=== PATIENT | female | born 1995 | race Caucasian/White ===

== ENCOUNTER 2021-06-23 14:44 | Outpatient (CLI) | payer OTHER, SELFPAY ==
--- NOTE | 2021-06-26 16:37 | WPDHOLTEREM ---
Holter/Event Monitor Holter/Event Monitor Date of procedure: 06/23/21 Holter/Event Procedure: 24 Hr Holter Monitor Indications: Tachycardia/Bradycardia Conclusion: 1. 24 hour holter monitor on 06/23/21. 2. Underlying rhythm is sinus rhythm. HR range 65-152 bpm; average HR 95 bpm. 3. No premature supraventricular complexes. No supraventricular tachycardia. 4. No premature ventricular complexes. No ventricular tachycardia. 5. No sinoatrial or atrioventricular blocks. No significant pauses greater than 2 seconds. 6. No symptoms available for correlation.
== END 2021-06-23 14:45 | disposition home or self-care (01) ==
DX: R00.0 Tachycardia, unspecified (principal)
CPT/HCPCS: 93225; 93226

== ENCOUNTER 2021-08-24 20:43 | Observation (INO) | payer OTHER, MEDICAID, SELFPAY ==
[2021-08-24 20:56] VITALS: BP 115/78; PULSE 106; PULSE 99; RESP 16; TEMP 36.8; O2SAT 99
[2021-08-24 21:00] VITALS: BP 119/82; PULSE 100; BMI 22.6
[2021-08-24 21:10] LABS: Appearance Urine Clear (Clear); Bilirubin Urine Negative (Negative); Blood Urine Negative (Negative); Color Urine Yellow (Yellow); Glucose Urine UA Negative (Negative); Ketones Urine Negative (Negative); Leukocyte Esterase Ur Negative LEU/UL (Negative); Nitrate Urine Negative (Negative); Protein Urine Negative (Negative); Specific Grav Ur 1.015 (1.001-1.035); Urobilinogen Urine 0.2 mg/dL (<2.0)
[2021-08-24 21:14] LABS: Add Urine Microscopic? NO; Bacteria Urine Trace /hpf; Mucus Urine Rare /lpf; RBC Urine 0-2 /hpf (0-2); Squamous Epithelial Cell Urine Few /hpf (Few); WBC Urine 0-3 /hpf
[2021-08-24 21:15] VITALS: BP 115/74; PULSE 97
--- NOTE | 2021-08-24 21:52 | OBADM ---
This patient, Oliver Go, admitted to the OB room OB Post 115 for observation. Patient/family oriented to hospital policies and general routines including ID bracelet, bed and alarms, visiting hours, pain management, procedures, bathroom and other care routines, personal items, smoking policy, room service/diet, and visiting hours. Patient/Family are encouraged to report perceived risks to care and to ask questions if they do not understand what they are told or what they should do.
--- NOTE | 2021-09-18 15:41 | P.PNOB_ITS ---
OB - Triage/Final Diagnosis Visit Information Comments/Additional reasons for admission: I have assessed the risk for this patient, Oliver Go, and determined that she would benefit from observation care. Evaluation Laboratory results: Laboratory Tests 08/24/21 21:03 Urine Color Yellow Urine Appearance Clear Urine pH 7.0 Ur Specific [place] 1.015 Urine Protein Negative Urine Glucose (UA) Negative Urine Ketones Negative Ur Blood (Man) Negative Urine Nitrate Negative Urine Bilirubin Negative Urine Urobilinogen 0.2 Leukocyte Esterase Rfl Negative Urine RBC 0-2 Urine WBC 0-3 Ur Squamous Epith Cells Few Urine Bacteria Trace Urine Mucus Rare Final Diagnosis (1) Abdominal pain: Code(s): R10.9 - Unspecified abdominal pain Status: Acute
== END 2021-08-24 21:51 | disposition home or self-care (01) ==
PROVIDERS: Admitting Provider Obstetrics & Gynecology; Visit Provider Obstetrics & Gynecology
DX: O26.90 Pregnancy related conditions, unspecified, unspecified trimester (principal); R10.9 Unspecified abdominal pain
CPT/HCPCS: 81003; G0378; G0379

== ENCOUNTER 2021-09-29 08:50 | Observation (INO) | payer OTHER, SELFPAY ==
[2021-09-29] VITALS (7 sets, daily range): BP systolic 109–125; BP diastolic 53–80; PULSE 92–101; TEMP 36.1; BMI 24.5
--- NOTE | 2021-09-29 09:37 | OBADM ---
This patient, Oliver Go, admitted to the OB room OB Post 116 for observation. Patient/family oriented to hospital policies and general routines including ID bracelet, bed and alarms, visiting hours, pain management, procedures, bathroom and other care routines, personal items, smoking policy, room service/diet, and visiting hours. Patient/Family are encouraged to report perceived risks to care and to ask questions if they do not understand what they are told or what they should do. Pt. sent over from office for EFM and FFN r/t UC's noted on monitor.
[2021-09-29 09:48] LABS: Add Urine Microscopic? YES; Appearance Urine Clear (Clear); Bilirubin Urine Negative (Negative); Blood Urine 1+ (Negative); Color Urine Yellow (Yellow); Glucose Urine UA Negative (Negative); Ketones Urine Negative (Negative); Leukocyte Esterase Ur Negative LEU/UL (Negative); Nitrate Urine Negative (Negative); Protein Urine Negative (Negative); Urobilinogen Urine 0.2 mg/dL (<2.0)
[2021-09-29 10:03] LABS: Bacteria Urine Trace /hpf; Mucus Urine Rare /lpf; Squamous Epithelial Cell Urine Few /hpf (Few)
[2021-09-29 10:07] LABS: Fetal Fibronectin Negative
--- NOTE | 2021-09-29 10:14 | PC.NURSE ---
1013--Report to Mari Whitmore CNM re: lab results and ctxns. Orders to give procardia XL 30mg and continue to monitor.
[2021-09-29] MEDS: NIFEdipine 30 MG TAB.ER.24 PO (10:24)
--- NOTE | 2021-10-29 15:34 | P.PNOB_ITS ---
OB - Triage/Final Diagnosis Visit Information Comments/Additional reasons for admission: I have assessed the risk for this patient, Oliver Go, and determined that she would benefit from observation care. Evaluation Laboratory results: Laboratory Tests 09/29/21 09/29/21 09:14 09:18 Urine Color Yellow Urine Appearance Clear Urine pH 7.0 Ur Specific [place] 1.020 Urine Protein Negative Urine Glucose (UA) Negative Urine Ketones Negative Ur Blood (Man) 1+ H Urine Nitrate Negative Urine Bilirubin Negative Urine Urobilinogen 0.2 Leukocyte Esterase Rfl Negative Urine RBC 11-20 H Urine WBC 4-6 H Ur Squamous Epith Cells Few Urine Bacteria Trace Urine Mucus Rare Fibronectin Negative Final Diagnosis (1) False labor: Code(s): O47.9 - False labor, unspecified Status: Acute
== END 2021-09-29 11:30 | disposition home or self-care (01) ==
PROVIDERS: Advanced Practice Midwife; Admitting Provider Obstetrics & Gynecology; Visit Provider Obstetrics & Gynecology
DX: O47.9 False labor, unspecified (principal); Z3A.00 Weeks of gestation of pregnancy not specified
CPT/HCPCS: 81001; 82731; A9270; G0378; G0379

== ENCOUNTER 2021-10-11 16:11 | Outpatient (CLI) | payer OTHER, MEDICAID, SELFPAY | END 2021-10-11 16:12 | disposition home or self-care (01) | PROVIDERS: PCP Family Medicine; Visit Provider Obstetrics & Gynecology | DX: O41.8X90 Other specified disorders of amniotic fluid and membranes, unspecified trimester, not applicable or unspecified (principal) | CPT/HCPCS: 59025; 84112 ==

== ENCOUNTER 2021-10-27 | Observation (INO) | payer OTHER, MEDICAID, SELFPAY ==
[2021-10-27 00:51] VITALS: BMI 25.4
--- NOTE | 2021-10-27 00:52 | OBADM ---
This patient, Oliver Go, admitted to the OB room Labor/Delivery/Recovery 106 for observation. Patient/family oriented to hospital policies and general routines including ID bracelet, bed and alarms, visiting hours, pain management, procedures, bathroom and other care routines, personal items, smoking policy, room service/diet, and visiting hours. Patient/Family are encouraged to report perceived risks to care and to ask questions if they do not understand what they are told or what they should do.
--- NOTE | 2021-10-27 00:54 | PC.NURSE ---
pt called unit at 2108 stating that she hadn't felt baby move in 3 hours. pt advised to come to hospital to be monitored. pt arrived at 0000 with c/o DFM and having back pain and thigh pain. pt states that she has cholestasis with this . no other complications with this .
--- NOTE | 2021-11-20 13:54 | PM.OBTRLD ---
OB - Triage/Final Diagnosis Visit Information Comments/Additional reasons for admission: I have assessed the risk for this patient, Oliver Go, and determined that she would benefit from observation care. Final Diagnosis (1) False labor: Code(s): O47.9 - False labor, unspecified Status: Acute
== END 2021-10-27 02:45 | disposition home or self-care (01) ==
PROVIDERS: Admitting Provider Obstetrics & Gynecology; PCP Family Medicine; Visit Provider Obstetrics & Gynecology
DX: O36.8190 Decreased fetal movements, unspecified trimester, not applicable or unspecified (principal); Z3A.00 Weeks of gestation of pregnancy not specified; O26.899 Other specified pregnancy related conditions, unspecified trimester; M54.9 Dorsalgia, unspecified; M79.659 Pain in unspecified thigh
CPT/HCPCS: G0378; G0379

== ENCOUNTER 2021-10-30 07:04 | Inpatient (IN) | payer OTHER, MEDICAID, SELFPAY ==
[2021-10-30] VITALS (163 sets, daily range): BP systolic 91–142; BP diastolic 53–103; PULSE 59–208; RESP 16; TEMP 36.4–37.9; O2SAT 96–100; BMI 25.0
--- OUTSIDE RECORDS SUMMARY | 2021-10-30 07:09 | XMS_ITS ---
:1995 Author Care Team Providers Name Role Phone CHRISTINE PARRISH Primary Care Provider [phone] Allergies Code Code System Name Reaction Severity Status Onset (28) Seizure ? Active ? 0749541 RxNorm Latex ? ? Active ? Medications Name Status Start Date Stop Date ? ? Asprin Ec Low Dose Active ? Not available BinaxNOW COVID-19 Ag Self Test kit Active ? Not available TEST DIRECTED TODAY COVID-19 test specimen collection Completed ? 06/19/2021 TEST DIRECTED TODAY ID NOW COVID-19 Test Kit Completed ? 022 TEST DIRECTED TODAY Renata Fe 06/01 (28) 1 mg-20 mcg (21)/75 mg (7) tablet Completed ? 05/10/2021 Active ? Not available ursodiol 300 mg capsule Active ? Not avai lable TAKE 1 CAPSULE BY MOUTH TWICE DAILY ursodiol 500 mg tablet Active ? Not avail able Problems Name Status Onset Date Source ? Active 05/10/2021 ? Covid-19 Active 05/15/2021 ? Nicotine Dependence Active ? ? Spinal Injury Active ? ? Procedures Date Name Performed by ? 04/12/2021 US, Obstetric, 1St Trimester [address] [place] [address] ([address]) 05/10/2021 US, Obstetric, Nuchal Translucency Juan russo [address] [place] [address] ([address]) 06[facility]/2021 [facility]
--- OUTSIDE RECORDS SUMMARY | 2021-10-30 07:10 | XMS_ITS | Encounter Summary ---
:1995 Author Care Team Providers Name Role Phone Ruth Boswell Primary Care Provider [phone] Reason for Visit None recorded. Assessment and Plan 1. condition affecting obstetrica l care of mother ? US, obstetric, biophysical profile Discussion Note: None recorded.Patient educational handouts: No information available. Plan of Care Reminders Provider Appointments Nst 10/31/2021 Nst, , EQUIP 8:00AM ? Ob Routine 11/03/2021 Jacek zelaya MD 8:30AM ? Nst 11/03/2021 Nst, , EQUIP 8:00AM ? Nst 11/07/2021 Nst, , EQUIP 8:00AM ? Nst 11/10/2021 Nst, , EQUIP 8:00AM ? Ob Routine 11/10/2021 SHAYNE GipsonM 8:30AM ? Nst 11/14/2021 Nst, , EQUIP 8:00AM ? Nst 11/17/2021 Nst, , EQUIP 8:00AM ? Ob Routine 11/17/2021 Roseline Whitmore CNM 8:30AM Lab None recorded. ? ? Referral None recorded. ? ? Procedures None recorded. ? ? Surgeries None recorded. ? ? Imaging US, Obstetric, Biophysical 10/20/2021 [place] Profile Medications Name Start Date ? ? Asprin Ec Low Dose ? BinaxNOW COVID-19 Ag Self Test kit ? TEST DIRECTED TODAY ? ursodiol 300 mg capsule ? TAKE 1
--- OUTSIDE RECORDS SUMMARY | 2021-10-30 07:10 | XMS_ITS | Encounter Summary ---
:1995 Author Care Team Providers Name Role Phone Ruth Boswell Primary Care Provider [phone] Reason for Visit None recorded. Assessment and Plan 1. condition affecting obstetrica l care of mother ? US, obstetric, biophysical profile + non-stress test Discussion Note: None recorded.Patient educational handouts: No information available. Plan of Care Reminders Provider Appointments Nst 10/31/2021 Nst, , EQUIP 8:00AM ? Ob Routine 11/03/2021 Jacek zelaya MD 8:30AM ? Nst 11/03/2021 Nst, , EQUIP 8:00AM ? Nst 11/07/2021 Nst, , EQUIP 8:00AM ? Nst 11/10/2021 Nst, , EQUIP 8:00AM ? Ob Routine 11/10/2021 Roseline Whitmore CNM 8:30AM ? Nst 11/14/2021 Nst, , EQUIP 8:00AM ? Nst 11/17/2021 Nst, , EQUIP 8:00AM ? Ob Routine 11/17/2021 SHAYNE GipsonM 8:30AM Lab None recorded. ? ? Referral None recorded. ? ? Procedures None recorded. ? ? Surgeries None recorded. ? ? Imaging US, Obstetric, Biophysical 10/06/2021 [place] Profile + Non-stress Test Medications Name Start Date ? ? Asprin Ec Low Dose ? BinaxNOW COVID-19 Ag Self Test kit ? TEST DIRECTED TODAY ? ursodiol 300 mg capsule ?
--- OUTSIDE RECORDS SUMMARY | 2021-10-30 07:10 | XMS_ITS | Encounter Summary ---
:1995 Author Care Team Providers Name Role Phone Ruth Boswell Primary Care Provider [phone] Reason for Visit OB visit OB [id number] EDC 11/19/2021 LMP 04/12/2020 Assessment and Plan Assessment Note Patient is 33___weeks . Discuss ed plan. 1. Routine care Discussion Note: None recorded.Patient educational handouts: No information available. Plan of Care Reminders Provider Appointments Nst 10/31/2021 8:00AM Nst, , EQUIP ? Ob Routine 11/03/2021 8:30AM Jacek Smith MD ? Nst 11/03/2021 8:00AM Nst, , EQUIP ? Nst 11/07/2021 8:00AM Nst, , EQUIP ? Nst 11/10/2021 8:00AM Nst, , EQUIP ? Ob Routine 11/10/2021 8:30AM Roseline nevarez CNM ? Nst 11/14/2021 8:00AM Nst, , EQUIP ? Nst 11/17/2021 8:00AM Nst, , EQUIP ? Ob Routine 11/17/2021 8:30AM Roseline nevarez CNM Lab None recorded. ? ? Referral None recorded. ? ? Procedures None recorded. ? ? Surgeries None recorded. ? ? Imaging None recorded. ? ? Medications Name Start Date ? ? Asprin Ec Low Dose ? BinaxNOW COVID-19 Ag Self Test kit ? TEST DIRECTED TODAY ? ursodiol 300 mg capsule ? TAKE 1 CAPSULE BY MOUTH TWICE DAILY ursodiol 500 mg tablet ? Take 1 tablet twice a day by oral route. Medications Administered None recorded. Vitals Height Weight BMI Blood Pressure 5 ft 1.5 in 134 lbs 24.9 kg/m2 120/78 mm[Hg] Results Lab Results None r
--- OUTSIDE RECORDS SUMMARY | 2021-10-30 07:10 | XMS_ITS | Encounter Summary ---
:1995 Author Care Team Providers Name Role Phone Ruth Boswell Primary Care Provider [phone] Reason for Visit None recorded. Assessment and Plan 1. Cholestasis of ? non-stress test Discussion Note: None recorded.Patient educational handouts: No information available. Plan of Care Reminders Provider Appointments Nst 10/31/2021 8:00AM Nst, , EQUIP ? Ob Routine 11/03/2021 8:30AM Jacek Smith MD ? Nst 11/03/2021 8:00AM Nst, , EQUIP ? Nst 11/07/2021 8:00AM Nst, , EQUIP ? Nst 11/10/2021 8:00AM Nst, , EQUIP ? Ob Routine 11/10/2021 8:30AM SHAYNE BedollaM ? Nst 11/14/2021 8:00AM Nst, , EQUIP ? Nst 11/17/2021 8:00AM Nst, , EQUIP ? Ob Routine 11/17/2021 8:30AM Roseline nevarez CNM Lab None recorded. ? ? Referral None recorded. ? ? Procedures None recorded. ? ? Surgeries None recorded. ? ? Imaging Non-stress Test 10/27/2021 [place] Medications Name Start Date ? ? Asprin Ec Low Dose ? BinaxNOW COVID-19 Ag Self Test kit ? TEST DIRECTED TODAY ? ursodiol 300 mg capsule ? TAKE 1 CAPSULE BY MOUTH TWICE DAILY ursodiol 500 mg tablet ? Take 1 tablet twice a day by oral route. Medications Administered None recorded. Vitals None recorded. Results Lab Results None recorded. Allergies Code Code System Name Reaction Severity Onset (28) Seizure ? ? [id number] RxNorm Latex ? ? ? Problems Name Status O
--- OUTSIDE RECORDS SUMMARY | 2021-10-30 07:10 | XMS_ITS | Encounter Summary ---
:1995 Author Care Team Providers Name Role Phone Ruth Boswell Primary Care Provider [phone] Reason for Visit None recorded. Assessment and [...] recorded. ? ? Imaging US, Obstetric, Biophysical 10/10/2021 [place] Profile Medications Name Start Date ? ? Asprin Ec Low Dose ? BinaxNOW COVID-19 Ag Self Test kit ? TEST DIRECTED TODAY ? ursodiol 300 mg capsule ? TAKE 1
--- OUTSIDE RECORDS SUMMARY | 2021-10-30 07:10 | XMS_ITS | Encounter Summary ---
:1995 Author Care Team Providers Name Role Phone Ruth Boswell Primary Care Provider [phone] Reason for Visit None recorded. Assessment and [...] None recorded. ? ? Imaging Non-stress Test 10/20/2021 [place] Medications Name Start Date ? ? Asprin [...] Reaction Severity Onset (28) Seizure ? ? [id number] RxNorm Latex ? ? ? Problems Name Status O
--- OUTSIDE RECORDS SUMMARY | 2021-10-30 07:10 | XMS_ITS | Encounter Summary ---
:1995 Author Care Team Providers Name Role Phone Ruth Boswell Primary Care Provider [phone] Reason for Visit OB visit OB [id number] EDC 11/19/2021 LMP 04/12/2020 Assessment and Plan Assessment Note Patient is _35__weeks . Discuss ed plan. 1. Routine care [...] BMI Blood Pressure 5 ft 1.5 in 139 lbs 25.8 kg/m2 125/85 mm[Hg] Results Lab Results None r
--- OUTSIDE RECORDS SUMMARY | 2021-10-30 07:10 | XMS_ITS | Encounter Summary ---
:1995 Author Care Team Providers Name Role Phone Ruth Boswell Primary Care Provider [phone] Reason for Visit OB visit OB [id number] EDC 11/19/2021 LMP 04/12/2020 Assessment and Plan Assessment Note Patient is _34__weeks . Discuss ed plan. 1. Routine care [...] ft 1.5 in 134 lbs 24.9 kg/m2 109/76 mm[Hg] Results Lab Results None r
--- OUTSIDE RECORDS SUMMARY | 2021-10-30 07:10 | XMS_ITS | Encounter Summary ---
:1995 Author Care Team Providers Name Role Phone Ruth Boswell Primary Care Provider [phone] Reason for Visit None recorded. Assessment and Plan 1. Pre-existing maternal disease compli cating ? US, obstetric, follow-up ? US, obstetric, biophysical profile + non-stress [...] None recorded. ? ? Imaging US, Obstetric, Follow-up 10/24/2021 [place] ? US, Obstetric, Biophysical 10/24/2021 [place] Profile + Non-stress Test Medications Name Start Date ? ? Asprin Ec Low Dose ? BinaxNOW COVID-19 Ag Self Test kit ?
--- OUTSIDE RECORDS SUMMARY | 2021-10-30 07:10 | XMS_ITS | Encounter Summary ---
:1995 Author Care Team Providers Name Role Phone Ruth Boswell Primary Care Provider [phone] Reason for Visit NST [id number] EDC 11/19/2021 Assessment and Plan 1. Cholestasis of ? [...] None recorded. ? ? Imaging Non-stress Test 10/10/2021 [place] Medications Name Start Date ? ? Asprin [...] ft 1.5 in 134 lbs 24.9 kg/m2 122/85 mm[Hg] Results Lab Results None recorded. Allergies Code Code System Name Reaction Severity Onset (2
--- OUTSIDE RECORDS SUMMARY | 2021-10-30 07:10 | XMS_ITS | Encounter Summary ---
:1995 Author Care Team Providers Name Role Phone Ruth Boswell Primary Care Provider [phone] Reason for Visit OB visit Assessment and Plan Assessment Note Patient is ___weeks . Discussed plan. 1. Routine care Discussion Note: None recorded.Patient educational handouts: No information available. Plan of Care Reminders Provider Appointments Nst 10/31/2021 8:00AM Nst, , EQUIP ? Ob Routine 11/03/2021 8:30AM Jacke Smith MD ? Nst 11/03/2021 8:00AM Nst, [...] ft 1.5 in 139 lbs 25.8 kg/m2 117/81 mm[Hg] Results Lab Results None recorded. Allergies Code Code System Name Re
--- OUTSIDE RECORDS SUMMARY | 2021-10-30 07:10 | XMS_ITS | Encounter Summary ---
:1995 Author Care Team Providers Name Role Phone Ruth Boswell Primary Care Provider [phone] Reason for Visit None recorded. Assessment and [...] None recorded. ? ? Imaging Non-stress Test 10/13/2021 [place] Medications Name Start Date ? ? Asprin [...] Reaction Severity Onset (28) Seizure ? ? [id number] RxNorm Latex ? ? ? Problems Name Status O
--- OUTSIDE RECORDS SUMMARY | 2021-10-30 07:10 | XMS_ITS | Encounter Summary ---
:1995 Author Care Team Providers Name Role Phone Ruth Boswell Primary Care Provider [phone] Reason for Visit NST [id number] EDC 11/19/2021 Assessment and Plan 1. Cholestasis [...] None recorded. ? ? Imaging Non-stress Test 10/24/2021 [place] Medications Name Start Date ? ? Asprin Ec Low Dose ? BinaxNOW COVID-19 Ag Self Test kit ? TEST DIRECTED TODAY ? ursodiol 300 mg capsule ? TAKE 1 CAPSULE BY MOUTH TWICE DAILY ursodiol 500 mg tablet ? Take 1 tablet twice a day by oral route. Medications Administered None recorded. Vitals Height Weight BMI Blood Pressure 5 ft 1.5 in 138 lbs 25.7 kg/m2 117/82 mm[Hg] Results Lab Results None recorded. Allergies Code Code System Name Reaction Severity Onset (2
--- OUTSIDE RECORDS SUMMARY | 2021-10-30 07:10 | XMS_ITS | Encounter Summary ---
:1995 Author Care Team Providers Name Role Phone Ruth Boswell Primary Care Provider [phone] Reason for Visit None recorded. Assessment and [...] None recorded. ? ? Imaging Non-stress Test 10/17/2021 [place] Medications Name Start Date ? ? Asprin Ec Low Dose ? BinaxNOW COVID-19 Ag Self Test kit ? TEST DIRECTED TODAY ? ursodiol 300 mg capsule ? TAKE 1 CAPSULE BY MOUTH TWICE DAILY ursodiol 500 mg tablet ? Take 1 tablet twice a day by oral route. Medications Administered None recorded. Vitals Height Weight BMI Blood Pressure 5 ft 1.5 in 136 lbs 25.3 kg/m2 114/81 mm[Hg] Results Lab Results None recorded. Allergies Code Code System Name Reaction Severity Onset (28) Seizure
--- OUTSIDE RECORDS SUMMARY | 2021-10-30 07:11 | XMS_ITS | Encounter Summary ---
:1995 Author Care Team Providers Name Role Phone Ruth Boswell Primary Care Provider [phone] Reason for Visit OB visit OB [id number] EDC 11/19/2021 LMP 04/12/2020 Assessment and Plan Assessment Note Patient is _28__weeks . Discuss ed plan. 1. Routine care [...] BMI Blood Pressure 5 ft 1.5 in 129 lbs 24 kg/m2 108/67 mm[Hg] Results Lab Results None
--- OUTSIDE RECORDS SUMMARY | 2021-10-30 07:11 | XMS_ITS | Encounter Summary ---
:1995 Author Care Team Providers Name Role Phone Ruth Boswell Primary Care Provider [phone] Reason for Visit None recorded. Assessment and [...] None recorded. ? ? Imaging Non-stress Test 10/06/2021 [place] Medications Name Start Date ? ? Asprin [...] Reaction Severity Onset (28) Seizure ? ? [id number] RxNorm Latex ? ? ? Problems Name Status O
--- OUTSIDE RECORDS SUMMARY | 2021-10-30 07:11 | XMS_ITS | Encounter Summary ---
:1995 Author Care Team Providers Name Role Phone Ruth Boswell Primary Care Provider [phone] Reason for Visit None recorded. Assessment and Plan 1. Pre-existing maternal disease compli cating ? US, obstetric, follow-up Discussion Note: None recorded.Patient educational handouts: No [...] recorded. ? ? Imaging US, Obstetric, Follow-up 08/02/2021 [place] Medications Name Start Date ? ? Asprin Ec Low Dose ? BinaxNOW COVID-19 Ag Self Test kit ? TEST DIRECTED TODAY ? ursodiol 300 mg capsule ?
--- OUTSIDE RECORDS SUMMARY | 2021-10-30 07:11 | XMS_ITS | Encounter Summary ---
:1995 Author Care Team Providers Name Role Phone Ruth Boswell Primary Care Provider [phone] Reason for Visit None recorded. Assessment and Plan 1. Routine care Discussion Note: None recorded.Patient [...] Reaction Severity Onset (28) Seizure ? ? [id number] RxNorm Latex ? ? ? Problems Name Status Onset Date Source ?
--- OUTSIDE RECORDS SUMMARY | 2021-10-30 07:11 | XMS_ITS | Encounter Summary ---
:1995 Author Care Team Providers Name Role Phone Ruth Boswell Primary Care Provider [phone] Reason for Visit OB visit Assessment and Plan 1. Routine care Discussion [...] BMI Blood Pressure 5 ft 1.5 in 123 lbs 22.9 kg/m2 111/70 mm[Hg] Results Lab Results None recorded. Allergies Code Code System Name Reaction Severity Onset (28) Seizure ? ? [id number] RxNorm Latex ? ?
--- OUTSIDE RECORDS SUMMARY | 2021-10-30 07:11 | XMS_ITS | Encounter Summary ---
:1995 Author Care Team Providers Name Role Phone Ruth Boswell Primary Care Provider [phone] Reason for Visit None recorded. Assessment and Plan 1. Cholestasis of ? US, obstetric, follow-up Discussion Note: None [...] recorded. ? ? Imaging US, Obstetric, Follow-up 09/26/2021 [place] Medications Name Start Date ? ? Asprin Ec Low Dose ? BinaxNOW COVID-19 Ag Self Test kit ? TEST DIRECTED TODAY ? ursodiol 300 mg capsule ? TAKE 1 CAPSULE BY MOUTH
--- OUTSIDE RECORDS SUMMARY | 2021-10-30 07:11 | XMS_ITS | Encounter Summary ---
:1995 Author Care Team Providers Name Role Phone Ruth Boswell Primary Care Provider [phone] Reason for Visit None recorded. Assessment and [...] recorded. ? ? Imaging US, Obstetric, Biophysical 10/03/2021 [place] Profile + Non-stress Test Medications Name Start Date ? ? Asprin Ec Low Dose ? BinaxNOW COVID-19 Ag Self Test kit ? TEST DIRECTED TODAY ? ursodiol 300 mg capsule ?
--- OUTSIDE RECORDS SUMMARY | 2021-10-30 07:11 | XMS_ITS | Encounter Summary ---
:1995 Author Care Team Providers Name Role Phone Ruth Boswell Primary Care Provider [phone] Reason for Visit Contraceptive management Assessment and Plan 1. Cholestasis of ? [...] None recorded. ? ? Imaging Non-stress Test 09/26/2021 [place] Medications Name Start Date ? ? Asprin Ec Low Dose ? BinaxNOW COVID-19 Ag Self Test kit ? TEST DIRECTED TODAY ? ursodiol 300 mg capsule ? TAKE 1 CAPSULE BY MOUTH TWICE DAILY ursodiol 500 mg tablet ? Take 1 tablet twice a day by oral route. Medications Administered None recorded. Vitals Weight Blood Pressure 132 lbs 118/75 mm[Hg] Results Lab Results None recorded. Allergies Code Code System Name Reaction Severity Onset (28) Seizure ?
--- OUTSIDE RECORDS SUMMARY | 2021-10-30 07:11 | XMS_ITS | Encounter Summary ---
:1995 Author Care Team Providers Name Role Phone Ruth Boswell Primary Care Provider [phone] Reason for Visit NST [id number] EDC 11/19/2021 Assessment and Plan 1. Cholestasis [...] None recorded. ? ? Imaging Non-stress Test 10/03/2021 [place] Medications Name Start Date ? ? Asprin [...] ft 1.5 in 134 lbs 24.9 kg/m2 119/84 mm[Hg] Results Lab Results None recorded. Allergies Code Code System Name Reaction Severity Onset (2
--- OUTSIDE RECORDS SUMMARY | 2021-10-30 07:11 | XMS_ITS | Encounter Summary ---
:1995 Author Care Team Providers Name Role Phone Ruth Boswell Primary Care Provider [phone] Reason for Visit OB visit OB [id number] EDC 11/19/2021 LMP 04/12/2020 Assessment and Plan Assessment Note Patient is _30__weeks . Discuss ed plan. 1. Routine care [...] BMI Blood Pressure 5 ft 1.5 in 131 lbs 24.4 kg/m2 116/78 mm[Hg] Results Lab Results None re
--- OUTSIDE RECORDS SUMMARY | 2021-10-30 07:11 | XMS_ITS | Encounter Summary ---
:1995 Author Care Team Providers Name Role Phone Ruth Boswell Primary Care Provider [phone] Reason for Visit None recorded. Assessment and [...] recorded. ? ? Imaging US, Obstetric, Follow-up 08/30/2021 [place] Medications Name Start Date ? ? Asprin Ec Low Dose ? BinaxNOW COVID-19 Ag Self Test kit ? TEST DIRECTED TODAY ? ursodiol 300 mg capsule ?
--- OUTSIDE RECORDS SUMMARY | 2021-10-30 07:11 | XMS_ITS | Encounter Summary ---
:1995 Author Care Team Providers Name Role Phone Ruth Boswell Primary Care Provider [phone] Reason for Visit None recorded. Assessment and [...] None recorded. ? ? Imaging Non-stress Test 09/29/2021 [place] Medications Name Start Date ? ? Asprin [...] Reaction Severity Onset (28) Seizure ? ? [id number] RxNorm Latex ? ? ? Problems Name Status O
--- NOTE | 2021-10-30 07:43 | LDADM ---
This patient, Oliver Go, was admitted to Labor/Delivery/Recovery 105 on 10/30/21 at 07:04. Plans for labor, pain management and were discussed with patient. Patient/family oriented to hospital policies and general routines including ID bracelet, bed and alarms, visiting hours, pain management, procedures, bathroom and other care routines, personal items, smoking policy, room service/diet and guest tray routines, infant security routines, and visiting hours. Patient/Family are encouraged to report perceived risks to care and to ask questions if they do not understand what they are told or what they should do. See OBIX for further documentation.
[2021-10-30 08:01] LABS: Basophils Percent Auto 0.2 % (0.2-1.2); Eosinophils Absolute Auto 0.1 K/mm3 (0-0.3); Eosinophils Percent Auto 0.6 % (0-4.4); Hematocrit 32.7 % (37.0-47.0); Hemoglobin 10.7 g/dL (12.0-15.0); Immature Granulocyte Absolute 0.09 K/mm3 (0.00-0.031); Lymphocytes Absolute Auto 2.09 K/mm3 (0.9-3.2); Lymphocytes Percent Auto 23.2 % (18.3-44.2); Mean Corpuscular HGB Conc 32.7 g/dl (32-36); Mean Corpuscular Hemoglobin 27.9 pg (26-34); Mean Corpuscular Volume 85.2 fl (80-100); Mean Platelet Volume 11.1 fl (7.4-10.4); Monocytes Absolute Auto 0.5 K/mm3 (0.1-0.6); Neutrophils Absolute Auto 6.2 K/mm3 (1.3-6.7); Platelet Count Result 237 k/mm3 (150-375); Red Blood Count 3.84 M/mm3 (4.2-5.4); Red Cell Distribution Width 11.8 % (11.5-14.5)
[2021-10-30] MEDS: OXYTOCIN 30 UNITS/NS 500 ML 30 UNITS/500 ML BAG IV CONT (08:02)
[2021-10-30] MEDS: LACTATED RINGERS 1,000 ML 125 ML IV CONT ×2 (08:03→11:10)
--- NOTE | 2021-10-30 08:24 | WPDHPUPDATE1 ---
History and Physical Update Update Date/Time: 10/30/21 08:24 25-year-old 1 at 37 weeks and 1 day gestation with cholestasis presents for induction of labor. Artificial rupture membranes was performed. She is 2 cm, 80%,-3. Clear fluid. Pitocin is started, expectant management. History and Physical has been reviewed, including an updated exam of the patient. There are NO changes in the patient's condition. Risks, benefits, and alternatives have been discussed and questions answered. Patient agrees to proceed with procedure.
[2021-10-30] MEDS: fentaNYL CITRATE INJ (*CRX) 100 MCG/2 ML VIAL 50 MCG IV PUSH (10:33)
--- NOTE | 2021-10-30 10:59 | WPDANESEPP ---
Anes - Eval Pre Procedure Procedure: Labor Epidural Date/Time: 10/30/21 10:59 Surgeon: Luis Preop Diagnosis: Labor Pain Pre Op Diagnosis: iol Patient Data Age: 25 Gender: F Height: 1.57 m Weight: 62 kg Last Vital Signs Temp 36.4 C L 10/30/21 09:50 Pulse 95 10/30/21 09:46 BP 102/73 10/30/21 09:46 O2 Del Method Room Air 10/30/21 07:42 Allergies Allergy/AdvReac Type Severity Reaction Status Date / Time levofloxacin [From Levaquin] Allergy Mild Rash Verified 10/30/21 07:49 latex Allergy Blister Verified 10/30/21 07:49 Home Medications Medication Instructions Recorded Confirmed Type ursodiol 300 mg capsule 300 mg PO BID 08/24/21 10/30/21 History vit no.133-ferrous 1 tablet PO DAILY 09/29/21 10/30/21 History fumarate 28 mg-folic acid 800 mcg tablet () Laboratory Tests 10/30/21 10/30/21 10/30/21 07:51 07:51 07:51 WBC 9.0 K/mm3 K/mm3 (4.5-10.0) RBC 3.84 M/mm3 L M/mm3 (4.2-5.4) Hgb 10.7 g/dL L g/dL (12.0-15.0) Hct 32.7 % L % (37.0-47.0) MCV 85.2 fl fl (80-100) MCH 27.9 pg pg (26-34) MCHC 32.7 g/dl g/dl (32-36) RDW 11.8 % % (11.5-14.5) Plt Count 237 k/mm3 k/mm3 (150-375) MPV 11.1 fl H fl (7.4-10.4) Immature Gran % (Auto) 1.0 % H % (0-0.5) Neut % (Auto) 69.0 % % (45.5-73.1) Lymph % (Auto) 23.2 % % (18.3-44.2) [place] % (Auto) 6.0 % % (2.6-8.5) Eos % (Auto) 0.6 % % (0-4.4) Baso % (Auto) 0.2 % % (0.2-1.2) Lymph # (Auto) 2.09 K/mm3 K/mm3 (0.9-3.2) [place] # (Auto) 0.5 K/mm3 K/mm3 (0.1-0.6) Eos # (Auto) 0.1 K/mm3 K/mm3 (0-0.3) Baso # (Auto) 0.0 K/mm3 K/mm3 (0.0-0.1) Abs Immat Gran (auto) 0.09 K/mm3 H K/mm3 (0.00-0.031) Absolute Neuts (auto) 6.2 K/mm3 K/mm3 (1.3-6.7) Absolute Nucleated RBC 0.0 K/mm3 K/mm3 (0.0-0.012) Nucleated RBC % 0.0 % % (0.0-0.2) RPR Pending Blood Type A Positive Antibody Screen Negative Patient hx anesthesia problems: none Family hx anesthesia problems: none Results Review: All pre-operative results and documents have been reviewed as part of the pre-operative evaluation. [facility] Family History Family History Grandparent Hypertension Cerebrovascular accident Bipolar 1 disorder Depression Father Hypertension Bipolar 1 disorder Depression Sibling Hypothyroidism Depression Social History Social History Smoking status: Current every day smoker Tobacco type: e-cigarettes/vaping Substance use: never Spiritual care concerns: No Exam Day of Procedure 10/30/21 10:59 Patient weight: normal Heart: regular rate and rhythm Lungs: normal air movement Airway: Mallampati scale class II Neurological: alert and oriented
[2021-10-30 14:41] LABS: Rapid Plasma Reagin Non-Reactive (NonReactive)
[2021-10-30] MEDS: ONDANSETRON INJ 4 MG/2 ML VIAL IV PUSH (16:55)
[2021-10-30] MEDS: AMPICILLIN 2 GM/NS 100 ML 2 GM/100 ML BAG IVPB (17:49)
--- NOTE | 2021-10-30 20:08 | PM.OBPRVD ---
OB - Delivery Note Procedure Events: Other (choleystasis ) Induction method: AROM and Per Pitocin Protocol Delivery monitor: External FHT and External Uterine Route of delivery: Laceration Description: Perineal - 2nd Degree Specimen: No Quantitative Blood Loss (ml): 75 Baby Date of : 10/30/21 Time of : 19:48 Weeks of gestation at delivery: 37 Weight (pounds): 7 Weight (ounces): 11 score one minute: 8 score five minutes: 9
[2021-10-30] MEDS: OXYTOCIN 30 UNITS/NS 500 ML 30 UNITS/500 ML BAG 125 UNITS IV CONT (20:21)
[2021-10-30] MEDS: IBUPROFEN 600 MG TABLET PO (21:03)
[2021-10-30] MEDS: BENZOCAINE 20% AER SPR (*SP) 56 GM CAN 1 SPRAY TOPICAL (21:03)
[2021-10-30] MEDS: WITCH HAZEL 40 PADS 1 PAD TOPICAL (21:03)
--- NOTE | 2021-10-30 22:50 | ADMGEN ---
This patient, Oliver Go, was admitted to OB 2nd Floor Room 284-00. Patient/family oriented to hospital policies and general routines including ID bracelet, bed and alarms, visiting hours, pain management, procedures, bathroom and other care routines, personal items, smoking policy, room service/diet, and visiting hours. Information on how to activate the Rapid Response Team has been discussed. Patient/Family are encouraged to report perceived risks to care and to ask questions if they do not understand what they are told or what they should do.
[2021-10-31] MEDS: ACETAMINOPHEN 325 MG TABLET 650 MG PO ×3 (03:21→17:34)
[2021-10-31] MEDS: IBUPROFEN 600 MG TABLET PO ×3 (03:23→17:35)
[2021-10-31 03:54] VITALS: BP 111/77; PULSE 88; RESP 18; TEMP 36.6
[2021-10-31 05:24] LABS: Hematocrit 29.9 % (37.0-47.0); Hemoglobin 9.8 g/dL (12.0-15.0)
[2021-10-31 07:25] VITALS: BP 112/62; PULSE 70; RESP 18; TEMP 36.5; O2SAT 99
--- NOTE | 2021-10-31 07:36 | PM.OBPNVD ---
OB - PN: Subj Subjective Date/time seen: 10/31/21 07:36 Patient comments: no complaints, pain well controlled, incisional pain, tolerating diet and flatus present OB - PN: Obj Data Labs CBC & Chem 7: 10/31/21 03:19 Labs: Laboratory Results - last 24 hr 10/30/21 10/30/21 10/30/21 07:51 07:51 07:51 WBC 9.0 RBC 3.84 L Hgb 10.7 L Hct 32.7 L MCV 85.2 MCH 27.9 MCHC 32.7 RDW 11.8 Plt Count 237 MPV 11.1 H Immature Gran % (Auto) 1.0 H Neut % (Auto) 69.0 Lymph % (Auto) 23.2 [place] % (Auto) 6.0 Eos % (Auto) 0.6 Baso % (Auto) 0.2 Lymph # (Auto) 2.09 [place] # (Auto) 0.5 Eos # (Auto) 0.1 Baso # (Auto) 0.0 Abs Immat Gran (auto) 0.09 H Absolute Neuts (auto) 6.2 Absolute Nucleated RBC 0.0 Nucleated RBC % 0.0 RPR Non-reactive Blood Type A Positive Antibody Screen Negative 10/31/21 03:19 WBC RBC Hgb 9.8 L Hct 29.9 L MCV MCH MCHC RDW Plt Count MPV Immature Gran % (Auto) Neut % (Auto) Lymph % (Auto) [place] % (Auto) Eos % (Auto) Baso % (Auto) Lymph # (Auto) [place] # (Auto) Eos # (Auto) Baso # (Auto) Abs Immat Gran (auto) Absolute Neuts (auto) Absolute Nucleated RBC Nucleated RBC % RPR Blood Type Antibody Screen OB - PN A/P Plan day: 1 Plan: routine care Comments: No problems, routine care Time Spent With Patient Time: Total time spent is greater than 50% in coordination of care (as documented) at patient's floor/unit and/or counseling patient: Exam Const: General: comfortable, no acute distress and alert Resp: Effort & Inspection: normal respiratory effort Auscultation: no crackles, no rales and no rhonchi Cardio: Rate: regular rate Heart sounds: no click, no murmurs and no rubs GI: Inspection: non-distended GI Palp: No Tenderness to palpation present (GI) Auscultation: normal bowel sounds Other: Incision - CDI Extrem: General: normal to inspection, no pedal edema and no calf tenderness
[2021-10-31] MEDS: MULTIVIT/MIN/PREN/FOL AC/IRON TABLET 1 TAB PO (08:07)
[2021-10-31] MEDS: DOCUSATE SODIUM 100 MG CAPSULE PO ×2 (08:07→17:34)
[2021-10-31] MEDS: POLYSACCHARIDE IRON COMPLEX 150 MG CAPSULE PO ×2 (08:07→17:34)
--- NOTE | 2021-10-31 10:24 | WPDANLDPN2 ---
Anes-Prog Note L&D Date/Time: 10/31/21 10:24 Comfortable throughout: labor and delivery Neuraxial method: epidural Epidural/Spinal procedure site: clean & non-tender Neuro status: Neuro function grossly intact. Cardiovascular status: normal Respiratory status: normal Airway patency: baseline Mental status: baseline Post-Op hydration status: normal Vital Signs: Last Vital Signs Temp 36.5 C 10/31/21 07:25 Pulse 70 10/31/21 07:25 Resp 18 10/31/21 07:25 BP 112/62 10/31/21 07:25 Pulse Ox 99 10/31/21 07:25 O2 Del Method Room Air 10/31/21 07:25 Pain score (VAS): 05/22 I/O: Intake & Output 10/30/21 10/31/21 10/31/21 23:59 07:59 15:59 Intake Total 600 500 350 Output Total 196 Balance 404 500 350 Post-procedural complaints: none Patient feedback: Patient satisfied with anesthetic care.
[2021-10-31 11:15] VITALS: BP 116/77; PULSE 96; RESP 18; TEMP 36.6; O2SAT 99
--- NOTE | 2021-10-31 13:05 | PC.NURSE ---
[id number] Introductions were made, then consulted with patient to assess needs related to . Mother led the conversation with her experience feeding her so far. Mother works well with her . Encouraged understanding of the benefits of skin to skin (unwrapping infant and placing vertically on her chest), responsive feeding and how to watch for early feeding signs, frequency of feeding on demand about every 8-12 times in 24 hours (every 2-3 hours), milk production, duration of feeding, signs of adequate intake/output and how to record on the feeding sheet. Reviewed positioning and ear, shoulder, hip alignment, supporting the breast, asymmetrical latch (off-center), and leading with the chin with a big open side gape. Mother and maternal mother shares knowledge and experience with history of . Mother became when her 1st was 8 months old. Encouraged assessing latch related to the difference between a versus a 8 month old infant. Mother latched to the right breast and denies discomfort. demonstrates piston sucking and mouth is less than 90 degrees. Reviewed optimal latching and encouraging to latch effectively to breast with big, open, wide gape with deep latch and good positioning to protect the nipple using cross cradle positioning and mother holding her breast to facilitate infants optimal latch. latched optimally to the right breast in cross cradle position. Education given to mother of how to visualize suck/swallow ratios and drinking at the breast. Infant was able to maintain latch without discomfort to mother. Nipple care reviewed with optimal latch and good positioning. Reviewed good handwashing when or touching the breast/nipples to prevent infection. Resources used to facilitate learning were used with the visual handouts/mom and baby guide. Mother voiced understanding of responsive feedings, stimulating with skin to skin, talking to to encourage if it has been 2 -3 hours since the start of the last , to call if infant does not latch or there is discomfort with . Reported to the primary RN.
--- NOTE | 2021-10-31 13:33 | PC.NURSE ---
[id number] Introductions were made, then consulted with patient to assess needs related to . Mother led the conversation with her experience feeding her so far. Mother works well with her . Mother is attempting to latch to the breast. Infant has a shirt on and a warm, soft zipper footed outfit on and is sleeping and not . Demonstrated to mother how to undress to the diaper, check the diaper and change if necessary (wet diaper changed) to touch and talk to stimulate to wake to breastfeed while mother eats some breakfast. Once mother has had something to eat she was encouraged understanding of the benefits of skin to skin (unwrapping and placing vertically on her chest), responsive feeding and how to watch for early feeding signs, frequency of feeding on demand about every 8-12 times in 24 hours (every 2-3 hours), milk production, duration of feeding, signs of adequate intake/output and how to record on the feeding sheet. Reviewed positioning and ear, shoulder, hip alignment, supporting the breast, asymmetrical latch (off-center), and leading with the chin with a big open side gape. Mother latched infant using cradle positioning and RN suggested cross cradle or football to achieve an optimal latch. Infant latched to the right breast in cross cradle position and maintained latch and effectively breastfed for 5 min. Mother made the decision to practice football positioning for a deeper more optimal latch. Infant latched to the right breast optimally using the football position. Education given to mother of how to visualize suck/swallow ratios, drinking at the breast with visualizing non-nutritive sucking vs nutritive sucking. Infant was able to maintain latch without discomfort to mother. Nipple care reviewed with optimal latch and good positioning. Reviewed good handwashing when or touching the breast/nipples to prevent infection. Resources used to facilitate learning were used with the visual handouts/mom and baby guide. Mother voiced understanding of responsive feedings, stimulating with skin to skin, talking to to encourage if it has been 2 -3 hours since the start of the last , to call if infant does not latch or there is discomfort with . Reported to the primary RN.
[2021-10-31 16:30] VITALS: BP 111/71; PULSE 84; RESP 16; TEMP 36.9; O2SAT 98
[2021-10-31 19:39] VITALS: BP 113/77; PULSE 95; RESP 12; TEMP 36.5; O2SAT 98
[2021-11-01] MEDS: ACETAMINOPHEN 325 MG TABLET 650 MG PO ×2 (00:16→07:26)
[2021-11-01] MEDS: IBUPROFEN 600 MG TABLET PO ×2 (00:17→07:27)
[2021-11-01] MEDS: POLYSACCHARIDE IRON COMPLEX 150 MG CAPSULE PO (07:26)
[2021-11-01] MEDS: MULTIVIT/MIN/PREN/FOL AC/IRON TABLET 1 TAB PO (07:26)
[2021-11-01] MEDS: DOCUSATE SODIUM 100 MG CAPSULE PO (07:26)
[2021-11-01 07:55] VITALS: BP 124/80; PULSE 93; RESP 16; TEMP 36.6; O2SAT 100
--- NOTE | 2021-11-01 13:01 | PM.OBPNVD ---
OB - PN: Subj Subjective Date/time seen: 11/01/21 13:01 Patient comments: no complaints, pain well controlled and tolerating diet OB - PN: Obj Data Labs CBC & Chem 7: 10/31/21 03:19 OB - PN A/P Plan day: 2 Plan: routine care and discharge home Time Spent With Patient Time: Total time spent is greater than 50% in coordination of care (as documented) at patient's floor/unit and/or counseling patient: Exam Const: General: comfortable and no acute distress Resp: Effort & Inspection: normal respiratory effort Auscultation: no rales, no rhonchi and no wheezes Cardio: Rate: regular rate Heart sounds: no click, no murmurs and no rubs GI: GI Palp: Yes Soft to palpation and No Tenderness to palpation present (GI) Auscultation: normal bowel sounds Extrem: General: normal to inspection, no pedal edema and no calf tenderness
--- NOTE | 2021-11-01 13:01 | PM.OBDSVD ---
DS: Admitting Diagnosis Discharge Date 11/01/21 Admitting Diagnosis term , choleystasis OB - DS: Summary OB Procedures : None OB Procedures Intrapartum: Spontaneous Vag Delivery OB Procedures: : None Time Spent with Patient Time attestation: Total time spent providing and/or coordinating discharge services: Discharge Plan Discharge Discharging Clinician: Renetta Smith Patient Disposition: Home, Self-Care Activity: pelvic rest Diet: regular Patient Instructions: Antibiotic Form, How to Stop Smoking (GEN) Stand Alone Forms: General Discharge Information Follow-up/Referrals: Renetta Smith MD [Physician] - Discharge Medications: Continued 28-800 mg-mcg Tablet 1 tablet PO DAILY Discontinued ursodiol 300 mg capsule 300 mg PO BID Rx Instructions: Take on 300 mg capsule per day. Date of admission: 10/30/21 07:04 Primary Care Provider: Kiesha,Terrance Palma Admitting Provider: Renetta Smith Attending physician on admission: Renetta Smith Condition: Stable
--- NOTE | 2021-11-01 14:04 | PC.NURSE ---
Patient to view the discharge video Mother & Baby Care, The First Two Weeks online. Patient was given the opportunity and encouraged to ask questions. Patient verbalized understanding of information shared and has been given the mother/baby guide for home reference.
--- NOTE | 2021-11-01 14:30 | PC.NURSE ---
[id number] Mother led the conversation with her experience and plan to feed her so far and her ability to continue with the plan of attempting to breastfeed/pump/supplement to feed . Mother is feeding appropriately for growth of infant and understands stimulating to eat if needed. Infant has had appropriate feedings in the last 24 hours meets the outcomes for weight, output and jaundice at this time. Mother states she is confident to continue attempting to breastfeed, pumping and supplementing her at home, or when to call for assistance and denies any additional assistance or education at this time. Reinforced understanding of feeding her , milk production, transition of milk, signs of adequate intake, prevention/relief of engorgement, responsive after visualizing feeding cues, the different methods of stimulating infant to breastfeed 2-3 hours after the start of the last feeding, community resources, medication information reviewed per [facility] and when to call a provider using the resource of the mom and baby guide/[facility] website. Mother voiced understanding of the education shared. Reported to the primary RN.
[2021-11-02 09:10] VITALS: BP 117/80; PULSE 85; RESP 20; TEMP 36.8; O2SAT 99
== END 2021-11-01 16:20 | disposition home or self-care (01) | DRG 805 ==
LOC: ANHLDR 17:01 → ANHOB2 23:56
PROVIDERS: Admitting Provider Obstetrics & Gynecology; PCP Family Medicine; Visit Provider Obstetrics & Gynecology
DX: O26.62 Liver and biliary tract disorders in childbirth (principal); K83.1 Obstruction of bile duct; Z37.0 Single live birth; Z3A.37 37 weeks gestation of pregnancy; O70.1 Second degree perineal laceration during delivery
CPT/HCPCS: 36415; 85014; 85018; 85025; 86592; 86850; 86900; 86901; A9270; G0378; G0379; J0131; J0290; J2405; J2590; J2795; J3010; J7120

== ENCOUNTER 2022-06-21 10:45 | Outpatient (CLI) | payer OTHER, MEDICAID, SELFPAY ==
--- NOTE | ~2022-06-21 | US_ITS ---
EXAMINATION: US retroperitoneal comp DATE: 06/21/2022 13:23 INDICATION: Right ureteral stone TECHNIQUE: Multiple grayscale and Doppler ultrasound images of the kidneys were obtained. COMPARISON: None. FINDINGS: The right kidney measures 9.9 x 5.4 x 3.3 cm. The left kidney measures 9.8 x 5.3 x 4.8 cm. The kidneys demonstrate normal parenchymal echogenicity. There is questionable calcification at the r ight ureterovesicular junction. There is no hydronephrosis. The bladder is normal. IMPRESSION: 1. Possible stone at the right ureterovesicular junction. No hydronephrosis or hydroureter. Reviewed, dictated and finalized at [facility]
== END 2022-06-21 10:46 | disposition home or self-care (01) ==
PROVIDERS: PCP Family Medicine; Visit Provider Urology
DX: N20.1 Calculus of ureter (principal)
CPT/HCPCS: 76770

== ENCOUNTER 2023-10-24 23:22 | Emergency (ER) | payer OTHER, MEDICAID, SELFPAY ==
--- NOTE | ~2023-10-24 | US_ITS ---
Pelvic ultrasound. Clinical History: Torsion Technique: Realtime transabdominal and transvaginal scanning of the pelvis was performed. Color flow Doppler and Doppler spectral analysis were performed. Findings: The uterus is anteverted. The endometrial stripe has a thickness of 5 mm. No focal mass is identified. The right ovary measures 4.3 x 2.3 x 2.9 cm. Simple right ovarian cyst measures 3.2 cm in maximum navid meter. The left ovary measures 3.3 x 1.4 x 2.7 cm. No significant left ovarian or adnexal mass is seen. Vascular flow present in both ovaries on Doppler spectral analysis. There is moderate free fluid in the cul de sac. Impression: No evidence of torsion. 3.2 cm simple right ovarian cyst. Moderate free fluid. This is nonspecific. Consider prior cyst rupture. Reviewed, dictated and finalized at [facility]. Impression: No evidence of torsion. 3.2 cm simple right ovarian cyst. Moderate free fluid. This is nonspecific. Consider prior cyst rupture.
[2023-10-24 23:26] VITALS: BP 116/78; PULSE 97; RESP 16; TEMP 36.7; O2SAT 97
[2023-10-24 23:41] VITALS: O2SAT 100
[2023-10-24 23:43] LABS: Basophils Percent Auto 0.4 % (0.2-1.2); Eosinophils Absolute Auto 0.1 K/mm3 (0-0.3); Eosinophils Percent Auto 0.7 % (0-4.4); Hematocrit 40.8 % (37.0-47.0); Hemoglobin 14.1 g/dL (12.0-15.0); Immature Granulocyte Absolute 0.02 K/mm3 (0.00-0.031); Immature Granulocyte Percent A 0.3 % (0-0.5); Lymphocytes Absolute Auto 2.52 K/mm3 (0.9-3.2); Lymphocytes Percent Auto 34.8 % (18.3-44.2); Mean Corpuscular HGB Conc 34.6 g/dl (32-36); Mean Corpuscular Hemoglobin 30.1 pg (26-34); Mean Corpuscular Volume 87.2 fl (80-100); Mean Platelet Volume 9.6 fl (7.4-10.4); Monocytes Absolute Auto 0.5 K/mm3 (0.1-0.6); Monocytes Percent Auto 7.2 % (2.6-8.5); Neutrophils Absolute Auto 4.1 K/mm3 (1.3-6.7); Neutrophils Percent Auto 56.6 % (45.5-73.1); Platelet Count Result 290 k/mm3 (150-375); Red Blood Count 4.68 M/mm3 (4.2-5.4); Red Cell Distribution Width 11.5 % (11.5-14.5); White Blood Count 7.3 K/mm3 (4.5-10.0)
[2023-10-24 23:45] VITALS: O2SAT 97
[2023-10-24 23:46] VITALS: BP 99/78; O2SAT 99
[2023-10-24 23:50] LABS: Appearance Urine Clear (Clear); Bacteria Urine None Seen /hpf; Bilirubin Urine Negative (Negative); Blood Urine Trace (Negative); Color Urine Yellow (Yellow); Glucose Urine UA Negative (Negative); Ketones Urine Negative (Negative); Leukocyte Esterase Ur Negative LEU/UL (Negative); Nitrate Urine Negative (Negative); Non Pathogenic Casts 0-2; Protein Urine Negative (Negative); RBC Urine 0-2 /hpf (0-2); Specific Grav Ur 1.022 (1.001-1.035); Squamous Epithelial Cell Urine Few /hpf (Few); WBC Urine 0-5 /hpf (0-3)
[2023-10-24 23:54] LABS: Add Urine Microscopic? YES
[2023-10-24 23:58] LABS: Alanine Aminotransferase 11 U/L (6-35); Albumin Level 4.6 g/dL (3.5-5.1); Alkaline Phosphatase 55 U/L (38-126); Anion Gap 9 mmol/L (4-12); Aspartate Amino Transferase 19 U/L (14-36); Bilirubin,Total 0.8 mg/dL (0.2-1.3); Blood Urea Nitrogen 13 mg/dL (7-17); Calcium 9.4 mg/dL (8.4-10.2); Carbon Dioxide 24 mmol/L (22-30); Chloride 106 mmol/L (98-107); Estimated CRCL calculation 67 ml/min; Estimated Glomerular Filt Rate > 60; Glucose 86 mg/dL (65-110); Lipase 178 U/L (23-300); Potassium 3.7 mmol/L (3.4-5.0); Sodium 139 mmol/L (137-145)
[2023-10-25] VITALS (20 sets, daily range): BP systolic 97–110; BP diastolic 61–80; PULSE 72; RESP 16; O2SAT 98–100
--- NOTE | 2023-10-25 01:15 | ED.ABDPAIN ---
HPI - Abdominal Pain General Chief Complaint: Abdominal Pain Stated Complaint: abd pain Time Seen by Provider: 10/25/23 01:11 History of Present Illness HPI narrative: Patient is a 27-year-old female who presents the emergency department this evening complaining of bilateral lower flank pain which radiate to her abdomen worse on the right lower quadrant. Patient admits that she does have a history of ovarian cyst and kidney stones. States the pain has been intermittent on and off for the past few days and is concerned that it is more so due to a right ovarian cyst rather than a kidney stone. Patient states that with her kidney stones usually has mid back pain and she does not have eye right now. Denies any nausea or vomiting at home, any fevers or chills, and denies any dysuria or hematuria. No additional symptoms or concerns at this time. Related Data Home Medications Medication Instructions Recorded Confirmed vit no.133-ferrous 1 tablet PO DAILY 09/29/21 10/30/21 fumarate 28 mg-folic acid 800 mcg tablet () Allergies Allergy/AdvReac Type Severity Reaction Status Date / Time levofloxacin [From Levaquin] Allergy Mild Rash Verified 10/30/21 07:49 latex Allergy Blister Verified 10/30/21 07:49 Review of Systems Review of Systems: All systems are reviewed and are negative unless stated otherwise in the HPI. [facility] Past Medical History Medical History Cholestasis during Family History Family History Grandparent Hypertension Cerebrovascular accident Bipolar 1 disorder Depression Father Hypertension Bipolar 1 disorder Depression Sibling Hypothyroidism Depression Social History Social History Smoking status: Current every day smoker Tobacco type: e-cigarettes/vaping Substance use: never Spiritual care concerns: No Exam Narrative: General: Alert, awake, afebrile, in no acute distress. HEENT: PERRL, no rhinorrhea, no post nasal drip, oropharynx clear. Cardiovascular: Regular rate and rhythm, no murmurs, rubs or gallops, no peripheral edema. Respiratory: Clear to auscultation bilaterally, no tachypnea, no wheezing, no rhonchi, no rubs, no respiratory distress. Abdomen: Soft, not reproducible tenderness palpation, nondistended, no rebound, no guarding, no peritoneal signs. Musculoskeletal: No joint swelling or deformity, normal muscle tone. Skin: No rashes or petechia, no signs of infection. Neurological: Alert and oriented to person, place, and time. Follows all commands. No focal deficits, speech is clear and fluent. Course Vital Signs Vital signs: Vital Signs Temperature 98.1 F 10/24/23 23:26 Pulse Rate 97 10/24/23 23:26 Respiratory Rate 16 10/24/23 23:26 Blood Pressure 116/78 10/24/23 23:26 Pulse Oximetry 97 10/24/23 23:26 Oxygen Delivery Room Air 10/24/23 23:26 Temperature 98.1 F 10/24/23 23:26 Pulse Rate 97 10/24/23 23:26 Respiratory Rate 16 10/24/23 23:26 Blood Pressure 99/61 L 10/25/23 02:31 Pulse Oximetry 99 10/25/23 02:31 Oxygen Delivery Room Air 10/24/23 23:26 MDM - Abdominal Pain MDM Narrative Medical decision making narrative: The patient was evaluated by myself in the emergency department. History is obtained from patient who is an independent historian and physical exam was performed. External medical records were reviewed at this time. IV was established and pertinent tests were ordered. Patient was administered 15 mg of IV Toradol for pain. Laboratory results obtained revealing no acute process. Urinalysis unremarkable. Imaging studies obtained included pelvic ultrasound with transvaginal which was independently interpreted by me revealing good flow to both ovaries and possibly polycystic ovarian disease. This i
[2023-10-25] MEDS: KETOROLAC 15 MG/ML VIAL (*BKC) IV PUSH (01:50)
== END 2023-10-25 04:40 | disposition home or self-care (01) ==
PROVIDERS: Emergency Provider Emergency Medicine; PCP Family Medicine
DX: M54.50 Low back pain, unspecified (principal); R10.9 Unspecified abdominal pain; F17.290 Nicotine dependence, other tobacco product, uncomplicated
CPT/HCPCS: 36415; 76830; 80053; 81001; 81025; 83690; 85025; 96374; 99284; J1885

== ENCOUNTER 2024-05-05 22:12 | Emergency (ER) | payer MEDICAID, SELFPAY ==
[2024-05-05 22:14] VITALS: BP 109/70; PULSE 145; RESP 16; TEMP 36.9; O2SAT 100
--- NOTE | 2024-05-06 01:18 | ED.NAVMDI ---
HPI - Nausea/Vomiting/Diarrhea General Chief complaint: Nausea/Vomiting/Diarrhea Stated complaint: n/v, 12 weeks preg Time Seen by Provider: 05/06/24 01:11 History of Present Illness HPI Narrative: 28 y/o female who is currently 12 weeks presents to the emergency department for nausea and vomiting for 2 days. Patient states she has had frequent vomiting and decreased p.o. intake. She contacted her OB GYNs office and was advised to come to the ED. she is reporting dark urine is concerned she is dehydrated. Also reporting some diffuse lower abdominal cramping. Denies abdominal pain, vaginal bleeding, leakage of fluids, fever, dysuria. States this has been uncomplicated. Patient states she had an ultrasound 4 weeks ago which showed an IUP. OBGYN is Dr. Smith. Related Data Home Medications ?Medication ?Instructions ?Recorded ?Confirmed ?Last Taken ?Type vit no.133-ferrous 1 tablet PO DAILY 09/29/21 10/30/21 10/28/21 History fumarate 28 mg-folic acid 800 mcg tablet () Allergies Allergy/AdvReac Type Severity Reaction Status Date / Time levofloxacin (From Levaquin) Allergy Mild Rash Verified 05/05/24 22:13 latex Allergy Blister Verified 05/05/24 22:13 Review of Systems Review of Systems: All systems reviewed & are unremarkable except as noted in HPI and below PMFSH Past Medical History Medical History Cholestasis during Family History Family History Grandparent Hypertension Cerebrovascular accident Bipolar 1 disorder Depression Father Hypertension Bipolar 1 disorder Depression Sibling Hypothyroidism Depression Social History Social History Smoking status: Current every day smoker Tobacco type: e-cigarettes/vaping Substance use: never Spiritual care concerns: No Exam Narrative: GENERAL: Well-appearing, well-nourished, and in no acute distress. HEAD: Normocephalic, atraumatic. EYES: EOMI. ENT: Nares clear, no rhinorrhea or epistaxis. Mucous membranes moist. NECK: Supple. CHEST: Clear to auscultation. No respiratory distress. HEART: Regular rate and rhythm. No murmur heard. Normal peripheral pulses. ABDOMEN: Soft, nontender, nondistended, normal active bowel sounds. No rebound, guarding or rigidity. No CVA tenderness EXTREMITIES: Normal range of motion. No edema. SKIN: Warm, dry, no rash. NEURO: No focal deficits. Alert and oriented x3 Course Vital Signs Vital signs: Vital Signs Temperature 98.5 F 05/05/24 22:14 Pulse Rate 145 H 05/05/24 22:14 Respiratory Rate 16 05/05/24 22:14 Blood Pressure 109/70 05/05/24 22:14 Pulse Oximetry 100 05/05/24 22:14 Oxygen Delivery Room Air 05/05/24 22:14 Temperature 98.5 F 05/05/24 22:14 Pulse Rate 98 05/06/24 02:55 Respiratory Rate 15 05/06/24 02:55 Blood Pressure 118/74 05/06/24 02:55 Pulse Oximetry 100 05/06/24 02:55 Oxygen Delivery Room Air 05/05/24 22:14 MDM - Nausea/Vomiting/Diarrhea MDM Narrative Medical decision making narrative: 28-year-old female who is currently 12 weeks presents to emergency department for nausea and vomiting for 2 days. Triage vitals with tachycardia 145. Patient is afebrile nontoxic on exam. Abdomen is soft and nontender. No abdominal pain or cramping, no vaginal bleeding. She has a reported confirmed IUP 4 weeks ago at [facility] [place]. heart tones are 151 here. Lab work shows mild leukocytosis of 10.9. Chemistries with a bicarb of 19, normal anion gap. Likely secondary to dehydration. Urinalysis with 1+ bacteria, 11-20 wbc's and 3-5 RBCs. The urine sample is contaminated. Urine culture is ordered and pending. Given and bacteria, will start Keflex for UTI/bacteriuria . On re-evaluation patient feels significantly improved after L of fluids, Tylenol and Reglan. Tachycardia resolved. She is tolerating p.o. intake and would like to be discharged home. Discussed strict ED return precautions and follow-up with her OBGYN. She is agreeable with the plan verbalized understanding. Discharged in stable condition. Lab Data 05/06/24 01:39 05/06/24 01:39 Labs: Lab Results 05/06/24 Range/Units 01:39 WBC 10.9 H (4.5-10.0) K/mm3 RBC 4.44 (4.2-5.4) M/mm3 Hgb 13.6 (12.0-15.0) g/dL Hct 37.9 (37.0-47.0) % MCV 85.4 (80-100) fl MCH 30.6 (26-34) pg MCHC 35.9 (32-36) g/dl RDW 11.8 (11.5-14.5) % Plt Count 255 (150-375) k/mm3 MPV 9.4 (7.4-10.4) fl Immature Gran % (Auto) 0.7 H (0-0.5) % Neut % (Auto) 90.7 H (45.5-73.1) % Lymph % (Auto) 3.6 L (18.3-44.2) % [place] % (Auto) 4.8 (2.6-8.5) % Eos % (Auto) 0.0 (0-4.4) % Baso % (Auto) 0.2 (0.2-1.2) % Lymph # (Auto) 0.39 L (0.9-3.2) K/mm3 [place] # (Auto) 0.5 (0.1-0.6) K/mm3 Eos # (Auto) 0.0 (0-0.3) K/mm3 Baso # (Auto) 0.0 (0.0-0.1) K/mm3 Abs Immat Gran (auto) 0.08 H (0.00-0.031) K/mm3 Absolute Neuts (auto) 9.8 H (1.3-6.7) K/mm3 Absolute Nucleated RBC 0.000 (0.0-0.012) K/mm3 Nucleated RBC % 0.0 (0.0-0.2) % Sodium 131 L (137-145) mmol/L Potassium 3.8 (3.4-5.0) mmol/L Chloride 103 (98-107) mmol/L Carbon Dioxide 19 L (22-30) mmol/L Anion Gap 9 (4-12) mmol/L BUN 11 (7-17) mg/dL Creatinine 0.50 L (0.7-1.0) mg/dL Estim Creat Clear Calc 108 ml/min Estimated GFR > 60 (59 - ) Glucose 97 (65-110) mg/dL Calcium 9.1 (8.4-10.2) mg/dL Total Bilirubin 1.1 (0.2-1.3) mg/dL AST 20 (14-36) U/L ALT 11 (6-35) U/L Alkaline Phosphatase 60 (38-126) U/L Total Protein 7.0 (6.3-8.2) g/dL Albumin 4.0 (3.5-5.1) g/dL Lipase 38 (23-300) U/L Urine Color Dark yellow (Yellow) Urine Appearance Cloudy H (Clear) Urine pH 5.5 (5.0-9.0) Ur Specific [place] 1.033 (1.001-1.035) Urine Protein Trace (Negative) mg/dL Urine Glucose (UA) Negative (Negative) mg/dL Urine Ketones 3+ H (Negative) mg/dL Ur Blood (Man) Negative (Negative) Urine Nitrate Negative (Negative) Urine Bilirubin Negative (Negative) Urine Urobilinogen 1.0 (<2.0) mg/dL Add Ur Microanalysis Reviewed Leukocyte Esterase Rfl Negative (Negative) KWAKU/UL Urine RBC 3-5 H (0-2) /hpf Urine WBC 11-20 H (0-3) /hpf Ur Squamous Epith Cells Many H (Few) /hpf Urine Bacteria 1+ H /hpf Urine Casts 3-5 Discharge Plan Discharge Clinical Impression: Abnormal urinalysis, Nausea and vomiting during Patient Disposition: Home, Self-Care Condition: Stable Instructions: Antibiotic Form, Acute Nausea and Vomiting (ED) Additional Instructions: You were evaluated in the emergency department for nausea and vomiting of . Your urine test shows some bacteria in her urine to be restarted on any antibiotic. You also had some signs of dehydration on her lab work were given fluids. I prescribed you doxylamine to take for nausea. If you continue to have nausea he can take metoclopramide as needed. Please follow-up closely with her OBGYN. Take the nausea medications as needed. Drink plenty of fluids including water, Gatorade and Pedialyte. Return to the emergency department if you develop abdominal pain, vaginal bleeding, fever, you are unable to tolerate food or fluids, or other concerning symptoms. Patient Language: Citizen Of [place] Prescriptions: New cephalexin 500 mg capsule 500 mg PO Q6H Qty: 28 0RF doxylamine-pyridoxine (vit B6) 10-10 mg tablet,delayed release (DR/EC) 1 tablet PO BID Qty: 30 0RF metoclopramide HCl 10 mg tablet 10 mg PO Q6H PRN (Reason: nausea and vomiting) Qty: 14 0RF No Action 28-800 mg-mcg Tablet 1 tablet PO DAILY Follow-up/Referrals: Kiesha,Terrance Palma MD [Primary Care Provider] - Linus Irvin MD [Physician] -
[2024-05-06] MEDS: ACETAMINOPHEN 325 MG TABLET 650 MG PO (01:40)
[2024-05-06] MEDS: METOCLOPRAMIDE HCL INJ 10 MG/2 ML VIAL IV PUSH (01:40)
[2024-05-06] MEDS: LACTATED RINGERS 1,000 ML 999 ML IV CONT (01:47)
[2024-05-06 01:52] LABS: Basophils Percent Auto 0.2 % (0.2-1.2); Hematocrit 37.9 % (37.0-47.0); Hemoglobin 13.6 g/dL (12.0-15.0); Immature Granulocyte Absolute 0.08 K/mm3 (0.00-0.031); Immature Granulocyte Percent A 0.7 % (0-0.5); Lymphocytes Absolute Auto 0.39 K/mm3 (0.9-3.2); Lymphocytes Percent Auto 3.6 % (18.3-44.2); Mean Corpuscular HGB Conc 35.9 g/dl (32-36); Mean Corpuscular Hemoglobin 30.6 pg (26-34); Mean Corpuscular Volume 85.4 fl (80-100); Mean Platelet Volume 9.4 fl (7.4-10.4); Monocytes Absolute Auto 0.5 K/mm3 (0.1-0.6); Monocytes Percent Auto 4.8 % (2.6-8.5); Neutrophils Absolute Auto 9.8 K/mm3 (1.3-6.7); Neutrophils Percent Auto 90.7 % (45.5-73.1); Platelet Count Result 255 k/mm3 (150-375); Red Blood Count 4.44 M/mm3 (4.2-5.4); Red Cell Distribution Width 11.8 % (11.5-14.5); White Blood Count 10.9 K/mm3 (4.5-10.0)
[2024-05-06 02:01] LABS: Alanine Aminotransferase 11 U/L (6-35); Alkaline Phosphatase 60 U/L (38-126); Anion Gap 9 mmol/L (4-12); Aspartate Amino Transferase 20 U/L (14-36); Bilirubin,Total 1.1 mg/dL (0.2-1.3); Blood Urea Nitrogen 11 mg/dL (7-17); Calcium 9.1 mg/dL (8.4-10.2); Carbon Dioxide 19 mmol/L (22-30); Chloride 103 mmol/L (98-107); Estimated CRCL calculation 108 ml/min; Estimated Glomerular Filt Rate > 60; Glucose 97 mg/dL (65-110); Lipase 38 U/L (23-300); Potassium 3.8 mmol/L (3.4-5.0); Sodium 131 mmol/L (137-145)
[2024-05-06 02:04] LABS: Add Urine Microscopic? YES; Appearance Urine Cloudy (Clear); Bacteria Urine 1+ /hpf; Bilirubin Urine Negative (Negative); Blood Urine Negative (Negative); Color Urine Dark Yellow (Yellow); Glucose Urine UA Negative (Negative); Ketones Urine 3+ mg/dL (Negative); Leukocyte Esterase Ur Negative LEU/UL (Negative); Need Manual Microscopic Reviewed; Nitrate Urine Negative (Negative); Protein Urine Trace mg/dL (Negative); Specific Grav Ur 1.033 (1.001-1.035); Squamous Epithelial Cell Urine Many /hpf (Few); pH Urine 5.5 (5.0-9.0)
[2024-05-06 02:55] VITALS: BP 118/74; PULSE 98; RESP 15; O2SAT 100
[2024-05-06] MEDS: CEPHALEXIN 500 MG CAPSULE PO (03:38)
[2024-05-06 03:53] VITALS: BP 122/84; PULSE 96; RESP 15; O2SAT 100
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
--- OUTSIDE RECORDS SUMMARY | 2024-05-13 02:52 | XMS_ITS | Clinical Summary ---
Author Organization [email or web address] Address [address] [place] [address] Care Team Providers Care Color Tester Name Role Phone Unavailable Primary Care Provider Unavailabl e Source Comments [email or web address],non-owned Affiliates and Associated Physician Practices is amultiple site organization consisting of ambulatory clinics and hospital sitesin [place] and [place]. This disclosure is being madepursuant to the Care Everywhere program and may not contain all information available regarding this patient. Last updated 18.[email or web address] Allergies No known active allergies Active Problems Problem Noted Date Diagnosed Date cardiac anomaly compli cating , antepartum, single gestation 07/12/2021 Social History Tobacco Use Types Packs/Day Years Used Date Smoking Tobacco: Never Assessed Sex and Gender Information Value Date Recorded Sex Assigned at Not on file Gender Identity Not on file Sexual Orientation Not on file Plan of Treatment Health Maintenance Due Date Last Done Comments PAP SMEAR 1997 HIV SCREENING 2012 HPV VACCINE (1 - 3-dose series) 2012 HEPATITIS C SCREENING 11/20/2015 DTAP/TDAP/TD VACCINES (1 - Tdap) 2016 HEPATITIS B VACCINE (1 of 3 - 19+ 3-dose series) 2016 DEPRESSION SCREENING 05/13/2023 COVID-19 VACCINE (1 - 2023-2 5 season) 2024 INFLUENZA VACCINE (#1) 2024 ZOSTER VACCINE (1 of 2) 11/25/2047 HIB VACCINE Aged Out No longer eligi ble based on patient's age to complete this topic MENINGOCOCCAL VACCINE Aged Out No lul jean eligible based on patient's age to complete this topic PNEUMOCOCCAL VACCINE Aged Out No long er eligible based on patient's age to complete this topic
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
--- OUTSIDE RECORDS SUMMARY | 2024-05-13 02:52 | XMS_ITS | Referral Summary ---
Author Organization [facility] Address [address] [place] [address] Care Team Providers Care Vacuum Drier Operator Name Role Phone Unavailable Primary Care Provider Unavailabl e Source Comments [facility],non-owned Affiliates and Associated Physician Practices is amultiple site organization consisting of ambulatory clinics and hospital sitesin [place], [place], [place] and [place]. This disclosure is being madepursuant to the Care Everywhere program and may not contain all information available regarding this patient. Last updated 18.[facility] [employer] Allergies No known active allergies Active Problems Problem Noted Date Diagnosed Date cardiac anomaly compli cating , antepartum, single gestation 07/12/2021 Social History Tobacco Use Types Packs/Day Years Used Date Smoking Tobacco: Never Assessed Sex and Gender Information Value Date Recorded Sex Assigned at Not on file Gender Identity Not on file Sexual Orientation Not on file Plan of Treatment Not on file
--- OUTSIDE RECORDS SUMMARY | 2024-05-13 02:52 | XMS_ITS | Patient Health Summary ---
Author Organization [facility] Address [address] [place] [address] Care Team Providers Care Washer Machine Name Role Phone Unavailable Primary Care Provider Unavailabl e Note from [facility],non-owned Affiliates and Associated Physician Practices is amultiple site organization consisting of ambulatory clinics and hospital sitesin [place] and [place]. This disclosure is being madepursuant to the Care Everywhere program and may not contain all information available regarding this patient. Last updated 18.[facility] [email or web address] Allergies No known active allergies Active Problems Problem Noted Date Diagnosed Date cardiac anomaly compli cating , antepartum, single gestation 07/12/2021 Social History Tobacco Use Types Packs/Day Years Used Date Smoking Tobacco: Never Assessed Sex and Gender Information Value Date Recorded Sex Assigned at Not on file Gender Identity Not on file Sexual Orientation Not on file Procedures * SONOGRAM - COMPLETE(Performed 07/12/2021) Performed for Encounter for ultrasound (HCC), Encounter for suspected anomaly, ruled out Results * SONOGRAM - COMPLETE (07/12/2021 2:21 PM AUTO REPAIR SHOP MANAGER) Anatomical Region Laterality Modality Other 07/12/2021 2:21 PM AUTO REPAIR SHOP MANAGER Narrative 07/12/2021 3:35 PM AUTO REPAIR SHOP MANAGER ? [facility] ?PHONE: ??FAX: Pat. Name: ?STORMY LAZCANO Pat. No: ?[id number] Study Date: ?? 07/12/2021 ??2:21pm , Age: ? 1995, 25 Pregnancies: ?? 1 Height: ? 63 in Weight: ? 105 lb LMP: ?Unknown GA by US: ? 22w0d ?? CADEN: 11/15/2021 GA Selected: ??21w3d (From Known E) CADEN: ?11/19/2021 Referring MD: Jacek Smith MD Derrick Operator: ??Natividad Hendrickson [facility] CPT4: ? 64114 BMI: ?18.6 Hist/Ind: ? Suspected VSD on Outside Scan ?LR NIPT MEASUREMENTS & AGE ? GROWTH EVALUATION Measurement ??GA ? Range ? Srce %for GA Ratios ----- ---- ------- BPD ??5.6 cm 23w1d (11z6h-66p7f) Hadl BPD 95% FL/BPD 0.62 HC ??19.8 cm 22w0d (58i2f-15p9u) Hadl HC ??65% FL/AC ??0.21 AC ??16.7 cm 21w5d (89t1s-81w0e) Hadl AC ??54% HC/AC ??1.18 (1.05 - 1.24) FL ?? 3.5 cm 21w0d (71z0g-57e2c) Hadl FL ??26% CI ? 0.83 (0.70 - 0.86) HL ?? 3.5 cm 22w1d (10z9n-18j2c) Vishnu HL ??62% Cere 2.5 cm 22w3d (31t3u-92u7q) Hill Cere76% GA for sonogram 22w0d (81k1h-20t2c) ?? Weight Estimate: based on (BPD,HC,AC,FL) Avg ?Weight: 432 gm (369-495gm) Hadloc ? : 0lbs, 15oz ? Normal: 433 gm (325-541gm) Hadloc ? Wt% ? 51% for 21w3d Heart Rate: 152 bpm Amniotic Fluid Index: 03.7cm (Deepest Pocket) EVAL, PLACENTA Presentation: cephalic Umbilical Cord: 3 Vessels Placenta: anterior Heart Rate: 152 bpm Amniotic Fluid Volume: normal Anatomy!Normal!Abnormal!Suboptimal!Prev. Seen!Comments Cranium ?! ?? x ??! ?! ?! ?! Mdl (CSP/Thal! ?? x ??! ?! ?! ?! Ventricles ?? ! ?? x ??! ?! ?! ?! Choroid Plexu! ?? x ??! ?! ?! ?! Cerebellum ?? ! ?? x ??! ?! ?! ?! Cerebellar Ve! ?? x ??! ?! ?! ?! Cisterna M. ??! ?? x ??! ?! ?! ?! Nuchal Fold ??! ?? x ??! ?! ?! ?! Orbits ? ! ?? x ??! ?! ?! ?! Profile ?! ?? x ??! ?! ?! ?! Nasal Bone ?? ! ?? x ??! ?! ?! ?! Lip ?! ?? x ??! ?! ?! ?! Maxilla ?! ?? x ??! ?! ?! ?! Mandible ? ! ?? x ??! ?! ?! ?! Neck ? ! ?? x ??! ?! ?! ?! Spine ?! ?? x ??! ?! ?! ?! Lungs ?! ?? x ??! ?! ?! ?! 4 Chamber Hea! ?? x ??! ?! ?! ?! LVOT ? ! ?? x ??! ?! ?! ?! RVOT ? ! ?? x ??! ?! ?! ?! 3 Vessel View! ?? x ??! ?! ?! ?! 3 Vessel Trac! ?? x ??! ?! ?! ?! Cross-over ?? ! ?? x ??! ?! ?! ?! Ductal Arch ??! ?? x ??! ?! ?! ?! Aortic Arch ??! ?? x ??! ?! ?! ?! Caval View ?? ! ?? x ??! ?! ?! ?! Situs ?! ?? x ??! ?! ?! ?! Diaphragm ?! ?? x ??! ?! ?! ?! Stomach ?! ?? x ??! ?! ?! ?! Liver ?! ?? x ??! ?! ?! ?! Bowel ?! ?? x ??! ?! ?! ?! Kidneys ?! ?? x ??! ?! ?! ?! Bladder ?! ?? x ??! ?! ?! ?! 3 Vessel Cord! ?? x ??! ?! ?! ?! Cord In! ?? x ??! ?! ?! ?! Upper Extremi! ?? x ??! ?! ?! ?! Hands ?! ?? x ??! ?! ?! ?! Lower Extremi! ?? x ??! ?! ?! ?! Feet ? ! ?? x ??! ?! ?! ?! External Karolina! ?? x ??! ?! ?! ?!Male Placental Cor! ?? x ??! ?! ?! ?! CLINICAL SUMMARY A single fetus is seen in cephalic presentation. ??The measurements today are consistent with appropriate size for the CADEN provided. ??The CADEN is based on a prior ultrasound examination (confirmed). ??The amniotic fluid volume is within normal limits. ?? anatomy was technically adequate. ??No major malformations were seen within the limitations of ultrasound. ??No evidence of congenital heart defect, after comprehensive imaging. IMPRESSION: Single, live, intrauterine at 21w3d ?? size is consistent with established CADEN ?? Amniotic fluid volume: within normal limits ?? No evidence of a VSD RECOMMEND: Ultrasound follow-up as clinically indicated for the usual indications Thank you for allowing us the opportunity to care for your patient U/S may detect many but not all defects, including some congenital heart defects Fitz Wilson MD <Electronic Signature> ??07/12/2021 03:35pm R Ezra Smith MD [facility] ORDERABLES
--- OUTSIDE RECORDS SUMMARY | 2024-05-13 02:52 | XMS_ITS | Encounter Summary ---
Author Organization [facility] Care Team Providers Care Superintendent Oil Field Drilling Name Role Phone Terrance Pop MD Primary Care Provider Encounter Details Date Type Department Care Team (Latest Contact Info) Description 05/02/2023 Travel Social History Tobacco Use Types Packs/Day Years Used Date Smoking Tobacco: Never Smokeless Tobacco: Never Alcohol Use Standard Drinks/Week Comments Not Currently 0 (1 standard drink = 0.6 oz pur e alcohol) Sexually Active Control Partners Comments Not Currently Comments Unknown Sex and Gender Information Value Date Recorded Sex Assigned at Not on file Legal Sex Female 8:50 AM BUSINESS SUPPORT Gender Identity Not on file Sexual Orientation Not on file documented as of this encounter Plan of Treatment Not on file documented as of this encounter Visit Diagnoses Not on filedocumented in this encounter Care Teams Superintendent Oil Field Drilling Relationship Specialty Start Date End Date Terrance Pop MD [address] [place] [address] PCP - General Family Medicine 03/29/21 documented as of this encounter
--- OUTSIDE RECORDS SUMMARY | 2024-05-13 02:52 | XMS_ITS | Encounter Summary ---
Author Organization [facility] Care Team Providers Care Outreach Director Name Role Phone Terrance Pop MD Primary Care Provider [phone] Encounter Details Date Type Department Care Team (Latest Contact Info) Description 03/29/2021 Travel Social History Tobacco Use Types Packs/Day Years Used Date Smoking Tobacco: Never Assessed Comments Unknown Sex and Gender Information Value Date Recorded Sex Assigned at Not on file Legal Sex Female 8:50 AM DEBURRER STRIP Gender Identity Not on file Sexual Orientation Not on file COVID-19 Exposure Response Date Recorded In the last month, have you been in contact with someone who was confirmed or suspected to have Coronavirus / COVID-19? No / Unsure 03/29/2021 8:55 AM DEBURRER STRIP documented as of this encounter Plan of Treatment Not on file documented as of this encounter Visit Diagnoses Not on filedocumented in this encounter Additional Health Concerns Infection Onset Date Last Indicated Resolved Time COVID - 19 03/29/2021 03/29/2021 04/18/2021 12:1 6 AM DEBURRER STRIP documented as of this encounter Care Teams Outreach Director Relationship Specialty Start Date End Date Terrance Pop MD [address] [place] [id number] PCP - General Family Medicine 03/29/21 documented as of this encounter
--- OUTSIDE RECORDS SUMMARY | 2024-05-13 02:52 | XMS_ITS | Clinical Summary ---
Author Organization [facility] Address [facility] [place] [address] Phone Care Team Providers Care Abrading Machine Tender Name Role Phone Terrance Pop MD Primary Care Provider [phone] Allergies Active Allergy Reactions Criticality Noted Date Comments Levofloxacin Rash Medium 05/11/2017 Medications No known medications Active Problems No known active problems Social History Tobacco Use Types Packs/Day Years Used Date Smoking Tobacco: Never Smokeless Tobacco: Never Tobacco Cessation:Counseling Given: Not Answered Alcohol Use Standard Drinks/Week Comments Not Currently 0 (1 standard drink = 0.6 oz pur e alcohol) Sexually Active Control Partners Comments Not Currently Comments Unknown Sex and Gender Information Value Date Recorded Sex Assigned at Not on file Legal Sex Female 8:50 AM TUBING TESTER Gender Identity Not on file Sexual Orientation Not on file Last Filed Vital Signs Vital Sign Reading Time Taken Comments Blood Pressure 106/70 05/02/2023 12:53 PM TUBING TESTER Pulse 97 05/02/2023 12:53 PM TUBING TESTER Temperature 37 ??C (98.6 ??F) 05/02/2023 12:53 PM TUBING TESTER Respiratory Rate 15 05/02/2023 12:53 PM TUBING TESTER Oxygen Saturation 99% 05/02/2023 12:53 PM TUBING TESTER Inhaled Oxygen Concentration - - Weight - - Height - - Body Mass Index - - Plan of Treatment Health Maintenance Due Date Last Done Comments Hepatitis C Virus (HCV) Screening 1995 Human Papillomavirus (HPV) Immunization (2 - 2-dose series) 06/20/2012 12/19/2011 Pap Smear 2018 Influenza Immunization (#1) 2024 SARS-COV-2 Immunization ( season) 2024 Respiratory Syncytial Virus (RSV) Immunization (Adult) (1 - 1-dose 75+ series) 2072 Hepatitis B Immunization Completed 999, [birth year] Meningococcal Immunization (ACWY) Completed 01/26/2015, 12/17/2008 DTaP/Tdap/Td Immunization Discontinued 2017, 12/19/2011, 12/10/2002, Additional history exists TdaP Immunization Completed 10/20/2017, 12/19/2011 Pneumococcal Immunization Combined Aged Out No longer eligible based on patient's age to complete this topic Rotavirus Immunization Aged Out No lo nger eligible based on patient's age to complete this topic Insurance [employer] [place] Care Teams Abrading Machine Tender Relationship Specialty Start Date End Date Terrance Pop MD [facility] [place] [address] PCP - General Family Medicine 03/29/21
--- OUTSIDE RECORDS SUMMARY | 2024-05-13 02:52 | XMS_ITS | Encounter Summary ---
Author Organization [facility] Address [address] [place] [address] Phone Care Team Providers Care Metal Products Viewer Name Role Phone Terrance Pop MD Primary Care Provider Reason for Visit * Reason Comments Sore Throat Encounter Details Date Type Department Care Team (Latest Contact Info) Description 03/29/2021 9:00 AM HADOOP ANALYST Clinical Support [facility] [address] [place] [address] [facility] [place] Sore throat (Primary Dx) Discharge Disposition: Discharged to home or Selfcare Social History Tobacco Use Types Packs/Day Years Used Date Smoking Tobacco: Never Assessed Comments Unknown Sex and Gender Information Value Date Recorded Sex Assigned at Not on file Legal Sex Female 8:50 AM HADOOP ANALYST Gender Identity Not on file Sexual Orientation Not on file COVID-19 Exposure Response Date Recorded In the last month, have you been in contact with someone who was confirmed or suspected to have Coronavirus / COVID-19? No / Unsure 03/29/2021 8:55 AM HADOOP ANALYST documented as of this encounter Progress Notes * Teodoro Bee CMA - 03/29/2021 9:00 AM CST Oliver Go complains of Sore throat, body aches,ear pain. Started 2 days ago. Today's Review of Systems HENT: Positive for sore throat. OP ANALYST documented in this encounter Plan of Treatment Not on file documented as of this encounter Procedures Procedure Name Priority Date/Time Associated Diagnosis Comments POCT SARS ANTIGEN FOUZIA Routine 03/29/2021 9:04 AM HADOOP ANALYST Sore throat documented in this encounter Results * POCT SARS ANTIGEN FOUZIA (03/29/2021 9:04 AM HADOOP ANALYST) POC SARS ANTIGEN FOUZIA Negative Negative POC SARS ANTIGEN FOUZIA CONTROL Route Service Representative Pass Swab NASAL STRUCTURE / Unknown 03/29/2021 9:04 AM HADOOP ANALYST Bhavana Morgan WASHING MACHINE REPAIRER, GAMING CAGE WORKER POINT OF CARE KAYCE TING (MANUAL) Final Result documented in this encounter Visit Diagnoses Diagnosis Sore throat- Primary Acute pharyngitis documented in this encounter Additional Health Concerns Infection Onset Date Last Indicated Resolved Time COVID - 19 03/29/2021 03/29/2021 04/18/2021 12:1 6 AM HADOOP ANALYST documented as of this encounter Care Teams Metal Products Viewer Relationship Specialty Start Date End Date Terrance Pop MD [facility] [place] [address] PCP - General Family Medicine 03/29/21 documented as of this encounter
--- OUTSIDE RECORDS SUMMARY | 2024-05-13 02:52 | XMS_ITS | Encounter Summary ---
Author Organization [facility] Address [address] [facility] [place] [address] Phone Care Team Providers Care Signal Operator Technical Name Role Phone Terrance Pop MD Primary Care Provider [phone] Reason for Visit * Reason Comments Cough Fever Encounter Details Date Type Department Care Team (Latest Contact Info) Description 05/02/2023 1:00 PM DISTRICT RESOURCE OFFICER Urgent Care Visit [facility] [address] [place] [address] Fouzia Aguilar, GEOPHYSICS TEACHER, ROUTE SALESMAN AND DRIVER [address] [place] [address] Influenza A (Primary Dx); Fever, unspecified fever cause Discharge Disposition: Discharged to home or Selfcare [...] on file Legal Sex Female 8:50 AM DISTRICT RESOURCE OFFICER Gender Identity Not on file Sexual Orientation Not on file documented as of this encounter Last Filed Vital Signs Vital Sign Reading Time Taken Comments Blood Pressure 106/70 05/02/2023 12:53 PM DISTRICT RESOURCE OFFICER Pulse 97 05/02/2023 12:53 PM DISTRICT RESOURCE OFFICER Temperature 37 ??C (98.6 ??F) 05/02/2023 12:53 PM DISTRICT RESOURCE OFFICER Respiratory Rate 15 05/02/2023 12:53 PM DISTRICT RESOURCE OFFICER Oxygen Saturation 99% 05/02/2023 12:53 PM DISTRICT RESOURCE OFFICER Inhaled Oxygen Concentration - - Weight - - Height - - Body Mass Index - - documented in this encounter Patient Instructions * Patient Instructions* Fouzia Aguilar, ARIANA, ROUTE SALESMAN AND DRIVER - 05/02/2023 1:00 PM DISTRICT RESOURCE OFFICER Images from the original note were not included. Influenza, Adult Influenza is also called the flu. It is an infection in the lungs, nose, and throat (respiratory tract). It spreads easily from person to person (is contagious). The flu causes symptoms that are like a cold, along with high fever and body aches. What are the causes? This condition is caused by the influenza virus. You can get the virus by: Breathing in droplets that are in the air after a person infected with the flu coughed or sneezed. Touching something that has the virus on it and then touching your mouth, nose, or eyes. What increases the risk? Certain things may make you more likely to get the flu. These include: Not washing your hands often. Having close contact with many people during cold and flu season. Touching your mouth, eyes, or nose without first washing your hands. Not getting a flu shot every year. You may have a higher risk for the flu, and serious problems, such as a lung infection (pneumonia),if you: Are older than 65. Are . Have a weakened disease-fighting system (immune system) because of a disease or because you are taking certain medicines. Have a long-term (chronic) condition, such as: Heart, kidney, or lung disease. Diabetes. Asthma. Have a liver disorder. Are very overweight (morbidly obese). Have anemia. What are the signs or symptoms? Symptoms usually begin suddenly and last 4-14 days. They may include: Fever and chills. Headaches, body aches, or muscle aches. Sore throat. Cough. Runny or stuffy (congested) nose. Feeling discomfort in your chest. Not wanting to eat as much as normal. Feeling weak or tired. Feeling dizzy. Feeling sick to your stomach or throwing up. How is this treated? If the flu is found early, you can be treated with antiviral medicine. This can help to reduce how bad the illness is and how long it lasts. This may be given by mouth or through an IV tube. Taking care of yourself at home can help your symptoms get better. Your doctor may want you to: Take urad-zso-bamqbrr medicines. Drink plenty of fluids. The flu often goes away on its own. If you have very bad symptoms or other problems, you may be treated in a hospital. Follow these instructions at home: Activity Rest as needed. Get plenty of sleep. Stay home from work or school as told by your doctor. Do not leave home until you do not have a fever for 24 hours without taking medicine. Leave home only to go to your doctor. Eating and drinking Take an ORS (oral rehydration solution). This is a drink that is sold at pharmacies and stores. Drink enough fluid to keep your pee pale yellow. Drink clear fluids in small amounts as you are able. Clear fluids include: Water. Ice chips. Fruit juice mixed with water. Low-calorie sports drinks. Eat bland foods that are easy to digest. Eat small amounts as you are able. These foods include: Bananas. Applesauce. Rice. Lean meats. [place]. Crackers. Do not eat or drink: Fluids that have a lot of sugar or caffeine. Alcohol. Spicy or fatty foods. General instructions Take glky-fvb-kqxolvz and prescription medicines only as told by your doctor. Use a cool mist humidifier to add moisture to the air in your home. This can make it easier for youto breathe. When using a cool mist humidifier, clean it daily. Empty water and replace with clean water. Cover your mouth and nose when you cough or sneeze. Wash your hands with soap and water often and for at least 20 seconds. This is also important afteryou cough or sneeze. If you cannot use soap and water, use alcohol-based hand relations liaison. Keep all follow-up visits. How is this prevented? Get a flu shot every year. You may get the flu shot in late summer, fall, or winter. Ask your doctor when you should get your flu shot. Avoid contact with people who are sick during fall and winter. This is cold and flu season. Contact a doctor if: You get new symptoms. You have: Chest pain. Watery poop (diarrhea). A fever. Your cough gets worse. You start to have more mucus. You feel sick to your stomach. You throw up. Get help right away if you: Have shortness of breath. Have trouble breathing. Have skin or nails that turn a bluish color. Have very bad pain or stiffness in your neck. Get a sudden headache. Get sudden pain in your face or ear. Cannot eat or drink without throwing up. These symptoms may represent a serious problem that is an emergency. Get medical help right away. Call your local emergency services (911 in the [place] Do not wait to see if the symptoms will go away. Do not drive yourself to the hospital. Summary Influenza is also called the flu. It is an infection in the lungs, nose, and throat. It spreads easily from person to person. Take spip-aab-cjyeicy and prescription medicines only as told by your doctor. Getting a flu shot every year is the best way to not get the flu. This information is not intended to replace advice given to you by your health care provider. Make sure you discuss any questions you have with your health care provider. Document Revised: 12/16/2020 Document Reviewed: 12/16/2020 [employer] Patient Education ?? 2021 [employer] This is a viral illness and can not be treated with antibiotics as antibiotic do not work on viruses. Antihistamine and decongestant of choice. May use balg-tdb-yezcfch generic fluticasone or Nasacort as directed If you use Afrin, do not use for longer than 72 hours. This may cause rebound congestion. Saline nasal spray in nose as needed for congestion Comfort care Tylenol or ibuprofen for fever or body aches. Rest and increase fluids. Cool mist vaporizer See family doctor if symptoms worsen or fail to resolve. Increase the amount of fluids that you are drinking. Water, Pedialyte, Gatorade or Powerade are thebest choices. Rest or nap frequently to help your body recover. Care as instructed on AVS If medication was prescribed it was sent to the pharmacy. Take all medication as prescribed. Do not skip a dose and take until completed. Follow up with PCP if the symptoms do not improve Go to the ER if symptoms become severe RICT RESOURCE OFFICER documented in this encounter Progress Notes * Brandon Mejia RN - 05/02/2023 1:00 PM CST Oliver Go complains of Pt states that she has had her symptoms since saturday Cough This is a new problem. The current episode started in the past 7 days. The problem has been gradually worsening. The problem occurs every few minutes. The cough is non-productive. Associated symptomsinclude a fever. Nothing aggravates the symptoms. She has tried OTC inhaler for the symptoms. The treatment provided no relief. Fever Associated symptoms include coughing. Today's Review of Systems Constitutional: Positive for fever. Respiratory: Positive for cough. RICT RESOURCE OFFICER * Fouzia Aguilar APRN, ROUTE SALESMAN AND DRIVER - 05/02/2023 1:00 PM CST Images from the original note were not included. HPI: Oliver Go is a 27 y.o. female in the [facility] care today for cough. Symptoms started 4 days ago Severity of symptoms is gradually worsening Associated symptoms include fever Patient is currently taking over the counter inhaler for the symptoms. Smoker: No No pertinent Past, family, or social history was noted There is no problem list on file for this patient. ROS: Review of Systems Constitutional: Positive for chills, fatigue and fever (T max 104.4). HENT: Positive for sore throat. Negative for ear pain. Respiratory: Positive for cough (nonproductive), chest tightness (with coughing episodes) and shortness of breath (with exertion). Musculoskeletal: Positive for myalgias. PE: BP 106/70 Pulse 97 Temp 98.6 ??F (37 ??C) (Temporal) Resp 15 SpO2 99% Physical Exam Vitals and nursing note reviewed. Constitutional: General: She is not in acute distress. Appearance: Normal appearance. She is normal weight. She is not ill-appearing. HENT: Head: Normocephalic and atraumatic. Right Ear: Tympanic membrane normal. Left Ear: Tympanic membrane normal. Nose: Congestion present. Mouth/Throat: Mouth: Mucous membranes are moist. Pharynx: Oropharynx is clear. Cardiovascular: Rate and Rhythm: Normal rate and regular rhythm. Pulses: Normal pulses. Heart sounds: Normal heart sounds. Pulmonary: Effort: Pulmonary effort is normal. No respiratory distress. Breath sounds: Normal breath sounds. Musculoskeletal: Cervical back: Normal range of motion and neck supple. No tenderness. Lymphadenopathy: Cervical: No cervical adenopathy. Skin: General: Skin is warm and dry. Neurological: Mental Status: She is alert and oriented to person, place, and time. ASSESSMENT/PLAN: 1. Fever, unspecified fever cause - POC INFLUENZA A AND B BY MOLECULAR 2. Influenza A - infant son also has influenza - This is a viral illness and can not be treated with antibiotics as antibiotic do not work on viruses. Antihistamine and decongestant of choice. May use nldj-wng-pmykmdg generic fluticasone or Nasacort as directed If you use Afrin, do not use for longer than 72 hours. This may cause rebound congestion. Saline nasal spray in nose as needed for congestion Comfort care Tylenol or ibuprofen for fever or body aches. Rest and increase fluids. Cool mist vaporizer See family doctor if symptoms worsen or fail to resolve. AVS from today was printed, discussed with patient/family and given to patient/family Patient Instructions Influenza, Adult Influenza is also called the flu. It is an infection in the lungs, nose, and throat (respiratory tract). It spreads easily from person to person (is contagious). The flu causes symptoms that are like a cold, along with high fever and body aches. What are the causes? This condition is caused by the influenza virus. You can get the virus by: ??? Breathing in droplets that are in the air after a person infected with the flu coughed or sneezed. ??? Touching something that has the virus on it and then touching your mouth, nose, or eyes. What increases the risk? Certain things may make you more likely to get the flu. These include: ??? Not washing your hands often. ??? Having close contact with many people during cold and flu season. ??? Touching your mouth, eyes, or nose without first washing your hands. ??? Not getting a flu shot every year. You may have a higher risk for the flu, and serious problems, such as a lung infection (pneumonia),if you: ??? Are older than 65. ??? Are . ??? Have a weakened disease-fighting system (immune system) because of a disease or because you aretaking certain medicines. ??? Have a long-term (chronic) condition, such as: ? Heart, kidney, or lung disease. ? Diabetes. ? Asthma. ??? Have a liver disorder. ??? Are very overweight (morbidly obese). ??? Have anemia. What are the signs or symptoms? Symptoms usually begin suddenly and last 4-14 days. They may include: ??? Fever and chills. ??? Headaches, body aches, or muscle aches. ??? Sore throat. ??? Cough. ??? Runny or stuffy (congested) nose. ??? Feeling discomfort in your chest. ??? Not wanting to eat as much as normal. ??? Feeling weak or tired. ??? Feeling dizzy. ??? Feeling sick to your stomach or throwing up. How is this treated? If the flu is found early, you can be treated with antiviral medicine. This can help to reduce how bad the illness is and how long it lasts. This may be given by mouth or through an IV tube. Taking care of yourself at home can help your symptoms get better. Your doctor may want you to: ??? Take kwsw-ska-eniqfkj medicines. ??? Drink plenty of fluids. The flu often goes away on its own. If you have very bad symptoms or other problems, you may be treated in a hospital. Follow these instructions at home: Activity ??? Rest as needed. Get plenty of sleep. ??? Stay home from work or school as told by your doctor. ? Do not leave home until you do not have a fever for 24 hours without taking medicine. ? Leave home only to go to your doctor. Eating and drinking ??? Take an ORS (oral rehydration solution). This is a drink that is sold at pharmacies and stores. ??? Drink enough fluid to keep your pee pale yellow. ??? Drink clear fluids in small amounts as you are able. Clear fluids include: ? Water. ? Ice chips. ? Fruit juice mixed with water. ? Low-calorie sports drinks. ??? Eat bland foods that are easy to digest. Eat small amounts as you are able. These foods include: ? Bananas. ? Applesauce. ? Rice. ? Lean meats. ? [place]. ? Crackers. ??? Do not eat or drink: ? Fluids that have a lot of sugar or caffeine. ? Alcohol. ? Spicy or fatty foods. General instructions ??? Take koss-zil-xadpzwv and prescription medicines only as told by your doctor. ??? Use a cool mist humidifier to add moisture to the air in your home. This can make it easier foryou to breathe. ? When using a cool mist humidifier, clean it daily. Empty water and replace with clean water. ??? Cover your mouth and nose when you cough or sneeze. ??? Wash your hands with soap and water often and for at least 20 seconds. This is also important after you cough or sneeze. If you cannot use soap and water, use alcohol-based hand relations liaison. ??? Keep all follow-up visits. How is this prevented? Get a flu shot every year. You may get the flu shot in late summer, fall, or winter. Ask your doctor when you should get your flu shot. ??? Avoid contact with people who are sick during fall and winter. This is cold and flu season. Contact a doctor if: ??? You get new symptoms. ??? You have: ? Chest pain. ? Watery poop (diarrhea). ? A fever. ??? Your cough gets worse. ??? You start to have more mucus. ??? You feel sick to your stomach. ??? You throw up. Get help right away if you: ??? Have shortness of breath. ??? Have trouble breathing. ??? Have skin or nails that turn a bluish color. ??? Have very bad pain or stiffness in your neck. ??? Get a sudden headache. ??? Get sudden pain in your face or ear. ??? Cannot eat or drink without throwing up. These symptoms may represent a serious problem that is an emergency. Get medical help right away. Call your local emergency services (911 in the [place] ??? Do not wait to see if the symptoms will go away. ??? Do not drive yourself to the hospital. Summary ??? Influenza is also called the flu. It is an infection in the lungs, nose, and throat. It spreads easily from person to person. ??? Take lwyc-bzh-exhdwvw and prescription medicines only as told by your doctor. ??? Getting a flu shot every year is the best way to not get the flu. This information is not intended to replace advice given to you by your health care provider. Make sure you discuss any questions you have with your health care provider. Document Revised: 12/16/2020 Document Reviewed: 12/16/2020 [employer] Patient Education ?? 2021 [employer] This is a viral illness and can not be treated with antibiotics as antibiotic do not work on viruses. Antihistamine and decongestant of choice. May use jbqv-mum-lbdaqoy generic fluticasone or Nasacort as directed If you use Afrin, do not use for longer than 72 hours. This may cause rebound congestion. Saline nasal spray in nose as needed for congestion Comfort care Tylenol or ibuprofen for fever or body aches. Rest and increase fluids. Cool mist vaporizer See family doctor if symptoms worsen or fail to resolve. Increase the amount of fluids that you are drinking. Water, Pedialyte, Gatorade or Powerade are thebest choices. Rest or nap frequently to help your body recover. Care as instructed on AVS If medication was prescribed it was sent to the pharmacy. Take all medication as prescribed. Do not skip a dose and take until completed. Follow up with PCP if the symptoms do not improve Go to the ER if symptoms become severe Chief complaint and all history documented by ancillary staff were reviewed and verified, with additions or corrections, as appropriate. RICT RESOURCE OFFICER documented in this encounter Plan of Treatment Not on file documented as of this encounter Procedures Procedure Name Priority Date/Time Associated Diagnosis Comments POC INFLUENZA A AND B BY MOLECULAR Routine 05/02/2023 1:05 PM DISTRICT RESOURCE OFFICER Fever, unspecified fever cause documented in this encounter Results * (ABNORMAL) POC INFLUENZA A AND B BY MOLECULAR (05/02/2023 1:05 PM DISTRICT RESOURCE OFFICER) INFLUENZA A RNA Positive(A) Negative, Invalid INFLUENZA B RNA Negative Negative, Invalid PROCEDURE CONTROL Valid 05/02/2023 1:05 PM DISTRICT RESOURCE OFFICER Fouzia Aguilar GEOPHYSICS TEACHER, ROUTE SALESMAN AND DRIVER POINT OF CARE TESTI NG (MANUAL) Final Result documented in this encounter Visit Diagnoses Diagnosis Influenza A- Primary Influenza with other respiratory manifestations Fever, unspecified fever cause documented in this encounter Care Teams Signal Operator Technical Relationship Specialty Start Date End Date Terrance Pop MD [address] [place] [address] PCP - General Family Medicine 03/29/21 documented as of this encounter
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
--- OUTSIDE RECORDS SUMMARY | 2024-05-13 02:52 | XMS_ITS | Encounter Summary ---
Author Organization [facility] Care Team Providers Care Trailer Body Assembler Name Role Phone Terrance Pop MD Primary Care Provider Encounter Details Date Type Department Care Team (Latest Contact Info) Description 05/08/2021 Travel Social History Tobacco Use Types Packs/Day Years Used Date Smoking Tobacco: Never Assessed Comments Unknown Sex and Gender Information Value Date Recorded Sex Assigned at Not on file Legal Sex Female 8:50 AM TRANSIT OPERATIONS SUPERVISOR Gender Identity Not on file Sexual Orientation Not on file COVID-19 Exposure Response Date Recorded In the last month, have you been in contact with someone who was confirmed or suspected to have Coronavirus / COVID-19? Yes 05/08/2021 1:45 PM TRANSIT OPERATIONS SUPERVISOR documented as of this encounter Plan of Treatment Not on file documented as of this encounter Visit Diagnoses Not on filedocumented in this encounter Care Teams Trailer Body Assembler Relationship Specialty [place] [address] [place] [address] PCP - General Family Medicine 03/29/21 documented as of this encounter
--- OUTSIDE RECORDS SUMMARY | 2024-05-13 02:52 | XMS_ITS | Encounter Summary ---
Author Organization [facility] Address [address] [place] [address] Care Team Providers Care Supervisor Vegetable Farming Name Role Phone Unavailable Primary Care Provider Unavailabl e Reason for Visit * Reason Comments Ultrasound Encounter Details Date Type Department Care Team (Latest Contact Info) Description 07/12/2021 2:17 PM ELEVATOR TENDER - 07/12/2021 11:59 PM ELEVATOR TENDER Hospital Encounter [facility] [place] [address] Fitz Wilson MD [address] [address] Discharge Disposition: Home or Self Care Social History Tobacco Use Types Packs/Day Years Used Date Smoking Tobacco: Never Assessed Comments Yes Sex and Gender Information Value Date Recorded Sex Assigned at Not on file Gender Identity Not on file Sexual Orientation Not on file documented as of this encounter Plan of Treatment Not on file documented as of this encounter Procedures Procedure Name Priority Date/Time Associated Diagnosis Comments SONOGRAM - COMPLETE Routine 07/12/2021 2 :21 PM ELEVATOR TENDER Encounter for ultrasound (HCC) Encounter for suspected anomaly, ruled out documented in this encounter Results * SONOGRAM - COMPLETE (07/12/2021 2:21 PM ELEVATOR TENDER) Anatomical Region Laterality Modality Other 07/12/2021 2:21 PM ELEVATOR TENDER Narrative 07/12/2021 3:35 PM ELEVATOR TENDER ? Freddie Armendariz [facility] ?PHONE: ??FAX: Pat. Name: ?STORMY LAZCANO Pat. No: ?[id number] Study Date: ?? 07/12/2021 ??2:21pm , Age: ? 1995, 25 Pregnancies: ?? 1 Height: ? 63 in Weight: ? 105 lb LMP: ?Unknown GA by US: ? 22w0d ?? CADEN: 11/15/2021 GA Selected: ??21w3d (From Known E) CADEN: ?11/19/2021 Referring MD: Jacek Smith MD Customer Support Advisor: ??Natividad Hendirckson RDMS CPT4: ? [address]476 BMI: ?18.6 Hist/Ind: ? Suspected VSD on Outside Scan ?LR NIPT MEASUREMENTS & AGE ? GROWTH EVALUATION Measurement ??GA ? Range ? Srce %for GA Ratios ----- ---- ------- BPD ??5.6 cm 23w1d (48r3y-75v6n) Hadl BPD 95% FL/BPD 0.62 HC ??19.8 cm 22w0d (77o6k-20o9w) Hadl HC ??65% FL/AC ??0.21 AC ??16.7 cm 21w5d (57l3t-21j4t) Hadl AC ??54% HC/AC ??1.18 (1.05 - 1.24) FL ?? 3.5 cm 21w0d (90z2a-36u6a) Hadl FL ??26% CI ? 0.83 (0.70 - 0.86) HL ?? 3.5 cm 22w1d (61v2o-67m5o) Vishnu HL ??62% Cere 2.5 cm 22w3d (25s0p-47z3p) Hill Cere76% GA for sonogram 22w0d (46a1b-97k7w) ?? Weight Estimate: based on (BPD,HC,AC,FL) Avg [...] Signature> ??07/12/2021 03:35pm R Ezra Smith MD [facility] ORDERABLES documented in this encounter Visit Diagnoses Diagnosis Encounter for ultrasound (HCC)- Primary Encounter for routine screening for malformation using ultrasonics Encounter for suspected anomaly, ruled out Suspected anomaly not found cardiac anomaly complicating , antepartum, single gestation (HCC) documented in this encounter
--- OUTSIDE RECORDS SUMMARY | 2024-05-13 02:53 | XMS_ITS | Encounter Summary ---
Author Organization [facility] Address [address] [place] [address] Care Team Providers Care Coal Shooter Name Role Phone NeelAngelina PT Unavailable Unavailable Terrance Pop MD Primary Care Provider [phone] Ruth Boswell BOTTOM LINER Unavailable [phone] Encounter Details Date Type Department Care Team (Late st Contact Info) Description 06/24/2020 Orders Only [facility] [address] [place] [address] Terrance Pop MD [address] [facility] [address] [place] [address] Gall bladder polyp (Primary Dx) Social History Tobacco Use Types Packs/Day Years Used Date Smoking Tobacco: Never Cigarettes Smokeless Tobacco: Never Alcohol Use Standard Drinks/Week Comments No 0 (1 standard drink = 0.6 oz pur e alcohol) Humiliation, Afraid, Rape, and Kick questionnair e Answer Date Recorded Within the last year, have y ou been afraid of your partner or ex-partner? No 06/15/2020 Within the last year, have y ou been humiliated or emotionally abused in other ways by your partner or ex-partner? No Within the last year, have y ou been kicked, hit, slapped, or otherwise physically hurt by your partner or ex-partner? No 06/15/2020 Within the last year, have y ou been raped or forced to have any kind of sexual activity by your partner or ex-partner? No 06/15/2020 Social Connection and Isolat ion Panel [NHANES] Answer Date Recorded In a typical week, how many times do you talk on the phone with family, friends, or neighbors? More than three times a week 06/15/2020 Frequency of Social Gatherin gs with Friends and Family Not on file 06/15/2020 Attends Judaism Services Not on file 06/15 Active Member of Clubs or Organizations Not on f ile 06/15/2020 Attends Club or Organization Meetings Not on tiffanie e 06/15/2020 Are you , , di vorced, , never , or living with a partner? Living with partner 06/15/2020 Overall Financial Resource Strain (CARDIA) Answe r Date Recorded How hard is it for you to pa y for the very basics like food, housing, medical care, and heating? Not hard at all 06/15/2020 PHQ-2 Answer Date Recorded PHQ-2 Total Score (If total score is 3 or more points, staff should administer the PHQ-9) 0 06/15/2020 Exercise Vital Sign Answer Date Recorde d On average, how many days pe r week do you engage in moderate to strenuous exercise (like a brisk walk)? 3 days 06/15/2020 On average, how many minutes do you engage in exercise at this level? 60 min 06/15/2020 Hunger Vital Sign Answer Date Recorded Within the past 12 months, y ou worried that your food would run out before you got the money to buy more. Never true 06/15/19 21 Within the past 12 months, t he food you bought just didn't last and you didn't have money to get more. Never true 06/15/2020 PRAPARE - Transportation Answer Date Re corded In the past 12 months, has l ack of transportation kept you from medical appointments or from getting medications? No 07/2020 In the past 12 months, has l ack of transportation kept you from meetings, work, or from getting things needed for daily living? No 06/15/2020 Education Answer Date Recorded What is the highest level of school you have completed or the highest degree you have received? High school graduate 06/15/2020 Comments No Sex and Gender Information Value Date Recorded Sex Assigned at Not on file Legal Sex Female 1:15 AM BEEF TRIMMER Gender Identity Not on file Sexual Orientation Not on file Occupation Industry Job Start Date Job End Date Not on file Not on file Not on file Not on file documented as of this encounter Miscellaneous Notes * Addendum Note - Beatrice Ferrari MA - 06/24/2020 2:32 PM CSTAddended by: BEATRICE FERRARI on: 06/28/2020 03:40 PM Modules accepted: Orders TRIMMER documented in this encounter Plan of Treatment Not on file documented as of this encounter Visit Diagnoses Diagnosis Gall bladder polyp- Primary Cholesterolosis of gallbladder documented in this encounter Care Teams Coal Shooter Relationship Specialty Start Date End Date Terrance Pop MD PCP - General Family Medicine 06/15/20 Angelina Shaikh, PT Physical Therapist Physical Therapy 01/27/18 Ruth Boswell NP [address] [place] [address] [address] Nurse Practitioner Nurse Practitioner 06/15/20 documented as of this encounter
--- OUTSIDE RECORDS SUMMARY | 2024-05-13 02:53 | XMS_ITS | Encounter Summary ---
Author Organization [facility] Address [address] [place] [address] Care Team Providers Care Aircraft Mechanic Electrical And Radio Name Role Phone NeelAngelina PT Unavailable Unavailable Terrance Pop MD Primary Care Provider [phone] Ruth Boswell BEHAVIORAL SPECIALIST Unavailable [phone] Encounter Details Date Type Department Care Team (Late st Contact Info) Description 06/24/2020 Telephone [facility] of [address] [place] [address] Terrance Pop MD [address] [facility] [address] [place] [address] Social History Tobacco Use Types Packs/Day Years [...] and Family Not on file 06/15/2020 Attends Scientologist Services Not on file 06/15 Active Member [...] on file Legal Sex Female 1:15 AM MANAGER TRANSPORTATION PLANNING Gender Identity Not on file Sexual Orientation Not on file Occupation Industry Job Start Date Job End Date Not on file Not on file Not on file Not on file documented as of this encounter Miscellaneous Notes * Telephone Encounter - Ketty Ferrari MA - 06/28/2020 11:47 AM MANAGER TRANSPORTATION PLANNING Oliver has been informed and will call to schedule. GER TRANSPORTATION PLANNING * Telephone Encounter - Terrance Pop MD - 06/28/2020 10:46 AM MANAGER TRANSPORTATION PLANNING I ordered a pelvic ultrasound kameron. We may cancel the ruq if it is diagnostic GER TRANSPORTATION PLANNING * Telephone Encounter - Ketty Ferrari MA - 06/28/2020 10:40 AM MANAGER TRANSPORTATION PLANNING Spoke with Oliver, she said she had a flare up on Saturday and the pain lasted about 4 hours. The day before she had a stomach ache but she's been fine since. She has her US scheduled for July 11 asthat is the soonest they can get her in unless it's changed to [place]. GER TRANSPORTATION PLANNING * Telephone Encounter - Terrance Pop MD - 06/28/2020 10:35 AM MANAGER TRANSPORTATION PLANNING Is she continuing to have symptoms? GER TRANSPORTATION PLANNING * Telephone Encounter - Ketty Ferrair MA - 06/24/2020 3:42 PM CST Oliver called, she called to get the US scheduled however, they said the soonest they would be able to get her in would be in July. They told her if you are wanting it done sooner than that then you will have to order it for [place]. GER TRANSPORTATION PLANNING documented in this encounter Plan of Treatment Not on file documented as of this encounter Visit Diagnoses Diagnosis Right lower quadrant abdominal tenderness without rebound tenderness- Primary documented in this encounter Care Teams Aircraft Mechanic Electrical And Radio Relationship Specialty Start Date End Date Terrance Pop MD PCP - General Family Medicine 06/15/20 Angelina Shaikh PT Physical Therapist Physical Therapy 01/27/18 Ruth Boswell, DONALD [address] [place] [address] [address] [place] [address] Nurse Practitioner Nurse Practitioner 06/15/20 documented as of this encounter
--- OUTSIDE RECORDS SUMMARY | 2024-05-13 02:53 | XMS_ITS | Encounter Summary ---
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 us Barbara Panda MD LAB BLOOD ORDERABLES Janett guerrero Result [facility] 1 [facility] Department [place] [address] * (ABNORMAL) Differential, auto (05/16/2022 10:52 AM AUDIO VISUAL FACILITIES ENGINEER) Neutrophil abs 11.8(H) 1.7 - 6.5 K/cumm [facility] Imm gran abs 0.1 0.0 - 0.1 K/cumm [facility] Lymphocyte abs 1.0 0.8 - 3.3 K/cumm [facility] Monocyte abs 0.3 0.2 - 0.8 K/cumm [facility] Eosinophil abs 0.0 0.0 - 0.5 K/cumm [facility] Basophil abs 0.0 0.0 - 0.1 K/cumm [facility] Neutrophil pct 89.3 % [facility] Comment: Interpretive Data Percent cell count reference ranges are not reported, since discordance with absolute values may lead to misinterpretation of CBC data. Current Interpretive Data was last revised on 2017. Imm gran pct 0.5 % [facility] Comment: Interpretive Data Percent cell count reference ranges are not reported, since discordance with absolute values may lead to misinterpretation of CBC data. Current Interpretive Data was last revised on 2017. Lymphocyte pct 7.5 % [facility] Comment: Interpretive Data Percent cell count reference ranges are not reported, since discordance with absolute values may lead to misinterpretation of CBC data. Current Interpretive Data was last revised on 2017. Monocyte pct 2.3 % [facility] Comment: Interpretive Data Percent cell count reference ranges are not reported, since discordance with absolute values may lead to misinterpretation of CBC data. Current Interpretive Data was last revised on 2017. Eosinophil pct 0.2 % [facility] Comment: Interpretive Data Percent cell count reference ranges are not reported, since discordance with absolute values may lead to misinterpretation of CBC data. Current Interpretive Data was last revised on 2017. Basophil pct 0.2 % [facility] Comment: Interpretive Data Percent cell count reference ranges are not reported, since discordance with absolute values may lead to misinterpretation of CBC data. Current Interpretive Data was last revised on 2017. Blood 05/16/2022 10:5 2 AM AUDIO VISUAL FACILITIES ENGINEER 05/16/2022 10:53 AM AUDIO VISUAL FACILITIES ENGINEER us Barbara Panda MD LAB BLOOD ORDERABLES Janett guerrero Result [facility] 1 [facility] Department [place] [address] * Lipase (05/16/2022 10:52 AM AUDIO VISUAL FACILITIES ENGINEER) Lipase 32 10 - 99 Units/L [facility] Blood (Blood, Venous) 05/16/2022 10:52 AM AUDIO VISUAL FACILITIES ENGINEER 05/16/2022 10:53 AM AUDIO VISUAL FACILITIES ENGINEER Barbara Panda MD LAB BLOOD ORDERABLES Janett guerrero Result [facility] 1 [facility] Department [place] [address] * Comprehensive metabolic panel (05/16/2022 10:52 AM AUDIO VISUAL FACILITIES ENGINEER) Sodium 142 135 - 145 mmol/L [facility] Potassium, pl 4.0 3.3 - 4.9 mmol/L [facility] Chloride 105 97 - 110 mmol/L [facility] CO2 25 22 - 32 mmol/L [facility] Anion gap 12 2 - 15 mmol/L [facility] BUN 13 8 - 25 mg/dL [facility] Creatinine 0.77 0.60 - 1.10 mg/dL [facility] Glucose 108 70 - 199 mg/dL [facility] Comment: Interpretive Data Fasting glucose >/= 126 mg/dl is diagnostic for diabetes. ?? Fasting is defined as no caloric intake for at least 8 hours. Fasting glucose between 100 mg/dl to 125 mg/dl is diagnostic of prediabetes. In a patient with classic symptoms of hyperglycemia or hyperglycemic crisis, a random glucose >/= 200 mg/dl is diagnostic for diabetes. In the absence of unequivocal hyperglycemia, results should be confirmed by repeat testing. The classification and Diagnosis of Diabetes Diabetes Care 2017;40 (Suppl. 1):S11. Current interpretive data was last revised 2017. Calcium 10.0 8.5 - 10.3 mg/dL [facility] Bilirubin, total 0.6 0.1 - 1.2 mg/dL [facility] Protein, pl 7.6 6.5 - 8.5 g/dL [facility] Albumin 5.0 3.5 - 5.0 g/dL [facility] Alk phos 81 40 - 130 Units/L [facility] ALT 15 7 - 45 Units/L [facility] AST 16 10 - 45 Units/L [facility] Blood 05/16/2022 10:5 2 AM AUDIO VISUAL FACILITIES ENGINEER 05/16/2022 10:53 AM AUDIO VISUAL FACILITIES ENGINEER Barbara Panda MD LAB BLOOD ORDERABLES Janett l Result Performing Organization Address City/[facility]/ZIP Co de Phone Number [facility] 1 [facility] Department [place] [address] * (ABNORMAL) CBC with auto differential (05/16/2022 10:52 AM AUDIO VISUAL FACILITIES ENGINEER) WBC 13.2(H) 3.8 - 9.9 K/cumm [facility] Hgb 14.5 11.9 - 15.5 g/dL [facility] Hct 41.4 35.6 - 45.5 % [facility] Plt 330 150 - 400 K/cumm [facility] MPV 9.5 9.1 - 12.3 fL [facility] RBC 4.86 3.90 - 5.20 M/cumm [facility] MCV 85.2 81.3 - 96.4 fL [facility] MCH 29.8 27.1 - 33.3 pg [facility] MCHC 35.0 32.3 - 35.7 g/dL [facility] RDW CV 11.4 11.1 - 14.9 % [facility] RDW SD 35.0(L) 35.7 - 48.1 fL [facility] NRBC abs 0.00 0.00 - 0.01 K/cumm [facility] Blood (Blood, Venous) 05/16/2022 10:52 AM AUDIO VISUAL FACILITIES ENGINEER 05/16/2022 10:53 AM AUDIO VISUAL FACILITIES ENGINEER Barbara Panda MD LAB BLOOD ORDERABLES Janett l Result Performing Organization Address City/[facility]/ZIP Co de Phone Number [facility] 1 [facility] Department [place] [address] documented in this encounter Visit Diagnoses Diagnosis Abdominal pain- Primary Abdominal pain, unspecified site Urinary tract infection without hematuria, site unspecified Renal stone Calculus of kidney documented in this encounter Administered Medications Inactive Administered Medications - up to 3 most recent administrations Medication Order MAR Action Action Date Dose Rate Site HYDROcodone-acetaminophe n (NORCO) 5-325 mg per tablet 1 tablet 1 tablet, oral, Once, On Sat05/16/22 at 1511, For 1 dose, Indications: PainIndications:Pain Given 05/16/2022 3:25 PM AUDIO VISUAL FACILITIES ENGINEER 1 tablet ketorolac (TORADOL) 30 mg/mL (1 mL) injection 30 mg 30 mg, intramuscular, Once, On Sat05/16/22 at 1137, For 1 dose Given 05/16/2022 11:39 AM AUDIO VISUAL FACILITIES ENGINEER 30 mg Right Dorsogluteal/B uttock ondansetron ODT (ZOFRAN-ODT) disintegrating tablet 4 mg 4 mg, oral, Once, On Sat05/16/22 at 1137, For 1 dose Given 05/16/2022 11:39 AM AUDIO VISUAL FACILITIES ENGINEER 4 mg ondansetron ODT (ZOFRAN-ODT) disintegrating tablet 4 mg 4 mg, oral, Once, On Sat05/16/22 at 1539, For 1 dose Given 05/16/2022 3:39 PM AUDIO VISUAL FACILITIES ENGINEER 4 mg sodium chloride 0.9% bolus 1,000 mL 1,000 mL, intravenous, at 1,000 mL/hr, Administer over 1 Hours, Once, On Sat05/16/22 at 1249, For 1 dose New Bag 05/16/2022 1:12 PM AUDIO VISUAL FACILITIES ENGINEER 1,000 mL 1000 mL/hr documented in this encounter Active and Recently Administered Medications Times are shown in AUDIO VISUAL FACILITIES ENGINEER. Scheduled Medication Order 05/14/2022 05/15/2022 05/16/2022 HYDROcodone-acetaminophen (NORCO) 5-325 mg per tablet 1 tablet (COMPLETED) 1 tablet, oral, Once, On Sat05/16/22 at 1511, For 1 dose, Indications: Pain 1525 (Given - Provid er: Ethel Jimenez RN) ketorolac (TORADOL) 30 mg/mL (1 mL) injection 30 mg (COMPLETED) 30 mg, intramuscular, Once, On Sat05/16/22 at 1137, For 1 dose 1139 (Given - Provid er: Jayshree Rodrigues, PADMINI) ondansetron ODT (ZOFRAN-ODT) disintegrating tablet 4 mg (COMPLETED) 4 mg, oral, Once, On Sat05/16/22 at 1137, For 1 dose 1139 (Given - Provid er: Jayshree Rodrigues, PADMINI) ondansetron ODT (ZOFRAN-ODT) disintegrating tablet 4 mg (COMPLETED) 4 mg, oral, Once, On Sat05/16/22 at 1539, For 1 dose 1539 (Given - Provid er: Ethel Jimenez RN) sodium chloride 0.9% bolus 1,000 mL (COMPLETED) 1,000 mL, intravenous, at 1,000 mL/hr, Administer over 1 Hours, Once, On Sat05/16/22 at 1249, For 1 dose 1312 (New Bag - Prov ider: Ethel Jimenez RN)1525 (Stopped - Provider: Ethel Jimenez RN) documented in this encounter Orders Nursing Count Last Ordered Date First Orde red Date MISCELLANEOUS NURSING CARE ORDER (SPECIFY) 05/16/2022 IV Count Last Ordered Date First Orde red Date SALINE LOCK IV 05/16/2022 documented in this encounter Care Teams Motor Grader Operator Relationship Specialty Start Date End Date Terrance Pop MD PCP - General Family Medicine 06/15/20 Angelina Shaikh, ANDREW Physical Therapist Physical Therapy 01/27/18 Ruth Boswell NP [address] [place] [address] DR LE [address] [place], [place] [address], [place] [address] Nurse Practitioner Nurse Practitioner 06/15/20 documented as of this encounter
--- OUTSIDE RECORDS SUMMARY | 2024-05-13 02:53 | XMS_ITS | Encounter Summary ---
Author Organization [facility] Address [address] [facility] [address] [place] [address] Care Team Providers Care Traffic Control Technician Name Role Phone Jane Garvin MD Primary Care Provider [phone] Jane Garvin MD Unavailable [phone] Angelina Shaikh PT Unavailable Unavailable Reason for Visit * Reason Onset Date Comments Note for work 07/21/2018 Encounter Details Date Type Department Care Team (Late st Contact Info) Description 07/21/2018 Telephone [facility] [address] [place] [address] [place] [address] Jane Garvin MD [address] [place] [address] Note for work Social History Tobacco Use Types Packs/Day Years Used Date Smoking Tobacco: Never Cigarettes Smokeless Tobacco: Never Alcohol Use Standard Drinks/Week Comments No 0 (1 standard drink = 0.6 oz pur e alcohol) Comments No Sex and Gender Information Value Date Recorded Sex Assigned at Not on file 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 She is wanting to know if she she can get a work note for tomorrow since she needs to be on the antibiotics for 24 hours before returning to work? documented in this encounter Plan of Treatment Not on file documented as of this encounter Visit Diagnoses Not on filedocumented in this encounter Care Teams Traffic Control Technician Relationship Specialty Start Date End Date Jane Garvin MD PCP - General 08/10/16 06/14/20 Jane Garvin MD 08/10/16 06/14/20 Angelina Shaikh, PT Physical Therapist Physical Therapy 01/27/18 documented as of this encounter
--- OUTSIDE RECORDS SUMMARY | 2024-05-13 02:53 | XMS_ITS | Encounter Summary ---
Author Organization [facility] Address [address] [facility] [address] [place] [address] Care Team Providers Care Official Greeter Name Role Phone NeelAngelina PT Unavailable Unavailable Terrance Pop MD Primary Care Provider [phone] Ruth Boswell CONSUMER EDUCATION SPECIALIST Unavailable [phone] Encounter Details Date Type Department Care Team (Late st Contact Info) Description 12/12/2020 Telephone [facility] [address] [place] [address] Terrance Pop MD [address] [facility] [address] [place] [address] Social History Tobacco Use Types [...] and Family Not on file 06/15/2020 Attends Christian Services Not on file 06/15 Active Member [...] on file 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 I attempted to contact her, the phone just rang and rang. * Telephone Encounter - Ketty Ferrari MA - 12/12/2020 1:01 PM CDT Received VM from [facility] returning Nicole's call. I tried to call her back however, she did not answer and does not have VM set up. Unable to leave amessage. * Telephone Encounter - Nicole Gomes MA - 12/12/2020 10:17 AM CDT Received voicemail from patient regarding an US, attempted to contact her in order to gain more information, however, patient did not answer and voicemail is full. Will attempt to call patient again. documented in this encounter Plan of Treatment Not on file documented as of this encounter Visit Diagnoses Not on filedocumented in this encounter Care Teams Official Greeter Relationship Specialty Start Date End Date Terrance Pop MD PCP - General Family Medicine 06/15/20 Angelina Shaikh PT Physical Therapist Physical Therapy 01/27/18 Ruth Boswell NP [address] [place] [address] DR LE [address] [place] [address] Nurse Practitioner Nurse Practitioner 06/15/20 documented as of this encounter
--- OUTSIDE RECORDS SUMMARY | 2024-05-13 02:53 | XMS_ITS | Encounter Summary ---
Author Organization [facility] Healthcare Address [address] [place] [address] Care Team Providers Care Tour Director Name Role Phone Angelina Shaikh PT Unavailable Unavailable Terrance Pop MD Primary Care Provider [phone] Ruth Boswell DRY END OPERATOR Unavailable [phone] Reason for Visit * Diagnostic Imaging (Routine) - Closed Specialty Diagnoses / Procedures Referred By Contac t Referred To Contact Diagnoses Right lower quadrant abdominal tenderness without rebound tenderness Procedures US Pelvis W Endovaginal US Pelvis Complete Terrance Pop MD Phone: tel: fax: [facility] Referral ID Status Reason Start Date Expiration Date Visits Re quested Visits Authorized [id number] Closed 06/28/2020 07/28/2021 1 1 Encounter Details Date Type Department Care Team (Latest Contact Info) Description 07/11/2020 9:30 AM HARNESS REPAIRER - 07/11/2020 11:59 PM HARNESS REPAIRER Hospital Encounter [facility] [address] [place] [address] Terrance Pop MD [address] [place] [address] [address] [place] [address] Right lower quadrant abdominal tenderness without rebound tenderness Discharge Disposition: Discharge to home or self [...] on file Legal Sex Female 1:15 AM HARNESS REPAIRER Gender Identity Not on file Sexual Orientation Not on file Occupation Industry Job Start Date Job End Date Not on file Not on file Not on file Not on file documented as of this encounter Medications at Time of Discharge LIV FE 06/01, , 1 mg-20 mcg (21)/75 mg (7) per tablet 10/10/2017 3 metroNIDAZOLE (METROGEL) 0.75 % (37.5mg/5 gram) vaginal gelIndications:B acterial Vaginosis Vandazole 0.75 % vaginal gel INSERT ONE APPLICATORFUL VAGINALLY AT BEDTIME FOR 5 DAYS 3 norethindrone-e. estradiol-iron (LOESTRIN FE 1.5/30, 28-DAY,) 1.5 mg-30 mcg per tablet take 1 tablet by oral route every day 0 0 07/04/2016 3 documented as of this encounter Discharge Disposition Disposition Code Departure Means Destination Discharge to home or self care documented in this encounter Plan of Treatment Not on file documented as of this encounter Procedures Procedure Name Priority Date/Time Associated Diagnosis Comments US PELVIS W ENDOVAGINAL Schedule KAMERON, Read Routine (Patient lives out of area) 07/11/2020 11:17 AM HARNESS REPAIRER Right lower quadrant abdominal tenderness without rebound tenderness documented in this encounter Results * US Pelvis W Endovaginal (07/11/2020 11:17 AM HARNESS REPAIRER) Anatomical Region Laterality Modality Pelvis N/A Ultrasound 07/11/2020 11:3 1 AM HARNESS REPAIRER Impressions 07/11/2020 11:34 AM HARNESS REPAIRER 1. ??Left ovarian cyst measuring up to 1.9 cm, which previously measured 2.9 cm. 2. ??Small amount of nonspecific free fluid in the pelvis. Electronically signed by: Kelvin Lea D.O. Narrative 07/11/2020 11:34 AM HARNESS REPAIRER EXAMINATION: US PELVIS W ENDOVAGINAL ORDERING HEALTHCARE PROVIDER: TERRANCE POP HISTORY: cyst seen on CT; pelvic and abdominal pain presence of ovarian cyst. Right lower quadrant pain since May 2020, which is on and off. ?? COMPARISON: 06/22/2020 TECHNIQUE: Ultrasonic evaluation of the pelvis was obtained via transabdominal and transvaginal transducer. Color Doppler examination was performed on the bilateral adnexa to assess vascular flow. FINDINGS: The uterus is anteverted. ??The uterus is homogeneous in echotexture and measures 7.6 x 5.0 x 4.4 cm. ??The endometrium measures 0.2 cm in thickness. ??There are nabothian cysts noted in the cervix. The right ovary appears unremarkable and measures 2.6 x 2.3 x 1.6 cm. There is normal Doppler flow documented in the right ovary. ??There are multiple follicles noted in the right ovary. The left ovary measures 3.5 x 2.8 x 2.6 cm. ??There is a cyst noted in the left ovary measuring 1.9 x 1.8 x 1.6 cm. ??There are a few additional follicles noted in the left ovary. ??There is normal Doppler flow documented in the left ovary. There is a small amount nonspecific free fluid in the pelvic cul-de-sac. Procedure Note Kelvin Lea, - 07/11/2020 EXAMINATION: US PELVIS W ENDOVAGINAL ORDERING HEALTHCARE PROVIDER: TERRANCE POP HISTORY: cyst seen on CT; pelvic and abdominal pain presence of ovarian cyst. Right lower quadrant pain since May 2020, which is on and off. COMPARISON: 06/22/2020 TECHNIQUE: Ultrasonic evaluation of the pelvis was obtained via transabdominal and transvaginal transducer. Color Doppler examination was performed on the bilateral adnexa to assess vascular flow. FINDINGS: The uterus is anteverted. The uterus is homogeneous in echotexture and measures 7.6 x 5.0 x 4.4 cm. The endometrium measures 0.2 cm in thickness. There are nabothian cysts noted in the cervix. The right ovary appears unremarkable and measures 2.6 x 2.3 x 1.6 cm. There is normal Doppler flow documented in the right ovary. There are multiple follicles noted in the right ovary. The left ovary measures 3.5 x 2.8 x 2.6 cm. There is a cyst noted in the left ovary measuring 1.9 x 1.8 x 1.6 cm. There are a few additional follicles noted in the left ovary. There is normal Doppler flow documented in the left ovary. There is a small amount nonspecific free fluid in the pelvic cul-de-sac. IMPRESSION: 1. Left ovarian cyst measuring up to 1.9 cm, which previously measured 2.9 cm. 2. Small amount of nonspecific free fluid in the pelvis. Electronically signed by: Kelvin Lea D.O. us Terrance Pop MD IMG US PROCEDURES Final Res ult documented in this encounter Visit Diagnoses Diagnosis Right lower quadrant abdominal tenderness without rebound tenderness documented in this encounter Care Teams Tour Director Relationship Specialty Start Date End Date Terrance Pop MD PCP - General Family Medicine 06/15/20 Angelina Shaikh, ANDREW Physical Therapist Physical Therapy 01/27/18 Ruth Boswell NP [address] [place] [address] DR LE [address] [place] [address] Nurse Practitioner Nurse Practitioner 06/15/20 documented as of this encounter
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
--- OUTSIDE RECORDS SUMMARY | 2024-05-13 02:53 | XMS_ITS | Encounter Summary ---
Author Organization [facility] Address [address] [place] [address] Care Team Providers Care Dry Cleaner Name Role Phone NeelAngelina PT Unavailable Unavailable Terrance Pop MD Primary Care Provider [phone] Ruth Boswell TIME CLOCK INSPECTOR Unavailable [phone] Reason for Referral * Diagnostic Imaging (Routine) - Closed Specialty Diagnoses / Procedures Referred By Antony hoang Referred To Contact Diagnoses Gall bladder polyp Procedures US Terrance Griffith MD [address] [address] Phone: tel: fax: [address] [address] Referral ID Status Reason Start Date Expiration Date Visits Re quested Visits Authorized [id number] Closed 01/10/2022 02/09/2023 1 1 Reason for Visit * Diagnostic Imaging (Routine) - Closed Specialty Diagnoses / Procedures Referred By Antony hoang Referred To Contact Diagnoses Gall bladder polyp Procedures US Terrance Griffith MD [address] [facility] [address] [place] [address] Phone: tel: fax: [address] [address] Referral ID Status Reason Start Date Expiration Date Visits Re quested Visits Authorized [id number] Closed 01/10/2022 02/09/2023 1 1 Encounter Details Date Type Department Care Team (Latest Contact Info) Description 02/21/2022 10:44 AM CDT - 02/21/2022 11:59 PM CDT Hospital Encounter [facility] [address] [place] [address] Terrance Pop MD [address] [place] [address] Gall bladder polyp Discharge Disposition: Discharge to home or self [...] and Family Not on file 06/15/2020 Attends [employer] Services Not on file 06/15 Active Member [...] on file Legal Sex Female 1: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 US RUQ REASON FOR STUDY: For follow-up of a gallbladder polyp from 06/22/2020. TECHNIQUE: Ultrasound of the right upper quadrant of the abdomen was performed with grayscale and color Doppler. COMPARISON: None. FINDINGS: PANCREAS: ??Visualized portions of the pancreas are within normal limits. Portions of the pancreatic body and tail are obscured due to bowel gas. LIVER: The liver is normal in echogenicity. ??Liver measures ??14 ??cm. No focal hepatic lesions are seen. Antegrade direction of flow shown in the main portal vein. GALLBLADDER: ??No echogenic gallstones, gallbladder wall thickening, or pericholecystic fluid. No positive sonographic Alejandro's sign reported. ??There is a nonmobile echogenic focus along the gallbladder wall 0.4 x 0.4 x 0.7 cm characteristic of a polyp with a similar lesion 0.2 cm on image 92. BILIARY: There is no intrahepatic biliary ductal dilatation. The common bile duct measures ??0.6 ??cm in diameter. RIGHT KIDNEY: Right kidney is ??9.3 ??cm in length. There is no hydronephrosis. ?? The renal pyramids appear echogenic which is nonspecific, can be seen with medullary sponge kidney. ??Right lower pole renal calculus 0.5 cm. ??Which is nonspecific, but can be seen with medullary sponge kidney. OTHER: ??No other significant finding. IMPRESSION: 1. ?? No evidence of an acute abnormality. 2. ?? Gallbladder polyps measure up to 0.7 cm, 1 year ultrasound follow-up recommended. 3. ?? Echogenic renal pyramids is nonspecific but can be seen with medullary sponge kidney. 4. ?? Right lower pole renal calculus 0.5 cm. THIS IS AN ELECTRONICALLY VERIFIED FINAL REPORT 02/22/2022 8:52 AM - Electronically signed by ??Gonzalo Kay M.D. CH: OLU D: ??02/22/2022 8:52 AM T: ??02/22/2022 8:52 AM Report ID: [id number] Reading Location: ??[id number] Procedure Note Gonzalo Kay Jr., MD - 02/22/2022 EXAM DESCRIPTION: US RUQ REASON FOR STUDY: For follow-up of a gallbladder polyp from 06/22/2020. TECHNIQUE: Ultrasound of the right upper quadrant of the abdomen wasperformed with grayscale and color Doppler. COMPARISON: None. FINDINGS: PANCREAS: Visualized portions of the pancreas are within normal limits. Portions of the pancreatic body and tail are obscured due to bowel gas. LIVER: The liver is normal in echogenicity. Liver measures 14 cm. Nofocal hepatic lesions are seen. Antegrade direction of flow shown in the mainportal vein. GALLBLADDER: No echogenic gallstones, gallbladder wall thickening, or pericholecystic fluid. No positive sonographic Alejandro's sign reported.There is a nonmobile echogenic focus along the gallbladder wall 0.4 x 0.4 x 0.7cm characteristic of a polyp with a similar lesion 0.2 cm on image 92. BILIARY: There is no intrahepatic biliary ductal dilatation. The commonbile duct measures 0.6 cm in diameter. RIGHT KIDNEY: Right kidney is 9.3 cm in length. There is nohydronephrosis. The renal pyramids appear echogenic which is nonspecific, can be seen with medullary sponge kidney. Right lower pole renal calculus 0.5 cm. Whichis nonspecific, but can be seen with medullary sponge kidney. OTHER: No other significant finding. IMPRESSION: 1. No evidence of an acute abnormality. 2. Gallbladder polyps measure up to 0.7 cm, 1 year ultrasound follow-up recommended. 3. Echogenic renal pyramids is nonspecific but can be seen withmedullary sponge kidney. 4. Right lower pole renal calculus 0.5 cm. THIS IS AN ELECTRONICALLY VERIFIED FINAL REPORT 02/22/2022 8:52 AM - Electronically signed by Gonzalo Kay M.D. CH: OLU Report ID: [id number] Reading Location: [place] [address] us Terrance Pop MD IMG US PROCEDURES Final Res ult documented in this encounter Visit Diagnoses Diagnosis Gall bladder polyp Cholesterolosis of gallbladder documented in this encounter Care Teams Dry Cleaner Relationship Specialty Start Date End Date Terrance Pop MD PCP - General Family Medicine 06/15/20 Angelina Shaikh, ANDREW Physical Therapist Physical Therapy 01/27/18 Ruth Boswell, TIME CLOCK INSPECTOR 4 [facility] [address] [address] Nurse Practitioner Nurse Practitioner 06/15/20 documented as of this encounter
--- OUTSIDE RECORDS SUMMARY | 2024-05-13 02:53 | XMS_ITS | Encounter Summary ---
Author Organization [facility] Healthcare Address [address] [place] [address] Care Team Providers Care Evaluation Assistant Name Role Phone NeelAngelina PT Unavailable Unavailable Terrance Pop MD Primary Care Provider [phone] Ruth Boswell NP Unavailable [phone] Encounter Details Date Type Department Care Team (Late st Contact Info) Description 03/01/2024 Telephone [facility] [place] [address] [place] [address] Noemí Laguerre MA Social History Tobacco Use Types Packs/Day Years [...] and Family Not on file 06/15/2020 Attends [employer] Not on file 06/15 Active Member [...] things needed for daily living? No 06/15/2020 Personal Safety Answer Date Recorded Have you ever been in or are you currently in a harmful physical or emotional relationship or is someone making you feel afraid or unsafe? Denies 02/16/2024 Education Answer Date Recorded What is the highest level of school you have completed or the highest degree you have received? 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 She states understanding and has no further questions. * Telephone Encounter - Noemí Laguerre MA - 03/01/2024 4:38 PM CDT ----- Message from Zeenat Reyes NP sent at 03/01/2024 4:31 PM CDT ----- Please call pt and let let her know that her urine culture is positive for infection. The antibiotic she was prescribed should treat the infection. documented in this encounter Plan of Treatment Not on file documented as of this encounter Visit Diagnoses Not on filedocumented in this encounter Care Teams Evaluation Assistant Relationship Specialty Start Date End Date Terrance Pop MD PCP - General Family Medicine 06/15/20 Angelina Shaikh, PT Physical Therapist Physical Therapy 01/27/18 Ruth Boswell NP [address] [place] [address] [address] Nurse Practitioner Nurse Practitioner 06/15/20 documented as of this encounter
--- OUTSIDE RECORDS SUMMARY | 2024-05-13 02:53 | XMS_ITS | Encounter Summary ---
Author Organization [facility] Address [address] [facility] [address] [place] [address] Care Team Providers Care Dehydration Plant Operator Name Role Phone ShaikhAngelina PT Unavailable Unavailable Terrance Pop MD Primary Care Provider [phone] Ruth Boswell NP Unavailable [phone] Reason for Visit * Reason Comments Earache Bilateral ear pain, sinus pressure, sore throat, MARR since 08/14. Had a Covid/Flu test yesterday and was negative. Ear pain is the worst symptom. Encounter Details Date Type Department Care Team (Late st Contact Info) Description 08/16/2022 10:30 AM CDT Office Visit [facility] [address] [place] [address] [place] [address] Rachel Izaguirre, LOAN PROCESSOR [address] [place] [address] Non-recurrent acute suppurative otitis media of right ear without spontaneous rupture of tympanic membrane (Primary Dx); Antibiotic-induced yeast infection; Impacted cerumen of right ear Social History Tobacco Use Types Packs/Day Years [...] on file Legal Sex Female 1:15 AM TECHNICAL INTERN Gender Identity Not on file Sexual Orientation Not on file Occupation Industry Job Start Date Job End Date Not on file Not on file Not on file Not on file documented as of this encounter Last Filed Vital Signs Vital Sign Reading Time Taken Comments Blood Pressure 118/78 08/16/2022 10:38 AM CDT Pulse 115 08/16/2022 10:38 AM CDT Temperature 36.6 ??C (97.9 ??F) 08/16/2022 10:38 AM C DT Respiratory Rate 18 08/16/2022 10:38 AM CDT Oxygen Saturation 98% 08/16/2022 10:38 AM CDT Inhaled Oxygen Concentration - - Weight 45.4 kg (100 lb) 08/16/2022 10:38 AM CDT Height - - Body Mass Index 17.71 07/21/2022 5:39 PM TECHNICAL INTERN documented in this encounter Patient Instructions * Patient Instructions* Rachel Izaguirre NP - 08/16/2022 10:30 AM CDT You can take Tylenol/Motrin for pain/fever- alt every 3 hours as needed Complete any medications as prescribed Amoxicillin for 10 days Diflucan ordered as discussed. You can use warm moist heat to decrease pain Sudafed or Flonase for fluid in ears Increase water intake Try Debrox or OTC ear wax drops for left ear when ear pain is controlled Follow up w PCP if you are not getting better in 3 days documented in this encounter Ordered Prescriptions Prescription Sig Dispense Quantity Refills Last Filled Start Date End Date fluconazole (DIFLUCAN) 150 mg tabletIndications: Antibiotic-induced yeast infection Take 1 tablet (150 mg total) by mouth as directed Take one tab now. Repeat in 7 days if symptoms persist. 2 tablet 08/16/2022 3 amoxicillin (AMOXIL) 875 mg tabletIndications: Non-recurrent acute suppurative otitis media of right ear without spontaneous rupture of tympanic membrane Take 1 tablet (875 mg total) by mouth 2 (two) times a day for 10 days 20 tablet 08/16/2022 3 documented in this encounter Progress Notes * Rachel Izaguirre, LOAN PROCESSOR - 08/16/2022 10:30 AM CDT Images from the original note were not included. Subjective/Objective Patient ID: Oliver Go is a 26 y.o. female. Chief Complaint Earache (Bilateral ear pain, sinus pressure, sore throat, MARR since 08/14. Had a Covid/Flu test yesterday and was negative. Ear pain is the worst symptom. ) Here with her baby today. No OTC meds tried. Recently stopped breast feeding as child is old enoughnow she says. Missed a lot of work recently due to her and child's recent illnesses. Review of Systems Constitutional: Negative for fatigue and fever. HENT: Positive for ear pain, sinus pressure and sore throat. Negative for congestion. Respiratory: Negative for cough, chest tightness and shortness of breath. Cardiovascular: Negative for chest pain. Gastrointestinal: Negative for abdominal pain, diarrhea, nausea and vomiting. Skin: Negative for color change. Neurological: Positive for headaches. Negative for dizziness. Hematological: Negative for adenopathy. Psychiatric/Behavioral: Negative for confusion. Physical Exam Constitutional: General: She is not in acute distress. HENT: Ears: Comments: Right TM difficult to see all due to cerumen, but looks very red. Left TM dull intact. Nose: No congestion or rhinorrhea. Mouth/Throat: Pharynx: Posterior oropharyngeal erythema present. Eyes: Conjunctiva/sclera: Conjunctivae normal. Cardiovascular: Rate and Rhythm: Regular rhythm. Heart sounds: Normal heart sounds. Pulmonary: Effort: No respiratory distress. Breath sounds: No wheezing, rhonchi or rales. Abdominal: Palpations: Abdomen is soft. Lymphadenopathy: Cervical: No cervical adenopathy. Skin: Findings: No rash. Neurological: Mental Status: She is alert. Psychiatric: Behavior: Behavior normal. Vitals: 08/16/22 1038 BP: 118/78 Pulse: 115 Resp: 18 Temp: 36.6 ??C (97.9 ??F) SpO2: 98% Weight: 45.4 kg (100 lb) Assessment/Plan You can take Tylenol/Motrin for pain/fever- alt every 3 hours as needed Complete any medications as prescribed Amoxicillin for 10 days Diflucan ordered as discussed. You can use warm moist heat to decrease pain Sudafed or Flonase for fluid in ears Increase water intake Try Debrox or OTC ear wax drops for left ear when ear pain is controlled Follow up w PCP if you are not getting better in 3 days Diagnoses and all orders for this visit: Non-recurrent acute suppurative otitis media of right ear without spontaneous rupture of tympanic membrane (Primary) - amoxicillin (AMOXIL) 875 mg tablet; Take 1 tablet (875 mg total) by mouth 2 (two) times a day for10 days Antibiotic-induced yeast infection - fluconazole (DIFLUCAN) 150 mg tablet; Take 1 tablet (150 mg total) by mouth as directed Take one tab now. Repeat in 7 days if symptoms persist. Impacted cerumen of right ear Disposition- Discussed medications dosages, usage & potential side effects. Risks and interactions reviewed with patient. Indications for testing reviewed. Patient has been instructed to follow up w PCP or go to ER for any signs or symptoms that are of concern or worsening. Patient verbalizes understanding. The patient was given the opportunity to ask all questions and to have all questions answered. Patient is in agreement with the plan of care Rachel Izaguirre NP documented in this encounter Plan of Treatment Not on file documented as of this encounter Visit Diagnoses Diagnosis Non-recurrent acute suppurative otitis media of right ear without spontaneous rupture of tympanic membrane- Primary Antibiotic-induced yeast infection Impacted cerumen of right ear Impacted cerumen documented in this encounter Care Teams Dehydration Plant Operator Relationship Specialty Start Date End Date Terrance Pop MD PCP - General Family Medicine 06/15/20 Angelina Shaikh, PT Physical Therapist Physical Therapy 01/27/18 Ruth Boswell LOAN PROCESSOR [address] [place] [address] [place] [address] Nurse Practitioner Nurse Practitioner 06/15/20 documented as of this encounter
--- OUTSIDE RECORDS SUMMARY | 2024-05-13 02:53 | XMS_ITS | Encounter Summary ---
Author Organization [facility] Healthcare Address [address] [place] [address] Care Team Providers Care Bellows Assembler Name Role Phone NeelAngelina PT Unavailable Unavailable Terrance Pop MD Primary Care Provider [phone] Ruth Bsowell NP Unavailable [phone] Encounter Details Date Type Department Care Team (Latest Contact Info) Description 02/28/2024 8:16 PM CDT - 02/28/2024 11:59 PM CDT Hospital Encounter [facility] [id number] [place] [address] Cystitis with hematuria Discharge Disposition: Discharge to home or self [...] and Family Not on file 06/15/2020 Attends [employer] Not on file 06/15 Active Member [...] on file Legal Sex Female 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 Repeat in 3 days if symptoms persist. 2 tablet 02/28/2024 Slynd tablet tablet Take 1 each (4 mg total) by mouth daily 04/11/2023 nitrofurantoin monohydrate (Macrobid) 100 mg capsuleIndication s:Cystitis with hematuria Take 1 capsule (100 mg total) by mouth 2 (two) times a day for 5 days 10 capsule 02/28/2024 4 documented as of this encounter Discharge Disposition Disposition Code Departure Means Destination Discharge to home or self care documented in this encounter Miscellaneous Notes * Result Encounter Note - Noemí Laguerre MA - 02/28/2024 11:59 PM CDT Spoke with the patient regarding results and recommendations. She states understanding and has no further questions. documented in this encounter Plan of Treatment Not on file documented as of this encounter Procedures Procedure Name Priority Date/Time Associated Diagnosis Comments URINE CULTURE Routine 02/28/2024 6:00 PM CDT Cystitis with hematuria documented in this encounter Results * (ABNORMAL) Urine culture Urine, clean voided (02/28/2024 6:00 PM CDT) Report Final Report: Greater than or equal to 100,000 colonies/mL of Escherichia coli Plus growth of clinically insignificant bacterial marco a. (.) Comment:Testing performed by : [facility], [address] [facility], [place]., [address] Organism ESCHERICHIA COLI [facility] Organism PLUS GROWTH OF CLINICALLY INSIGNIFICANT MARCO A. [facility] Urine, clean voided 02/28/2024 6:00 PM CDT 02/29/2024 2:48 AM CDT Narrative TRUDY RAINES - 03/01/2024 4:05 PM CDT Testing performed by [facility] Microbiology Laboratory ([phone]) Organism Antibiotic Method Susceptibility Escherichia coli Ampicillin INTERPRETATION Resistant Escherichia coli Cefazolin INTERPRETATION Susceptible Escherichia coli Nitrofurantoin INTERPRETATION Susceptible Escherichia coli Gentamicin INTERPRETATION Susceptible Escherichia coli Trimethoprim with Sulfamethoxazole IN TERPRETATION Susceptible Escherichia coli Meropenem INTERPRETATION Susceptible Escherichia coli Cefepime INTERPRETATION Susceptible Escherichia coli Ciprofloxacin INTERPRETATION Susceptible Escherichia coli Ceftazidime INTERPRETATION Susceptible Escherichia coli Ceftriaxone INTERPRETATION Susceptible Escherichia coli Piperacillin/Tazobactam INTERPRETATIO N Susceptible Escherichia coli Cephalexin INTERPRETATION Susceptible Escherichia coli Cefuroxime-axetil INTERPRETATION Susceptible Escherichia coli Cefdinir INTERPRETATION Susceptible Roxane Styles NP LAB MICROBIOLOGY - GENERAL ORDER DANIEL Final Result Performing Organization Address City/State/[facility] [place] Phone Number TRUDY [phone] [address] [place] [address] documented in this encounter Visit Diagnoses Diagnosis Cystitis with hematuria Unspecified cystitis documented in this encounter Care Teams Bellows Assembler Relationship Specialty Start Date End Date Terrance Pop MD PCP - General Family Medicine 06/15/20 Angelina Shaikh, PT Physical Therapist Physical Therapy 01/27/18 Ruth Boswell NP [address] [place] [address] [address] [place] [address] Nurse Practitioner Nurse Practitioner 06/15/20 documented as of this encounter
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
--- OUTSIDE RECORDS SUMMARY | 2024-05-13 02:53 | XMS_ITS | Encounter Summary ---
Author Organization [facility] Medical Group Address [address] [place] [address] Care Team Providers Care [employer] Principal Name Role Phone Angelina Shaikh PT Unavailable Unavailable Terrance Pop MD Primary Care Provider [phone] Ruth Boswell NP Unavailable [phone] Reason for Visit * Reason Comments Diarrhea Fever, MARR, BA, fatig ue, diarrhea, vomiting, loss of taste, loss of smell Encounter Details Date Type Department Care Team (Late st Contact Info) Description 07/21/2022 5:30 PM TEST CENTER ADMINISTRATOR Office Visit [facility] [address] [facility] [address] [place] [address] [place] [address] Rachel Izaguirre, DONALD [address] [place] [address] Nausea and vomiting, unspecified vomiting type (Primary Dx); Acute viral syndrome Social History Tobacco Use Types Packs/Day Years Used Date Smoking Tobacco: Never Smokeless Tobacco: Never Tobacco Cessation:Counseling Given: Not Answered Alcohol Use Standard Drinks/Week Comments No 0 [...] and Family Not on file 06/15/2020 Attends Shinto Services Not on file 06/15 Active Member [...] on file Legal Sex Female 1:15 AM TEST CENTER ADMINISTRATOR Gender Identity Not on file Sexual Orientation Not on file Occupation Industry Job Start Date Job End Date Not on file Not on file Not on file Not on file documented as of this encounter Last Filed Vital Signs Vital Sign Reading Time Taken Comments Blood Pressure 110/76 07/21/2022 5:39 PM TEST CENTER ADMINISTRATOR Pulse 99 07/21/2022 5:39 PM TEST CENTER ADMINISTRATOR Temperature 36.8 ??C (98.3 ??F) 07/21/2022 5:39 PM CS T Respiratory Rate 22 07/21/2022 5:39 PM TEST CENTER ADMINISTRATOR Oxygen Saturation 99% 07/21/2022 5:39 PM TEST CENTER ADMINISTRATOR Inhaled Oxygen Concentration - - Weight 49.9 kg (110 lb) 07/21/2022 5:39 PM TEST CENTER ADMINISTRATOR Height 160 cm (5' 3 ) 07/21/2022 5:39 PM TEST CENTER ADMINISTRATOR Body Mass Index 19.49 07/21/2022 5:39 PM TEST CENTER ADMINISTRATOR documented in this encounter Patient Instructions * Patient Instructions* Rachel Izaguirre NP - 07/21/2022 5:30 PM TEST CENTER ADMINISTRATOR Swabbed for COVID-19 today in clinic. Test result was negative. Advised that this result may change, and to continue isolation until symptoms are gone. No signs of bacterial infection were noted. Importance of hydration for healthy immune system discussed. Continue safe practices of social distancing and mask wearing where appropriate - such as high riskareas. Get plenty of water and rest. Stay home from work until symptoms are better and no fever for 24 hours. CENTER ADMINISTRATOR documented in this encounter Ordered Prescriptions Prescription Sig Dispense Quantity Refills Last Filled Start Date End Date ondansetron ODT (ZOFRAN-ODT) 4 mg disintegrating tabletIndications:Na usea and vomiting, unspecified vomiting type Take 1 tablet (4 mg total) by mouth every 8 (eight) hours as needed for nausea or vomiting 20 tablet 07/21/2022 3 documented in this encounter Progress Notes * Rachel Izaguirre NP - 07/21/2022 5:30 PM CST Images from the original note were not included. Subjective/Objective Patient ID: Oliver Go is a 26 y.o. female. Chief Complaint Diarrhea (Fever, MARR, BA, fatigue, diarrhea, vomiting, loss of taste, loss of smell) Here as whole family including 8 mo old child all sick with nausea vomiting and diarrhea. She was unable to go to work today. Her symptoms started yesterday with a headache, and today the runs started. Feels hot and cold, wakes after Tylenol with cold sweats. Has not checked temperature, feels feverish. Review of Systems Constitutional: Positive for appetite change (some loss of smell), fatigue and fever. HENT: Negative for congestion and sore throat. Respiratory: Negative for cough, chest tightness and shortness of breath. Cardiovascular: Negative for chest pain. Gastrointestinal: Positive for diarrhea, nausea and vomiting. Negative for abdominal pain. Skin: Negative for color change. Neurological: Positive for headaches. Negative for dizziness. Hematological: Negative for adenopathy. Psychiatric/Behavioral: Negative for confusion. Physical Exam Constitutional: General: She is not in acute distress. Appearance: She is not ill-appearing. HENT: Nose: No congestion or rhinorrhea. Mouth/Throat: Pharynx: No posterior oropharyngeal erythema. Eyes: Conjunctiva/sclera: Conjunctivae normal. Cardiovascular: Rate and Rhythm: Regular rhythm. Heart sounds: Normal heart sounds. Pulmonary: Effort: No respiratory distress. Breath sounds: No wheezing, rhonchi or rales. Abdominal: General: Bowel sounds are normal. There is no distension. Palpations: Abdomen is soft. Tenderness: There is no abdominal tenderness. There is no guarding. Lymphadenopathy: Cervical: No cervical adenopathy. Skin: Findings: No rash. Neurological: Mental Status: She is alert. Psychiatric: Behavior: Behavior normal. Vitals: 07/21/22 1739 BP: 110/76 Pulse: 99 Resp: 22 Temp: 36.8 ??C (98.3 ??F) SpO2: 99% Weight: 49.9 kg (110 lb) Height: 160 cm (5' 3 ) Assessment/Plan Swabbed for COVID-19 today in clinic. Test result was negative. Advised that this result may change, and to continue isolation until symptoms are gone. No signs of bacterial infection were noted. Importance of hydration for healthy immune system discussed. Continue safe practices of social distancing and mask wearing where appropriate - such as high riskareas. Get plenty of water and rest. Stay home from work until symptoms are better and no fever for 24 hours. Diagnoses and all orders for this visit: Nausea and vomiting, unspecified vomiting type (Primary) - POC Influenza A/B, COVID-19 antigen - ondansetron ODT (ZOFRAN-ODT) 4 mg disintegrating tablet; Take 1 tablet (4 mg total) by mouth every 8 (eight) hours as needed for nausea or vomiting Acute viral syndrome Disposition- Discussed medications dosages, usage & potential [...] the plan of care Rachel Izaguirre NP CENTER ADMINISTRATOR documented in this encounter Plan of Treatment Not on file documented as of this encounter Procedures Procedure Name Priority Date/Time Associated Diagnosis Comments POC INFLUENZA A/B, COVID-19 ANTIGEN Routine 07/21/2022 5:56 PM TEST CENTER ADMINISTRATOR Nausea and vomiting, unspecified vomiting type documented in this encounter Results * POC Influenza A/B, COVID-19 antigen (07/21/2022 5:56 PM TEST CENTER ADMINISTRATOR) Influenza A Ag, POC Negative Negative [facility] Influenza B Ag, POC Negative Negative [facility] COVID-19 Ag POC Presumptive Negative Presumptive Negative, Invalid [facility] [place] [place] [facility] 07/21/2022 5:56 PM TEST CENTER ADMINISTRATOR us Rachel Izaguirre NP POINT OF CARE TEST ORDERABLES Final Result [facility] [address] [facility] [place] [address] documented in this encounter Visit Diagnoses Diagnosis Nausea and vomiting, unspecified vomiting type- Primary Acute viral syndrome documented in this encounter Historical Medications * This list may reflect changes made after this encounter. Medication Sig Dispense Quantity Refills Last Filled Start D ate End Date norethindrone (MICRONOR) 0.35 mg tablet 06/10/2022 08/20/2022 added in this encounter Additional Health Concerns Infection Onset Date Last Indicated Resolved Time COVID: Suspected 07/21/2022 07/21/2022 07/21/2022 5:59 PM TEST CENTER ADMINISTRATOR documented as of this encounter Care Teams Secondary School Principal Relationship Specialty Start Date End Date Terrance Pop MD PCP - General Family Medicine 06/15/20 Angelina Shaikh PT Physical Therapist Physical Therapy 01/27/18 Ruth Boswell NP [address] [place] [address] [place] [address] Nurse Practitioner Nurse Practitioner 06/15/20 documented as of this encounter
--- OUTSIDE RECORDS SUMMARY | 2024-05-13 02:53 | XMS_ITS | Encounter Summary ---
Author Organization [facility] Address [address] [facility] [address] [place] [address] Care Team Providers Care Web Content Developer Name Role Phone NeelAngelina PT Unavailable Unavailable Terrance Pop MD Primary Care Provider [phone] Ruth Boswell NP Unavailable [phone] Reason for Visit * Reason Comments Earache Sinus pressure, sore throat (mornings), cough (today). Onset: 08/14/22 Encounter Details Date Type Department Care Team (Late st Contact Info) Description 08/20/2022 11:30 AM CDT Office Visit [facility] [address] [facility] [place] [address] [place] [address] Shalini Gill NP [address] [place] [id number] Non-recurrent acute suppurative otitis media of right ear without spontaneous rupture of tympanic membrane (Primary Dx) Social History Tobacco Use Types Packs/Day Years Used Date Smoking Tobacco: Never Smokeless Tobacco: Never Tobacco Cessation:Counseling Given: Yes Alcohol Use Standard Drinks/Week Comments No 0 [...] on file 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 Gender Identity Not on file Sexual Orientation Not on file Occupation Industry Job Start Date Job End Date Not on file Not on file Not on file Not on file documented as of this encounter Last Filed Vital Signs Vital Sign Reading Time Taken Comments Blood Pressure 94/50 08/20/2022 11:23 AM CDT Pulse 103 08/20/2022 11:23 AM CDT Temperature 37.1 ??C (98.8 ??F) 08/20/2022 11:23 AM C DT Respiratory Rate 15 08/20/2022 11:23 AM CDT Oxygen Saturation 99% 08/20/2022 11:23 AM CDT Inhaled Oxygen Concentration - - Weight 45.4 kg (100 lb) 08/20/2022 11:23 AM CDT Height 160 cm (5' 3 ) 08/20/2022 11:23 AM CDT Body Mass Index 17.71 08/20/2022 11:23 AM CDT documented in this encounter Progress Notes * Shalini Gill, DONALD - 08/20/2022 11:30 AM CDT Images from the original note were not included. Subjective/Objective Patient ID: Oliver Go is a 26 y.o. female. Chief Complaint Earache (Sinus pressure, sore throat (mornings), cough (today). Onset: 08/14/22) Pt presents to clinic c/o continued ear pressure in right ear. Started on amox 4 days ago for AOM. Symptoms are improving but wanted to follow up to check on ears. Denies fever, pain, and hearing loss. Taking amox as prescribed. Review of Systems Constitutional: Negative for chills, fatigue and fever. HENT: Positive for ear pain (right pressure) and sinus pressure. Negative for ear discharge and hearing loss. Respiratory: Positive for cough. Neurological: Negative for dizziness, light-headedness and headaches. Physical Exam Vitals reviewed. Constitutional: Appearance: Normal appearance. HENT: Head: Normocephalic. Right Ear: Hearing, ear canal and external ear normal. No tenderness. Tympanic membrane is erythematous. Tympanic membrane is not injected or bulging. Left Ear: Hearing, tympanic membrane, ear canal and external ear normal. No tenderness. Tympanic membrane is not erythematous or bulging. Ears: Comments: Moderate cerumen to right ear canal. Removed easily with ear curette. Pt states pressure was improved after removal. Right TM mildly erythematous. Not bulging. Nose: Nose normal. Mouth/Throat: Lips: [place]. Mouth: Mucous membranes are moist. Pharynx: Oropharynx is clear. Cardiovascular: Rate and Rhythm: Normal rate and regular rhythm. Pulses: Normal pulses. Heart sounds: Normal heart sounds. Pulmonary: Effort: Pulmonary effort is normal. Breath sounds: Normal breath sounds. Musculoskeletal: General: Normal range of motion. Skin: General: Skin is warm and dry. Neurological: Mental Status: She is alert. Psychiatric: Mood and Affect: Mood normal. Vitals: 08/20/22 1123 BP: 94/50 BP Location: Left arm Patient Position: Sitting Pulse: 103 Resp: 15 Temp: 37.1 ??C (98.8 ??F) SpO2: 99% Weight: 45.4 kg (100 lb) Height: 160 cm (5' 3 ) Assessment/Plan Diagnoses and all orders for this visit: Non-recurrent acute suppurative otitis media of right ear without spontaneous rupture of tympanic membrane (Primary) Continue amoxicillin x 10 days. If sx persist after abx, RTC or follow up with PCP Take antibiotics as prescribed until they are gone. Take Tylenol or Motrin as directed for fever and/or discomfort. A warm (not hot) heating pad held over the ear can also help relieve the pain from the earache. Youshould use a thin cloth such as a dry washcloth between your skin and the heating pad. Follow up with your Primary Care Physician in 2 weeks for ear recheck or sooner if symptoms worsen or are not improving as planned. Patient Education: Disposition Treatment plan including expectations, follow up, and return precautions discussed with patient/parent, verbalizes understanding. Medication dosage, use, and potential adverse reactions discussed with patient/parent. Advised to follow up with PCP if symptoms do not resolve as expected or sooner if condition worsens. Signs/symptoms warranting ER evaluation reviewed. Patient and/or guardian was given an opportunity to ask questions, questions answered. Shalini Gill NP documented in this encounter Plan of Treatment Not on file documented as of this encounter Visit Diagnoses Diagnosis Non-recurrent acute suppurative otitis media of right ear without spontaneous rupture of tympanic membrane- Primary documented in this encounter Discontinued Medications Medication Sig Discontinue Reason Start Date End Da te LIV FE 06/01, , 1 mg-20 mcg (21)/75 mg (7) per tablet Therapy completed 10/10/2017 08/20/2022 norethindrone (MICRONOR) 0.35 mg tablet Therapy completed 06/10/2022 08/20/2022 traMADoL (ULTRAM) 50 mg tablet Take 1 tablet (50 mg total) by mouth every 6 (six) hours as needed for pain for up to 10 doses Therapy completed 05/16/2022 08/20/2022 metroNIDAZOLE (METROGEL) 0.75 % (37.5mg/5 gram) vaginal gelIndications:Bacter ial Vaginosis Vandazole 0.75 % vaginal gel INSERT ONE APPLICATORFUL VAGINALLY AT BEDTIME FOR 5 DAYS Therapy completed 08/20/2022 documented as of this encounter Care Teams Web Content Developer Relationship Specialty Start Date End Date Terrance Pop MD PCP - General Family Medicine 06/15/20 Angelina Shaikh, PT Physical Therapist Physical Therapy 01/27/18 Ruth Boswell NP [address] [place] [address] [address] Nurse Practitioner Nurse Practitioner 06/15/20 documented as of this encounter
--- OUTSIDE RECORDS SUMMARY | 2024-05-13 02:53 | XMS_ITS | Encounter Summary ---
Author Organization [facility] Medical [facility] Address [address] [facility] [address] [place] [address] Care Team Providers Care Afloat Cryptologic Manager Name Role Phone NeelAngelina PT Unavailable Unavailable Terrance Pop MD Primary Care Provider [phone] Ruth Boswell NP Unavailable [phone] Encounter Details Date Type Department Care Team (Late st Contact Info) Description 06/15/2020 Orders Only [facility] Health Information Management [address] [place] [address] Scanning, Provider Social History Tobacco Use Types Packs/Day Years [...] and Family Not on file 06/15/2020 Attends Baptism Services Not on file 06/15 Active Member [...] on file 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 Gender Identity Not on file Sexual Orientation Not on file Occupation Industry Job Start Date Job End Date Not on file Not on file Not on file Not on file documented as of this encounter Plan of Treatment Not on file documented as of this encounter Procedures Procedure Name Priority Date/Time Associated Diagnosis Comments SCAN - LABS 06/15/2020 4:19 PM ROLL EXAMINER documented in this encounter Results * SCAN - LABS (06/15/2020 4:19 PM ROLL EXAMINER) us Provider Scanning Final Result documented in this encounter Visit Diagnoses Not on filedocumented in this encounter Care Teams Afloat Cryptologic Manager Relationship Specialty Start Date End Date Terrance Pop MD PCP - General Family Medicine 06/15/20 Angelina Shaikh PT Physical Therapist Physical Therapy 01/27/18 Ruth Boswell NP [address] [facility] [address] [place] [address] Nurse Practitioner Nurse Practitioner 06/15/20 documented as of this encounter
--- OUTSIDE RECORDS SUMMARY | 2024-05-13 02:53 | XMS_ITS | Encounter Summary ---
Author Organization [facility] Healthcare Address [address] [place] [address] Care Team Providers Care Magnetic Prospecting Supervisor Name Role Phone Angelina Shaikh PT Unavailable Unavailable Terrance Pop MD Primary Care Provider [phone] Ruth Boswell NP Unavailable [phone] Reason for Visit * Reason Comments Urinary Symptom UTI Symptoms- dull s tomach pain, frequency, dull burn before and after urinating. Has had consistent problems with this since son's two years ago. Is currently on Amoxicillin for a tooth ache. Encounter Details Date Type Department Care Team (Late st Contact Info) Description 02/28/2024 12:45 PM CDT Office Visit [facility] [address] [place] [address] Roxane Styles NP [address] [place] [address] Cystitis with hematuria (Primary Dx); Antibiotic-induced yeast infection Social History Tobacco Use Types Packs/Day Years [...] ways by your partner or ex-partner? 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 Gender Identity Not on file Sexual Orientation Not on file Occupation Industry Job Start Date Job End Date Not on file Not on file Not on file Not on file documented as of this encounter Last Filed Vital Signs Vital Sign Reading Time Taken Comments Blood Pressure 88/64 02/28/2024 12:35 PM CDT Pulse 93 02/28/2024 12:35 PM CDT Temperature 36.8 ??C (98.2 ??F) 02/28/2024 12:35 PM C DT Respiratory Rate 17 02/28/2024 12:35 PM CDT Oxygen Saturation 98% 02/28/2024 12:35 PM CDT Inhaled Oxygen Concentration - - Weight 47 kg (103 lb 9.6 oz) 02/28/2024 12:35 PM CDT Height 160 cm (5' 3 ) 02/28/2024 12:35 PM CDT Body Mass Index 18.35 02/28/2024 12:35 PM CDT documented in this encounter Patient Instructions * Patient Instructions* Roxane Styles NP - 02/28/2024 12:45 PM CDT Treatment of urinary symptoms: Take your prescribed antibiotic until it is gone. Stopping your antibiotic early puts you at risk for developing an antibiotic resistant infection. Most people have symptom relief with their antibiotic within the first day (some even within a few hours of the first dose). In the meantime you may use Pyridium as needed for burning upon urination- do not use for more than3 days as this can mask the symptoms of a worsening infection. Pyridium will turn your urine orange. May take Tylenol/Motrin for pain Drink plenty of water and fluids. Cranberry products are not proven to treat or prevent urinary tract infections however there is probably not much harm in taking them if you wish to do so. Avoid citrus juices, caffeine, alcohol, and intercourse (bladder irritants) until your symptoms resolve and treatment is complete. To prevent UTI in the future: Increase your water intake. Urine should be clear or nearly clear. Attempt to empty your bladder every 2-3 hours and do not hold urine for long periods of time. Always wipe from front to back. Void before and after intercourse. Avoid tight-fitting jeans, nylon or thong underwear as they can trap moisture and help bacteria grow. Cotton underwear and loose-fitting clothes should be worn. Call you PRIMARY CARE PROVIDER should your symptoms fail to improve or worsen. Go to the ER if you experience any severe back, flank, or groin pains, fever >101 that does not respond to Motrin or Tylenol, persistent vomiting, or any other worsening symptoms documented in this encounter Ordered Prescriptions Prescription Sig Dispense Quantity Refills Last Filled Start Date End Date fluconazole (DIFLUCAN) 150 mg tabletIndications: Cystitis with hematuria Take one tab now. Repeat in 3 days if symptoms persist. 2 tablet 02/28/2024 nitrofurantoin monohydrate (Macrobid) 100 mg capsuleIndications :Cystitis with hematuria Take 1 capsule (100 mg total) by mouth 2 (two) times a day for 5 days 10 capsule 02/28/2024 4 documented in this encounter Progress Notes * Roxane Styles NP - 02/28/2024 12:45 PM CDT Images from the original note were not included. Subjective/Objective Patient ID: Oliver Go is a 28 y.o. female. Chief Complaint Urinary Symptom (UTI Symptoms- dull stomach pain, frequency, dull burn before and after urinating. Has had consistent problems with this since son's two years ago. Is currently on Amoxicillin for a tooth ache. ) Patient presents to convenient care for abdominal pressure, dysuria, and urinary frequency x1 days.She states that she has a history of UTIs. Last UTI was 2 months ago. She states that she did have intercourse prior to symptoms starting which is typically how her UTI start. She is currently on Augmentin for a dental infection. She denies any vaginal discharge. LMP was on 02/20/2024. She has taken OTC cranberry juice for her symptoms. Denies any fevers, chills, or low back pain. Review of Systems All systems reviewed and are negative or non contributory for this patient's presentation today other than as stated in the HPI. Physical Exam Vitals reviewed. Constitutional: Appearance: Normal appearance. She is not ill-appearing. HENT: Head: Normocephalic. Cardiovascular: Rate and Rhythm: Normal rate. Pulmonary: Effort: Pulmonary effort is normal. Abdominal: Palpations: Abdomen is soft. Tenderness: There is no abdominal tenderness. There is no right CVA tenderness or left CVA tenderness. Skin: General: Skin is warm and dry. Neurological: Mental Status: She is alert and oriented to person, place, and time. Mental status is at baseline. Psychiatric: Mood and Affect: Mood normal. Behavior: Behavior normal. Thought Content: Thought content normal. Judgment: Judgment normal. Vitals: 02/28/24 1235 BP: (!) 88/64 Pulse: 93 Resp: 17 Temp: 36.8 ??C (98.2 ??F) TempSrc: Tympanic SpO2: 98% Weight: 47 kg (103 lb 9.6 oz) Height: 160 cm (5' 3 ) Assessment/Plan Diagnoses and all orders for this visit: Cystitis with hematuria (Primary) - POCT urinalysis dipstick - Urine culture Urine, clean voided; Future - nitrofurantoin monohydrate (Macrobid) 100 mg capsule; Take 1 capsule (100 mg total) by mouth 2 (two) times a day for 5 days - fluconazole (DIFLUCAN) 150 mg tablet; Take one tab now. Repeat in 3 days if symptoms persist. --UA lupillo, cloudy, trace blood, positive nitrites, trace leukocytes --urine culture ordered --Macrobid as prescribed --start antibiotic as directed. Discussed importance of compliance of antibiotics and possibility of change depending on culture results and susceptibilities --symptoms warranting ED presentation: chest tightness, SOB, inability to maintain oral intake, confusion, fever greater than 100.9 ?? for more than 4 hours w/o improvement w/ antipyretics --f/u with PCP if symptoms do not improve in 5-7 days or sooner if symptoms worsen Recent Results (from the past 4 hour(s)) POCT urinalysis dipstick Collection Time: 02/28/24 12:44 PM Result Value Ref Range Color, Urine, POC Lupillo Clarity, ur, POC Cloudy (A) Clear Glucose, ur, POC Negative Negative MG/DL Bilirubin, ur, POC Negative Negative, Small, Moderate, Large Ketones, ur, POC Negative Negative Specific [place], POC Blood, ur, POC Trace (A) Negative pH, ur, POC 5.5 5.0 - 8.0 Protein, ur, POC Negative Negative Urobilinogen, urine, POC 0.2 0.2 - 1.0 mg/dL Nitrite, ur, POC Positive (A) Negative Leukocytes, ur, POC Trace (A) Negative Lot Number [id number] Patient Education: Disposition Treatment plan including expectations, follow up, and return precautions discussed with patient/parent, verbalizes understanding. Medication dosage, use, and potential adverse reactions discussed with patient/parent. Advised to follow up with PCP if symptoms do not resolve as expected or sooner if condition worsens. Signs/symptoms warranting ER evaluation reviewed. Patient and/or guardian was given an opportunity to ask questions, questions answered. Roxane Styles NP documented in this encounter Plan of Treatment Not on file documented as of this encounter Procedures Procedure Name Priority Date/Time Associated Diagnosis Comments POCT URINALYSIS DIPSTICK Routine 02/28/2024 12:44 PM CDT Cystitis with hematuria documented in this encounter Results * (ABNORMAL) Urine culture Urine, clean voided (02/28/2024 6:00 PM CDT) Report Final Report: Greater than or equal to 100,000 colonies/mL of Escherichia coli Plus growth of clinically insignificant bacterial marco a. (.) Comment:Testing performed by : [facility], [address] [facility] [place]., [address] Organism ESCHERICHIA COLI [facility] Organism PLUS GROWTH OF CLINICALLY INSIGNIFICANT MARCO A. [facility] Urine, clean voided 02/28/2024 6:00 PM CDT 02/29/2024 2:48 AM CDT Narrative TRUDY Frazier 03/01/2024 4:05 PM CDT Testing performed by [facility]biology Laboratory ([phone]) Organism Antibiotic Method Susceptibility Escherichia coli Ampicillin [...] INTERPRETATION Susceptible Escherichia coli Cefdinir INTERPRETATION Susceptible us Roxane Styles NP LAB MICROBIOLOGY - GENERAL ORDER DANIEL Final Result TRUDY [id number] [address] Department [place] [address] * (ABNORMAL) POCT urinalysis dipstick (02/28/2024 12:44 PM CDT) Color, Urine, POC Lupillo Clarity, ur, POC Cloudy(A) Clear Glucose, ur, POC Negative Negative MG/DL Bilirubin, ur, POC Negative Negative, Small, Moderate, Large Ketones, ur, POC Negative Negative Specific [place], POC Comment:>=1.030 Blood, ur, POC Trace(A) Negative pH, ur, POC 5.5 5.0 - 8.0 Protein, ur, POC Negative Negative Urobilinogen, urine, POC 0.2 0.2 - 1.0 mg/dL Nitrite, ur, POC Positive(A) Negative Leukocytes, ur, POC Trace(A) Negative Lot Number [id number] Urine 02/28/2024 12:4 4 PM CDT us Roxane Styles NP POINT OF CARE TEST ORDERABLES Fi nal Result documented in this encounter Visit Diagnoses Diagnosis Cystitis with hematuria- Primary Unspecified cystitis Antibiotic-induced yeast infection Cystitis with hematuria Unspecified cystitis documented in this encounter Care Teams Magnetic Prospecting Supervisor Relationship Specialty Start Date End Date Terrance Pop MD PCP - General Family Medicine 06/15/20 Angelina Shaikh, ANDREW Physical Therapist Physical Therapy 01/27/18 Ruth Boswell NP [address] [place] [address] [address] Nurse Practitioner Nurse Practitioner 06/15/20 documented as of this encounter
--- OUTSIDE RECORDS SUMMARY | 2024-05-13 02:53 | XMS_ITS | Encounter Summary ---
Author Organization [facility] Care Team Providers Care Storage Center Manager Name Role Phone Jane Garvin MD Primary Care Provider [phone] Jane Garvin MD Unavailable [phone] Angelina Shaikh PT Unavailable Unavailable Encounter Details Date Type Department Care Team (Latest Contact Info) Description 05/14/2019 Travel Social History Tobacco Use Types Packs/Day Years Used Date Smoking Tobacco: Never Cigarettes Smokeless Tobacco: Never Alcohol Use Standard Drinks/Week Comments No 0 (1 standard drink = 0.6 oz pur e alcohol) Comments No Sex and Gender Information Value Date Recorded Sex Assigned at Not on file 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
--- OUTSIDE RECORDS SUMMARY | 2024-05-13 02:53 | XMS_ITS | Encounter Summary ---
Author Organization [facility] Healthcare Address [address] [place] [id number] Care Team Providers Care Production Gear Cutter Name Role Phone Angelina Shaikh PT Unavailable Unavailable Terrance Pop MD Primary Care Provider [phone] Ruth Boswell NP Unavailable [phone] Reason for Visit * Reason Comments URI Nasal discharge,sore throat, cough, diarrhea, body aches. Onset: 03/16/23 Encounter Details Date Type Department Care Team (Late st Contact Info) Description 03/18/2023 7:15 PM DIRECTOR MEDICAL Office Visit [facility] at [address] [place] [address] Sally Smith NP [address] [place], [place] [id number] Viral URI with cough (Primary Dx) Social History Tobacco Use Types [...] and Family Not on file 06/15/2020 Attends Muslim Services Not on file 06/15 Active Member [...] on file Legal Sex Female 1:15 AM DIRECTOR MEDICAL Gender Identity Not on file Sexual Orientation Not on file Occupation Industry Job Start Date Job End Date Not on file Not on file Not on file Not on file documented as of this encounter Last Filed Vital Signs Vital Sign Reading Time Taken Comments Blood Pressure 110/64 03/18/2023 7:06 PM DIRECTOR MEDICAL Pulse 105 03/18/2023 7:06 PM DIRECTOR MEDICAL Temperature 37.1 ??C (98.7 ??F) 03/18/2023 7:06 PM CS T Respiratory Rate 18 03/18/2023 7:06 PM DIRECTOR MEDICAL Oxygen Saturation 96% 03/18/2023 7:06 PM DIRECTOR MEDICAL Inhaled Oxygen Concentration - - Weight 47.6 kg (105 lb) 03/18/2023 7:06 PM DIRECTOR MEDICAL Height - - Body Mass Index 18.6 08/20/2022 11:23 AM CDT documented in this encounter Patient Instructions * Patient Instructions* Sally Smith NP - 03/18/2023 7:15 PM DIRECTOR MEDICAL Recommendations and Information The main treatment for respiratory infections of any kind is to rest, eat healthy, and drink plentyof fluids. Cold symptoms will likely last anywhere from 7-10 days with symptoms feeling much worse on days 3-5. Antibiotic medications do not cure a cold nor do antibiotic medications help to shortenthe symptoms of viral illness. The following may help you feel better: Over the counter antihistamine such as loratadine (Claritin) or cetirizine (Zyrtec) to reduce secretions. The D formula includes pseudoephedrine and can be helpful as a decongestant but should not be used if you have a history of high blood pressure. Coricidin HBP may be taken for congestion if you have a history of high blood pressure. Tessalon if prescribed for cough. Albuterol inhaler if prescribed for shortness of breath, cough, or wheezing. Use you albuterol inhaler or nebulizer every 4 hours for the next 48 hours, then every 4-6 hours as needed. Don't smoke and avoid second hand smoke. Suck on cough drops or hard candies to soothe a dry or sore throat. Cough drops won't stop your cough, but they may make your throat feel better. Over the counter loratadine (Claritin) or cetirizine (Zyrtec) to reduce secretions. Mucinex to thin secretions Breathe moist air from a humidifier, a hot shower, or a sink filled with hot water. The heat and moisture can help keep mucus in your airways moist so you can cough it out easily. Use nonprescription medicine, such as acetaminophen, ibuprofen, or aspirin, to relieve fever and body aches. Don't give aspirin to anyone younger than age 20. Rest more than usual. Drink plenty of fluids so that you do not become dehydrated and to keep mucous thin. Use an mzdh-gdm-ypwacdl cough medicine such as Delsym or Robitussin. (Cough medicines may not be safe for young children or for people who have certain health problems.) Cough suppressants may help you to stop coughing. Expectorants, such as Mucinex, can help you bring up mucus when you cough. Follow up with primary care physician in 1 week, or sooner if symptoms worsen. If you experience worsening shortness of breath or fever >101, go to the Emergency Room. [facility] documented in this encounter Progress Notes * Sally Smith NP - 03/18/2023 7:15 PM CST Images from the original note were not included. Patient ID: Oliver Go is a 27 y.o. female followed by Terrance Pop MD Chief Complaint Patient presents with URI Nasal discharge,sore throat, cough, diarrhea, body aches. Onset: 03/16/23 To convenient care with complaint of runny nose, sore throat, nonproductive cough, diarrhea, and generalized body aches, onset 03/16/2023. She also reports shortness of breath with activity at onset,reports shortness of breath has resolved. She has not taken anything [id number]-[id number] for symptoms. Review of Systems Constitutional: Negative for chills and fever. HENT: Positive for rhinorrhea and sore throat. Negative for congestion, ear pain and postnasal drip. Respiratory: Positive for cough. Negative for chest tightness, shortness of breath and wheezing. Cardiovascular: Negative for chest pain. Gastrointestinal: Positive for diarrhea. Musculoskeletal: Positive for myalgias. Neurological: Negative for headaches. Vitals: 03/18/23 1906 BP: 110/64 BP Location: Right arm Patient Position: Sitting Pulse: 105 Resp: 18 Temp: 37.1 ??C (98.7 ??F) SpO2: 96% Weight: 47.6 kg (105 lb) Recent Results (from the past 24 hour(s)) POC Influenza A/B, COVID-19 antigen Collection Time: 03/18/23 7:48 PM Result Value Ref Range Influenza A Ag, POC Negative Negative Influenza B Ag, POC Negative Negative COVID-19 Ag POC Presumptive Negative Presumptive Negative, Invalid POCT rapid RSV Collection Time: 03/18/23 7:49 PM Result Value Ref Range Rapid RSV, POC Negative Lot Number [id number] QC Control Line Acceptable Physical Exam Vitals reviewed. Constitutional: Appearance: She is well-developed. HENT: Head: Comments: Hoarse vocal tone noted Right Ear: Tympanic membrane and external ear normal. Tympanic membrane is not injected, erythematous or bulging. Left Ear: Tympanic membrane and external ear normal. Tympanic membrane is not injected, erythematous or bulging. Nose: Right Sinus: No maxillary sinus tenderness or frontal sinus tenderness. Left Sinus: No maxillary sinus tenderness or frontal sinus tenderness. Mouth/Throat: Lips: [place]. Mouth: Mucous membranes are moist. Pharynx: No posterior oropharyngeal erythema. Tonsils: No tonsillar exudate. Eyes: Conjunctiva/sclera: Conjunctivae normal. Cardiovascular: Rate and Rhythm: Normal rate and regular rhythm. Pulmonary: Effort: Pulmonary effort is normal. Breath sounds: Normal breath sounds. No wheezing or rhonchi. Musculoskeletal: General: Normal range of motion. Skin: General: Skin is warm and dry. Neurological: Mental Status: She is alert and oriented to person, place, and time. Diagnoses and all orders for this visit: Viral URI with cough (Primary) - POC Influenza A/B, COVID-19 antigen - POCT rapid RSV Orders Placed This Encounter Procedures POC Influenza A/B, COVID-19 antigen Order Specific Question: Is the Patient experiencing symptoms consistent with COVID? Answer: Yes Order Specific Question: Date of Symptom Onset Answer: 03/16/2023 POCT rapid RSV Assessment/Plan Lungs CTA, O2 Saturation @96%/RA, low suspicion for pneumonia at this time. Will recommend supportive care for symptoms with f/u precautions including signs/symptoms warranting ER evaluation. Discussed home self-care, follow up needs, and signs and symptoms that warrant immediate medical attention/ER evaluation including worsening fever, increased shortness of breath, severe N/V/D, or anyother worrisome symptoms Discussed symptomatic relief of symptoms Patient Education Recommendations and Information The main treatment for respiratory infections of any kind is to rest, eat healthy, and drink plentyof fluids. Cold symptoms will likely last anywhere from 7-10 days with symptoms feeling much worseon days 3-5. Antibiotic medications do not cure a cold nor do antibiotic medications help to shorten the symptoms of viral illness. The following may help you feel better: Over the counter antihistamine such as loratadine (Claritin) or cetirizine (Zyrtec) to reduce secretions. The D formula includes pseudoephedrine and can be helpful as a decongestant but should not be used if you have a history of high blood pressure. Coricidin HBP may be taken for congestion if you have a history of high blood pressure. Tessalon if prescribed for cough. Albuterol inhaler if prescribed for shortness of breath, cough, or wheezing. Use you albuterol inhaler or nebulizer every 4 hours for the next 48 hours, then every 4-6 hours as needed. Don't smoke and avoid second hand smoke. Suck on cough drops or hard candies to soothe a dry or sore throat. Cough drops won't stop your cough, but they may make your throat feel better. Over the counter loratadine (Claritin) or cetirizine (Zyrtec) to reduce secretions. Mucinex to thin secretions Breathe moist air from a humidifier, a hot shower, or a sink filled with hot water. The heat and moisture can help keep mucus in your airways moist so you can cough it out easily. Use nonprescription medicine, such as acetaminophen, ibuprofen, or aspirin, to relieve fever and body aches. Don't give aspirin to anyone younger than age 20. Rest more than usual. Drink plenty of fluids so that you do not become dehydrated and to keep mucous thin. Use an gnuk-fdg-ldkiwbc cough medicine such as Delsym or Robitussin. (Cough medicines may not be safe for young children or for people who have certain health problems.) Cough suppressants may help you to stop coughing. Expectorants, such as Mucinex, can help you bring up mucus when you cough. Follow up with primary care physician in 1 week, or sooner if symptoms worsen. If you experience worsening shortness of breath or fever >101, go to the Emergency Room. [facility] documented in this encounter Plan of Treatment Not on file documented as of this encounter Procedures Procedure Name Priority Date/Time Associated Diagnosis Comments POCT RAPID RSV Routine 03/18/2023 7:49 PM DIRECTOR MEDICAL Viral URI with cough POC INFLUENZA A/B, COVID-19 ANTIGEN Routine 03/18/2023 7:48 PM DIRECTOR MEDICAL Viral URI with cough documented in this encounter Results * POCT rapid RSV (03/18/2023 7:49 PM DIRECTOR MEDICAL) Rapid RSV, POC Negative Lot Number [id number] QC Control Line Acceptable Swab 03/18/2023 7:49 PM DIRECTOR MEDICAL Sally Smith NP POINT OF CARE TEST ORDER DANIEL Final Result * POC Influenza A/B, COVID-19 antigen (03/18/2023 7:48 PM DIRECTOR MEDICAL) Influenza A Ag, POC Negative Negative [facility] Influenza B Ag, POC Negative Negative [facility] COVID-19 Ag POC Presumptive Negative Presumptive Negative, Invalid [facility] Nasal 03/18/2023 7:48 PM DIRECTOR MEDICAL Sally Smith NP POINT OF CARE TEST ORDER DANIEL Final Result [facility] [place] [id number] [address] [id number] documented in this encounter Visit Diagnoses Diagnosis Viral URI with cough- Primary documented in this encounter Additional Health Concerns Infection Onset Date Last Indicated Resolved Time COVID: Suspected 03/18/2023 03/18/2023 03/18/2023 7:50 PM DIRECTOR MEDICAL documented as of this encounter Care Teams Production Gear Cutter Relationship Specialty Start Date End Date Terrance Pop MD PCP - General Family Medicine 06/15/20 Angelina Shaikh, PT Physical Therapist Physical Therapy 01/27/18 Ruth Boswell, DONALD [address] [place] [place] [address] DR LE [address] [place] [id number] Nurse Practitioner Nurse Practitioner 06/15/20 documented as of this encounter
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
--- OUTSIDE RECORDS SUMMARY | 2024-05-13 02:53 | XMS_ITS | Encounter Summary ---
Author Organization [facility] Healthcare Address [address] [place] [id number] Care Team Providers Care Supervisor Dairy Sanitation Name Role Phone NeelAngelina PT Unavailable Unavailable Terrance Pop MD Primary Care Provider [phone] Ruth Boswell NP Unavailable [phone] Encounter Details Date Type Department Care Team (Late st Contact Info) Description 07/08/2020 Telephone [facility] [address] [place] [address] Praveena Dominog RDMS Social History Tobacco Use Types Packs/Day Years [...] and Family Not on file 06/15/2020 Attends Jehovah'S Witness Services Not on file 06/15 Active Member [...] file Legal Sex Female 1:15 AM TECHNICAL ANALYST Gender Identity Not on file Sexual Orientation Not on file Occupation Industry Job Start Date Job End Date Not on file Not on file Not on file Not on file documented as of this encounter Miscellaneous Notes * Telephone Encounter - Praveena Domingo RDMS - 07/08/2020 1:05 PM TECHNICAL ANALYST Unable to reach for covid-19 prescreen NICAL ANALYST documented in this encounter Plan of Treatment Not on file documented as of this encounter Visit Diagnoses Not on filedocumented in this encounter Care Teams Supervisor Dairy Sanitation Relationship Specialty Start Date End Date Terrance Pop MD PCP - General Family Medicine 06/15/20 Angelina Shaikh, PT Physical Therapist Physical Therapy 01/27/18 Ruth Boswell NP [address] [place] [address] DR LE [address] [place] [id number] Nurse Practitioner Nurse Practitioner 06/15/20 documented as of this encounter
--- OUTSIDE RECORDS SUMMARY | 2024-05-13 02:53 | XMS_ITS | Encounter Summary ---
Author Organization [facility] Healthcare Address [address] [place] [address] Care Team Providers Care Lacquer Maker Name Role Phone Angelina Shaikh PT Unavailable Unavailable Terrance Pop MD Primary Care Provider [phone] Ruth Boswell NP Unavailable [phone] Reason for Visit * Reason Comments UTI Started two days ago , some cramping, bladder still feels full after urination, slight back pain, some abdominal discomfort Encounter Details Date Type Department Care Team (Late st Contact Info) Description 12/15/2023 6:30 PM CDT Office Visit [facility] at [address] [place] [address] Nallely Hand, LISSETH [address] [place] [address] Acute cystitis with hematuria (Primary Dx) Social History Tobacco Use Types [...] and Family Not on file 06/15/2020 Attends [employer] Services Not on file 06/15 Active Member [...] No 06/15/2020 Personal Safety Answer Date Recorded Getting School Help Needed Not on file 07/26 Education Answer Date Recorded What is the highest level of school you have completed or the highest degree you have received? 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 Gender Identity Not on file Sexual Orientation Not on file Occupation Industry Job Start Date Job End Date Not on file Not on file Not on file Not on file documented as of this encounter Last Filed Vital Signs Vital Sign Reading Time Taken Comments Blood Pressure 120/68 12/15/2023 6:48 PM CDT Pulse 92 12/15/2023 6:48 PM CDT Temperature 36.8 ??C (98.2 ??F) 12/15/2023 6:48 PM CD T Respiratory Rate 18 12/15/2023 6:48 PM CDT Oxygen Saturation 99% 12/15/2023 6:48 PM CDT Inhaled Oxygen Concentration - - Weight 45.4 kg (100 lb) 12/15/2023 6:48 PM CDT Height 160 cm (5' 3 ) 12/15/2023 6:48 PM CDT Body Mass Index 17.71 12/15/2023 6:48 PM CDT documented in this encounter Patient Instructions * Patient Instructions* Nallely Hand PA - 12/15/2023 6:30 PM CDT Thank you for allowing me to take care of you today! Take the antibiotics as prescribed. Make sure to drink plenty of water. Follow up with your primary care provider. Go to the ER if you develop a fever, abdominal pain, flank pain, or any other concerning symptoms. documented in this encounter Ordered Prescriptions Prescription Sig Dispense Quantity Refills Last Filled Start Date End Date nitrofurantoin monohydrate (MACROBID) 100 mg capsuleIndications :Acute cystitis with hematuria Take 1 capsule (100 mg total) by mouth 2 (two) times a day for 5 days 10 capsule 12/15/2023 documented in this encounter Progress Notes * Nallely Hand PA - 12/15/2023 6:30 PM CDT Images from the original note were not included. Subjective/Objective Patient ID: Oliver Go is a 28 y.o. female. Chief Complaint UTI (Started two days ago, some cramping, bladder still feels full after urination, slight back pain, some abdominal discomfort) Patient is a 28-year-old female who presents for evaluation of dysuria and suprapubic discomfort, onset yesterday. She denies a fever. Review of Systems All systems reviewed and are negative or non contributory for this patient's presentation today other than as stated in the HPI. Physical Exam Constitutional: General: She is not in acute distress. Appearance: Normal appearance. She is not ill-appearing. HENT: Head: Normocephalic. Nose: Nose normal. Eyes: General: Lids are normal. Conjunctiva/sclera: Conjunctivae normal. Cardiovascular: Rate and Rhythm: Normal rate and regular rhythm. Heart sounds: Normal heart sounds. Pulmonary: Effort: Pulmonary effort is normal. Breath sounds: Normal air entry. Abdominal: Tenderness: There is no right CVA tenderness or left CVA tenderness. Musculoskeletal: General: Normal range of motion. Cervical back: Normal range of motion and neck supple. Skin: General: Skin is warm and dry. Neurological: General: No focal deficit present. Mental Status: She is alert and oriented to person, place, and time. Mental status is at baseline. Psychiatric: Mood and Affect: Mood normal. Behavior: Behavior normal. Vitals: 12/15/23 1848 BP: 120/68 Pulse: 92 Resp: 18 Temp: 36.8 ??C (98.2 ??F) TempSrc: Oral SpO2: 99% Weight: 45.4 kg (100 lb) Height: 160 cm (5' 3 ) Assessment/Plan Thank you for allowing me to take care of you today! Take the antibiotics as prescribed. Make sure to drink plenty of water. Follow up with your primary care provider. Go to the ER if you develop a fever, abdominal pain, flank pain, or any other concerning symptoms. Diagnoses and all orders for this visit: Acute cystitis with hematuria (Primary) - POCT urinalysis dipstick - Urine culture Urine, bladder; Future - nitrofurantoin monohydrate (MACROBID) 100 mg capsule; Take 1 capsule (100 mg total) by mouth 2 (two) times a day for 5 days Recent Results (from the past 4 hour(s)) POCT urinalysis dipstick Collection Time: 12/15/23 7:03 PM Result Value Ref Range Color, Urine, POC Yellow Clarity, ur, POC Clear Clear Glucose, ur, POC Negative Negative MG/DL Bilirubin, ur, POC Negative Negative, Small, Moderate, Large Ketones, ur, POC Trace (A) Negative Specific [place], POC 1.030 1.003 - 1.030 Blood, ur, POC Moderate (A) Negative pH, ur, POC 6.5 5.0 - 8.0 Protein, ur, POC Trace (A) Negative Urobilinogen, urine, POC 1.0 0.2 - 1.0 mg/dL Nitrite, ur, POC Positive (A) Negative Leukocytes, ur, POC Trace (A) Negative Lot Number [id number] Patient Education: Disposition Treatment plan including expectations, follow up, and return precautions discussed with patient/parent, verbalizes understanding. Medication dosage, use, and potential adverse reactions discussed with patient/parent. Advised to follow up with PCP if symptoms do not resolve as expected or sooner if condition worsens. Signs/symptoms warranting ER evaluation reviewed. Patient and/or guardian was given an opportunity to ask questions, questions answered. LISSETH Tony documented in this encounter Plan of Treatment Scheduled Orders Name Type Priority Associated Diagnoses Orde r Schedule Urine culture Urine, bladder Microbiology Routine Acute cystitis with hematuria Expected: 12/15/2023, Expires: 12/14/2024 documented as of this encounter Procedures Procedure Name Priority Date/Time Associated Diagnosis Comments POCT URINALYSIS DIPSTICK Routine 12/15/2023 7:03 PM CDT Acute cystitis with hematuria documented in this encounter Results * (ABNORMAL) POCT urinalysis dipstick (12/15/2023 7:03 PM CDT) Color, Urine, POC Yellow Clarity, ur, POC Clear Clear Glucose, ur, POC Negative Negative MG/DL Bilirubin, ur, POC Negative Negative, Small, Moderate, Large Ketones, ur, POC Trace(A) Negative Specific [place], POC 1.030 1.003 - 1.030 Blood, ur, POC Moderate(A) Negative pH, ur, POC 6.5 5.0 - 8.0 Protein, ur, POC Trace(A) Negative Urobilinogen, urine, POC 1.0 0.2 - 1.0 mg/dL Nitrite, ur, POC Positive(A) Negative Leukocytes, ur, POC Trace(A) Negative Lot Number [id number] Urine 12/15/2023 7:03 PM CDT Nallely MONTANEZ POINT OF CARE TEST ORDERABLES Final Result documented in this encounter Visit Diagnoses Diagnosis Acute cystitis with hematuria- Primary documented in this encounter Care Teams Lacquer Maker Relationship Specialty Start Date End Date Terrance Pop MD PCP - General Family Medicine 06/15/20 Angelina Shaikh PT Physical Therapist Physical Therapy 01/27/18 Ruth Boswell NP [address] [facility] [address] [place] [address] Nurse Practitioner Nurse Practitioner 06/15/20 documented as of this encounter
--- OUTSIDE RECORDS SUMMARY | 2024-05-13 02:53 | XMS_ITS | Encounter Summary ---
Author Organization [facility] Address [address] [facility] [address] [place] [address] Care Team Providers Care Net Software Developer Name Role Phone Angelina Shaikh PT Unavailable Unavailable Terrance Pop MD Primary Care Provider [phone] Ruth Boswell NP Unavailable [phone] Reason for Visit * Reason Onset Date Comments Test Results 02/22/2022 Encounter Details Date Type Department Care Team (Late st Contact Info) Description 02/22/2022 Telephone 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 No Caller's Callback #: [phone] Additional Questions/Comments: Patient stated she was told to call us 24 hours after the Ultrasoundfor results if she had not heard from us. Please follow up with patient and advise. Does message need to be routed?Yes-Action Needed documented in this encounter Plan of Treatment Not on file documented as of this encounter Visit Diagnoses Not on filedocumented in this encounter Care Teams Net Software Developer Relationship Specialty Start Date End Date Terrance Pop MD PCP - General Family Medicine 06/15/20 Angelina Shaikh, PT Physical Therapist Physical Therapy 01/27/18 Ruth Boswell NP [address] [place] [address] [place] [address] Nurse Practitioner Nurse Practitioner 06/15/20 documented as of this encounter
--- OUTSIDE RECORDS SUMMARY | 2024-05-13 02:53 | XMS_ITS | Encounter Summary ---
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 Gender Identity Not on file Sexual Orientation Not on file Occupation Industry Job Start Date Job End Date Not on file Not on file Not on file Not on file documented as of this encounter Miscellaneous Notes * Telephone Encounter - Jenny Bustamante MA - 01/11/2022 2:58 PM CDT Spoke to pt, informed pt of ultrasound order, pt voiced understanding * Telephone Encounter - Jenny Bustamante MA - 01/11/2022 2:58 PM CDT ----- Message from Terrance Pop MD sent at 01/10/2022 8:22 PM CDT ----- Regarding: FW: Gallbladder polyp ----- Message ----- From: Jenny Bustamante MA Sent: 01/10/2022 1:36 PM CDT To: Terrance Pop MD Subject: FW: Gallbladder polyp Spoke to pt, pt stated that at the last visit Dr Pop wanted to look at the gallbladder/gallstones, because of the pain. She was told that she had soft polyp tissue and would like another referral to have the polyp evaluated, since nothing else was done, do to , pt wants to make sure it is nothing to worry about. Please advise. ----- Message ----- From: Terrance Pop MD Sent: 01/09/2022 4:16 PM CDT To: [facility] Pcp Im/Fm Edw Clinical Pool Subject: FW: Gallbladder polyp ----- Message ----- From: Ce Bear MA Sent: 01/09/2022 9:13 AM CDT To: Terrance Pop MD Subject: FW: Gallbladder polyp ----- Message ----- From: Oliver Go Sent: 01/08/2022 7:10 PM CDT To: [facility] Pcp Im/Fm Edw Clinical Pool Subject: Gallbladder polyp Hi! So after we originally were going to set a date to rescue the possibly soft polyp tissue that was found I found out a was , I???m two months post now and my OB is recommended I go ahead and get it scheduled to have a further look and make sure it isn???t anything to worry about. She said to contact my primary, can you send another referral? This Saturday would be awesome if possible! documented in this encounter Plan of Treatment Not on file documented as of this encounter Visit Diagnoses Not on filedocumented in this encounter Care Teams Collaborating Supervising Physician Relationship Specialty Start Date End Date Terrance Pop MD PCP - General Family Medicine 06/15/20 Angelina Shaikh, PT Physical Therapist Physical Therapy 01/27/18 Ruth Boswell NP [address] [place] [address] [address] Nurse Practitioner Nurse Practitioner 06/15/20 documented as of this encounter
--- OUTSIDE RECORDS SUMMARY | 2024-05-13 02:53 | XMS_ITS | Encounter Summary ---
Author Organization [facility] Care Team Providers Care Outside Machinist Supervisor Name Role Phone Jane Garvin MD Primary Care Provider [phone] Jane Garvin MD Unavailable [phone] Angelina Shaikh PT Unavailable Unavailable Encounter Details Date Type Department Care Team (Latest Contact Info) Description 10/07/2018 Travel Social History Tobacco Use Types Packs/Day Years Used Date Smoking Tobacco: Never Cigarettes Smokeless Tobacco: Never Alcohol Use Standard Drinks/Week Comments No 0 (1 standard drink = 0.6 oz pur e alcohol) Comments No Sex and Gender Information Value Date Recorded Sex Assigned at Not on file 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
--- OUTSIDE RECORDS SUMMARY | 2024-05-13 02:53 | XMS_ITS | Encounter Summary ---
Author Organization [facility] Address [address] [facility] [address] [place] [address] Care Team Providers Care Scabbler Name Role Phone Jane Garvin MD Primary Care Provider [phone] Jane Garvin MD Unavailable [phone] Angelina Shaikh PT Unavailable Unavailable Reason for Visit * Reason Comments Urinary Symptom C/o right pelvic christiano n, cloudy brown urine and right flank pain. Sx started yesterday. Encounter Details Date Type Department Care Team (Late st Contact Info) Description 06/11/2020 3:20 PM UX DESIGN LEAD Office Visit [facility] [address] [facility] [place] [address] [place] [address] Sally Smith, DONALD [address] [id number] Abdominal pain (Primary Dx) Social History Tobacco Use Types Packs/Day Years Used Date Smoking Tobacco: Never Cigarettes Smokeless Tobacco: Never Tobacco Cessation:Counseling Given: No Alcohol Use Standard Drinks/Week Comments No 0 (1 standard drink = 0.6 oz pur e alcohol) Comments No Sex and Gender Information Value Date Recorded Sex Assigned at Not on file Legal Sex Female 1:15 AM UX DESIGN LEAD Gender Identity Not on file Sexual Orientation Not on file documented as of this encounter Last Filed Vital Signs Vital Sign Reading Time Taken Comments Blood Pressure 118/74 06/11/2020 3:20 PM UX DESIGN LEAD Pulse 112 06/11/2020 3:20 PM UX DESIGN LEAD Temperature 36.7 ??C (98 ??F) 06/11/2020 3:20 PM UX DESIGN LEAD Respiratory Rate 18 06/11/2020 3:20 PM UX DESIGN LEAD Oxygen Saturation 98% 06/11/2020 3:20 PM UX DESIGN LEAD Inhaled Oxygen Concentration - - Weight 49.9 kg (110 lb) 06/11/2020 3:20 PM UX DESIGN LEAD Height 160 cm (5' 3 ) 06/11/2020 3:20 PM UX DESIGN LEAD Body Mass Index 19.49 06/11/2020 3:20 PM UX DESIGN LEAD documented in this encounter Patient Instructions * Patient Instructions* Sally Smith NP - 06/11/2020 3:20 PM UX DESIGN LEAD Due to diagnostic limitations in the [facility], we are unable to rule out critical problems including cardiac, neurological and abdominal etiologies. Your symptoms and examination today warrantimmediate evaluation in the Emergency Room to rule out a critical diagnosis. I advise you to go directly to the Emergency Room for evaluation. If while in route to the hospital, you experience worsening symptoms including chest pain, shortness of breath, mental status changes, or abdominal pain- call 911 immediately for emergent transportation. DESIGN LEAD documented in this encounter Progress Notes * Sally Smith NP - 06/11/2020 3:20 PM CST Images from the original note were not included. Subjective/Objective Patient ID: Oliver Go is a 24 y.o. female. Patient was wearing the following PPE: mask. MA was wearing the following PPE: mask and face shield. Provider was wearing the following PPE: mask and face shield. Chief Complaint Urinary Symptom (C/o right pelvic pain, cloudy brown urine and right flank pain. Sx started yesterday. ) Presents to [facility] with c/o cloudy urine and R flank pain, onset yesterday. She reports that this morning, she awoke with periumbilical pain that has now moved to R lower quadrant. She reports that the pain is so severe at times that she has to stop what she is doing and wait for pain to subside prior to proceeding with what she is doing. She denies N/V or fever/chills. She states she isnot on her menstrual cycle. Review of Systems Constitutional: Negative. Respiratory: Negative. Cardiovascular: Negative. Gastrointestinal: Positive for abdominal pain. Genitourinary: Positive for flank pain (right) and pelvic pain. Physical Exam Eyes: Conjunctiva/sclera: Conjunctivae normal. Cardiovascular: Rate and Rhythm: Normal rate. Pulmonary: Effort: Pulmonary effort is normal. Abdominal: Tenderness: There is abdominal tenderness. There is right CVA tenderness, guarding (R lower abdomen) and rebound. There is no left CVA tenderness. Skin: General: Skin is warm and dry. Neurological: Mental Status: She is alert. Psychiatric: Mood and Affect: Mood normal. Vitals: 06/11/20 1520 BP: 118/74 BP Location: Left arm Patient Position: Sitting Pulse: 112 Resp: 18 Temp: 36.7 ??C (98 ??F) TempSrc: Temporal SpO2: 98% Weight: 49.9 kg (110 lb) Height: 160 cm (5' 3 ) Results for orders placed or performed in visit on 06/11/20 POCT urinalysis dipstick Result Value Ref Range Color, Urine, POC Dark Yellow Clarity, ur, POC Cloudy (A) Clear Glucose, ur, POC Negative Negative mg/dL Bilirubin, ur, POC Negative Negative, Small, Moderate, Large Ketones, ur, POC Negative Negative Specific [place], POC 1.030 1.005 - 1.030 Blood, ur, POC Large (A) Negative pH, ur, POC 5.5 5.0 - 8.0 Protein, ur, POC Negative Negative Urobilinogen, urine, POC 0.2 0.2 - 1.0 mg/dL Nitrite, ur, POC Negative Negative Leukocytes, ur, POC Negative Negative Lot Number [id number] Assessment/Plan Discussed potential differentials including kidney stones vs appendicitis. Advised patient that I am unable to perform diagnostics to r/o appendicitis at this facility, patient advised to go directlyto the ER. She is agreeable to ER visit- states she will go to [facility], but would like to call her PCP exchange first. Report called to PADMINI L[facility]- [facility] ER. Patient declines EMS transport. Diagnoses and all orders for this visit: Abdominal pain (Primary) - POCT urinalysis dipstick - Urine culture Urine Patient Education: Due to diagnostic limitations in the [facility], we are unable to rule out critical problems including cardiac, neurological and abdominal etiologies. Your symptoms and examination today warrantimmediate evaluation in the Emergency Room to rule out a critical diagnosis. I advise you to go directly to the Emergency Room for evaluation. If while in route to the hospital, you experience worsening symptoms including chest pain, shortness of breath, mental status changes, or abdominal pain- call 911 immediately for emergent transportation. Disposition ??? Treatment plan including expectations, follow up, and return precautions discussed with patient/parent, verbalizes understanding. ??? Medication dosage, use, and potential adverse reactions discussed with patient/parent. ??? Advised to follow up with PCP if symptoms do not resolve as expected or sooner if condition worsens. ??? Signs/symptoms warranting ER evaluation reviewed. ??? Patient and/or guardian was given an opportunity to ask questions, questions answered. Sally Smith NP DESIGN LEAD DESIGN LEAD DESIGN LEAD documented in this encounter Miscellaneous Notes * Result Encounter Note - Richa Nascimento MA - 06/13/2020 10:40 AM UX DESIGN LEAD Pt is informed and had no questions. DESIGN LEAD * Addendum Note - Sendy Parada MA - 06/11/2020 3:20 PM CSTAddended by: SENDY PARADA on: 06/11/2020 06:11 PM Modules accepted: Orders DESIGN LEAD documented in this encounter Plan of Treatment Not on file documented as of this encounter Procedures Procedure Name Priority Date/Time Associated Diagnosis Comments POCT URINALYSIS DIPSTICK Routine 06/11/2020 3:29 PM UX DESIGN LEAD Abdominal pain URINE CULTURE Routine 06/11/2020 3:27 PM UX DESIGN LEAD Abdominal pain documented in this encounter Results * (ABNORMAL) POCT urinalysis dipstick (06/11/2020 3:29 PM UX DESIGN LEAD) Color, Urine, POC Dark Yellow Clarity, ur, POC Cloudy(A) Clear Glucose, ur, POC Negative Negative mg/dL Bilirubin, ur, POC Negative Negative, Small, Moderate, Large Ketones, ur, POC Negative Negative Specific [place], POC 1.030 1.005 - 1.030 Blood, ur, POC Large(A) Negative pH, ur, POC 5.5 5.0 - 8.0 Protein, ur, POC Negative Negative Urobilinogen, urine, POC 0.2 0.2 - 1.0 mg/dL Nitrite, ur, POC Negative Negative Leukocytes, ur, POC Negative Negative Lot Number [id number] Urine 06/11/2020 3:29 PM UX DESIGN LEAD Sally Smith NP POINT OF CARE TEST ORDER DANIEL Final Result * Urine culture Urine (06/11/2020 3:27 PM UX DESIGN LEAD) Report Final Report: Less than 100,000 colonies/mL (clinically insignificant growth based on current clinical standards) TRUDY RAINES Comment:Testing performed by : [facility], [address] [place]., [address] Organism (CLINICALLY INSIGNIFICANT GROWTH TRUDY Urine 06/11/2020 3:27 PM UX DESIGN LEAD 06/11/2020 7:41 PM UX DESIGN LEAD Narrative TRUDY - 06/12/2020 8:21 PM UX DESIGN LEAD Testing performed by [facility] ([phone]) Sally Smith NP LAB MICROBIOLOGY - GENER AL ORDERABLES Final Result TRUDY RAINES [address] [address] Department [place] [address] documented in this encounter Visit Diagnoses Diagnosis Abdominal pain- Primary Abdominal pain, unspecified site documented in this encounter Care Teams Scabbler Relationship Specialty Start Date End Date Jane Garvin MD PCP - General 08/10/16 06/14/20 Jane Garvin MD 08/10/16 06/14/20 Angelina Shaikh, PT Physical Therapist Physical Therapy 01/27/18 documented as of this encounter
--- OUTSIDE RECORDS SUMMARY | 2024-05-13 02:53 | XMS_ITS | Data Portability ---
Author Organization [facility] Vinh [facility] Address [address] [place] [address] Assessment Encounter Date Assessment Date Assessment LastModified by Organization Details LastModified Time 02/05/2017 02/05/2017 Refills sent on cream. Will call if symptoms reoccur. [email or web address] Not available 02/06/2017 15:20:13 02/11/2018 02/11/2018 1. Counseled regarding prevention of STD's , condom use and prevention. 2. Counseled regarding contraceptive options, risk factors and side effects. 3. Advised avoidance of tobacco, alcohol, and drugs . 4. Counseled regarding folic acid supplementation, calcium needs and prevention of osteoporosis . 5. BSE reviewed and recommended. 6. Follow up in one year or sooner if needed. 1. STD testing done per pt request 2. Educated pt on STD prevention, Condom use 3. Pt verbalized understanding 4. Will follow up pending lab results, as needed or at next annual [email or web address] Not available 02/11/2018 11:13:35 03/10/2020 03/10/2020 Pt advised to switch ocp and call office if any questions, side effects or concerns arise. Pt verbalized understanding. [email or web address] Not available 03/10/2020 10:24:41 Plan of Treatment Reminders Order Date Submit Date Provider Last Modified By Organization Details Last Modified Time Details Appointments None recorde d. Lab bacteri al vaginos is + vaginit is panel, vaginal 2016 017 [facility], [address], [address], [place], [address], 7 07:15:36 bacteri al vaginos is + vaginit is panel, vaginal 2017 018 [facility], [address], [address], [place], [address], 8 07:15:25 pap, IG + CT/NG/T V + reflex HR HPV 2018 019 [facility], [address], [address], [place], [address], 9 07:13:20 Referral None recorde d. Procedures None recorde d. Surgeries None recorde d. Imaging None recorde d. Medication Orders Renata Fe 1/20 (28) 1 mg-20 mcg (21)/75 mg (7) tablet 2016 017 [id number], [facility], [place], [address], 7 11:23:51 Vandazo le 0.75 % (37.5 mg/5 gram) vaginal gel 2016 017 [email or web address], [address], [place], [address], 0 09:32:06 Renata Fe 1/20 (28) 1 mg-20 mcg (21)/75 mg (7) tablet 2017 018 [id number], [address] [place] [address], [place], [address], 8 11:13:56 Renata Fe 1/20 (28) 1 mg-20 mcg (21)/75 mg (7) tablet 2018 019 [id number], [address] [place] [address], [place], [address], 9 11:19:17 Loestri n Fe /20 (28-Day ) 1 mg-20 mcg (21)/75 mg (7) tablet 2019 020 [id number], [address], [place], [address], 0 10:24:43 Patient TargetsNo targets recorded. Patient Instructions Encounter Date Encounter Id Patient Instructions Last Modified By Organization Details Last Modified Time 10/22/2016 [id number] Encouraged consistent condom use. mpass Not available 10/22/2016 11:23:17 Oliver thinks she has B-V. This has been a reocurrent problem for her. When she used that Metrogel and Flagyl together had no B-V for one year. We'll await test results and treat PRN. mpass Not available 10/22/2016 11:22:50 Reason for Referral None Reported. Results Created Date Observation Date Name Description Value Unit Range Abnormal Flag Note LastModifiedBy Organization Detail LastModifiedTime 10/23/19 17 10/24/2016 bacte rial vagin osis + vagin itis panel , vagin al atopobium vaginae HIGH - 2 score abnormal Not Available [facility] ([facility]) [address], [place], [address], 10/25/2016 07:15:35 10/23/19 17 10/24/2016 bacte rial vagin osis + vagin itis panel , vagin al bvab 2 MODERA TE - 1 score Not Available [facility] ([facility]) [address] [place], [address], 10/25/2016 07:15:35 10/23/19 17 10/24/2016 bacte rial vagin osis + vagin itis panel , vagin al megasphaera 1 HIGH - 2 score abnormal CALCU LATE TOTAL SCORE BY LISE G THE 3 INDIV IDUAL BACTE RIAL VAGIN OSIS (BV) MARKE R SCORE S TOGET HER. TOTAL SCORE IS INTER PRETE D FOLLO WS: TOTAL SCORE 0-1: INDIC ATES THE ABSEN CE OF BV. TOTAL SCORE 2: INDET ERMIN ATE FOR BV. ADDIT IONAL CLINI MARIANA DATA SHOUL D BE EVALU ATED TO ESTAB DIXON A DIAGN OSIS. TOTAL SCORE 3-6: INDIC ATES THE PRESE NCE OF BV. THIS TEST WAS DEVEL OPED AND ITS PERFO RMANC E LILIAM CTERI STICS DETER MINED BY [employer]. IT HAS NOT BEEN CLEAR ED OR APPRO DOM BY THE FOOD AND DRUG ADMIN ISTRA TION. THE FDA HAS DETER MINED THAT SUCH CLEAR ANCE OR APPRO GABRIELLA IS NOT NECES ARASH. Not Available [facility] ([facility]) [address] [place], [address], 10/25/2016 07:15:35 10/23/19 17 10/24/2016 bacte rial vagin osis + vagin itis panel , vagin al audi albicans, ESTER NEGATI VE negati ve Not Available [facility] ([facility]) [address] [place], [address], 10/25/2016 07:15:35 10/23/19 17 10/24/2016 bacte rial vagin osis + vagin itis panel , vagin al audi glabrata, ESTER NEGATI VE negati ve THIS TEST WAS DEVEL OPED AND ITS PERFO RMANC E LILIAM CTERI STICS DETER MINED BY [employer]. IT HAS NOT BEEN CLEAR ED OR APPRO DOM BY THE FOOD AND DRUG ADMIN ISTRA TION. THE FDA HAS DETER MINED THAT SUCH CLEAR ANCE OR APPRO GABRIELLA IS NOT NECES ARASH. Not Available [facility] ([facility]) [address] [place], [address], 10/25/2016 07:15:35 10/23/1910/24/2016 bacte rial vagin osis + vagin itis panel , vagin al trich vag by ESTER NEGATI VE negati ve Not Available [facility] ([facility]) [address] [place], [address], 10/25/2016 07:15:35 10/23/19 17 10/24/2016 bacte rial vagin osis + vagin itis panel , vagin al chlamydia trachomatis, ESTER NEGATI VE negati ve Not Available [facility] ([facility]) [address] [place], [address], 10/25/2016 07:15:35 10/23/19 17 10/24/2016 bacte rial vagin osis + vagin itis panel , vagin al neisseria gonorrhoeae, ESTER NEGATI VE negati ve Not Available [facility] ([facility]) [address], [place], [address], 10/25/2016 07:15:35 02/12/20 18 02/14/2018 bacte rial vagin osis + vagin itis panel , vagin al atopobium vaginae Low - 0 score Not Available [facility] ([facility]) [address] [place], [address], 02/15/2018 07:15:25 02/12/20 18 02/14/2018 bacte rial vagin osis + vagin itis panel , vagin al bvab 2 Low - 0 score Not Available [facility] ([facility]) [address] [place] [address], [address], 02/15/2018 07:15:25 02/12/20 18 02/14/2018 bacte rial vagin osis + vagin itis panel , vagin al megasphaera 1 Low - 0 score Calcu late total score by lise g the 3 indiv idual bacte rial vagin osis (BV) marke r score s toget her. Total score is inter prete d as follo ws: Total score 0-1: Indic ates the absen ce of BV. Total score 2: Indet ermin ate for BV. Addit ional clini mariana data shoul d be evalu ated to estab dixon a diagn osis. Total score 3-6: Indic ates the prese nce of BV. This test was devel oped and its perfo rmanc e liliam cteri stics deter mined by [facility]. It has not been clear ed or appro dom by the Food and Drug Admin istra tion. The FDA has deter mined that such clear ance or appro gabriella is not neces arash. Not Available [facility] ([facility]) [address] [place], [address], 02/15/2018 07:15:25 02/12/20 18 02/14/2018 bacte rial vagin osis + vagin itis panel , vagin al audi albicans, ESTER Negati ve negati ve Not Available [facility] ([facility]) [address], [place], [address], 02/15/2018 07:15:25 02/12/20 18 02/14/2018 bacte rial vagin osis + vagin itis panel , vagin al audi glabrata, ESTER Negati ve negati ve This test was devel oped and its perfo rmanc e liliam cteri stics deter mined by [facility]. It has not been clear ed or appro dom by the Food and Drug Admin istra tion. The FDA has deter mined that such clear ance or appro gabriella is not neces arash. Not Available [facility] ([facility]) [address], [place], [address], 02/15/2018 07:15:25 02/12/20 18 02/14/2018 bacte rial vagin osis + vagin itis panel , vagin al trich vag by ESTER Negati ve negati ve Not Available [facility] ([facility]) [address] [place], [address], 02/15/2018 07:15:25 02/12/20 18 02/14/2018 bacte rial vagin osis + vagin itis panel , vagin al chlamydia trachomatis, ESTER Negati ve negati ve Not Available [facility] ([facility]) [address] [place], [address], 02/15/2018 07:15:25 02/12/20 18 02/14/2018 bacte rial vagin osis + vagin itis panel , vagin al neisseria gonorrhoeae, ESTER Negati ve negati ve Not Available [facility] ([facility]) [address], [place], [address], 02/15/2018 07:15:25 03/13/20 19 03/16/2019 pap, IG + CT/NG /TV + refle x HR HPV chlamydia, nuc. acid amp Negati ve negati ve Not Available [facility] ([facility]) [address] [place], [address], 03/18/2019 07:13:20 03/13/2003/16/2019 pap, IG + CT/NG /TV + refle x HR HPV gonococcus, nuc. acid amp Negati ve negati ve Not Available [facility] ([facility]) [address] [place], [address], 03/18/2019 07:13:20 03/13/2003/16/2019 pap, IG + CT/NG /TV + refle x HR HPV trich vag by ESTER Negati ve negati ve Not Available [facility] ([facility]) [address], [place], [address], 03/18/2019 07:13:20 03/13/2003/17/2019 pap, IG + CT/NG /TV + refle x HR HPV diagnosis: Commen t NEGAT JENNI FOR INTRA EPITH ELIAL LESIO N OR CECELIA PARKER . Not Available [facility] ([facility]) [address] [place], [address], 03/18/2019 07:13:20 03/13/2003/17/2019 pap, IG + CT/NG /TV + refle x HR HPV specimen adequacy: Commen t Satis facto ry for evalu ation . Endoc ervic al and/o r squam ous metap lasti c cells (endo cervi mariana compo nent) are prese nt. Not Available [facility] ([facility]) [address], [place], [address], 03/18/2019 07:13:20 03/13/2003/17/2019 pap, IG + CT/NG /TV + refle x HR HPV clinician provided ICD10: Ana hoang Z01.4 19 Not Available [facility] ([facility]) [address] [place], [address], 03/18/2019 07:13:20 03/13/2003/17/2019 pap, IG + CT/NG /TV + refle x HR HPV performed by: Thomas Vásquez (ASCP ) Not Available [facility] ([facility]) [address] [place], [address], 03/18/2019 07:13:20 03/13/2003/17/2019 pap, IG + CT/NG /TV + refle x HR HPV . . Not Available [facility] ([facility]) [address] [place], [address], 03/18/2019 07:13:20 03/13/2003/17/2019 pap, IG + CT/NG /TV + refle x HR HPV note: Ana hoang The Pap smear is a scree saran test desig swati to aid in the detec tion of elian ligna nt and malig nant condi tions of the uteri ne cervi x. It is not a diagn ostic proce dure and shoul d not be used as the sole means of detec ting cervi mariana cance r. Both false -posi tive and false -nega tive repor ts do occur . Not Available [facility] ([facility]) [address], [place], [address], 03/18/2019 07:13:20 03/13/2003/17/2019 pap, IG + CT/NG /TV + refle x HR HPV test methodology: Ana hoang This liqui d based ThinP rep(R ) pap test was jenni longoria with the use of an image guide josep syste m. Not Available [facility] ([facility]) [address], [place], [address], 03/18/2019 07:13:20 03/13/20 19 03/17/2019 pap, IG + CT/NG /TV + refle x HR HPV . Commen t The HPV DNA refle x crite ángel were not met with this speci men resul t there fore, no HPV testi ng was perfo rmed. Not Available [facility] ([facility]) [address], [place], [address], 03/18/2019 07:13:20 04/06/20 20 04/05/2020 CT, abdom en + pelvi s, w/o contr ast No observ ation record ed. BARCODE Not Available 2019 12:46:35 Result Notes None recorded. Problems Name Problem SNOMED Code Status Onset Date Resolution Date Notes Provider Name and Address Organization Details Recorded Time Menorrhagia 894316120 Active Ava Kaden null, [place] - [facility] 6 15:54:52 Bacterial vaginosis 842065736 Active Leelee Botello [place], [place] - [facility] 6 11:31:16 Vaginal discharge 105399570 Active white Ava Adairmons [place], [place] [facility] 6 15:54:52 Pruritus of vagina 17363617 Active Leelee Kitchen [place] null, [place] - [facility] 6 15:13:07 Breast lump 64170717 Active 2016 Ava Alfonso [place], [place] [facility] 7 14:03:18 Problem Notes None recorded. Procedures Surgical History Date Name Laterality Status Provider Name and Address Organization Details Recorded Time 6 Control Implant Removal completed ESTIVEN [place] Attn: Accounting,[address] [facility], [place], [address], [place] - [facility] 07/25/2015 15:33:38 5 Control Implant Replacement completed Sheila Moncada [facility] Attn: Accounting,[address], [place], [address], [facility] - [facility] 09/15/2014 16:41:35 Imaging Results Imaging Date Name Status LastModified by Organiz ation Details LastModified Time 04/05/2020 CT, abdomen + pelvis, w/o contrast completed [facility] Information not available 04/06/2020 12:46:35 Procedure Notes None recorded. Medical Equipment None Reported. Allergies No known drug allergies Medications Name Sig Start Date Stop Date Status Note LastModified by Organization Details LastModified Time cyclobenzap rine 10 mg tablet 06/11 completed Not Available Not Available Not Available cefuroxime axetil 250 mg tablet active Not Available Not Available No t Available triazolam 0.25 mg tablet 03/10 completed Not Available Not Available Not Available azithromyci n 250 mg tablet 03/13 completed Not Available Not Available Not Available ibuprofen 800 mg tablet 06/11 completed Not Available Not Available Not Available fluconazole 150 mg tablet Take 1 tablet by oral route as directed for 1 day. 03/10 completed Not Available Not Available Not Available hydrocodone 5 mg-acetamin ophen 325 mg tablet active Not Available Not Available No t Available ondansetron HCl 8 mg tablet active Not Available Not Available Not Available prednisone 20 mg tablet 03/10 completed Not Available Not Available Not Available metronidazo le 500 mg tablet Take 1 tablet twice a day by oral route for 7 days. 03/13 completed Not Available Not Available Not Available acetaminoph en 300 mg-codeine 30 mg tablet 03/10 completed Not Available Not Available Not Available prochlorper azine maleate 10 mg tablet 03/10 completed Not Available Not Available Not Available ciprofloxac in 500 mg tablet 03/10 completed Not Available Not Available Not Available sulfamethox azole 800 mg-trimetho prim 160 mg tablet 10/22 completed Not Available Not Available Not Available tramadol 50 mg tablet 03/10 completed Not Available Not Available Not Available triamcinolo ne acetonide 0.1 % topical cream 03/10 completed Not Available Not Available Not Available amoxicillin 875 mg tablet 03/10 completed Not Available Not Available Not Available estradiol 1 mg tablet TAKE ONE TABLET BY MOUTH 10 CONSECUTV E DAYS MONTHLY active Not Available Not Available No t Available IBU 400 mg tablet 03/10 completed Not Available Not Available Not Available mupirocin 2 % topical ointment active Not Available Not Available Not Available ibuprofen 600 mg tablet active Not Available Not Available Not Available levofloxaci n 500 mg tablet 03/10 completed Not Available Not Available Not Available methylpredn isolone 4 mg tablets in a dose pack 03/10 completed Not Available Not Available Not Available naproxen 500 mg tablet 06/11 completed Not Available Not Available Not Available amoxicillin 875 mg-potassiu m clavulanate 125 mg tablet 03/10 completed Not Available Not Available Not Available Vandazole 0.75 % (37.5 mg/5 gram) vaginal gel INSERT ONE APPLICATO RFUL VAGINALLY AT BEDTIME FOR 5 DAYS 03/10 completed Not Available Not Available Not Available chlorhexidi ne gluconate 0.12 % mouthwash 03/10 completed Not Available Not Available Not Available ProAir HFA 90 mcg/actuati on aerosol inhaler 03/10 completed Not Available Not Available Not Available levocetiriz ine 5 mg tablet active Not Available Not Available Not Available Renata Fe 06/01 (28) 1 mg-20 mcg (21)/75 mg (7) tablet TAKE 1 TABLET BY MOUTH ONCE DAILY DIRECTED active Not Available Not Available No t Available Renata Fe 1.10/09 (28) 1.5 mg-30 mcg (21)/75 mg (7) tablet Take 1 tablet every day by oral route. 10/22 completed Not Available Not Available Not Available Vitals Date Recorded Body height Body mass index (BMI) Body weight Systolic blood pressure Diastolic blood pressure Provider Name and Address Organization Details Last Updated DateTime 02/11/2018 157.48 cm 22.6 kg/m2 32874.05 g 110 mm[Hg] 70 mm[Hg] Ramona Yanes MA [place] - [facility] 8 11:01:25 Date Recorded Body height Provider Name an d Address Organization Details Last Updated DateTime 03/13/2019 157.48 cm Ava Alfonso [facility] 03/13/2019 11:13:45 Date Recorded Body mass index (BMI) Body weight Systolic blood pressure Diastolic blood pressure Provider Name and Address Organization Details Last Updated DateTime 03/13/2019 20.1 kg/m2 26112.16 g 108 mm[Hg] 64 mm[Hg] Ramona Yanes MA [facility] 03/13/2019 11:21:19 Date Recorded Body height Body mass index (BMI) Body weight Systolic blood pressure Diastolic blood pressure Provider Name and Address Organization Details Last Updated DateTime 03/10/2020 157.48 cm 20.2 kg/m2 57876.21 g 120 mm[Hg] 72 mm[Hg] Beatrice Garza Rene [facility] 0 10:13:20 Date Recorded Body height Body mass index (BMI) Body weight Systolic blood pressure Diastolic blood pressure Provider Name and Address Organization Details Last Updated DateTime 10/22/2016 157.48 cm 25.4 kg/m2 42269.34 g 106 mm[Hg] 68 mm[Hg] Leelee Kitchen MA [facility] 7 10:36:31 Date Recorded Body height Body mass index (BMI) Body weight Systolic blood pressure Diastolic blood pressure Provider Name and Address Organization Details Last Updated DateTime 02/05/2017 157.48 cm 25.5 kg/m2 17917.14 g 118 mm[Hg] 70 mm[Hg] Aljeandra Olivo MA [facility] 7 14:12:52 Social History Question Answer Notes LastModified by Organizat ion Details LastModified Time Tobacco Smoking Status Never Smoker Jasmin Dirk tariq [facility] 06/07/2014 12:55:46 What Is Your Level Of Alcohol Consumption? None Information not available 06/07/2014 Are You Currently Employed? Yes [email or web address] Information not available 03/10/2020 Do You Or Have You Ever Used E-cigarettes Or Vape? Never Used Electronic Cigarettes [email or web address] Information not available 03/10/2020 Live Alone Or With Others? With Others Information not available 06/07/2014 What Was The Date Of Your Most Recent Tobacco Screening? 03/10/2020 [email or web address] Information not available 03/10/2020 How Many Children Do You Have? 0 Information not available 06/07/2014 Do You Or Have You Ever Used Smokeless Tobacco? Never Used Smokeless Tobacco [email or web address] Information not available 03/10/2020 How Much Tobacco Do You Smoke? No [email or web address] Information not available 03/10/2020 Sex: Unknown Functional Status None recorded. Mental Status None recorded. Family History Relationship Description Onset Age of this Age Resolved Age Notes LastModified by Organization Details LastModified Time Father Hypertensive disorder [email or web address] Not available 2015 15:48:48 Notes:Multiple familiy membe rs with cervical cancer, and endometriosis Medical History Condition Response Coronary Artery Disease N Blood Diseases N Kidney Cyst N Hyperthyroidism N Blood Transfusion N MRSA N Blood disorders N Emphysema N COPD N Blood Clots N Depression N Pneumonia N Peripheral Arterial Disease N Premature N Edema N TIA N Headaches/Migraines N Anxiety Disorder N Obesity N Infertility N Polyps N Acid Reflux (GERD) N Hematuria N Stroke N Neck Injury N Polio N Hospital Admission other than N Neurologic Disorder N Other Sleep Disorders N Rheumatoid Arthritis N Fibromyalgia N Abdominal Aortic Aneurysm Repair N Kidney Disease N Heart Conditions N Heart Disease/Heart Problems N Hospitalizations N Brain Tumors N Acne N Eating Disorder N Skin Problems N Constipation N Meningitis N Tuberculosis N Cerebral Palsy N Myocardial Infarction N Asthma N Substance Abuse N Peripheral Vascular Disease N Vertigo N Sleep Disorder N Cirrhosis N Pulmonary Embolism N Chicken Pox N Flomax Use Past or Present N Hematologic Disease N Anxiety/Depression N Thyroid Disease N Colon Cancer N Glaucoma N Lung Disease N Developmental or Behavioral Disorders N Bipolar N Pacemaker N Diverticulitis/Diverticulosis N Anesthesia Complications N Orthopedic Problems N Orthotics N Head Injury/Concussion N Congenital Anomalies N Smith Bite N Chronic Kidney Disease N Endometriosis N Liver Disease N Dialysis N Schizophrenia N Speech Delay N Chronic Obstructive Pulmonary Disease N Parkinson's Disease N Thyroid Problems N GI Problems N Developmental Delay N Anemia N Immune System Disorder N Multiple Sclerosis N Colon Polyps N Heart Attack (CA) N Diabetes N Cardiomyopathy N Blood Transfusions N Heart Problems/Murmur N Eye Trauma N Congestive Heart Failure (CHF) N Valvular Heart Disease N Hyperlipidemia N Double Vision N Abuse/Domestic Violence N Hepatitis B N Lupus N Epilepsy/Seizures N Reflux/GERD N Aneurysm N Bronchitis N Heart Disease N Hypertension N Pre-Eclampsia N Heart Failure N Other N Gout N High Blood Pressure N Atrial Fibrillation N Kidney Stones N Head Trauma/Injury N Congenital Heart Disease N Spine Problems N Gastrointestinal Disease N Lung Mass N Sinusitis N Obstructive Sleep Apnea N Muscle, Joint, or Bone Problems N Autoimmune disease N Vision or Eye Problems N Arthritis N Blood Clot N Cancer N Seasonal allergies N Leg or Foot Ulcers N Raynaud's Disease N Aortic Aneurysm N Arrhythmia N Headaches N Heart Problems N Ambloypia N Ear or Hearing Problems N Hyperparathyroidism N Migraines N Artificial Joints N Kidney or Bladder Problems N NSAID Use N Encephalitis N PTSD N Ulcers N Prostate Hypertrophy N Bleeding Disorder N AIDS/HIV N Urinary Tract Infection N Back Problems N Allergies N Atrial Flutter N GERD/Reflux N Hepatitis N Autism Spectrum Disorder (ASD) N Breast Cancer N Hernia N Hypothyroidism N Breast Problem N Genitourinary Disease N Deep Vein Thrombosis N Varicose Veins N Cystic Fibrosis N Hearing Loss N Developmental Problems N Carotid Disease N Vitamin D Deficiency N ADHD N Bladder or Kidney Problems N High Cholesterol N [place] N Valvular Abnormalities N Psychiatric/Mental Health Condition N Organ Transplant N Foot Deformity N Allergies/Hayfever N Dyslipidemia N Hyponatremia N Diabetic Eye Disease N Osteoporosis/Osteopenia N Back Pain N Proteinuria N Mental Illness N Neurological Problems N Ovarian Cancer N Bedwetting N Seizures/Epilepsy N Kidney Failure N Ocular trauma N Dementia N Diverticulitis N Sleep Apnea N Mental Problems N Warfarin Management N Osteoporosis N Gynecological History Statement/Question Response Flow Light Sexually Active? Y Menses Monthly N STIs/STDs N HPV Vaccine N Date of Last Pap Smear Sexual Problems? N Most Recent Mammogram Current Control Method BCPs Age at Menarche 13 LMP Unknown Obstetrics History GPAL:G 0 P 0 0 0 0 Past Encounters Encounter ID Performer Location Encounter Start Date Encounter Closed Date Diagnosis/Indication Diagnosis SNOMED-CT Code Diagnosis ICD10 Code [id number] BENTLEY Landa ([facility]) [address] [place] [address] 09/15/2014 15:55:37 09/16/2014 09:19:37 Subcutaneous contraceptive implant present [id number] Bacterial vaginosis [id number] [facility] ([facility] 122) [address] [place] [address] 07/25/2015 14:03:09 07/25/2015 16:42:03 Contraception care management [id number] Z30.49 Oral contr aceptive prescribed [id number] Z30.011 [id number] Sheila Moncada ONEIDA Gregory ([facility] 122) [address] [place] [address] 11/08/2015 15:37:39 11/08/2015 17:10:32 Gynecologic examination [id number] Z01.419 Surveillan ce of oral contraception [id number] Z30.41 [id number] Sheila Moncada [facility] Logan Womens ([facility] 122) [address] [place] [address] 06/11/2016 13:38:39 06/11/2016 15:18:46 Breast lump [id number] N63 [id number] Sheila Moncada [facility] Logan Womens ([facility] 122) [address] [place] [address] 10/22/2016 10:30:01 10/22/2016 11:49:03 Gynecologic examination [id number] Z01.419 Surveillan ce of oral contraception [id number] Z30.41 [id number] Ruth Boswell [facility] Logan Womens ([facility] 122) [address] [place] [address] 02/05/2017 14:06:26 02/06/2017 15:34:05 Vaginal discharge [id number] N89.8 [id number] Ruth Boswell [facility] [address] [address] 02/11/2018 10:49:44 02/12/2018 09:53:32 Venereal disease screening [id number] Z11.3 Contraception care 46591 [id number] Z30.40 [id number] Ruth Boswell [facility] [address] [address] 03/13/2019 11:05:45 03/16/2019 08:49:00 Gynecologic examination [id number] Z01.419 Contraception care 93637 5005 Z30.40 [id number] Ruth Boswell [facility] [address] [place] [address] 03/10/2020 10:03:31 03/11/2020 13:50:58 Contraception care management [id number] Z30.9 Gynecologi c examination [id number] Z01.419 Health Concerns Section Related Observation LastModified by Organization Detai ls LastModified Time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
--- OUTSIDE RECORDS SUMMARY | 2024-05-13 02:53 | XMS_ITS | Encounter Summary ---
Author Organization [facility] Healthcare Address [address] [place] [address] Care Team Providers Care Mat Tester Name Role Phone NeelAngelina PT Unavailable Unavailable Terrance Pop MD Primary Care Provider [phone] Ruth Boswell NP Unavailable [phone] Reason for Referral * Diagnostic Imaging (Routine) - Closed Specialty Diagnoses / Procedures Referred By Contac t Referred To Contact Procedures US Pelvis Complete Rosa M Alvarez MD [address] [address] Phone: tel: fax: [facility] Medical Group Referral ID Status Reason Start Date Expiration Date Visits Re quested Visits Authorized [id number] Closed 10/28/2023 11/26/2024 1 1 Encounter Details Date Type Department Care Team ([facility] st Contact Info) Description 10/28/2023 Orders Only [facility] Medical Group Primary Care at [address] [address] Rosa M Alvarez MD [address] [address] Social History Tobacco Use Types Packs/Day Years [...] and Family Not on file 06/15/2020 Attends Spiritism Services Not on file 06/15 Active Member [...] on file 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 Gender Identity Not on file Sexual Orientation Not on file Occupation Industry Job Start Date Job End Date Not on file Not on file Not on file Not on file documented as of this encounter Plan of Treatment Not on file documented as of this encounter Procedures Procedure Name Priority Date/Time Associated Diagnosis Comments US PELVIS COMPLETE Schedule Routine, Read Routine (OP Routine) 10/24/2023 8:08 AM CDT documented in this encounter Results * US Pelvis Complete (10/24/2023 8:08 AM CDT) Anatomical Region Laterality Modality Pelvis N/A Ultrasound us Rosa M Alvarez MD IMG US PROCEDURES Final Res ult documented in this encounter Visit Diagnoses Not on filedocumented in this encounter Care Teams Mat Tester Relationship Specialty Start Date End Date Terrance Pop MD PCP - General Family Medicine 06/15/20 Angelina Shaikh PT Physical Therapist Physical Therapy 01/27/18 Ruth Boswell NP [address] [place] [address] [address] LE [address] [place] [address] Nurse Practitioner Nurse Practitioner 06/15/20 documented as of this encounter
--- OUTSIDE RECORDS SUMMARY | 2024-05-13 02:53 | XMS_ITS | Encounter Summary ---
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 [facility] Blood specimen (specimen) 04/05/2020 11:24 AM TIE IN HAND 04/05/2020 11:28 AM TIE IN HAND us Jv Mejia NP LAB BLOOD ORDERABLES Final R esult [facility] 1 [facility] Department [place] [address] * CBC with auto differential (04/05/2020 11:24 AM TIE IN HAND) WBC 5.7 3.8 - 9.9 K/cumm [facility] Hgb 14.7 11.9 - 15.5 g/dL [facility] Hct 43.7 35.6 - 45.5 % [facility] Plt 357 150 - 400 K/cumm [facility] MPV 9.6 9.1 - 12.3 fL [facility] RBC 4.98 3.90 - 5.20 M/cumm [facility] MCV 87.8 81.3 - 96.4 fL [facility] MCH 29.5 27.1 - 33.3 pg [facility] MCHC 33.6 32.3 - 35.7 g/dL [facility] RDW CV 11.5 11.1 - 14.9 % [facility] RDW SD 36.9 35.7 - 48.1 fL [facility] NRBC abs 0.00 0.00 - 0.01 K/cumm [facility] Blood specimen (specimen) 04/05/2020 11:24 AM TIE IN HAND 04/05/2020 11:28 AM TIE IN HAND us Jv Mejia NP LAB BLOOD ORDERABLES Final R esult [facility] 1 [facility] Department [place] [address] documented in this encounter Visit Diagnoses Diagnosis Cyst of ovary, unspecified laterality- Primary Dysmenorrhea, unspecified documented in this encounter Administered Medications Inactive Administered Medications - up to 3 most recent administrations Medication Order MAR Action Action Date Dose Rate Site HYDROmorphone (DILAUDID) injection 0.5 mg 0.5 mg (0.01 mg/kg), intravenous, Administer over 2 Minutes, Once, On e 04/05/20 at 1214, For 1 dose Given 04/05/2020 12:20 PM TIE IN HAND 0.5 mg ioversoL (OPTIRAY 320) intravenous syringe 100 mL 100 mL (2 mL/kg), intravenous, Once in imaging, contrast, Starting on Sat04/05/20 at 1221, For 1 dose Given 04/05/2020 12:26 PM TIE IN HAND 100 mL ketorolac (TORADOL) injection 30 mg 30 mg (0.601 mg/kg), intravenous, Once, On Sat04/05/20 at 1343, For 1 dose, For Adult IV push, administer over 15 seconds Given 04/05/2020 1:47 PM TIE IN HAND 30 mg ondansetron (ZOFRAN) injection 4 mg 4 mg (0.0802 mg/kg), intravenous, Administer over 2 Minutes, Once, On 04/05/20 at 1150, For 1 dose Given 04/05/2020 11:57 AM TIE IN HAND 4 mg sodium chloride 0.9% bolus 1,000 mL 1,000 mL (20 mL/kg), intravenous, at 1,000 mL/hr, Administer over 1 Hours, Once, On e 04/05/20 at 1119, For 1 dose New Bag 04/05/2020 11:21 AM TIE IN HAND 1,000 mL 1000 mL/hr documented in this encounter Active and Recently Administered Medications Times are shown in TIE IN HAND. Scheduled Medication Order 04/03/2020 04/04/2020 04/05/2020 HYDROmorphone (DILAUDID) injection 0.5 mg (COMPLETED) 0.5 mg (0.01 mg/kg), intravenous, Administer over 2 Minutes, Once, On e 04/05/20 at 1214, For 1 dose 1220 (Given - Provid er: Ketty Haider RN) ketorolac (TORADOL) injection 30 mg (COMPLETED) 30 mg (0.601 mg/kg), intravenous, Once, On Sat04/05/20 at 1343, For 1 dose, For Adult IV push, administer over 15 seconds 1347 (Given - Provid er: Dickson Domingo RN) ondansetron (ZOFRAN) injection 4 mg (COMPLETED) 4 mg (0.0802 mg/kg), intravenous, Administer over 2 Minutes, Once, On Sat04/05/20 at 1150, For 1 dose 1157 (Given - Provid er: Ketty Haider RN) sodium chloride 0.9% bolus 1,000 mL (COMPLETED) 1,000 mL (20 mL/kg), intravenous, at 1,000 mL/hr, Administer over 1 Hours, Once, On Sat04/05/20 at 1119, For 1 dose 1121 (New Bag - Prov ider: Ketty Haider RN)1216 (Stopped - Provider: Ketty Haider RN) PRN Medication Order 04/03/2020 04/04/2020 04/05/2020 ioversoL (OPTIRAY 320) intravenous syringe 100 mL (COMPLETED) 100 mL (2 mL/kg), intravenous, Once in imaging, contrast, Starting on Sat04/05/20 at 1221, For 1 dose 1226 (Given - Provid er: Adi Churchill, RT) documented in this encounter Care Teams Ham Marker Relationship Specialty Start Date End Date Jane Garvin MD PCP - General 08/10/16 06/14/20 Jane Garvin MD 08/10/16 06/14/20 Angelina Shaikh, PT Physical Therapist Physical Therapy 01/27/18 documented as of this encounter
--- OUTSIDE RECORDS SUMMARY | 2024-05-13 02:53 | XMS_ITS | Encounter Summary ---
Author Organization [facility] Address [address] [place] [address] [place] [id number] Care Team Providers Care Rv Repair Technician Name Role Phone Jane Garvin MD Primary Care Provider [phone] Jane Garvin MD Unavailable [phone] Angelina Shaikh PT Unavailable Unavailable Reason for Visit * Reason Comments URI Chest pressure, coug h, headache, coughing up green mucus post 1 week UTI Pressure, urinary fr equency post 3 days Encounter Details Date Type Department Care Team (Late st Contact Info) Description 05/14/2019 4:45 PM STOCK TRACER Office Visit [facility] [address] [facility] [place] [id number] [place], DONALD [address] [place] [address] Urinary frequency (Primary Dx); Suprapubic pain; Viral URI; Left flank pain; Antibiotic-induced yeast infection Social History Tobacco Use Types Packs/Day Years Used Date Smoking Tobacco: Never Cigarettes Smokeless Tobacco: Never Alcohol Use Standard Drinks/Week Comments No 0 (1 standard drink = 0.6 oz pur e alcohol) Comments No Sex and Gender Information Value Date Recorded Sex Assigned at Not on file Legal Sex Female 1:15 AM STOCK TRACER Gender Identity Not on file Sexual Orientation Not on file documented as of this encounter Last Filed Vital Signs Vital Sign Reading Time Taken Comments Blood Pressure 122/88 05/14/2019 5:01 PM STOCK TRACER Pulse 113 05/14/2019 5:01 PM STOCK TRACER Temperature 37.2 ??C (98.9 ??F) 05/14/2019 5:01 PM CS T Respiratory Rate 16 05/14/2019 5:01 PM STOCK TRACER Oxygen Saturation 98% 05/14/2019 5:01 PM STOCK TRACER Inhaled Oxygen Concentration - - Weight 51.3 kg (113 lb 3.2 oz) 05/14/2019 5:01 P M STOCK TRACER Height 158.8 cm (5' 2.5 ) 05/14/2019 5:01 PM STOCK TRACER Body Mass Index 20.37 05/14/2019 5:01 PM STOCK TRACER documented in this encounter Patient Instructions * Patient Instructions* Monet Hansen NP - 05/14/2019 4:45 PM STOCK TRACER Complete antibiotic as prescribed Do not hold your urine. Urinate as soon as you feel the need to go Drink plenty of water and fluids. Limit alcohol, caffeine, and citrus juices- They will irritate the bladder Wipe front to back & wear cotton underwear Try emptying your bladder before and after having sexual intercourse Follow up with your PCP if you are not getting better If you have severe back, flank, or groin pain with nausea/vomiting or are unable to get comfortablefrom the pain, please go to ER for further treatment Tylenol/Motrin for pain Complete any medications as prescribed You will need to take OTC medications Mucinex for chest congestion Sudafed for nasal/head congestion Zyrtec for nasal drainage Flonase for sinuses Dayquil/Delysm for cough Drink plenty of fluids to stay hydrated Get plenty of rest Vitamin C- airborne or EmergenC If your symptoms worsen or you experience shortness of breath, RTC or go to ER. If you have been prescribed any medications, take them as directed K TRACER documented in this encounter Ordered Prescriptions Prescription Sig Dispense Quantity Refills Last Filled Start Date End Date fluconazole (DIFLUCAN) 150 mg tabletIndications: Antibiotic-induced yeast infection Take 1 tablet (150 mg total) by mouth once for 1 dose 1 tablet 05/14/2019 05/14/2019 amoxicillin-clavul anate (AUGMENTIN) 875-125 mg per tabletIndications: Suprapubic pain Take 1 tablet by mouth 2 (two) times a day for 7 days 14 tablet 05/14/2019 05/21/2019 documented in this encounter Progress Notes * DimpleMonet acosta, OIL BOILER - 05/14/2019 4:45 PM CST Images from the original note were not included. Subjective/Objective Patient ID: Oliver Go is a 23 y.o. female. Chief Complaint URI (Chest pressure, cough, headache, coughing up green mucus post 1 week ) and UTI (Pressure, urinary frequency post 3 days ) Presents to clinic for sinus pressure, drainage, cough, headache, green mucus x1 week. Tylenol coldmeds is what she has taken. She has also had some urinary frequency- which she took some left over abx. URI This is a new problem. The current episode started in the past 7 days. The problem has been unchanged. The maximum temperature recorded prior to her arrival was 100.4 - 100.9 F. Associated symptoms include congestion, coughing, headaches and a sore throat. Pertinent negatives include no dysuria, nausea or vomiting. Treatments tried: cold meds. UTI This is a new problem. The current episode started in the past 7 days. The problem has been unchanged. Quality: none. The patient is experiencing no pain. She is sexually active. Associated symptoms include flank pain and frequency. Pertinent negatives include no nausea, urgency or vomiting. She has tried antibiotics for the symptoms. The treatment provided no relief. Review of Systems Constitutional: Positive for fever. HENT: Positive for congestion, sinus pressure and sore throat. Respiratory: Positive for cough. Gastrointestinal: Negative for nausea and vomiting. Genitourinary: Positive for flank pain, frequency and pelvic pain. Negative for dysuria and urgency. Musculoskeletal: Positive for myalgias. Neurological: Positive for headaches. Physical Exam Constitutional: General: She is not in acute distress. Appearance: Normal appearance. She is well-developed. HENT: Right Ear: Hearing, tympanic membrane, ear canal and external ear normal. Left Ear: Hearing, tympanic membrane, ear canal and external ear normal. Nose: Right Sinus: No maxillary sinus tenderness or frontal sinus tenderness. Left Sinus: No maxillary sinus tenderness or frontal sinus tenderness. Mouth/Throat: Mouth: Mucous membranes are moist. Pharynx: Oropharynx is clear. Posterior oropharyngeal erythema present. Eyes: Conjunctiva/sclera: Conjunctivae normal. Neck: Musculoskeletal: Normal range of motion and neck supple. Cardiovascular: Rate and Rhythm: Normal rate and regular rhythm. Pulmonary: Effort: Pulmonary effort is normal. Breath sounds: Normal breath sounds. Abdominal: General: Bowel sounds are normal. Palpations: Abdomen is soft. Tenderness: There is tenderness. There is left CVA tenderness. There is no right CVA tenderness. Musculoskeletal: Normal range of motion. Lymphadenopathy: Cervical: No cervical adenopathy. Skin: General: Skin is warm and dry. Neurological: Mental Status: She is alert and oriented to person, place, and time. GCS: GCS eye subscore is 4. GCS verbal subscore is 5. GCS motor subscore is 6. Gait: Gait is intact. Psychiatric: Speech: Speech normal. Behavior: Behavior normal. Vitals: 05/14/19 1701 BP: 122/88 BP Location: Left arm Patient Position: Sitting Pulse: 113 Resp: 16 Temp: 37.2 ??C (98.9 ??F) TempSrc: Oral SpO2: 98% Weight: 51.3 kg (113 lb 3.2 oz) Height: 158.8 cm (5' 2.5 ) Assessment/Plan Complete antibiotic as prescribed Do not hold your urine. Urinate as soon as you feel the need to go Drink plenty of water and fluids. Limit alcohol, caffeine, and citrus juices- They will irritate the bladder Wipe front to back & wear cotton underwear Try emptying your bladder before and after having sexual intercourse Follow up with your PCP if you are not getting better If you have severe back, flank, or groin pain with nausea/vomiting or are unable to get comfortablefrom the pain, please go to ER for further treatment Tylenol/Motrin for pain Complete any medications as prescribed You will need to take OTC medications Mucinex for chest congestion Sudafed for nasal/head congestion Zyrtec for nasal drainage Flonase for sinuses Dayquil/Delysm for cough Drink plenty of fluids to stay hydrated Get plenty of rest Vitamin C- airborne or EmergenC If your symptoms worsen or you experience shortness of breath, RTC or go to ER. If you have been prescribed any medications, take them as directed Diagnoses and all orders for this visit: Urinary frequency (Primary) - POCT urinalysis dipstick Suprapubic pain - amoxicillin-clavulanate (AUGMENTIN) 875-125 mg per tablet; Take 1 tablet by mouth 2 (two) times aday for 7 days Viral URI Left flank pain Antibiotic-induced yeast infection - fluconazole (DIFLUCAN) 150 mg tablet; Take 1 tablet (150 mg total) by mouth once for 1 dose Disposition- Discussed medications dosages, usage & potential [...] in agreement with the plan of care Monet Hansen NP K TRACER documented in this encounter Miscellaneous Notes * Addendum Note - Estefania Spann MA - 05/14/2019 4:45 PM CSTAddended by: ESTEFANIA SPANN on: 05/14/2019 05:45 PM Modules accepted: Orders K TRACER documented in this encounter Plan of Treatment Not on file documented as of this encounter Procedures Procedure Name Priority Date/Time Associated Diagnosis Comments POCT URINALYSIS DIPSTICK Routine 05/14/2019 5:13 PM STOCK TRACER Urinary frequency documented in this encounter Results * Urine culture Urine, clean voided (05/14/2019 5:44 PM STOCK TRACER) Report Final Report: Less than 100,000 colonies/mL (clinically insignificant growth based on current clinical standards) [facility] Comment:Testing performed by : [facility], [address] [facility], [place]., [address] Organism (CLINICALLY INSIGNIFICANT GROWTH [facility] Urine, clean voided 05/14/2019 5:44 PM STOCK TRACER 05/15/2019 12:44 AM STOCK TRACER Narrative TRUDY [facility]ES - 05/16/2019 6:41 AM STOCK TRACER Testing performed by [facility] ([phone]) Monet Beach NP LAB MICROBIOLOGY - [place] ORDERABLES Final Result [facility] [address] [place] [address] * POCT urinalysis dipstick (05/14/2019 5:13 PM STOCK TRACER) Color, Urine, POC Yellow Clarity, ur, POC Clear Clear Glucose, ur, POC Negative Negative mg/dL Bilirubin, ur, POC Negative Negative, Small, Moderate, Large Ketones, ur, POC Negative Negative Specific [place], POC 1.025 1.005 - 1.030 Blood, ur, POC Negative Negative pH, ur, POC 6.5 5.0 - 8.0 Protein, ur, POC Negative Negative Urobilinogen, urine, POC 0.2 0.2 - 1.0 mg/dL Nitrite, ur, POC Negative Negative Leukocytes, ur, POC Negative Negative Lot Number [id number] Urine 05/14/2019 5:13 PM STOCK TRACER Monet Beach OIL BOILER POINT OF CARE TEST OR DERABLES Final Result documented in this encounter Visit Diagnoses Diagnosis Urinary frequency- Primary Suprapubic pain Abdominal pain, other specified site Viral URI Acute upper respiratory infections of unspecified site Left flank pain Abdominal pain, unspecified site Antibiotic-induced yeast infection Urinary frequency documented in this encounter Care Teams Rv Repair Technician Relationship Specialty Start Date End Date Jane Garvin MD PCP - General 08/10/16 06/14/20 Jane Garvin MD 08/10/16 06/14/20 Angelina Shaikh, PT Physical Therapist Physical Therapy 01/27/18 documented as of this encounter
--- OUTSIDE RECORDS SUMMARY | 2024-05-13 02:53 | XMS_ITS | Encounter Summary ---
Author Organization [facility] Healthcare Address [address] [place] [address] Care Team Providers Care Firewall Security Engineer Name Role Phone NeelAngelina PT Unavailable Unavailable Terrance Pop MD Primary Care Provider [phone] Ruth Boswell NP Unavailable [phone] Encounter Details Date Type Department Care Team (Late st Contact Info) Description 12/20/2023 Telephone [facility] at [address] [phone] Ethel Oconnell MA Social History Tobacco Use Types Packs/Day [...] and Family Not on file 06/15/2020 Attends [employer] Not on file 06/15 Active Member [...] on file Legal Sex Female 1:15 AM ESCROW SECRETARY Gender Identity Not on file Sexual Orientation Not on file Occupation Industry Job Start Date Job End Date Not on file Not on file Not on file Not on file documented as of this encounter Miscellaneous Notes * Telephone Encounter - Ethel Oconnell MA - 12/20/2023 12:20 PM CDT Patient notified of test result. Verbalizes understanding. * Telephone Encounter - Ethel Oconnell MA - 12/20/2023 12:19 PM CDT ----- Message from LISSETH Mcgraw sent at 12/20/2023 8:09 AM CDT ----- 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 No changes in treatment needed. documented in this encounter Plan of Treatment Not on file documented as of this encounter Visit Diagnoses Not on filedocumented in this encounter Care Teams Firewall Security Engineer Relationship Specialty Start Date End Date Terrance Pop MD PCP - General Family Medicine 06/15/20 Angelina Shaikh PT Physical Therapist Physical Therapy 01/27/18 Ruth Boswell NP [address] [place] [address] [address] LE [address] [place] [id number] Nurse Practitioner Nurse Practitioner 06/15/20 documented as of this encounter
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
--- OUTSIDE RECORDS SUMMARY | 2024-05-13 02:53 | XMS_ITS | Encounter Summary ---
Author Organization [facility] Address [address] [address] Care Team Providers Care Nurse Administrator Name Role Phone Jane Garvin MD Primary Care Provider [phone] Jane Garvin MD Unavailable [phone] Angelina Shaikh PT Unavailable Unavailable Reason for Visit * Reason Comments Insect Bite Noticed a small bumb on her left thigh last night. She states it is not sore but it is red and the redness is getting larger. Where they were, she said they saw a couple of brown recluse spiders. 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 Gender Identity Not on file Sexual Orientation Not on file documented as of this encounter Last Filed Vital Signs Vital Sign Reading Time Taken Comments Blood Pressure 98/62 10/07/2018 2:40 PM CDT Pulse 109 10/07/2018 2:40 PM CDT Temperature 37.1 ??C (98.7 ??F) 10/07/2018 2:40 PM CD T Respiratory Rate 18 10/07/2018 2:40 PM CDT Oxygen Saturation 97% 10/07/2018 2:40 PM CDT Inhaled Oxygen Concentration - - Weight 51.2 kg (112 lb 12.8 oz) 10/07/2018 2:40 PM CDT Height 158.8 cm (5' 2.5 ) 10/07/2018 2:40 PM CDT Body Mass Index 20.3 10/07/2018 2:40 PM CDT documented in this encounter Patient Instructions * Patient Instructions* Arnold Rosales NP - 10/07/2018 2:15 PM CDT Triamcinolone as prescribed 2 times a day. Watch for signs of infection. Follow up with PCP as needed. documented in this encounter Ordered Prescriptions Prescription Sig Dispense Quantity Refills Last Filled Start Date End Date triamcinolone (KENALOG) 0.1 % creamIndications:B ug bite, initial encounter Apply to affected area 1-2 times daily as needed. 15 g 10/07/2018 9 documented in this encounter Progress Notes * Arnold Rosales NP - 10/07/2018 2:15 PM CDT Images from the original note were not included. Subjective/Objective Patient ID: Oliver Go is a 22 y.o. female. Chief Complaint Insect Bite (Noticed a small bumb on her left thigh last night. She states it is not sore but it isred and the redness is getting larger. Where they were, she said they saw a couple of brown reclusespiders. ) Red whelp on left anterior thigh for the past 12 hours Insect Bite This is a new problem. The current episode started today. The problem occurs every several days. The problem has been unchanged. Pertinent negatives include no arthralgias, congestion, fatigue, headaches, myalgias or sore throat. Nothing aggravates the symptoms. She has tried nothing for the symptoms. The treatment provided no relief. Review of Systems Constitutional: Negative for activity change and fatigue. HENT: Negative for congestion and sore throat. Respiratory: Negative for chest tightness. Genitourinary: Negative for dysuria. Musculoskeletal: Negative for arthralgias and myalgias. Skin: Negative for pallor. Allergic/Immunologic: Negative for environmental allergies. Neurological: Negative for headaches. Psychiatric/Behavioral: Negative for behavioral problems. Physical Exam Constitutional: She is oriented to person, place, and time. She appears well- developed and well-nourished. HENT: Head: Normocephalic. Eyes: Conjunctivae are normal. Neck: Normal range of motion. Neck supple. Cardiovascular: Normal rate, regular rhythm and normal heart sounds. Pulmonary/Chest: Effort normal and breath sounds normal. Abdominal: Soft. Musculoskeletal: Normal range of motion. Neurological: She is alert and oriented to person, place, and time. Skin: Skin is warm and dry. Vitals: 10/07/18 1440 BP: 98/62 BP Location: Right arm Patient Position: Sitting Pulse: 109 Resp: 18 Temp: 37.1 ??C (98.7 ??F) TempSrc: Oral SpO2: 97% Weight: 51.2 kg (112 lb 12.8 oz) Height: 158.8 cm (5' 2.5 ) Assessment/Plan Triamcinolone as prescribed 2 times a day. Watch for signs of infection. Follow up with PCP as needed. Diagnoses and all orders for this visit: Bug bite, initial encounter (Primary) - triamcinolone (KENALOG) 0.1 % cream; Apply to affected area 1-2 times daily as needed. No notes on file Written Information was given to patient regarding diagnosis and treatment. Disposition- Discussed medications dosages, usage & potential side effects. Red flags reviewed.Patient has been instructed to follow up w PCP or go to ER for any signs or symptoms that are of concern or worsening. Patient verbalizes understanding. The patient was given the opportunity to ask all questions and to have all questions answered. Patient is in agreement with the plan of care Arnold Rosales NP documented in this encounter Plan of Treatment Not on file documented as of this encounter Visit Diagnoses Diagnosis Bug bite, initial encounter- Primary documented in this encounter Discontinued Medications Medication Sig Discontinue Reason Start Date End Da te albuterol HFA (PROAIR HFA) 90 mcg/actuation inhaler Inhale 2 puffs every 4 (four) hours as needed for wheezing or shortness of breath. Therapy completed 05/07/2017 10/07/2018 estradiol (ESTRACE) 1 mg tablet estradiol 1 mg tablet Therapy completed 10/08/19 fluconazole (DIFLUCAN) 150 mg tablet fluconazole 150 mg tablet Take 1 tablet by oral route as directed for 1 day. Therapy completed 10/07/2018 HYDROcodone-acetaminop hen (NORCO) 5-325 mg per tabletIndications:Pain Take 1-2 tablets by mouth every 4 (four) hours as needed for pain (1 tablet for mild to moderate pain or 2 tablets for severe pain). Do not exceed 8 tablets/day. Therapy completed 10/20/2017 10/07/2018 ibuprofen (ADVIL,MOTRIN) 400 mg tablet Take 1 tablet (400 mg total) by mouth every 6 (six) hours as needed for pain. Therapy completed 10/20/2017 10/07/2018 documented as of this encounter Care Teams Nurse Administrator Relationship Specialty Start Date End Date Jane Garvin MD PCP - General 08/10/16 06/14/20 Jane Garvin MD 08/10/16 06/14/20 Angelina Shaikh, PT Physical Therapist Physical Therapy 01/27/18 documented as of this encounter
--- OUTSIDE RECORDS SUMMARY | 2024-05-13 02:53 | XMS_ITS | Encounter Summary ---
Author Organization [facility] Healthcare Address [address] [place] [address] Care Team Providers Care Supervisor Malted Milk Name Role Phone Jane Garvin MD Primary Care Provider [phone] Jane Garvin MD Unavailable [phone] Angelina Shaikh PT Unavailable Unavailable Encounter Details Date Type Department Care Team (Late st Contact Info) Description 05/14/2019 10:10 PM PROCESS DEVELOPMENT ENGINEER Lab [address] [address] Urinary frequency Social History Tobacco Use Types Packs/Day Years Used Date Smoking Tobacco: Never Cigarettes Smokeless Tobacco: Never Alcohol Use Standard Drinks/Week Comments No 0 (1 standard drink = 0.6 oz pur e alcohol) Comments No Sex and Gender Information Value Date Recorded Sex Assigned at Not on file Legal Sex Female 1:15 AM PROCESS DEVELOPMENT ENGINEER Gender Identity Not on file Sexual Orientation Not on file documented as of this encounter Plan of Treatment Not on file documented as of this encounter Procedures Procedure Name Priority Date/Time Associated Diagnosis Comments URINE CULTURE Routine 05/14/2019 5:44 PM PROCESS DEVELOPMENT ENGINEER Urinary frequency documented in this encounter Results * Urine culture Urine, clean voided (05/14/2019 5:44 PM PROCESS DEVELOPMENT ENGINEER) Report Final Report: Less than 100,000 colonies/mL (clinically insignificant growth based on current clinical standards) TRUDY RAINES Comment:Testing performed by : [facility], [address] [place]., [address] Organism (CLINICALLY INSIGNIFICANT GROWTH TRUDY RAINES Urine, clean voided 05/14/2019 5:44 PM PROCESS DEVELOPMENT ENGINEER 05/15/2019 12:44 AM PROCESS DEVELOPMENT ENGINEER Narrative TRUDY RAINES - 05/16/2019 6:41 AM PROCESS DEVELOPMENT ENGINEER Testing performed by [facility] Microbiology Laboratory ([phone]) [place] DRY CHAIN OFFBEARER LAB MICROBIOLOGY - NERAL ORDERABLES Final Result [facility] [address] Department [place] [address] documented in this encounter Visit Diagnoses Diagnosis Urinary frequency documented in this encounter Care Teams Supervisor Malted Milk Relationship Specialty Start Date End Date Jane Garvin MD PCP - General 08/10/16 06/14/20 Jane Garvin MD 08/10/16 06/14/20 Angelina Shaikh, PT Physical Therapist Physical Therapy 01/27/18 documented as of this encounter
--- OUTSIDE RECORDS SUMMARY | 2024-05-13 02:53 | XMS_ITS | Encounter Summary ---
Author Organization [facility] Address [address] [place] [address] Care Team Providers Care Executive Advisor Name Role Phone Angelina Shaikh PT Unavailable Unavailable Terrance Pop MD Primary Care Provider [phone] Ruth Boswell HARNESS AND BAG INSPECTOR Unavailable [phone] Reason for Referral * Diagnostic Imaging (Routine) - Closed Specialty Diagnoses / Procedures Referred By Antony hoang Referred To Contact Radiology Diagnoses Right lower quadrant abdominal tenderness without rebound tenderness Procedures CT Abdomen Pelvis W Contrast Terrance Pop MD Phone: tel: fax: [address] [address] Referral ID Status Reason Start Date Expiration Date Visits Re quested Visits Authorized [id number] Closed 06/15/2020 07/15/2021 1 1 ODIAL OPERATIONS MANAGER Reason for Visit * Diagnostic Imaging (Routine) - Closed Specialty Diagnoses / Procedures Referred By Antony hoang Referred To Contact Radiology Diagnoses Right lower quadrant abdominal tenderness without rebound tenderness Procedures CT Abdomen Pelvis W Contrast Terrance Pop MD Phone: tel: fax: [address] [address] Referral ID Status Reason Start Date Expiration Date Visits Re quested Visits Authorized [id number] Closed 06/15/2020 07/15/2021 1 1 Encounter Details Date Type Department Care Team (Latest Contact Info) Description 06/22/2020 9:32 AM CUSTODIAL OPERATIONS MANAGER - 06/22/2020 11:59 PM CUSTODIAL OPERATIONS MANAGER Hospital Encounter [facility] [address] [place] [address] Terrance Pop MD [address] [facility] [address] [place] [address] Right lower quadrant abdominal tenderness without rebound [...] and Family Not on file 06/15/2020 Attends [employer] Services Not on file 06/15 Active Member [...] on file Legal Sex Female 1:15 AM CUSTODIAL OPERATIONS MANAGER Gender Identity Not on file Sexual Orientation Not on file Occupation Industry Job Start Date Job End Date Not on file Not on file Not on file Not on file documented as of this encounter Medications at Time of Discharge LIV FE 06/01, 28, 1 mg-20 mcg [...] Diagnosis Comments CT ABDOMEN PELVIS W CONTRAST Schedule KAMERON, Read KAMERON (Appt Today, Awaiting Results) 06/22/2020 10:18 AM CUSTODIAL OPERATIONS MANAGER Right lower quadrant abdominal tenderness without rebound tenderness documented in this encounter Results * CT Abdomen Pelvis W Contrast (06/22/2020 10:18 AM CUSTODIAL OPERATIONS MANAGER) Anatomical Region Laterality Modality Body N/A Computed Tomogra phy 06/22/2020 10:2 3 AM CUSTODIAL OPERATIONS MANAGER Impressions 06/22/2020 10:39 AM CUSTODIAL OPERATIONS MANAGER 1. ??Normal appendix. ??No CT evidence of [...] Julio Siu M.D. Narrative 06/22/2020 10:39 AM CUSTODIAL OPERATIONS MANAGER EXAMINATION: CT ABDOMEN PELVIS W CONTRAST ORDERING [...] MD IMG CT PROCEDURES Final Res ult documented in this encounter Visit Diagnoses Diagnosis Right lower quadrant abdominal tenderness without rebound tenderness documented in this encounter Administered Medications Inactive Administered Medications - up to 3 most recent administrations Medication Order MAR Action Action Date Dose Rate Site ioversoL (OPTIRAY 320) injection 100 mL 100 mL, intravenous, Once in imaging, contrast, Starting on Sat06/22/20 at 0947, For 1 dose Given 06/22/2020 10:20 AM CUSTODIAL OPERATIONS MANAGER 100 mL documented in this encounter Orders Medications Ordered That Redd ht Not Have Been Administered Count Last Ordered Date First Ordered Date ioversoL (OPTIRAY 320) injection 100 mL 1 0 06/22/2020 documented in this encounter Care Teams Executive Advisor Relationship Specialty Start Date End Date Terrance Pop MD PCP - General Family Medicine 06/15/20 Angelina Shaikh, PT Physical Therapist Physical Therapy 01/27/18 Ruth Boswell, DONALD [address] [place] [address] DR LE [address] [place] [id number] Nurse Practitioner Nurse Practitioner 06/15/20 documented as of this encounter
--- OUTSIDE RECORDS SUMMARY | 2024-05-13 02:53 | XMS_ITS | Encounter Summary ---
Author Organization [facility] Healthcare Address [address] [place] [address] Care Team Providers Care Nitrogen Operator Name Role Phone NeelAngelina PT Unavailable Unavailable Terrance Pop MD Primary Care Provider [phone] Ruth Boswell NP Unavailable [phone] Encounter Details Date Type Department Care Team (Latest Contact Info) Description 12/15/2023 7:02 PM CDT - 12/15/2023 11:59 PM CDT Hospital Encounter [facility] [id number] [place] [address] Discharge Disposition: Discharge to home or self [...] and Family Not on file 06/15/2020 Attends [employer] Services Not on file 06/15 Active Member [...] on file Legal Sex Female 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 Gender Identity Not on file Sexual Orientation Not on file Occupation Industry Job Start Date Job End Date Not on file Not on file Not on file Not on file documented as of this encounter Medications at Time of Discharge Slynd tablet tablet Take 1 each (4 mg total) by mouth daily 04/11/2023 nitrofurantoin monohydrate (MACROBID) 100 mg capsuleIndication s:Acute cystitis with hematuria Take 1 capsule (100 mg total) by mouth 2 (two) times a day for 5 days 10 capsule 12/15/2023 12/20/2023 documented as of this encounter Discharge Disposition Disposition Code Departure Means Destination Discharge to home or self care documented in this encounter Miscellaneous Notes * Result Encounter Note - Nallely Hand PA - 12/15/2023 11:59 PM CDT 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 No changes in treatment needed. * Result Encounter Note - Ethel Oconnell MA - 12/15/2023 11:59 PM CDT Left VM for patient to call us back documented in this encounter Plan of Treatment Not on file documented as of this encounter Procedures Procedure Name Priority Date/Time Associated Diagnosis Comments URINE CULTURE Routine 12/15/2023 7:02 PM CDT documented in this encounter Results * (ABNORMAL) Urine culture Urine, bladder (12/15/2023 7:02 PM CDT) Report Final Report: Greater than or equal to 100,000 colonies/mL of Escherichia coli (.) Comment:Testing performed by : [facility], [address] [facility], [place]., [address] Organism ESCHERICHIA COLI TRUDY RAINES Urine, bladder 12/15/2023 7: 02 PM CDT 12/16/2023 3:06 AM CDT Narrative TRUDY RAINES - 12/19/2023 6:54 AM CDT Testing performed by [facility] Microbiology Laboratory ([phone]) Organism Antibiotic Method Susceptibility Escherichia coli Ampicillin INTERPRETATION Resistant Escherichia coli Cefazolin INTERPRETATION Susceptible Escherichia coli Nitrofurantoin INTERPRETATION Susceptible Escherichia coli Gentamicin INTERPRETATION Resistant Escherichia coli Trimethoprim with Sulfamethoxazole IN TERPRETATION Resistant Escherichia coli Meropenem INTERPRETATION Susceptible Escherichia coli Cefepime INTERPRETATION Susceptible Escherichia coli Ciprofloxacin INTERPRETATION Susceptible Escherichia coli Ceftazidime INTERPRETATION Susceptible Escherichia coli Ceftriaxone INTERPRETATION Susceptible Escherichia coli Piperacillin/Tazobactam INTERPRETATIO N Susceptible Escherichia coli Cephalexin INTERPRETATION Susceptible Escherichia coli Cefuroxime-axetil INTERPRETATION Susceptible Escherichia coli Cefdinir INTERPRETATION Susceptible us Nallely MONTANEZ LAB MICROBIOLOGY - GENERAL ORDERABLES Final Result [facility] [address] Department [place] [address] documented in this encounter Visit Diagnoses Not on filedocumented in this encounter Care Teams Nitrogen Operator Relationship Specialty Start Date End Date Terrance Pop MD PCP - General Family Medicine 06/15/20 Angelina Shaikh PT Physical Therapist Physical Therapy 01/27/18 Ruth Boswell NP [address] [place] [address] [place] [address] Nurse Practitioner Nurse Practitioner 06/15/20 documented as of this encounter
--- OUTSIDE RECORDS SUMMARY | 2024-05-13 02:53 | XMS_ITS | Encounter Summary ---
Author Organization [facility] Facility Care Team Providers Care Biostatistics Director Name Role Phone Jane Garvin MD Primary Care Provider [phone] Jane Garvin MD Unavailable [phone] Angeilna Shaikh PT Unavailable Unavailable Encounter Details Date Type Department Care Team (Latest Contact Info) Description 07/21/2018 Travel Social History Tobacco Use Types Packs/Day Years Used Date Smoking Tobacco: Never Cigarettes Smokeless Tobacco: Never Alcohol Use Standard Drinks/Week Comments No 0 (1 standard drink = 0.6 oz pur e alcohol) Comments No Sex and Gender Information Value Date Recorded Sex Assigned at Not on file Legal 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
--- OUTSIDE RECORDS SUMMARY | 2024-05-13 02:53 | XMS_ITS | Encounter Summary ---
Author Organization [facility] Address [address] [place] [address] Care Team Providers Care Medicare Biller Name Role Phone NeelAngelina PT Unavailable Unavailable Terrance Pop MD Primary Care Provider [phone] Ruth Boswell CELLO TEACHER Unavailable [phone] Encounter Details Date Type Department Care Team (Late st Contact Info) Description 07/14/2020 Orders Only [facility] [address] [place] [address] Terrance Pop MD [address] [facility] [address] [place] [address] Gall bladder polyp (Primary Dx) [...] and Family Not on file 06/15/2020 Attends Mandaen Services Not on file 06/15 Active Member [...] on file 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 Gender Identity Not on file Sexual Orientation Not on file Occupation Industry Job Start Date Job End Date Not on file Not on file Not on file Not on file documented as of this encounter Plan of Treatment Not on file documented as of this encounter Visit Diagnoses Diagnosis Gall bladder polyp- Primary Cholesterolosis of gallbladder documented in this encounter Care Teams Medicare Biller Relationship Specialty Start Date End Date Terrance Pop MD PCP - General Family Medicine 06/15/20 Angelina Shaikh, ANDREW Physical Therapist Physical Therapy 01/27/18 Ruth Boswell NP [address] [facility] [address] [place] [address] Nurse Practitioner Nurse Practitioner 06/15/20 documented as of this encounter
--- OUTSIDE RECORDS SUMMARY | 2024-05-13 02:53 | XMS_ITS | Encounter Summary ---
Author Organization [facility] Healthcare Address [address] [place] [address] Care Team Providers Care Marker Machine Attendant Name Role Phone Agnelina Shaikh PT Unavailable Unavailable Terrance Pop MD Primary Care Provider [phone] Ruth Boswell NP Unavailable [phone] Reason for Visit * Reason Comments URI Sinus pressure, dry cough, SOB, body aches, headaches. Positive for COVID-19 at home on 04/20/23 Encounter Details Date Type Department Care Team (Late st Contact Info) Description 04/23/2023 7:15 PM ROD BUSTER Office Visit [facility] Convenient Care at [address] [place] [address] Monet Beach, MACHINE SEWER [address] [place] [address] Viral URI with cough (Primary Dx) Social [...] and Family Not on file 06/15/2020 Attends Mandaeism Services Not on file 06/15 Active Member [...] Answer Date Recorded Getting School Help Needed Denies 04/23 Education Answer Date Recorded What is the highest level of school you have completed or the highest degree you have received? High school graduate 06/15/2020 Comments No Sex and Gender Information Value Date Recorded Sex Assigned at Not on file Legal Sex Female 1:15 AM ROD BUSTER Gender Identity Not on file Sexual Orientation Not on file Occupation Industry Job Start Date Job End Date Not on file Not on file Not on file Not on file documented as of this encounter Last Filed Vital Signs Vital Sign Reading Time Taken Comments Blood Pressure 110/60 04/23/2023 7:14 PM ROD BUSTER Pulse 100 04/23/2023 7:14 PM ROD BUSTER Temperature 36.9 ??C (98.5 ??F) 04/23/2023 7:14 PM CS T Respiratory Rate 19 04/23/2023 7:14 PM ROD BUSTER Oxygen Saturation 100% 04/23/2023 7:14 PM ROD BUSTER Inhaled Oxygen Concentration - - Weight 49.9 kg (110 lb) 04/23/2023 7:14 PM ROD BUSTER Height - - Body Mass Index 19.49 08/20/2022 11:23 AM CDT documented in this encounter Patient Instructions * Patient Instructions* Monet Beach NP - 04/23/2023 7:15 PM ROD BUSTER If you have no improvement or worsening of your symptoms, please follow up with your Primary Care Provider, [facility] Care and or Emergency Room. I strive to provide you with EXCELLENT service. You may receive a survey after your visit today. If you cannot rate your experience as EXCELLENT, please let us know how we can improve and better meet your needs. Thank you for choosing [facility]! It was my pleasure to see you today, I hope you feel better soon! BUSTER * Attachments The following attachments cannot be sent through Care Everywhere. * Viral Syndrome ([facility]) (Scottish) documented in this encounter Progress Notes * Monet Beach NP - 04/23/2023 7:15 PM CST Images from the original note were not included. Subjective/Objective Patient ID: Oliver Go is a 27 y.o. female. Chief Complaint URI (Sinus pressure, dry cough, SOB, body aches, headaches. Positive for COVID- 19 at home on 04/20/23) Presents to clinic for sinus pressure, cough, shortness of breath, body aches, headaches x5 days. Has not taken any OTC meds. Had positive home covid test 3 days ago. URI Review of Systems All systems reviewed and are negative or non contributory for this patient's presentation today other than as stated in the HPI. Physical Exam Vitals reviewed. Constitutional: General: She is not in acute distress. Appearance: Normal appearance. She is well-developed. She is not ill-appearing. HENT: Head: Normocephalic. Right Ear: Tympanic membrane, ear canal and external ear normal. Left Ear: Tympanic membrane, ear canal and external ear normal. Nose: No congestion or rhinorrhea. Right Sinus: No maxillary sinus tenderness or frontal sinus tenderness. Left Sinus: No maxillary sinus tenderness or frontal sinus tenderness. Mouth/Throat: Lips: [place]. Mouth: Mucous membranes are moist. Pharynx: Oropharynx is clear. Posterior oropharyngeal erythema present. Eyes: General: Right eye: No discharge. Left eye: No discharge. Conjunctiva/sclera: Conjunctivae normal. Cardiovascular: Rate and Rhythm: Normal rate and regular rhythm. Pulmonary: Effort: Pulmonary effort is normal. No respiratory distress. Breath sounds: Normal breath sounds and air entry. Abdominal: Tenderness: There is no abdominal tenderness. Musculoskeletal: General: Normal range of motion. Cervical back: Neck supple. Lymphadenopathy: Head: Right side of head: No tonsillar adenopathy. Left side of head: No tonsillar adenopathy. Cervical: No cervical adenopathy. Skin: General: Skin is warm and dry. Findings: No rash. Neurological: Mental Status: She is alert and oriented to person, place, and time. Mental status is at baseline. Psychiatric: Attention and Perception: Attention normal. Mood and Affect: Mood normal. Behavior: Behavior normal. Behavior is cooperative. Thought Content: Thought content normal. Judgment: Judgment normal. Vitals: 04/23/23 1914 BP: 110/60 BP Location: Right arm Patient Position: Sitting Pulse: 100 Resp: 19 Temp: 36.9 ??C (98.5 ??F) SpO2: 100% Weight: 49.9 kg (110 lb) Assessment/Plan Discussed viral versus bacterial infections and the lack of benefit of antibiotics in treatment of viral infections. Discussed supportive care including antihistamines, decongestants, Mucinex and Tylenol and Ibuprofen for pain. Encouraged to take medications as discussed over the next 7-10 days. Pat ient verbalizes understanding of instructions given. Patient is hemodynamically stable and non-septic appearing. Patient is appropriate for discharge home at this time in the setting of strict return/follow-up precautions to include s/s warranting immediate emergency department evaluation. Diagnoses and all orders for this visit: Viral URI with cough (Primary) - POC Influenza A/B, COVID-19 antigen Recent Results (from the past 4 hour(s)) POC Influenza A/B, COVID-19 antigen Collection Time: 04/23/23 7:29 PM Result Value Ref Range Influenza A Ag, POC Negative Negative Influenza B Ag, POC Negative Negative COVID-19 Ag POC Presumptive Negative Presumptive Negative, Invalid Patient Education: Disposition Treatment plan including expectations, follow up, and return precautions discussed with patient/parent, verbalizes understanding. Medication dosage, use, and potential adverse reactions discussed with patient/parent. Advised to follow up with PCP if symptoms do not resolve as expected or sooner if condition worsens. Signs/symptoms warranting ER evaluation reviewed. Patient and/or guardian was given an opportunity to ask questions, questions answered. Monet Beach NP BUSTER documented in this encounter Plan of Treatment Not on file documented as of this encounter Procedures Procedure Name Priority Date/Time Associated Diagnosis Comments POC INFLUENZA A/B, COVID-19 ANTIGEN Routine 04/23/2023 7:29 PM ROD BUSTER Viral URI with cough documented in this encounter Results * POC Influenza A/B, COVID-19 antigen (04/23/2023 7:29 PM ROD BUSTER) Influenza A Ag, POC Negative Negative [facility] Influenza B Ag, POC Negative Negative [facility] COVID-19 Ag POC Presumptive Negative Presumptive Negative, Invalid [facility] Nasal 04/23/2023 7:29 PM ROD BUSTER Monet Beach MACHINE SEWER POINT OF CARE TEST OR DERABLES Final Result [facility] [place] [id number] [address] [id number] documented in this encounter Visit Diagnoses Diagnosis Viral URI with cough- Primary documented in this encounter Discontinued Medications Medication Sig Discontinue Reason Start Date End Da te fluconazole (DIFLUCAN) 150 mg tabletIndications:Antibio tic-induced yeast infection Take 1 tablet (150 mg total) by mouth as directed Take one tab now. Repeat in 7 days if symptoms persist. Therapy completed 08/16/2022 04/23/2023 ondansetron (ZOFRAN) 4 mg tablet Take 1 tablet (4 mg total) by mouth every 6 (six) hours Therapy completed 05/16/2022 04/23/2023 ondansetron ODT (ZOFRAN-ODT) 4 mg disintegrating tabletIndications:Nausea and vomiting, unspecified vomiting type Take 1 tablet (4 mg total) by mouth every 8 (eight) hours as needed for nausea or vomiting Therapy completed 07/21/2022 04/23/2023 tamsulosin (FLOMAX) 0.4 mg extended release capsule Take 1 capsule (0.4 mg total) by mouth daily Therapy completed 05/16/2022 04/23/2023 norethindrone-e.estradiol -iron (LOESTRIN FE 1.5/30, 28-DAY,) 1.5 mg-30 mcg per tablet take 1 tablet by oral route every day Dose adjustment 07/04/2016 04/23/2023 documented as of this encounter Historical Medications * This list may reflect changes made after this encounter. Slynd tablet tablet Take 1 each (4 mg total) by mouth daily 04/11/2023 added in this encounter Additional Health Concerns Infection Onset Date Last Indicated Resolved Time COVID: Suspected 04/23/2023 04/23/2023 04/23/2023 7:31 PM ROD BUSTER documented as of this encounter Care Teams Marker Machine Attendant Relationship Specialty Start Date End Date Terrance Pop MD PCP - General Family Medicine 06/15/20 Angelina Shaikh, PT Physical Therapist Physical Therapy 01/27/18 Ruth Boswell, MACHINE SEWER [address] [place] [address] [address] Nurse Practitioner Nurse Practitioner 06/15/20 documented as of this encounter
--- OUTSIDE RECORDS SUMMARY | 2024-05-13 02:53 | XMS_ITS | Encounter Summary ---
Author Organization [facility] Healthcare Address [address] [place] [address] Care Team Providers Care Painter Railroad Car Name Role Phone NeelAngelina PT Unavailable Unavailable Terrance Pop MD Primary Care Provider [phone] Ruth Boswell NP Unavailable [phone] Encounter Details Date Type Department Care Team (Late st Contact Info) Description 06/16/2020 7:35 AM BUS GIRL Lab [address] Urinary frequency Social History Tobacco Use Types [...] and Family Not on file 06/15/2020 Attends Alevism Services Not on file 06/15 Active Member [...] on file Legal Sex Female 1:15 AM BUS GIRL Gender Identity Not on file Sexual Orientation Not on file Occupation Industry Job Start Date Job End Date Not on file Not on file Not on file Not on file documented as of this encounter Miscellaneous Notes * Result Encounter Note - Naomie Spann MA - 06/17/2020 3:37 PM CST Jamila and Jenny are working on the CT Jamila called them again today and they said that the Ct is still under review. GIRL documented in this encounter Plan of Treatment Not on file documented as of this encounter Procedures Procedure Name Priority Date/Time Associated Diagnosis Comments URINE CULTURE Routine 06/15/2020 3:03 PM BUS GIRL Urinary frequency documented in this encounter Results * Urine culture Urine, clean voided (06/15/2020 3:03 PM BUS GIRL) Report Final Report: Less than 100,000 colonies/mL (clinically insignificant growth based on current clinical standards) TRUDY ESPARZA) Comment:Testing performed by : [facility], [address] [place] [address] Organism (CLINICALLY INSIGNIFICANT GROWTH TRUDY PADILLA ([place]) Urine, clean voided 06/15/2020 3:03 PM BUS GIRL 06/16/2020 11:52 AM BUS GIRL Narrative TRUDY PADILLA ([place]) - 06/17/2020 2:39 PM BUS GIRL Testing performed by [facility] ([phone]) us Terrance Pop MD LAB MICROBIOLOGY - GENERAL ORDERABLES Final Result TRUDY ESPARZA) [address] [facility] Department [place] [address] documented in this encounter Visit Diagnoses Diagnosis Urinary frequency documented in this encounter Care Teams Painter Railroad Car Relationship Specialty Start Date End Date Terrance Pop MD PCP - General Family Medicine 06/15/20 Angelina Shaikh, ANDREW Physical Therapist Physical Therapy 01/27/18 Ruth Boswell CHIEF OF HOSPITAL MEDICINE [address] [place] [address] DR [address] [place] [address] Nurse Practitioner Nurse Practitioner 06/15/20 documented as of this encounter
--- OUTSIDE RECORDS SUMMARY | 2024-05-13 02:53 | XMS_ITS | Referral Summary ---
Author Organization [facility] Address [address] [place] [address] Care Team Providers Care Hay Stacker Operator Name Role Phone Angelina Shaikh PT Unavailable Unavailable Terrance Pop MD Primary Care Provider [phone] Ruth Boswell SHIP ENGINEER Unavailable [phone] Encounters Date Type Department Care Team Description 03/01/2024 Telephone [facility] Convenient Care at [address] [place] [address] Noemí Laguerre MA 02/28/2024 8:16 PM CDT - 02/28/2024 11:59 PM CDT Hospital Encounter [address] [address] Cystitis with hematuria Discharge Disposition: Discharge to home or self care 02/28/2024 12:45 PM CDT Office Visit [facility] Medical [facility] at [place] [address] [address] [address] Roxane Styles NP Cystitis with hematuria (Primary Dx); Antibiotic-induced yeast infection 02/16/2024 2:00 AM CDT - 02/16/2024 4:02 AM CDT Emergency [facility] Emergency Department [address] [place] [address] Olaf De Dios MD Pain, dental (Primary Dx) Discharge Disposition: Discharge to home or self care from Last 3 Months Allergies Active Allergy Reactions Criticality Noted Date [...] 03/15/2014 0 10/24/2017 Overview (08/23/2016): Seasonal allergies Immunizations Name Administration Dates Next Due DTaP 12/10/2002, 0,05/30/1998,03/28/1998, 01/27/1998 HPV, Unspecified 12/19/2011 Hep A, Pediatric 12/19/2011 Hep B, Adolescent or Pediatric 05/30/1998,1997,1997 HiB 12/07/1999,03/28/1998,01/27/1998 IPV 12/10/2002 Influenza, Unspecified 02/11/2020(Deferred: Sena ent Refused) MMR 12/10/2002,12/01/1998 Meningococcal ACWY, Unspecified 01/26/2015,12/17 OPV 12/07/1999,03/28/1998,01/27/1998 Tdap 10/20/2017,12/19/2011 Varicella 12/19/2011,12/01/1998 Social History Tobacco Use Types Packs/Day Years [...] and Family Not on file 06/15/2020 Attends Restorationism Services Not on file 06/15 Active Member [...] on file Legal Sex Female 1:15 AM OPERATIONS BOARDMAN Gender Identity Not on file Sexual Orientation Not on file Occupation Industry Job Start Date Job End Date Not on file Not on file Not on file Not on file Last Filed Vital Signs [...] 02/28/2024 12:35 PM CDT Plan of Treatment Not on file Procedures Procedure Name Priority Date/Time Associated Diagnosis [...] bacterial cammie. (.) Comment:Testing performed by : [facility], [address] [place]., [address] Organism ESCHERICHIA COLI TRUDY Organism PLUS GROWTH OF CLINICALLY INSIGNIFICANT CAMMIE. TRUDY Urine, clean voided 02/28/2024 6:00 PM CDT 02/29/2024 2:48 AM CDT Narrative TRUDY - 03/01/2024 4:05 PM CDT Testing performed by [facility] ([phone]) Organism Antibiotic Method Susceptibility Escherichia coli Ampicillin [...] - GENERAL ORDER DANIEL Final Result TRUDY [address] [address] Department of Laboratories [place], [place] [id number] * (ABNORMAL) POCT urinalysis dipstick (02/28/2024 12:44 PM CDT) Color, Urine, POC Miranda Clarity, ur, POC Cloudy(A) Clear Glucose, ur, POC Negative Negative MG/DL Bilirubin, ur, POC Negative Negative, Small, Moderate, Large Ketones, ur, POC Negative Negative Specific [place], POC Comment:>=1.030 Blood, ur, POC Trace(A) Negative pH, ur, POC 5.5 5.0 - 8.0 Protein, ur, POC Negative Negative Urobilinogen, urine, POC 0.2 0.2 - 1.0 mg/dL Nitrite, ur, POC Positive(A) Negative Leukocytes, ur, POC Trace(A) Negative Lot Number [id number] Urine 02/28/2024 12:4 4 PM CDT Roxane Styles NP POINT OF CARE TEST ORDERABLES nal Result from Last 3 Months Insurance [facility] [employer] Care Teams Hay Stacker Operator Relationship Specialty Start Date End Date Terrance Pop MD PCP - General Family Medicine 06/15/20 Angelina Shaikh, PT Physical Therapist Physical Therapy 01/27/18 Ruth Boswell NP [address] [place] [address] [place] [address] Nurse Practitioner Nurse Practitioner 06/15/20
--- OUTSIDE RECORDS SUMMARY | 2024-05-13 02:54 | XMS_ITS | Encounter Summary ---
Author Organization [facility] Healthcare Address [address] [place] [address] Care Team Providers Care Director Independent Name Role Phone Jane Garvin MD Primary Care Provider [phone] Jane Garvin MD Unavailable [phone] Angelina Shaikh PT Unavailable Unavailable Reason for Visit * Reason Comments PT Treatment Encounter Details Date Type Department Care Team (Late st Contact Info) Description 04/11/2018 11:30 AM LAST PATTERN GRADER Therapy [facility] Physical Therapy [address] [place] [address] Angelina Shaikh, PT Closed displaced fracture of neck of left talus with routine healing, subsequent encounter (Primary Dx) Social History Tobacco Use Types Packs/Day Years Used Date Smoking Tobacco: Some Days Cigarettes Smokeless Tobacco: Never Comments:e-cigarette Alcohol Use Standard Drinks/Week Comments No 0 (1 standard drink = 0.6 oz pur e alcohol) Comments No Sex and Gender Information Value Date Recorded Sex Assigned at Not on file Legal Sex Female 1:15 AM LAST PATTERN GRADER Gender Identity Not on file Sexual Orientation Not on file documented as of this encounter Progress Notes * Angelina Shaikh, PT - 04/11/2018 11:30 AM CST PT Daily Treatment Note Oliver Go 1995 Subjective: Pt states her ankle is sore today. She is not sure if it is weather related, but she has also been stretching quite a bit at home. Pain: 0/10 L ankle Objective: see treatment provided. Concentrated on stretching and PROM/joint mobs Treatment Provided: Nustep, L6 x 6 min* Stairmaster, L2 x 3 min. * TM, 1.6 mph x 5 min Rockerboard, side to side, and front to back, taps and balance x 1 min ea. * Standing marches, hs curls, hip abd, minisquats, heel raises on foam x 20 gastroc stretch off dome 5 x 30 sec. Calf stretch off step 3 x 30 sec. Leg press DL and ankles, 105# x 20 ea. 65# L LE only ankle x 30 Eccentric step downs, 4 x 20 Hip machine, 2.5 pl., flexion and abd x 20 ea. Single leg calf raises on L, then eccentric lowering on L x 10 Heel and toe walks 2 x 15 BOSU SLS on blue part 2 x 1 min BOSU squats x 15 BOSU taps fwd/back and R/L 15 ea and static hold 1 min x 2* Ankle tb ex-all directions, green tb x 20 ea. * ?? Ankle distraction, joint mobs Manual gastroc and soleus stretch Contract/relax gastroc and anterior tib stretch x 5 ea. ?? myobar to L gastrocs IASTM achilles tendon area with mild stretch L ?? Cold pack to L ankle post tx x 10 min. ?? *(not performed this visit) ?? Assessment: Goals are ongoing Pt tolerated treatment well Plan: Continue to see pt per POC Start Time: 1130 End Time: 1225 Angelina Shaikh PT PATTERN GRADER documented in this encounter Plan of Treatment Not on file documented as of this encounter Visit Diagnoses Diagnosis Closed displaced fracture of neck of left talus with routine healing, subsequent encounter- Primary documented in this encounter Care Teams Director Independent Relationship Specialty Start Date End Date Jane Garvin MD PCP - General 08/10/16 06/14/20 Jane Garvin MD 08/10/16 06/14/20 Angelina Shaikh, PT Physical Therapist Physical Therapy 01/27/18 documented as of this encounter
--- OUTSIDE RECORDS SUMMARY | 2024-05-13 02:54 | XMS_ITS | Encounter Summary ---
Author Organization [facility] Healthcare Address [address] [place] [address] Care Team Providers Care Rip And Groove Machine Operator Name Role Phone Jane Garvin MD Primary Care Provider [phone] Jane Garvin MD Unavailable [phone] Angelina Shaikh PT Unavailable Unavailable Reason for Visit * Reason Comments PT Treatment Encounter Details Date Type Department Care Team (Late st Contact Info) Description 04/21/2018 11:15 AM ROUGE SIFTER AND MILLER Therapy [facility] Physical Therapy [address] [place] [id number] Angelina Shaikh, PT Closed displaced fracture of [...] on file Legal Sex Female 1:15 AM ROUGE SIFTER AND MILLER Gender Identity Not on file Sexual Orientation Not on file documented as of this encounter Progress Notes * Angelina Shaikh, PT - 04/21/2018 11:15 AM CST PT Daily Treatment Note Oliver Go 1995 Subjective: Pt states her ankle is feeling good today, but states she is taking Tylenol and codeinebecause she had her wisdom teeth out last week. She is having more pain in her mouth right now. Pain: 0/10 L ankle Objective: see treatment [...] stretch off step 3 x 30 sec. * Leg press DL and ankles, 105# x 20 ea. 65# L LE only ankle x 30* Eccentric step downs, 4 x 20 * Hip machine, 2.5 pl., flexion and abd x 20 ea. Single leg calf raises on L, then eccentric lowering on L x 10* Heel and toe walks 2 x 15* BOSU SLS on blue part 2 x 1 min* BOSU squats x 15* BOSU taps fwd/back and R/L 15 ea and static hold 1 min x 2* Ankle tb ex-all directions, green tb x 20 ea. ?? Ankle distraction, joint mobs Manual gastroc and soleus stretch Contract/relax gastroc and anterior tib stretch x 5 ea. ?? myobar to L gastrocs IASTM anterior tib ?? Cold pack to L ankle post tx x 10 min. * ?? *(not performed this visit) ?? Assessment: Goals are ongoing Pt tolerated treatment well. Backed off on ex d/t her getting her wisdom teeth out, and continued swelling from that. Plan: Continue to see pt per POC Start Time: 1110 End Time: 1148 Angelina Shaikh PT E SIFTER AND MILLER documented in this encounter Plan of Treatment Not on file documented as of this encounter Visit Diagnoses Diagnosis Closed displaced fracture of neck of left talus with routine healing, subsequent encounter- Primary documented in this encounter Care Teams Rip And Groove Machine Operator Relationship Specialty Start Date End Date Jane Garvin MD PCP - General 08/10/16 06/14/20 Jane Garvin MD 08/10/16 06/14/20 Angelina Shaikh, PT Physical Therapist Physical Therapy 01/27/18 documented as of this encounter
--- OUTSIDE RECORDS SUMMARY | 2024-05-13 02:54 | XMS_ITS | Encounter Summary ---
Author Organization [facility] Address [address] [place] [address] Phone Care Team Providers Care Forge Tender Name Role Phone Jane Garvin MD Primary Care Provider [phone] Jane Garvin MD Unavailable [phone] Angelina Shaikh PT Unavailable Unavailable Reason for Referral * Diagnostic Imaging (Routine) - Closed Specialty Diagnoses / Procedures Referred By Contac t Referred To Contact Diagnoses Closed fracture of malleolus of left ankle with routine healing Procedures X-ray ankle left 3+ views Blanquita Jarrett [facility] Referral ID Status Reason Start Date Expiration Date Visits Re quested Visits Authorized [id number] Closed 02/28/2018 09/09/2019 1 1 * Diagnostic Imaging (Routine) - Closed Specialty Diagnoses / Procedures Referred By Antony hoang Referred To Contact Diagnoses Closed displaced fracture of neck of left talus with routine healing, subsequent encounter Procedures X-ray foot left 3+ views Blanquita Jarrett [facility] Referral ID Status Reason Start Date Expiration Date Visits Re quested Visits Authorized [id number] Closed 02/28/2018 09/09/2019 1 1 Reason for Visit * Reason Comments Fracture Encounter Details Date Type Department Care Team (Late st Contact Info) Description 03/04/2018 2:40 PM CDT Office Visit [facility] Orthopaedic Surgery [facility] 6th [place] [address] [place] [address] Blanquita Jarrett Closed fracture of malleolus of left ankle with routine healing (Primary Dx); Closed displaced fracture of neck of left talus with routine healing, subsequent encounter Social History Tobacco Use Types Packs/Day Years Used Date Smoking Tobacco: Some Days Cigarettes Smokeless Tobacco: Never Tobacco Cessation:Ready to Q uit: No; Counseling Given: No Comments:e-cigarette Alcohol Use Standard Drinks/Week Comments No 0 (1 standard drink = 0.6 oz pur e alcohol) Comments No Sex and Gender Information Value Date Recorded Sex Assigned at Not on file 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 Gender Identity Not on file Sexual Orientation Not on file documented as of this encounter Last Filed Vital Signs Vital Sign Reading Time Taken Comments Blood Pressure - - Pulse - - Temperature - - Respiratory Rate - - Oxygen Saturation - - Inhaled Oxygen Concentration - - Weight 55.8 kg (123 lb) 03/04/2018 3:42 PM CDT Height 158.8 cm (5' 2.5 ) 03/04/2018 3:42 PM CDT Body Mass Index 22.14 03/04/2018 3:42 PM CDT documented in this encounter Progress Notes * Blanquita Jarrett PA - 03/04/2018 2:40 PM CDT Chief Complaint: Left ankle pain History of Present Illness: The patient is a 22-year-old female here for follow-up regarding a left medial malleolus fracture and talar neck fracture that has been treated non operatively. She has been weight-bearing in a regular shoe and attending formal physical therapy 2 times per week. She gets sore from her physical therapy exercises and rest makes her pain better. She continues to walk with a limp and feels that the left ankle is very weak. Physical Exam: Patient is healthy-appearing and well-groomed, in no apparent distress. Patient is oriented to time, place, and person. Respiratory effort: normal. General vascular exam with no apparent edema or varicosities. Limbs are warm and well-perfused with no edema; pulses: 2+ There is no lymphadenopathy. Gait: Very antalgic No scars, rashes, or lesions evident on bilateral upper and lower extremities, except as detailed below. Normal coordination of bilateral upper and lower extremities. Normal sensation in bilateral upper and lower extremities, except as detailed below. The injured extremity shows: No swelling, ecchymosis or abrasions of the left ankle. She dorsiflexes to neutral and plantar flexes approximately 20??. The ankle is nontender to palpation. Superficialand deep peroneal nerve sensation and tibial nerve sensation is intact to light touch. Strength plantar flexion, dorsiflexion and EHL is 5/5. Review of X-rays/Studies: I have ordered and personally reviewed radiographs. AP and lateral radiographs of the left ankle show a healed nondisplaced left medial malleolus fracture and a healing intra-articular fracture of the left talar neck. Impression/Plan/Follow-Up: 1) Impression: Left medial malleolus and talar neck fracture treated non operatively 2) Weight bearing status: Weight bear as tolerated left lower extremity. 3) Return to clinic in 6-8 weeks with repeat radiographs (AP/lateral left ankle). 4) Patient no longer taking pain medication; tylenol as needed. 5) Call with any questions. 6) a new prescription for physical therapy was provided today. 7) work status: Off work until follow-up in 6-8 weeks. If the patient feels she is ready to return to work sooner, she will contact our office and we will send a return to work note at the patient's request. Blanquita Jarrett PA-C Orthopedic Trauma Service [facility] Orthopedics Blanquita Jarrett PA-C in collaborative practice with Dr. Megha Gamboa and Dr. Kory Menezes. Blanquita Jarrett PA-C dictating using Fluency Direct. Zipper Setter Lockstitch variances may occur. documented in this encounter Plan of Treatment Not on file documented as of this encounter Results * X-ray ankle left 3+ views (03/04/2018 2:55 PM CDT) Anatomical Region Laterality Modality Lower Extremities, Ankle Left Compute d Radiography 03/04/2018 3:17 PM CDT Impressions 03/04/2018 3:17 PM CDT 1. ??Healing/healed nondisplaced left medial malleolar fracture. 2. ??Healing comminuted, intra-articular fracture of the left talar head/neck. Electronically signed by: Nahum Rooney M.D. Narrative 03/04/2018 3:17 PM CDT EXAMINATION: 1. ??Left foot minimum 3 views 2. ??Left ankle minimum 3 views HISTORY: Left ankle fractures FINDINGS: 3 views of the left foot and left ankle were obtained and compared to prior radiographs from 04/01/2018. There is a healing/healed fracture comminuted, intra-articular medial malleolar fracture. ??There is a healing nondisplaced fracture of the left talar head/neck. ??There is no evidence of acute fracture. 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 ??Joint spaces are normal. Procedure Note Nahum Rooney MD - 03/04/2018 EXAMINATION: 1. Left foot minimum 3 views 2. Left ankle minimum 3 views HISTORY: Left ankle fractures FINDINGS: 3 views of the left foot and left ankle were obtained and compared to prior radiographs from 04/01/2018. There is a healing/healed fracture comminuted, intra-articular medial malleolar fracture. There is a healing nondisplaced fracture of the left talar head/neck. There is no evidence of acute fracture. 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 Joint spaces are normal. IMPRESSION: 1. Healing/healed nondisplaced left medial malleolar fracture. 2. Healing comminuted, intra-articular fracture of the left talar head/neck. Electronically signed by: Nahum Rooney M.D. Blanquita Jarrett IM XR PROCEDURES Janett l Result * X-ray foot left 3+ views (03/04/2018 2:55 PM CDT) Anatomical Region Laterality Modality Lower Extremities, Foot Left Computed Radiography 03/04/2018 3:17 PM CDT Impressions 03/04/2018 3:17 PM CDT 1. ??Healing/healed nondisplaced left medial malleolar fracture. 2. ??Healing comminuted, intra-articular fracture of the left talar head/neck. Electronically signed by: Nahum Rooney M.D. Narrative 03/04/2018 3:17 PM CDT EXAMINATION: 1. ??Left foot minimum 3 views 2. ??Left ankle minimum 3 views HISTORY: Left ankle fractures FINDINGS: 3 views of the left foot and left ankle were obtained and compared to prior radiographs from 04/01/2018. There is a healing/healed fracture comminuted, intra-articular medial malleolar fracture. ??There is a healing nondisplaced fracture of the left talar head/neck. ??There is no evidence of acute fracture. 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 ??Joint spaces are normal. Procedure Note Nahum Rooney MD - 03/04/2018 EXAMINATION: 1. Left foot minimum 3 views 2. Left ankle minimum 3 views HISTORY: Left ankle fractures FINDINGS: 3 views of the left foot and left ankle were obtained and compared to prior radiographs from 04/01/2018. There is a healing/healed fracture comminuted, intra-articular medial malleolar fracture. There is a healing nondisplaced fracture of the left talar head/neck. There is no evidence of acute fracture. 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 Joint spaces are normal. IMPRESSION: 1. Healing/healed nondisplaced left medial malleolar fracture. 2. Healing comminuted, intra-articular fracture of the left talar head/neck. Electronically signed by: Nahum Rooney M.D. Blanquita Jarrett IMG XR PROCEDURES Janett l Result documented in this encounter Visit Diagnoses Diagnosis Closed fracture of malleolus of left ankle with routine healing- Primary Closed displaced fracture of neck of left talus with routine healing, subsequent encounter Closed displaced fracture of neck of left talus with routine healing, subsequent encounter Closed fracture of malleolus of left ankle with routine healing documented in this encounter Historical Medications * This list may reflect changes made after this encounter. metroNIDAZOLE (METROGEL) 0.75 % (37.5mg/5 gram) vaginal gelIndications:B acterial Vaginosis Vandazole 0.75 % vaginal gel INSERT ONE APPLICATORFUL VAGINALLY AT BEDTIME FOR 5 DAYS 3 metroNIDAZOLE (FLAGYL) 500 mg tablet metronidazole 500 mg tablet Take 1 tablet twice a day by oral route for 7 days. 1 fluconazole (DIFLUCAN) 150 mg tablet fluconazole 150 mg tablet Take 1 tablet by oral route as directed for 1 day. 9 added in this encounter Care Teams Forge Tender Relationship Specialty Start Date End Date Jane Garvin MD PCP - General 08/10/16 06/14/20 Jane Garvin MD 08/10/16 06/14/20 Angelina Shaikh, PT Physical Therapist Physical Therapy 01/27/18 documented as of this encounter
--- OUTSIDE RECORDS SUMMARY | 2024-05-13 02:54 | XMS_ITS | Encounter Summary ---
Author Organization [facility] Healthcare Address [address] [place] [address] Care Team Providers Care Applicator Sprayer Name Role Phone Jane Garvin MD Primary Care Provider [phone] Jane Garvin MD Unavailable [phone] Angelina Shaikh PT Unavailable Unavailable Reason for Visit * Reason Comments PT Treatment Encounter Details Date Type Department Care Team (Late st Contact Info) Description 02/27/2018 1:30 PM CDT Therapy [facility] Physical Therapy [address] [place] [id number] Angelina Shaikh, PT Closed displaced fracture of [...] on file 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 Pain: 3-4/10 left ankle Objective: see treatment provided Ankle AROM: Dorsiflexion: R 17 deg; L 5 deg Plantarflexion: R 60 deg; L 48 deg Inversion: R 44 deg; L 42 deg Eversion: R 24 deg; L 15 deg L ankle strength: anterior tib 4+/5 (in available ROM); gastrocs 3-/5 Evertors 5/5; invertors 4/5 Gait: toed-out gait on L, decreased heel strike and toe off on L, mild antalgia still present on L,less hyperextension of L knee, but still slightly locking knee out during stance Treatment Provided: Nustep, L6 x 6 min Rockerboard, side to side, and front to back, taps and balance x 1 min ea. Standing marches, hs curls, hip abd, minisquats, heel raises on foam x 20 gastroc stretch off dome 5 x 30 sec. Leg press DL and ankles, 80# x 20 ea. 40# L LE only ankle x 10 SLS on black disc x 2 min. (working at it for 2 min)* Eccentric step downs, 4 x 10 (very shaky and difficult)* Hip machine, 1.5 pl., flexion and abd x 20 ea. Towel crunches x 30 [place] pick ups x 3 min. Sit to stands on blue foam for equal weight distribution x 10* Hip add w/ball x 20* Hip abd w/blue x 20* Seated hs curls w/blue tb x 20* LAQ w/ball btw knees x 20 w/2# wt* Ankle circles cw/ccw x 20 (HEP) Ankle a-z (HEP) BAPS board, lev 2, DF/PF x 20, inv/hakan x 20* S/l quad stretch-educated for hep ?? Verbal cues for gait training, heel toe, not locking the knee out High knees walking with heel strike HYDROELECTRIC PLANT MAINTAINER* ?? Ankle distraction, joint mobs Manual gastroc and soleus stretch Contract/relax gastroc and anterior tib stretch x 5 ea. ?? myobar to L gastrocs ?? Cold pack to L ankle post tx x 10 min. ?? *(not performed this visit) ?? Assessment: Goals are ongoing. Pt tolerated treatment well. Did well w/heel-toe gait pattern when she went slow and concentrated. Goals STG 1:: Pt to be I w/HEP and demonstrate understanding Goal status: MET STG 2:: Pt to increase L ankle ROM by 5 deg in each direction by 3 weeks Goal status: Improving STG 3:: Pt to be able to WB w/o CAM boot w/minimal difficulty by 3 weeks Goal status: MET STG 4:: Pt to tolerate progressive ex w/minimal c/o pain Goal status: Ongoing LTG 1:: Pt to be able to ambulate w/o antalgia by DC Goal status: Ongoing LTG 2:: Pt to have 5/5 L LE strength by DC Goal status: Improving LTG 3:: Pt to be able to return to work w/o difficulty by DC Goal status: Ongoing Plan: Continue to see pt per POC Start Time: 1316 End Time: 1421 Angelina Shaikh PT documented in this encounter Plan of Treatment Not on file documented as of this encounter Visit Diagnoses Diagnosis Closed displaced fracture of neck of left talus with routine healing, subsequent encounter- Primary documented in this encounter Care Teams Applicator Sprayer Relationship Specialty Start Date End Date Jane Garvin MD PCP - General 08/10/16 06/14/20 Jane Garvin MD 08/10/16 06/14/20 Angelina Shaikh, PT Physical Therapist Physical Therapy 01/27/18 documented as of this encounter
--- OUTSIDE RECORDS SUMMARY | 2024-05-13 02:54 | XMS_ITS | Encounter Summary ---
Author Organization [facility] Healthcare Address [address] [place] [address] Care Team Providers Care Public Health Sanitarian Technician Name Role Phone Jane Garvin MD Primary Care Provider [phone] Jane Garvin MD Unavailable [phone] Angelina Shaikh PT Unavailable Unavailable Reason for Visit * Reason Comments PT Treatment Encounter Details Date Type Department Care Team (Late st Contact Info) Description 03/05/2018 1:45 PM CDT Therapy [facility] Physical Therapy [address] [place] [id number] Angelina Shaikh, PT Closed displaced fracture of [...] on file 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 She went to [facility] yesterday, and got a new order for continued therapy. Pain: 2/10 left ankle Objective: see treatment provided Treatment Provided: Nustep, L6 x 6 min [...] LE only ankle x 10 SLS on pink disc x 2 min. (working at it for 2 min) Eccentric step downs, 4 x 10 Hip machine, 1.5 pl., flexion and abd x 20 ea. Towel crunches x 30* [place] pick ups x 3 min.* Sit to stands on blue foam for equal weight distribution x 10* Hip add w/ball x 20* Hip abd w/blue x 20* Seated hs curls w/blue tb x 20* LAQ w/ball btw knees x 20 w/2# wt* Ankle circles cw/ccw x 20 (HEP) Ankle a-z (HEP) BAPS board, lev 2, DF/PF x 20, inv/hakan x 20* S/l quad stretch-educated for hep Heel and toe walks 2 x 15 ?? Verbal cues for gait training, heel toe, not locking the knee out High knees walking with heel strike OPTICS TECHNICAL OFFICER* ?? Ankle distraction, joint mobs Manual gastroc and soleus stretch Contract/relax gastroc and anterior tib stretch x 5 ea. ?? myobar to L gastrocs ?? Cold pack to L ankle post tx x 10 min. ?? *(not performed this visit) ?? Assessment: Goals are ongoing. Pt tolerated treatment well. Pt able to hold heel and toe walks w/mild difficulty. Goals STG 1:: Pt to be I [...] to see pt per POC Start Time: 1337 End Time: 1443 Angelina Shaikh PT documented in this encounter Plan of Treatment Not on file documented as of this encounter Visit Diagnoses Diagnosis Closed displaced fracture of neck of left talus with routine healing, subsequent encounter- Primary documented in this encounter Care Teams Public Health Sanitarian Technician Relationship Specialty Start Date End Date Jane Garvin MD PCP - General 08/10/16 06/14/20 Jane Garvin MD 08/10/16 06/14/20 Angelina Shaikh PT Physical Therapist Physical Therapy 01/27/18 documented as of this encounter
--- OUTSIDE RECORDS SUMMARY | 2024-05-13 02:54 | XMS_ITS | Encounter Summary ---
Author Organization [facility] Healthcare Address [address] [place] [address] Care Team Providers Care Commercial Lines Account Executive Name Role Phone Jane Garvin MD Primary Care Provider [phone] Jane Garvin MD Unavailable [phone] Angelina Shaikh PT Unavailable Unavailable Reason for Visit * Reason Comments PT Treatment Encounter Details Date Type Department Care Team ([facility] st Contact Info) Description 03/26/2018 1:00 PM MANAGER INVESTMENT Therapy [facility] Physical Therapy [address] [place] [id number] Bethany Mac, SERVICE OR WORK DISPATCHER CHIEF Closed displaced fracture of neck of left [...] file Legal 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 Pt states stairs, walking inclines and everythingis just hard because she can't move her foot very well. Pain: 2/10 L ankle Objective:Treatment adjusted 2 pt arrived 20 min late. Treatment Provided: Nustep, L6 x 6 min* Stairmaster, L2 x 3 min. Rockerboard, side to side, and front to back, taps and balance x 1 min ea. * Standing marches, hs curls, hip abd, minisquats, heel raises on foam x 20 * gastroc stretch off dome 5 x 30 sec. Calf stretch off step 3 x 30 sec. Leg press DL and ankles, 100# x 20 ea. 60# L LE only ankle x 30 SLS on pink disc x 2 min. (working at it for 2 min) Eccentric step downs, 6 x 10 * Hip machine, 3 pl., flexion and abd x 20 ea. * Heel and toe walks 2 x 15 BOSU SLS on blue part 2 x 1 min BOSU squats x 15 ??BOSU taps fwd/back and R/L 15 ea and static hold 1 min x 2 Verbal cues for gait training, heel toe, not locking the knee out High knees walking with heel strike ?? Ankle distraction, joint mobs * Manual gastroc and soleus stretch Contract/relax gastroc and anterior tib stretch x 5 ea. ?? myobar to L gastrocs IASTM achilles tendon area with mild stretch L ?? Cold pack to L ankle post tx x 10 min. * ?? *(not performed this visit) ?? Assessment: Goals are ongoing Pt tolerated treatment well Plan: Continue to see pt per POC Start Time: 1320 pt late End Time:1345 Bethany Mac PTA GER INVESTMENT documented in this encounter Plan of Treatment Not on file documented as of this encounter Visit Diagnoses Diagnosis Closed displaced fracture of neck of left talus with routine healing, subsequent encounter- Primary documented in this encounter Care Teams Commercial Lines Account Executive Relationship Specialty Start Date End Date Jane Garvin MD PCP - General 08/10/16 06/14/20 Jane Garvin MD 08/10/16 06/14/20 Angelina Shaikh, PT Physical Therapist Physical Therapy 01/27/18 documented as of this encounter
--- OUTSIDE RECORDS SUMMARY | 2024-05-13 02:54 | XMS_ITS | Encounter Summary ---
Author Organization [facility] Healthcare Address [address] [place] [address] Care Team Providers Care Scratcher Tender Name Role Phone Jane Garvin MD Primary Care Provider [phone] Jane Garvin MD Unavailable [phone] Angelina Shaikh PT Unavailable Unavailable Reason for Visit * Reason Comments PT Treatment Encounter Details Date Type Department Care Team (Late st Contact Info) Description 02/19/2018 1:45 PM CDT Therapy [facility] Physical Therapy [address] [place] [address] Angelina Shaikh, PT Closed displaced fracture of [...] on file 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 Pain: 05/22 left ankle Objective: see treatment provided Treatment [...] min) Eccentric step downs, 4 x 10 (very shaky and difficult) Hip machine, 1 pl., flexion and abd x 20 ea. Towel crunches x 30 Leroy pick ups x 3 min. Sit to stands on blue foam for equal weight distribution x 10 Hip add w/ball x 20* Hip abd w/blue x 20* Seated hs curls w/blue tb x 20* LAQ w/ball btw knees x 20 w/2# wt* Ankle circles cw/ccw x 20 (HEP) Ankle a-z (HEP) BAPS board, lev 2, DF/PF x 20, inv/hakan x 20* ?? Verbal cues for gait training, heel toe, not locking the knee out High knees walking with heel strike SSIS ARCHITECT ?? Ankle distraction, joint mobs Manual gastroc and soleus stretch ?? myobar to L gastrocs* ?? Cold pack to L ankle post tx x 10 min. ?? *(not performed this visit) ?? Assessment: Goals are ongoing. Pt tolerated treatment well. Did well w/heel-toe gait pattern when she went slow and concentrated. Plan: Continue to see pt per POC Start Time: 1327 End Time: 1437 Angelina Shaikh PT documented in this encounter Plan of Treatment Not on file documented as of this encounter Visit Diagnoses Diagnosis Closed displaced fracture of neck of left talus with routine healing, subsequent encounter- Primary documented in this encounter Care Teams Scratcher Tender Relationship Specialty Start Date End Date Jane Garvin MD PCP - General 08/10/16 06/14/20 Jane Garvin MD 08/10/16 06/14/20 Angelina Shaikh, PT Physical Therapist Physical Therapy 01/27/18 documented as of this encounter
--- OUTSIDE RECORDS SUMMARY | 2024-05-13 02:54 | XMS_ITS | Encounter Summary ---
Author Organization [facility] Healthcare Address [address] [place] [address] Care Team Providers Care Reporter Name Role Phone Jane Garvin MD Primary Care Provider [phone] Jane Garvin MD Unavailable [phone] Angelina Shaikh PT Unavailable Unavailable Reason for Visit * Reason Comments PT Treatment Encounter Details Date Type Department Care Team (Late st Contact Info) Description 03/24/2018 1:00 PM MACHINE BILLER Therapy [facility] Physical Therapy [address] [place] [address] Angelina Shaikh, PT Closed displaced fracture of [...] on file 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 Pain: 2/10 left ankle Objective: see treatment provided Treatment Provided: Nustep, L6 x 6 min* [...] min) Eccentric step downs, 6 x 10 Hip machine, 3 pl., flexion and abd x 20 ea. Heel and toe walks 2 x 15 BOSU SLS on blue part 2 x 1 min BOSU squats x 15 ?? Verbal cues for gait training, heel toe, not locking the knee out High knees walking with heel strike CRM MARKETING ANALYST* ?? Ankle distraction, joint mobs Manual gastroc and soleus stretch Contract/relax gastroc and anterior tib stretch x 5 ea. ?? myobar to L gastrocs ?? Cold pack to L ankle post tx x 10 min. * ?? *(not performed this visit) ?? Assessment: Goals are ongoing. Pt tolerated treatment well. ROM still most limited in DF. Goals STG 1:: Pt to be I [...] to see pt per POC Start Time: 1300 End Time: 1345 Angelina Shaikh PT INE BILLER documented in this encounter Plan of Treatment Not on file documented as of this encounter Visit Diagnoses Diagnosis Closed displaced fracture of neck of left talus with routine healing, subsequent encounter- Primary documented in this encounter Care Teams Reporter Relationship Specialty Start Date End Date Jane Garvin MD PCP - General 08/10/16 06/14/20 Jane Garvin MD 08/10/16 06/14/20 Angelina Shaikh, PT Physical Therapist Physical Therapy 01/27/18 documented as of this encounter
--- OUTSIDE RECORDS SUMMARY | 2024-05-13 02:54 | XMS_ITS | Encounter Summary ---
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 Pain: 0/10 L ankle Objective: see treatment [...] x 30 Eccentric step downs, 4 x 10 Hip machine, 2.5 pl., flexion and abd x 20 ea. Heel and toe walks 2 x 15 BOSU SLS on blue part 2 x 1 min BOSU squats x 15 BOSU taps fwd/back and R/L 15 ea and static hold 1 min x 2* Ankle tb ex-all directions, green tb x 20 ea. * Verbal cues for gait training, heel toe, not locking the knee out High knees walking with heel strike* ?? Ankle distraction, joint mobs Manual gastroc [...] to see pt per POC Start Time: 1030 End Time: 1120 Angelina Shaikh PT RED TRUCK DRIVER documented in this encounter Plan of Treatment Not on file documented as of this encounter Visit Diagnoses Diagnosis Closed displaced fracture of neck of left talus with routine healing, subsequent encounter- Primary documented in this encounter Care Teams Bottle Blower Relationship Specialty Start Date End Date Jane Garvin MD PCP - General 08/10/16 06/14/20 Jane Garvin MD 08/10/16 06/14/20 Angelina Shaikh, PT Physical Therapist Physical Therapy 01/27/18 documented as of this encounter
--- OUTSIDE RECORDS SUMMARY | 2024-05-13 02:54 | XMS_ITS | Encounter Summary ---
Author Organization [facility] Healthcare Address [address] [place] [address] Care Team Providers Care Plane Tender Name Role Phone Jane Garvin MD Primary Care Provider [phone] Jane Garvin MD Unavailable [phone] Angelina Shaikh PT Unavailable Unavailable Reason for Visit * Reason Comments PT Treatment Encounter Details Date Type Department Care Team (Late st Contact Info) Description 02/06/2018 1:00 PM CDT Therapy [facility] Physical Therapy [address] [place] [address] Angelina Shaikh, PT Closed displaced fracture of [...] file 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 She states she was on her feet a lot yesterday and the ankle swelled up quite a bit. Pain less overall. Pain: 3/10 w/movement, 0/10 pain at rest Objective: see treatment provided Treatment Provided: Nustep, L6 x 6 min Rockerboard, side to side, and front to back, taps and balance x 1 min ea. Standing marches, hs curls, hip abd, minisquats on foam x 20 Seated heel and toe raises x 20 Towel crunches x 30 [place] pick ups x 3 min. Sit to stands x 20 Hip add w/ball x 20* Hip abd w/blue x 20* Seated hs curls w/blue tb x 20* LAQ w/ball btw knees x 20 w/2# wt Ankle circles cw/ccw x 20 Ankle a-z BAPS board, lev 2, DF/PF x 20, inv/hakan x 20 Ankle distraction, joint mobs Manual gastroc and soleus stretch Cold pack to L ankle post tx x 10 min. Assessment: Pt jaret tx well, tight in DF but improving. Inversion was limited and painful w/passive stretching Plan: Cont w/POC and progress as able. Start Time: 1300 End Time: 1355 Angelina Shaikh PT documented in this encounter Plan of Treatment Not on file documented as of this encounter Visit Diagnoses Diagnosis Closed displaced fracture of neck of left talus with routine healing, subsequent encounter- Primary documented in this encounter Care Teams Plane Tender Relationship Specialty Start Date End Date Jane Garvin MD PCP - General 08/10/16 06/14/20 Jane Garvin MD 08/10/16 06/14/20 Angelina Shaikh, PT Physical Therapist Physical Therapy 01/27/18 documented as of this encounter
--- OUTSIDE RECORDS SUMMARY | 2024-05-13 02:54 | XMS_ITS | Encounter Summary ---
Author Organization [facility] Address [address] [place] [address] Phone Care Team Providers Care Geotechnical Engineering Technician Name Role Phone Jane Garvin MD Primary Care Provider [phone] Jane Garvin MD Unavailable [phone] Reason for Referral * Diagnostic Imaging (Routine) - Closed Specialty Diagnoses / Procedures Referred By Antony hoang Referred To Contact Diagnoses Closed fracture of malleolus of left ankle with routine healing Closed displaced fracture of neck of left talus with routine healing, subsequent encounter Procedures X-ray foot left 3+ views Blanquita Chase [facility] Referral ID Status Reason Start Date Expiration Date Visits Re quested Visits Authorized [id number] Closed 11/28/2017 06/09/2019 1 1 * Diagnostic Imaging (Routine) - Closed Specialty Diagnoses / Procedures Referred By Antony hoang Referred To Contact Diagnoses Closed fracture of malleolus of left ankle with routine healing Closed displaced fracture of neck of left talus with routine healing, subsequent encounter Procedures X-ray ankle left 3+ views Blanquita Chase [facility] Referral ID Status Reason Start Date Expiration Date Visits Re quested Visits Authorized [id number] Closed 11/28/2017 06/09/2019 1 1 Encounter Details Date Type Department Care Team (Late st Contact Info) Description 11/28/2017 11:45 AM CDT Office Visit [facility] [address] [facility] 6th [place] [address] [place] [address] Blanquita Chase Closed displaced fracture of neck of left talus with routine healing, subsequent encounter (Primary Dx); Closed fracture of malleolus of left ankle with routine healing Social History Tobacco Use Types Packs/Day Years Used Date Smoking Tobacco: Some Days Cigarettes Smokeless Tobacco: Never Comments:e-cigarette Alcohol Use Standard Drinks/Week Comments No 0 (1 standard drink = 0.6 oz pur e alcohol) Comments No Sex and Gender Information Value Date Recorded Sex Assigned at Not on file 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 leg) Cast Applied: Yes Location: Ankle Ankle: L ankle Cast type: Short leg non weightbearing cast Supplies: Cotton Padding, cotton stocking/sleeve and fiberglass Number of fiberglass rolls used: 4 Patient tolerance of procedure: Tolerated well, no immediate complications * Blanquita Chase PA - 11/28/2017 11:45 AM CDT HPI: The patient is a 22-year-old female who presents today for a cast change. She suffered a left medial malleolus and talar neck fracture that are being treated non operatively. She was in my clinic earlier this week and was placed in a new short-leg nonweightbearing cast. She states that the cast wascausing her pain and requested a new cast today. No fever, chills, drainage. Physical Exam: Oliver Go is healthy-appearing and well-groomed, in no apparent distress. Patient is oriented to time, place and person. Incision healing well, no drainage or erythema; no deformity or crepitation. ROM: limited range with pain. Leg warm and well-perfused, capillary refill < 2 seconds. Ankle plantarflextion, dorsiflextion and EHL strength 5/5. Superficial and deep peroneal and tibial nerve sensation normal. Radiology: After new cast application, an AP and lateral radiograph of the left ankle were obtained and personally reviewed. They showed a minimally displaced left medial malleolus fracture and comminuted talusfracture in maintained alignment compared to previous x-rays Assessment/Plan: 1) new short-leg nonweightbearing cast today. 2) Continue weight-bearing status as prior: Nonweightbearing left lower extremity. 3) Return to clinic as previously scheduled with repeat radiographs (AP/lateral left ankle). 4) Call with any questions. Blanquita Chase PA-C Orthopedic Tra[facility] Blanquita Chase PA-C in collaborative practice with Dr. Megha Gamboa and Dr. Kory Menezes. Blanquita Chase PA-C dictating using Fluency Direct. Single Pass Soil Stabilizer Operator variances may occur. documented in this encounter Plan of Treatment Not on file documented as of this encounter Procedures Procedure Name Priority Date/Time Associated Diagnosis Comments ORTHO CASTING/SPLINTING Routine 11/28/2017 11:45 AM CDT Closed fracture of malleolus of left ankle with routine healing Closed displaced fracture of neck of left talus with routine healing, subsequent encounter documented in this encounter Results * X-ray foot left 3+ views (11/28/2017 2:18 PM CDT) Anatomical Region Laterality Modality Lower Extremities, Foot Left Computed Radiography 11/28/2017 2:29 PM CDT Impressions 11/28/2017 2:29 PM CDT 1. ??Casted nondisplaced vertically oriented left medial malleolus fracture. 2. Casted, comminuted intra-articular left talar body, head and neck fractures. Electronically signed by: Julio Siu M.D. Narrative 11/28/2017 2:29 PM CDT EXAMINATION: 1. ??Left ankle 3+ views 2. Left foot 3+ views HISTORY: ??Left ankle and foot fractures FINDINGS: 3 views left ankle 3 views left foot nonweightbearing submitted with comparison 11/26/2017. Evaluation of fine bony details limited by overlying cast material. There is been interval casting of a vertically oriented left medial malleolus fracture and comminuted intra-articular fracture of the talar body, head and neck. Nonweightbearing alignment appears unchanged. The remaining joint spaces of the foot are normal. The ankle mortise is normal. Procedure Note Julio Siu MD - 11/28/2017 EXAMINATION: 1. Left ankle 3+ views 2. Left foot 3+ views HISTORY: Left ankle and foot fractures FINDINGS: 3 views left ankle 3 views left foot nonweightbearing submitted with comparison 11/26/2017. Evaluation of fine bony details limited by overlying cast material. There is been interval casting of a vertically oriented left medial malleolus fracture and comminuted intra-articular fracture of the talar body, head and neck. Nonweightbearing alignment appears unchanged. The remaining joint spaces of the foot are normal. The ankle mortise is normal. IMPRESSION: 1. Casted nondisplaced vertically oriented left medial malleolus fracture. 2. Casted, comminuted intra-articular left talar body, head and neck fractures. Electronically signed by: Julio Siu M.D. Blanquita Chase [facility] XR PROCEDURES Janett l Result * X-ray ankle left 3+ views (11/28/2017 2:18 PM CDT) Anatomical Region Laterality Modality Lower Extremities, Ankle Left Compute d Radiography 11/28/2017 2:29 PM CDT Impressions 11/28/2017 2:29 PM CDT 1. ??Casted nondisplaced vertically oriented left medial malleolus fracture. 2. Casted, comminuted intra-articular left talar body, head and neck fractures. Electronically signed by: Julio Siu M.D. Narrative 11/28/2017 2:29 PM CDT EXAMINATION: 1. ??Left ankle 3+ views 2. Left foot 3+ views HISTORY: ??Left ankle and foot fractures FINDINGS: 3 views left ankle 3 views left foot nonweightbearing submitted with comparison 11/26/2017. Evaluation of fine bony details limited by overlying cast material. There is been interval casting of a vertically oriented left medial malleolus fracture and comminuted intra-articular fracture of the talar body, head and neck. Nonweightbearing alignment appears unchanged. The remaining joint spaces of the foot are normal. The ankle mortise is normal. Procedure Note Julio Siu MD - 11/28/2017 EXAMINATION: 1. Left ankle 3+ views 2. Left foot 3+ views HISTORY: Left ankle and foot fractures FINDINGS: 3 views left ankle 3 views left foot nonweightbearing submitted with comparison 11/26/2017. Evaluation of fine bony details limited by overlying cast material. There is been interval casting of a vertically oriented left medial malleolus fracture and comminuted intra-articular fracture of the talar body, head and neck. Nonweightbearing alignment appears unchanged. The remaining joint spaces of the foot are normal. The ankle mortise is normal. IMPRESSION: 1. Casted nondisplaced vertically oriented left medial malleolus fracture. 2. Casted, comminuted intra-articular left talar body, head and neck fractures. Electronically signed by: Julio Siu M.D. Blanquita Chase IM[facility] XR PROCEDURES Janett l Result * Ortho Casting/Splinting Documentation (11/28/2017 11:45 AM CDT) Narrative Nito Carter - 11/28/2017 11:45 AM CDT Nito Carter ? 11/28/2017 ??1:50 PM Ortho Casting/Splinting Documentation Date/Time: 11/28/2017 1:49 PM Performed by: NITO CARTER Authorized by: BLANQUITA CHASE Proctor/Sutures Removed: No ?? Pin Pulled: No ?? Cast Removed: Yes (lt. leg) ?? Cast Applied: Yes ?? Location: ??Ankle Ankle: ??L ankle Cast type: ??Short leg non weightbearing cast Supplies: ??Cotton Padding, cotton stocking/sleeve and fiberglass Number of fiberglass rolls used: ??4 Patient tolerance of procedure: ??Tolerated well, no immediate complications us Blanquitavane Bateman [facility]IDE CHRISAyad ELENA Final Result documented in this encounter Visit Diagnoses Diagnosis Closed displaced fracture of neck of left talus with routine healing, subsequent encounter- Primary Closed fracture of malleolus of left ankle with routine healing Closed fracture of malleolus of left ankle with routine healing Closed displaced fracture of neck of left talus with routine healing, subsequent encounter documented in this encounter Care Teams Geotechnical Engineering Technician Relationship Specialty Start Date End Date Jane Garvin MD PCP - General 08/10/16 06/14/20 Jane Garvin MD 08/10/16 06/14/20 documented as of this encounter
--- OUTSIDE RECORDS SUMMARY | 2024-05-13 02:54 | XMS_ITS | Encounter Summary ---
Author Organization [facility] Healthcare Address [address] [place] [address] Care Team Providers Care Store Custodian Name Role Phone Jane Garvin MD Primary Care Provider [phone] Jane Garvin MD Unavailable [phone] Angelina Shaikh PT Unavailable Unavailable Reason for Visit * Reason Comments PT Treatment Encounter Details Date Type Department Care Team (Late st Contact Info) Description 03/10/2018 2:30 PM CDT Therapy [facility] Physical Therapy [address] [place] [address] Angelina Shaikh, PT Closed displaced fracture of [...] on file 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 Pain: 2/10 left ankle Objective: see treatment [...] 30 sec. Leg press DL and ankles, 85# x 20 ea. 45# L LE only ankle x 30 SLS on pink disc x 2 min. (working at it for 2 min) Eccentric step downs, 6 x 10 Hip machine, 2 pl., flexion and abd x 20 ea. Heel and toe walks 2 x 15 ?? Verbal cues for gait training, heel toe, not locking the knee out High knees walking with heel strike DIRECTOR UNIVERSITY* ?? Ankle distraction, joint mobs Manual gastroc [...] to see pt per POC Start Time: 1431 End Time: 1530 Angelina Shaikh PT documented in this encounter Plan of Treatment Not on file documented as of this encounter Visit Diagnoses Diagnosis Closed displaced fracture of neck of left talus with routine healing, subsequent encounter- Primary documented in this encounter Care Teams Store Custodian Relationship Specialty Start Date End Date Jane Garvin MD PCP - General 08/10/16 06/14/20 Jane Garvin MD 08/10/16 06/14/20 Angelina Shaikh, PT Physical Therapist Physical Therapy 01/27/18 documented as of this encounter
--- OUTSIDE RECORDS SUMMARY | 2024-05-13 02:54 | XMS_ITS | Encounter Summary ---
Author Organization [facility] Healthcare Address [address] [place] [address] Care Team Providers Care Talent Partner Name Role Phone Jane Garvin MD Primary Care Provider [phone] Jane Garvin MD Unavailable [phone] Angelina Shaikh PT Unavailable Unavailable Reason for Visit * Reason Comments PT Treatment Encounter Details Date Type Department Care Team (Late st Contact Info) Description 02/10/2018 2:30 PM CDT Therapy [facility] Physical Therapy [address] [place] [address] Angelina Shaikh, PT Closed displaced fracture of [...] on file 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 Pain: 3/10 w/movement, 0/10 pain at rest Objective: see treatment provided Treatment Provided: Nustep, L6 x 6 min Rockerboard, side to side, and front to back, taps and balance x 1 min ea. Standing marches, hs curls, hip abd, minisquats, heel raises on foam x 20 gastroc stretch off dome 5 x 30 sec. Leg press DL and ankles, 60# x 20 ea. SLS on black disc x 2 min. (working at it for 2 min) Seated heel and toe raises x 20 Towel crunches x 30 Elverta pick ups x 3 min. Sit to stands x 20 Hip add w/ball x 20* Hip abd w/blue x 20* Seated hs curls w/blue tb x 20* LAQ w/ball btw knees x 20 w/2# wt* Ankle circles cw/ccw x 20 (HEP) Ankle a-z (HEP) BAPS board, lev 2, DF/PF x 20, inv/hakan x 20* Ankle distraction, joint mobs Manual gastroc and soleus stretch Cold pack to L ankle post tx x 10 min. Assessment: Pt jaret tx well, tight in DF but improving. Inversion was limited and painful w/passive stretching Plan: Cont w/POC and progress as able. Start Time: 1425 End Time: 1530 Angelina Shaikh PT documented in this encounter Plan of Treatment Not on file documented as of this encounter Visit Diagnoses Diagnosis Closed displaced fracture of neck of left talus with routine healing, subsequent encounter- Primary documented in this encounter Care Teams Talent Partner Relationship Specialty Start Date End Date Jane Garvin MD PCP - General 08/10/16 06/14/20 Jane Garvin MD 08/10/16 06/14/20 Angelina Shaikh, PT Physical Therapist Physical Therapy 01/27/18 documented as of this encounter
--- OUTSIDE RECORDS SUMMARY | 2024-05-13 02:54 | XMS_ITS | Encounter Summary ---
Author Organization [facility] Healthcare Address [address] [place] [address] Care Team Providers Care Assembler Final Name Role Phone Jane Garvin MD Primary Care Provider [phone] Jane Garvin MD Unavailable [phone] Angelina Shaikh PT Unavailable Unavailable Reason for Visit * Reason Comments PT Treatment Encounter Details Date Type Department Care Team (Late st Contact Info) Description 04/28/2018 11:15 AM IT SECURITY CONSULTING DIRECTOR Therapy [facility] Physical Therapy [address] [place] [address] Angelina Shaikh, PT Closed displaced fracture of [...] on file 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 She reports she stopped taking the pain meds yesterday, and now she hurts all over. Pain: 0/10 L ankle Objective: see treatment [...] 30 sec. Leg press DL and ankles, 120# x 20 ea. 70# L LE only ankle x 30 Eccentric step downs, 4 x 20 Hip machine, 2.5 pl., flexion and abd x 20 ea. Single leg calf raises on L, then eccentric lowering on L x 10* Heel and toe walks 2 x 15 [...] x 5 ea. ?? myobar to L gastrocs* IASTM anterior tib * ?? Cold pack to L ankle post tx x 10 min. * ?? *(not performed this visit) ?? Assessment: Goals are ongoing Pt tolerated treatment well. Plan: Continue to see pt per POC Start Time: 1115 End Time: 1200 Angelina Shaikh PT SECURITY CONSULTING DIRECTOR documented in this encounter Plan of Treatment Not on file documented as of this encounter Visit Diagnoses Diagnosis Closed displaced fracture of neck of left talus with routine healing, subsequent encounter- Primary documented in this encounter Care Teams Assembler Final Relationship Specialty Start Date End Date Jane Garvin MD PCP - General 08/10/16 06/14/20 Jane Garvin MD 08/10/16 06/14/20 Angelina Shaikh, PT Physical Therapist Physical Therapy 01/27/18 documented as of this encounter
--- OUTSIDE RECORDS SUMMARY | 2024-05-13 02:54 | XMS_ITS | Encounter Summary ---
Author Organization [facility] Healthcare Address [address] [place] [address] Care Team Providers Care Transitional Living Specialist Name Role Phone Jane Garvin MD Primary Care Provider [phone] Jane Garvin MD Unavailable [phone] Angelina Shaikh PT Unavailable Unavailable Reason for Visit * Reason Comments PT Treatment Encounter Details Date Type Department Care Team (Late st Contact Info) Description 04/23/2018 11:15 AM OPTO MECHANICAL TECHNICIAN Therapy [facility] Physical Therapy [address] [place] [address] Angelina Shaikh, PT Closed displaced fracture of [...] on file 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 Pain: 0/10 L ankle Objective: see treatment provided. Concentrated on stretching and PROM/joint mobs Treatment Provided: Nustep, L6 x 6 min Stairmaster, L2 x 3 min. * TM, [...] 2 x 1 min* BOSU squats x 15 BOSU taps fwd/back [...] to see pt per POC Start Time: 1120 End Time: 1200 Angelina Shaikh PT MECHANICAL TECHNICIAN documented in this encounter Plan of Treatment Not on file documented as of this encounter Visit Diagnoses Diagnosis Closed displaced fracture of neck of left talus with routine healing, subsequent encounter- Primary documented in this encounter Care Teams Transitional Living Specialist Relationship Specialty Start Date End Date Jane Garvin MD PCP - General 08/10/16 06/14/20 Jane Garvin MD 08/10/16 06/14/20 Angelina Shaikh, PT Physical Therapist Physical Therapy 01/27/18 documented as of this encounter
--- OUTSIDE RECORDS SUMMARY | 2024-05-13 02:54 | XMS_ITS | Encounter Summary ---
Author Organization [facility] Address [address] [place] [address] Care Team Providers Care Ross Furnace Operator Name Role Phone Jane Garvin MD Primary Care Provider [phone] Jane Garvin MD Unavailable [phone] Angelina Shaihk PT Unavailable Unavailable Reason for Referral * Diagnostic Imaging (Routine) - Closed Specialty Diagnoses / Procedures Referred By Contac t Referred To Contact Diagnoses Closed fracture of malleolus of left ankle with routine healing Procedures X-ray ankle left 3+ views Blanquita Jarrett [facility] Referral ID Status Reason Start Date Expiration Date Visits Re quested Visits Authorized [id number] Closed 02/28/2018 09/09/2019 1 1 * Diagnostic Imaging (Routine) - Closed Specialty Diagnoses / Procedures Referred By Contac t Referred To Contact Diagnoses Closed displaced fracture of neck of left talus with routine healing, subsequent encounter Procedures X-ray foot left 3+ views Blanquita Jarrett [facility] Referral ID Status Reason Start Date Expiration Date Visits Re quested Visits Authorized [id number] Closed 02/28/2018 09/09/2019 1 1 Reason for Visit * Diagnostic Imaging (Routine) - Closed Specialty Diagnoses / Procedures Referred By Contac t Referred To Contact Diagnoses Closed displaced fracture of neck of left talus with routine healing, subsequent encounter Procedures X-ray foot left 3+ views Blanquita Jarrett [facility] Referral ID Status Reason Start Date Expiration Date Visits Re quested Visits Authorized [id number] Closed 02/28/2018 09/09/2019 1 1 Encounter Details Date Type Department Care Team (Late st Contact Info) Description 03/04/2018 2:39 PM CDT - 03/04/2018 11:59 PM CDT Hospital Encounter [facility] [address] [place] [address] Blanquita Jarrett Closed displaced fracture of neck of left talus with routine healing, subsequent encounter; Closed fracture of malleolus of left ankle with routine healing Discharge Disposition: Discharge to home or self care Social History Tobacco Use Types Packs/Day Years Used Date Smoking Tobacco: Some Days Cigarettes Smokeless Tobacco: Never Comments:e-cigarette Alcohol Use Standard Drinks/Week Comments No 0 (1 standard drink = 0.6 oz pur e alcohol) Comments No Sex and Gender Information Value Date Recorded Sex Assigned at Not on file 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 8.5 g 05/07/2017 9 estradiol (ESTRACE) 1 mg tablet estradiol 1 mg tablet 9 fluconazole (DIFLUCAN) 150 mg tablet fluconazole 150 mg tablet Take 1 tablet by oral route as directed for 1 day. 9 HYDROcodone-acet aminophen (NORCO) 5-325 mg per tabletIndication s:Pain Take 1-2 tablets by mouth every 4 (four) hours as needed for pain (1 tablet for mild to moderate pain or 2 tablets for severe pain). Do not exceed 8 tablets/day. 12 tablet 10/20/2017 9 ibuprofen (ADVIL,MOTRIN) 400 mg tablet Take 1 tablet (400 mg total) by mouth every 6 (six) hours as needed for pain. 60 tablet 10/20/2017 9 RENATA FE 06/01, , 1 mg-20 mcg (21)/75 mg (7) per tablet 10/10/2017 3 metroNIDAZOLE (FLAGYL) 500 mg tablet metronidazole 500 mg tablet Take 1 tablet twice a day by oral route for 7 days. 1 metroNIDAZOLE (METROGEL) 0.75 % (37.5mg/5 gram) vaginal gelIndications:B acterial Vaginosis Vandazole 0.75 % vaginal gel INSERT ONE APPLICATORFUL VAGINALLY AT BEDTIME FOR 5 DAYS 3 norethindrone-e. estradiol-iron (RENATA FE 20, 28,) 1 mg-20 mcg (21)/75 mg (7) [...] Procedure Name Priority Date/Time Associated Diagnosis Comments XR FOOT LEFT 3 OR MORE VIEWS Schedule Routine, Read Routine (OP Routine) 03/04/2018 2:55 PM CDT Closed displaced fracture of neck of left talus with routine healing, subsequent encounter XR ANKLE LEFT 3 OR MORE VIEWS Schedule Routine, Read Routine (OP Routine) 03/04/2018 2:55 PM CDT Closed fracture of malleolus of left ankle with routine healing documented in this encounter Results * X-ray ankle left [...] Jarrett IMG XR PROCEDURES Janett l Result * X-ray [...] with routine healing documented in this encounter Care Teams Ross Furnace Operator Relationship Specialty Start Date End Date Jane Garvin MD PCP - General 08/10/16 06/14/20 Jane Garvin MD 08/10/16 06/14/20 Angelina Shaikh, PT Physical Therapist Physical Therapy 01/27/18 documented as of this encounter
--- OUTSIDE RECORDS SUMMARY | 2024-05-13 02:54 | XMS_ITS | Encounter Summary ---
Author Organization [facility] Healthcare Address [address] [place] [address] Care Team Providers Care Browning Processor Name Role Phone Jane Garvin MD Primary Care Provider [phone] Jane Garvin MD Unavailable [phone] Angelina Shaikh PT Unavailable Unavailable Reason for Visit * Reason Comments PT Treatment Encounter Details Date Type Department Care Team (Late st Contact Info) Description 03/31/2018 11:30 AM SOLE SPLITTER Therapy [facility] Physical Therapy [address] [place] [id number] Angelina Shaikh, PT Closed displaced fracture of [...] on file Legal Sex Female 1:15 AM SOLE SPLITTER Gender Identity Not on file Sexual Orientation Not on file documented as of this encounter Progress Notes * Angelina Shaikh, PT - 03/31/2018 11:30 AM CST PT Daily Treatment Note [...] x 1 min* BOSU squats x 15* ??BOSU taps fwd/back and R/L 15 ea and static hold 1 min x 2* Verbal cues for gait training, heel toe, not locking the knee out High knees walking with heel strike ?? Ankle distraction, joint mobs Manual gastroc [...] per POC Start Time: 1130 End Time: 1216 Angelina Shaikh PT SPLITTER documented in this encounter Plan of Treatment Not on file documented as of this encounter Visit Diagnoses Diagnosis Closed displaced fracture of neck of left talus with routine healing, subsequent encounter- Primary documented in this encounter Care Teams Browning Processor Relationship Specialty Start Date End Date Jane Garvin MD PCP - General 08/10/16 06/14/20 Jane Garvin MD 08/10/16 06/14/20 Angelina Shaikh, PT Physical Therapist Physical Therapy 01/27/18 documented as of this encounter
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
--- OUTSIDE RECORDS SUMMARY | 2024-05-13 02:54 | XMS_ITS | Encounter Summary ---
Author Organization [facility] Healthcare Address [address] [place] [address] Care Team Providers Care Clean Up Person Name Role Phone Jane Garvin MD Primary Care Provider [phone] Jane aGrvin MD Unavailable [phone] Angelina Shaikh PT Unavailable Unavailable Reason for Visit * Reason Comments PT Treatment Encounter Details Date Type Department Care Team (Late st Contact Info) Description 02/17/2018 1:45 PM CDT Therapy [facility] Physical Therapy [address] [place] [phone] Bethany Mac, MANGA ARTIST Closed displaced fracture of neck of left [...] on file 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 Pain: 1/10 left ankle Objective:Added single leg on leg press, high knees with heel strike. Treatment Provided: Nustep, L6 x 6 min [...] min) Seated heel and toe raises x 20* Towel crunches x 30 Garland pick ups x 3 min. Sit to [...] out High knees walking with heel strike MANAGER RELATIONSHIP ?? Ankle distraction, joint mobs * Manual gastroc and soleus stretch ?? myobar to L gastrocs* ?? Cold pack to L ankle post tx x 10 min. ?? *(not performed this visit) ?? Assessment: Goals are ongoing. Pt tolerated treatment well. Plan: Continue to see pt per POC Start Time: 1350 End Time:1450 Bethany Mac PTA documented in this encounter Plan of Treatment Not on file documented as of this encounter Visit Diagnoses Diagnosis Closed displaced fracture of neck of left talus with routine healing, subsequent encounter- Primary documented in this encounter Care Teams Clean Up Person Relationship Specialty Start Date End Date Jane Garvin MD PCP - General 08/10/16 06/14/20 Jane Garvin MD 08/10/16 06/14/20 Angelina Shaikh, PT Physical Therapist Physical Therapy 01/27/18 documented as of this encounter
--- OUTSIDE RECORDS SUMMARY | 2024-05-13 02:54 | XMS_ITS | Encounter Summary ---
Author Organization [facility] Address [address] [place] [address] Phone Care Team Providers Care Furnace Process Supervisor Name Role Phone Jane Garvin MD Primary Care Provider [phone] Jane Garvin MD Unavailable [phone] Reason for Referral * Diagnostic Imaging (Routine) - Closed Specialty Diagnoses / Procedures Referred By Antony hoang Referred To Contact Diagnoses Closed fracture of malleolus of left ankle with routine healing Closed displaced fracture of neck of left talus with routine healing, subsequent encounter Procedures X-ray ankle left 3+ views Kami Chase [facility] Referral ID Status Reason Start Date Expiration Date Visits Re quested Visits Authorized [id number] Closed 12/16/2017 06/27/2019 1 1 Reason for Visit * Reason Comments Fracture * Diagnostic Imaging (Routine) - Closed Specialty Diagnoses / Procedures Referred By Antony hoang Referred To Contact Diagnoses Closed fracture of malleolus of left ankle with routine healing Closed displaced fracture of neck of left talus with routine healing, subsequent encounter Procedures X-ray foot left 3+ views Kami Chase [facility] Referral ID Status Reason Start Date Expiration Date Visits Re quested Visits Authorized [id number] Closed 11/28/2017 06/09/2019 1 1 Encounter Details Date Type Department Care Team (Late st Contact Info) Description 12/17/2017 10:00 AM CDT Office Visit [facility] Orthopaedic Surgery [facility] 6th [place] [address] [place] [address] Kami Chase Closed fracture of malleolus of left ankle [...] on file 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 Gender Identity Not on file Sexual Orientation Not on file documented as of this encounter Last Filed Vital Signs Vital Sign Reading Time Taken Comments Blood Pressure - - Pulse - - Temperature - - Respiratory Rate - - Oxygen Saturation - - Inhaled Oxygen Concentration - - Weight 56.2 kg (124 lb) 12/17/2017 11:05 AM CDT Height 160 cm (5' 3 ) 12/17/2017 11:05 AM CDT Body Mass Index 21.97 12/17/2017 11:05 AM CDT documented in this encounter Progress Notes * Kami Chase, LISSETH - 12/17/2017 10:00 AM CDT Chief Complaint: Left ankle fracture History of Present Illness: The patient is a 22-year-old female who presents for follow-up regarding a left medial malleolus fracture and talar neck fracture that are being treated non operatively. She has been compliant with her nonweightbearing restriction in a short-leg cast for eight weeks. She states that she has no pain, she has only stiff. She is not taking any pain medication. No fevers, chills, nausea or vomiting. Physical Exam: Patient is healthy-appearing and well-groomed, in no apparent distress. Patient is oriented to time, place, and person. Respiratory effort: normal. General vascular exam with no apparent edema or varicosities. Limbs are warm and well-perfused with no edema; pulses: 2+ There is no lymphadenopathy. No scars, rashes, or lesions evident on bilateral upper and lower extremities, except as detailed below. Normal coordination of bilateral upper and lower extremities. Normal sensation in bilateral upper and lower extremities, except as detailed below. The injured extremity shows: Minimal left ankle swelling, no ecchymosis or abrasions. No skin breakdown from the cast. She fires TA/GSC/EHL/FHL. Range of motion is limited due to pain. Superficial and deep peroneal nerve sensation and tibial nerve sensation is normal. Review of X-rays/Studies: I have ordered and personally reviewed radiographs. AP and and lateral radiographs of the left ankle show a healing left medial malleolus fracture and healing fracture of the talar body and neck. Impression/Plan/Follow-Up: 1) Impression: Left medial malleolus fracture and talus fracture treated non operatively 2) Weight bearing status: Nonweightbearing left lower extremity for four more weeks. The patient was changed to a removable boot today. She may take the boot off for hygiene and gentle range of motion but she wear the boot at all times otherwise. 3) Return to clinic in four weeks with repeat radiographs (AP/lateral left ankle and foot). 4) Patient no longer taking pain medication; tylenol as needed. 5) Call with any questions. Kami Chase PA-C Orthopedic Trauma Service [facility] Orthopedics Kami Chase PA-C in collaborative practice with Dr. Megha Gamboa and Dr. Kory Menezes. Kami Chase PA-C dictating using Fluency Direct. School Superintendent variances may occur. * Nancy Kearns MLT - 12/17/2017 10:00 AM CDTAssociated Order(s): ORTHO CASTING/SPLINTING Post-Procedure Diagnose(s): Closed fracture of malleolus of left ankle with routine healing Ortho Casting/Splinting Documentation Date/Time: 12/17/2017 3:52 PM Performed by: NANCY KEARNS Authorized by: KAMI CHASE Sensation: Normal Skin Condition: Clean, dry, and intact Cast Removed: Yes Location: Ankle Ankle: L ankle Capillary Refill: Normal Patient tolerance of procedure: Tolerated well, no immediate complications documented in this encounter Plan of Treatment Not on file documented as of this encounter Procedures Procedure Name Priority Date/Time Associated Diagnosis Comments ORTHO CASTING/SPLINTING Routine 12/17/2017 10:00 AM CDT Closed fracture of malleolus of left ankle with routine healing documented in this encounter Results * X-ray ankle left 3+ views (12/17/2017 10:52 AM CDT) Anatomical Region Laterality Modality Lower Extremities, Ankle Left Compute d Radiography 12/17/2017 10:5 9 AM CDT Impressions 12/17/2017 10:59 AM CDT Healing oblique intra-articular fracture at the left medial malleolus. Healing comminuted intra-articular fracture of the talar body, and neck. Electronically signed by: Italo Barriga M.D. Narrative 12/17/2017 10:59 AM CDT EXAMINATION: Left ankle minimum 3 views HISTORY: Left medial malleolus fracture FINDINGS: 3 views of the left ankle were performed and compared to prior study on 11/28/2017. There is a healing oblique, intra-articular fracture of the left medial malleolus. ??There is a healing comminuted intra-articular fracture of the talar body, head and neck. ??The remaining joint spaces are normal. ??There is no articular incongruence. ??Soft tissue swelling is noted about the medial malleolus. Procedure Note Italo Barriga MD - 12/17/2017 EXAMINATION: Left ankle minimum 3 views HISTORY: Left medial malleolus fracture FINDINGS: 3 views of the left ankle were performed and compared to prior study on 11/28/2017. There is a healing oblique, intra-articular fracture of the left medial malleolus. There is a healing comminuted intra-articular fracture of the talar body, head and neck. The remaining joint spaces are normal. There is no articular incongruence. Soft tissue swelling is noted about the medial malleolus. IMPRESSION: Healing oblique intra-articular fracture at the left medial malleolus. Healing comminuted intra-articular fracture of the talar body, and neck. Electronically signed by: Italo Barriga M.D. us Kami Chase IMG XR PROCEDURES Janett l Result * Ortho Casting/Splinting Documentation (12/17/2017 10:00 AM CDT) Narrative Nancy Kearns MLT - 12/17/2017 10:00 AM CDT Nancy Kearns MLT ? 12/17/2017 ??3:53 PM Ortho Casting/Splinting Documentation Date/Time: 12/17/2017 3:52 PM Performed by: NANCY KEARNS Authorized by: KAMI CHASE Sensation: ??Normal Skin Condition: ??Clean, dry, and intact Cast Removed: Yes ?? Location: ??Ankle Ankle: ??L ankle Capillary Refill: ??Normal Patient tolerance of procedure: ??Tolerated well, no immediate complications us Kami Chase IN CL[facility]IC/[facility]SIDE BL[facility]ING [place] Final Result documented in this encounter Visit Diagnoses Diagnosis Closed fracture of malleolus of left ankle with routine healing- Primary Closed displaced fracture of neck of left talus with routine healing, subsequent encounter Closed fracture of malleolus of left ankle with routine healing Closed displaced fracture of neck of left talus with routine healing, subsequent encounter documented in this encounter Care Teams Furnace Process Supervisor Relationship Specialty Start Date End Date Jane Garvin MD PCP - General 08/10/16 06/14/20 Jane Garvin MD 08/10/16 06/14/20 documented as of this encounter
--- OUTSIDE RECORDS SUMMARY | 2024-05-13 02:54 | XMS_ITS | Encounter Summary ---
Author Organization [facility] Healthcare Address [address] [place] [address] Care Team Providers Care Launch Engineer Name Role Phone Jane Garvin MD Primary Care Provider [phone] Jane Garvin MD Unavailable [phone] Angelina Shaikh PT Unavailable Unavailable Reason for Visit * Reason Comments PT Treatment Encounter Details Date Type Department Care Team (Late st Contact Info) Description 03/03/2018 11:15 AM CDT Therapy [facility] Physical Therapy [address] [place] [address] Angelina Shaikh, PT Closed displaced fracture of [...] on file 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 Ankle distraction, joint mobs Manual gastroc [...] to see pt per POC Start Time: 1126 (pt 10 min late) End Time: 1205 Angelina Shaikh PT documented in this encounter Plan of Treatment Not on file documented as of this encounter Visit Diagnoses Diagnosis Closed displaced fracture of neck of left talus with routine healing, subsequent encounter- Primary documented in this encounter Care Teams Launch Engineer Relationship Specialty Start Date End Date Jane Garvin MD PCP - General 08/10/16 06/14/20 Jane Garvin MD 08/10/16 06/14/20 Angelina Shaikh, ANDREW Physical Therapist Physical Therapy 01/27/18 documented as of this encounter
--- OUTSIDE RECORDS SUMMARY | 2024-05-13 02:54 | XMS_ITS | Encounter Summary ---
Author Organization [facility] Healthcare Address [address] [place] [address] Care Team Providers Care Java Front End Web Developer Name Role Phone Jane Garvin MD Primary Care Provider [phone] Jane Garvin MD Unavailable [phone] Angelina Shaikh PT Unavailable Unavailable Reason for Visit * Reason Comments PT Treatment Encounter Details Date Type Department Care Team (Late st Contact Info) Description 04/14/2018 11:15 AM APRON WORKER Therapy [facility] Physical Therapy [address] [place] [id number] Angelina Shaikh, PT Closed displaced fracture of [...] on file Legal Sex Female 1:15 AM APRON 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 Gender Identity Not on file Sexual Orientation Not on file documented as of this encounter Progress Notes * Angelina Shaikh, PT - 04/14/2018 11:15 AM CST PT Daily Treatment Note [...] to see pt per POC Start Time: 1108 End Time: 1202 Angelina Shaikh PT N WORKER documented in this encounter Plan of Treatment Not on file documented as of this encounter Visit Diagnoses Diagnosis Closed displaced fracture of neck of left talus with routine healing, subsequent encounter- Primary documented in this encounter Care Teams Java Front End Web Developer Relationship Specialty Start Date End Date Jane Garvin MD PCP - General 08/10/16 06/14/20 Jane Garvin MD 08/10/16 06/14/20 Angelina Shaikh, PT Physical Therapist Physical Therapy 01/27/18 documented as of this encounter
--- OUTSIDE RECORDS SUMMARY | 2024-05-13 02:54 | XMS_ITS | Encounter Summary ---
Author Organization [facility] Healthcare Address [address] [place] [address] Care Team Providers Care Senior Architect Name Role Phone Jane Garvin MD Primary Care Provider [phone] Jane Garvin MD Unavailable [phone] Angelina Shaikh PT Unavailable Unavailable Reason for Visit * Reason Comments PT Treatment Encounter Details Date Type Department Care Team (Late st Contact Info) Description 02/26/2018 1:45 PM CDT Therapy [facility] Physical Therapy [address] [place] [address] Angelina Shaikh, PT Closed displaced fracture of [...] on file 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 Pain: 05/22 left ankle Objective: see treatment [...] 10 (very shaky and difficult)* Hip machine, 1 pl., flexion and abd x 20 ea. * Towel crunches x 30* [place] pick ups x 3 min.* Sit to [...] heel toe, not locking the knee out * High knees walking with heel strike DONOR RELATIONS ASSOCIATE* ?? Ankle distraction, joint mobs Manual gastroc and soleus stretch ?? myobar to L gastrocs* ?? Cold pack to L ankle post tx x 10 min. ?? *(not performed this visit) ?? Assessment: Goals are ongoing. Pt tolerated treatment well. Did well w/heel-toe gait pattern when she went slow and concentrated. Plan: Continue to see pt per POC Start Time: 1348 End Time: 1438 Angelina Shaikh PT documented in this encounter Plan of Treatment Not on file documented as of this encounter Visit Diagnoses Diagnosis Closed displaced fracture of neck of left talus with routine healing, subsequent encounter- Primary documented in this encounter Care Teams Senior Architect Relationship Specialty Start Date End Date Jane Garvin MD PCP - General 08/10/16 06/14/20 Jane Garvin MD 08/10/16 06/14/20 Angelina Shaikh, PT Physical Therapist Physical Therapy 01/27/18 documented as of this encounter
--- OUTSIDE RECORDS SUMMARY | 2024-05-13 02:54 | XMS_ITS | Encounter Summary ---
Author Organization [facility] Healthcare Address [address] [place] [address] Care Team Providers Care Knitting Inspector Name Role Phone Jane Garvin MD Primary Care Provider [phone] Jane Garvin MD Unavailable [phone] Angelina Shaikh PT Unavailable Unavailable Reason for Visit * Reason Comments PT Treatment Encounter Details Date Type Department Care Team (Late st Contact Info) Description 01/30/2018 4:00 PM CDT Therapy [facility] Physical Therapy [address] [place] [address] Angelina Shaikh, PT Closed displaced fracture of [...] on file Legal 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 Pain: 6/10 w/movement, 0/10 pain at rest Objective: see treatment provided Treatment Provided: Nustep, L6 x 6 min Weight shifting x 20 Standing marches, hs curls, hip abd, minisquats x 20 Seated heel and toe raises x 20 Towel crunches x 30 [place] pick ups x 3 min. Sit to stands x 20 Hip add w/ball x 20 Hip abd w/blue x 20 Seated hs curls w/blue tb x 20 LAQ w/ball btw knees x 20 Ankle circles cw/ccw x 20 Ankle a-z Ankle distraction, joint mobs Manual gastroc and soleus stretch Assessment: Pt jaret tx well, tight in DF still, but past neutral now passively. Plan: Cont w/POC and progress as able. Start Time: 1600 End Time: 1700 Angelina Shaikh PT documented in this encounter Plan of Treatment Not on file documented as of this encounter Visit Diagnoses Diagnosis Closed displaced fracture of neck of left talus with routine healing, subsequent encounter- Primary documented in this encounter Care Teams Knitting Inspector Relationship Specialty Start Date End Date Jane Garvin MD PCP - General 08/10/16 06/14/20 Jane Garvin MD 08/10/16 06/14/20 Angelina Shaikh, PT Physical Therapist Physical Therapy 01/27/18 documented as of this encounter
--- OUTSIDE RECORDS SUMMARY | 2024-05-13 02:54 | XMS_ITS | Encounter Summary ---
Author Organization [facility] Address [address] [place] [address] Care Team Providers Care Claim Processing Specialist Name Role Phone Jane Garvin MD Primary Care Provider [phone] Jane Garvin MD Unavailable [phone] Reason for Referral * Diagnostic Imaging (Routine) - Closed Specialty Diagnoses / Procedures Referred By Contac t Referred To Contact Diagnoses Closed fracture of malleolus of left ankle with routine healing Procedures X-ray ankle left 3+ views Blanquita Jarrett [facility] Referral ID Status Reason Start Date Expiration Date Visits Re quested Visits Authorized [id number] Closed 01/20/2018 08/01/2019 1 1 * Diagnostic Imaging (Routine) - Closed Specialty Diagnoses / Procedures Referred By Contac t Referred To Contact Diagnoses Closed displaced fracture of neck of left talus with routine healing, subsequent encounter Procedures X-ray foot left 3+ views Blanquita Jarrett [facility] Medicine Referral ID Status Reason Start Date Expiration Date Visits Re quested Visits Authorized [id number] Closed 01/20/2018 08/01/2019 1 1 Reason for Visit * Diagnostic Imaging (Routine) - Closed Specialty Diagnoses / Procedures Referred By Contac t Referred To Contact Diagnoses Closed displaced fracture of neck of left talus with routine healing, subsequent encounter Procedures X-ray foot left 3+ views Blanquita Jarrett [facility] Referral ID Status Reason Start Date Expiration Date Visits Re quested Visits Authorized [id number] Closed 01/20/2018 08/01/2019 1 1 Encounter Details Date Type Department Care Team (Late st Contact Info) Description 01/21/2018 10:30 AM CDT - 01/21/2018 11:59 PM CDT Hospital Encounter [facility] [address] [place] [address] Blanquita Jarrett Closed displaced fracture of neck [...] on file 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 8.5 g 05/07/2017 9 estradiol (ESTRACE) 1 mg tablet estradiol 1 mg tablet 9 HYDROcodone-acet aminophen (NORCO) 5-325 mg per [...] (21)/75 mg (7) per tablet 10/10/2017 3 norethindrone-e. estradiol-iron (RENATA FE 06/01, ,) 1 mg-20 mcg (21)/75 mg (7) per tablet Renata Fe 20 (28) 1 mg-20 mcg (21)/75 mg (7) [...] VIEWS Schedule Routine, Read Routine (OP Routine) 01/21/2018 11:03 AM CDT Closed displaced fracture of neck of left talus with routine healing, subsequent encounter XR ANKLE LEFT 3 OR MORE VIEWS Schedule Routine, Read Routine (OP Routine) 01/21/2018 11:03 AM CDT Closed fracture of malleolus of left ankle with routine healing documented in this encounter Results * X-ray ankle left 3+ views (01/21/2018 11:03 AM CDT) Anatomical Region Laterality Modality Lower Extremities, Ankle Left Compute d Radiography 01/21/2018 11:0 6 AM CDT Impressions 01/21/2018 11:06 AM CDT 1. ??Healing, nondisplaced left medial malleolus fracture. 2. Healing, comminuted intra-articular left talar head and neck fractures. Electronically signed by: Julio Siu M.D. Narrative 01/21/2018 11:06 AM CDT EXAMINATION: 1. ??Left foot 3+ views 2. Left ankle 3+ views HISTORY: ??Left ankle fractures FINDINGS: 3 views left ankle and 3 views left foot nonweightbearing submitted with comparison 12/17/2012 and 11/28/2017. There is a healing nondisplaced left medial malleolus fracture. The ankle joint space and mortise are normal. Nondisplaced left talar head and neck fractures are also healing. There is no evidence of an ankle effusion. Disuse osteoporosis is present. The joint spaces are normal. Procedure Note Julio Siu MD - 01/21/2018 EXAMINATION: 1. Left foot 3+ views 2. Left ankle 3+ views HISTORY: Left ankle fractures FINDINGS: 3 views left ankle and 3 views left foot nonweightbearing submitted with comparison 12/17/2012 and 11/28/2017. There is a healing nondisplaced left medial malleolus fracture. The ankle joint space and mortise are normal. Nondisplaced left talar head and neck fractures are also healing. There is no evidence of an ankle effusion. Disuse osteoporosis is present. The joint spaces are normal. IMPRESSION: 1. Healing, nondisplaced left medial malleolus fracture. 2. Healing, comminuted intra-articular left talar head and neck fractures. Electronically signed by: Julio Siu M.D. Blanquita Jarrett IMG XR PROCEDURES Janett l Result * X-ray foot left 3+ views (01/21/2018 11:03 AM CDT) Anatomical Region Laterality Modality Lower Extremities, Foot Left Computed Radiography 01/21/2018 11:0 6 AM CDT Impressions 01/21/2018 11:06 AM CDT 1. ??Healing, nondisplaced left medial malleolus fracture. 2. Healing, comminuted intra-articular left talar head and neck fractures. Electronically signed by: Julio Siu M.D. Narrative 01/21/2018 11:06 AM CDT EXAMINATION: 1. ??Left foot 3+ views 2. Left ankle 3+ views HISTORY: ??Left ankle fractures FINDINGS: 3 views left ankle and 3 views left foot nonweightbearing submitted with comparison 12/17/2012 and 11/28/2017. There is a healing nondisplaced left medial malleolus fracture. The ankle joint space and mortise are normal. Nondisplaced left talar head and neck fractures are also healing. There is no evidence of an ankle effusion. Disuse osteoporosis is present. The joint spaces are normal. Procedure Note Julio Siu MD - 01/21/2018 EXAMINATION: 1. Left foot 3+ views 2. Left ankle 3+ views HISTORY: Left ankle fractures FINDINGS: 3 views left ankle and 3 views left foot nonweightbearing submitted with comparison 12/17/2012 and 11/28/2017. There is a healing nondisplaced left medial malleolus fracture. The ankle joint space and mortise are normal. Nondisplaced left talar head and neck fractures are also healing. There is no evidence of an ankle effusion. Disuse osteoporosis is present. The joint spaces are normal. IMPRESSION: 1. Healing, nondisplaced left medial malleolus fracture. 2. Healing, comminuted intra-articular left talar head and neck fractures. Electronically signed by: Julio Siu M.D. Blanquita Jarrett IMG XR PROCEDURES Janett l Result documented in this encounter Visit Diagnoses Diagnosis Closed displaced fracture of neck of left talus with routine healing, subsequent encounter Closed fracture of malleolus of left ankle with routine healing documented in this encounter Care Teams Claim Processing Specialist Relationship Specialty Start Date End Date Jane Garvin MD PCP - General 08/10/16 06/14/20 Jane Garvin MD 08/10/16 06/14/20 documented as of this encounter
--- OUTSIDE RECORDS SUMMARY | 2024-05-13 02:54 | XMS_ITS | Encounter Summary ---
Author Organization [facility] Healthcare Address [address] [place] [address] Care Team Providers Care Belt Turner Name Role Phone Jane Garvin MD Primary Care Provider [phone] Jane Garvin MD Unavailable [phone] Angelina Shaikh PT Unavailable Unavailable Reason for Visit * Reason Comments PT Treatment Encounter Details Date Type Department Care Team (Late st Contact Info) Description 04/02/2018 11:30 AM IT BUSINESS SYSTEMS ANALYST Therapy [facility] Physical Therapy [address] [place] [id number] Angelina Shaikh, PT Closed displaced fracture of [...] file Legal Sex Female 1:15 AM IT BUSINESS SYSTEMS ANALYST Gender Identity Not on file Sexual Orientation Not on file documented as of this encounter Progress Notes * Angelina Shaikh, PT - 04/02/2018 11:30 AM CST PT Daily Treatment Note [...] 65# L LE only ankle x 30 SLS [...] ex-all directions, green tb x 20 ea. Verbal cues for gait training, heel toe, [...] to see pt per POC Start Time: 1132 End Time: 1222 Angelina Shaikh PT BUSINESS SYSTEMS ANALYST documented in this encounter Plan of Treatment Not on file documented as of this encounter Visit Diagnoses Diagnosis Closed displaced fracture of neck of left talus with routine healing, subsequent encounter- Primary documented in this encounter Care Teams Belt Turner Relationship Specialty Start Date End Date Jane Garvin MD PCP - General 08/10/16 06/14/20 Jane Garvin MD 08/10/16 06/14/20 Angelina Shaikh, PT Physical Therapist Physical Therapy 01/27/18 documented as of this encounter
--- OUTSIDE RECORDS SUMMARY | 2024-05-13 02:54 | XMS_ITS | Encounter Summary ---
Author Organization [facility] Address [address] [place] [id number] Care Team Providers Care Chicken Tender Name Role Phone Jane Garvin MD Primary Care Provider [phone] Jane Garvin MD Unavailable [phone] Reason for Referral * Diagnostic Imaging (Routine) - Closed Specialty Diagnoses / Procedures Referred By Contac t Referred To Contact Diagnoses Closed fracture of malleolus of left ankle with routine healing Closed displaced fracture of neck of left talus with routine healing, subsequent encounter Procedures X-ray foot left 3+ views Blanquita Jarrett [facility] Referral ID Status Reason Start Date Expiration Date Visits Re quested Visits Authorized [id number] Closed 11/28/2017 06/09/2019 1 1 * Diagnostic Imaging (Routine) - Closed Specialty Diagnoses / Procedures Referred By Contac t Referred To Contact Diagnoses Closed fracture of malleolus of left ankle with routine healing Closed displaced fracture of neck of left talus with routine healing, subsequent encounter Procedures X-ray ankle left 3+ views Blanquita Jarrett [facility] Referral ID Status Reason Start Date Expiration Date Visits Re quested Visits Authorized [id number] Closed 11/28/2017 06/09/2019 1 1 Reason for Visit * Diagnostic Imaging (Routine) - Closed Specialty Diagnoses / Procedures Referred By Contac t Referred To Contact Diagnoses Closed fracture of malleolus of left ankle with routine healing Closed displaced fracture of neck of left talus with routine healing, subsequent encounter Procedures X-ray ankle left 3+ views Blanuqita Jarrett [facility] Referral ID Status Reason Start Date Expiration Date Visits Re quested Visits Authorized [id number] Closed 11/28/2017 06/09/2019 1 1 Encounter Details Date Type Department Care Team (Late st Contact Info) Description 11/28/2017 1:46 PM CDT - 11/28/2017 11:59 PM CDT Hospital Encounter [facility] Radiology [facility] [address] [place] [address] Blanquita Jarrett Closed fracture of malleolus of left ankle with routine healing; Closed displaced fracture of neck of left talus with routine healing, subsequent encounter Discharge Disposition: Discharge to home or self care Social History Tobacco Use Types Packs/Day Years Used Date Smoking Tobacco: Some Days Cigarettes Smokeless Tobacco: Never Comments:e-cigarette Alcohol Use Standard Drinks/Week Comments No 0 (1 standard drink = 0.6 oz pur e alcohol) Comments No Sex and Gender Information Value Date Recorded Sex Assigned at Not on file 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 60 tablet 10/20/2017 9 RENATA FE , 1 mg-20 mcg (21)/75 mg (7) per tablet 10/10/2017 3 norethindrone-e. estradiol-iron (RENATA FE 1/20, 28,) 1 mg-20 mcg (21)/75 mg (7) per tablet Renata Fe 1/20 (28) 1 mg-20 mcg [...] VIEWS Schedule Routine, Read Routine (OP Routine) 11/28/2017 2:18 PM CDT Closed fracture of malleolus of left ankle with routine healing Closed displaced fracture of neck of left talus with routine healing, subsequent encounter XR ANKLE LEFT 3 OR MORE VIEWS Schedule Routine, Read Routine (OP Routine) 11/28/2017 2:18 PM CDT Closed fracture of malleolus of [...] head and neck fractures. Electronically signed by: Melisa Washington 11/28/2017 2:29 PM CDT EXAMINATION: 1. ??Left [...] signed by: Julio Siu M.D. Blanquita Jarrett IM XR PROCEDURES Janett [...] encounter documented in this encounter Care Teams Chicken Tender Relationship Specialty Start Date End Date Jane Garvin MD PCP - General 08/10/16 06/14/20 Jane Garvin MD 08/10/16 06/14/20 documented as of this encounter
--- OUTSIDE RECORDS SUMMARY | 2024-05-13 02:54 | XMS_ITS | Encounter Summary ---
Author Organization [facility] Healthcare Address [address] [place] [address] Care Team Providers Care Assistant Wrestling Coach Name Role Phone Jane Garvin MD Primary Care Provider [phone] Jane Garvin MD Unavailable [phone] Angelina Shaikh PT Unavailable Unavailable Reason for Visit * Reason Comments PT Treatment Encounter Details Date Type Department Care Team (Late st Contact Info) Description 03/17/2018 2:30 PM STANDARDS ANALYST Therapy [facility] Physical Therapy [address] [place] [address] Angelina Shaikh, PT Closed displaced fracture of [...] on file Legal Sex Female 1:15 AM STANDARDS ANALYST Gender Identity Not on file Sexual Orientation Not on file documented as of this encounter Progress Notes * Angelina Shaikh, PT - 03/17/2018 2:30 PM CST PT Daily Treatment Note Oliver Go 1995 Subjective: Pt states the ankle is very little sore today. Pain: 2/10 left ankle Objective: see treatment provided Increased wt on hip machine and leg press Treatment Provided: Nustep, L6 x 6 min Stairmaster, L2 x 3 min. Rockerboard, side [...] out High knees walking with heel strike AUTOMOTIVE SERVICE CONSULTANT* ?? Ankle distraction, joint mobs Manual gastroc [...] to see pt per POC Start Time: 1430 End Time: 1530 Angelina Shaikh PT DARDS ANALYST documented in this encounter Plan of Treatment Not on file documented as of this encounter Visit Diagnoses Diagnosis Closed displaced fracture of neck of left talus with routine healing, subsequent encounter- Primary documented in this encounter Care Teams Assistant Wrestling Coach Relationship Specialty Start Date End Date Jane Garvin MD PCP - General 08/10/16 06/14/20 Jane Garvin MD 08/10/16 06/14/20 Angelina Shaikh, PT Physical Therapist Physical Therapy 01/27/18 documented as of this encounter
--- OUTSIDE RECORDS SUMMARY | 2024-05-13 02:54 | XMS_ITS | Encounter Summary ---
Author Organization [facility] Address [address] [facility] [address] [place] [address] Phone Care Team Providers Care Pail Tester Name Role Phone Jane Garvin MD Primary Care Provider [phone] Jane Garvin MD Unavailable [phone] Reason for Referral * Consultation (Routine) - Closed Specialty Diagnoses / Procedures Referred By Kongac t Referred To Contact Physical Therapy Diagnoses Closed displaced fracture of neck of left talus with routine healing, subsequent encounter Closed fracture of malleolus of left ankle with routine healing Blanquita Jarrett Referral ID Status Reason Start Date Expiration Date V isits Requested Visits Authorized [id number] Closed Specialty Services Required 01/21/2018 08/02/2019 12 12 Question Answer PTRFR PT Evaluate and Treat Therapy options discussed with patient? Yes Location provided for therapy services is: Patient requested/Patient preferred Comments Request for PHYSICAL THERAPY SERVICES From the office of LISSETH Jamison [facility] [address] [place] [address] [address] [place] [address] Office Nurse [phone] Please fax all PT reports that require a signature to [phone]. All other PT progress reports should be faxed to [phone]. PATIENT NAME: Oliver Go : 1995 DATE: 01/21/18 RX: PT DX: Closed displaced fracture of neck of left talus with routine healing, subsequent encounter [S92.112D] Instructions: ROM: Active, Active Assisted and Passive Therapy: Gait Training, Strengthening, Proprioception and Modalities Restrictions: Left Lower Extremity: L LE WBAT wear CAM boot at all times. When full weight bearing and comfortable in boot, may wean out of boot as tolerated. Frequency: 2-3 times per week for 6 weeks. Setting: Outpatient and instruct for home exercise program LISSETH Wan PA * Diagnostic Imaging (Routine) - Closed Specialty Diagnoses / Procedures Referred By Antony hoang Referred To Contact Diagnoses Closed fracture of malleolus of left ankle with routine healing Procedures X-ray ankle left 3+ views Blanquita Jarrett [facility] Referral ID Status Reason Start Date Expiration Date Visits Re quested Visits Authorized [id number] Closed 01/20/2018 08/01/2019 1 1 * Diagnostic Imaging (Routine) - Closed Specialty Diagnoses / Procedures Referred By Antony hoang Referred To Contact Diagnoses Closed displaced fracture of neck of left talus with routine healing, subsequent encounter Procedures X-ray foot left 3+ views Blanquita Jarrett [facility] Referral ID Status Reason Start Date Expiration Date Visits Re quested Visits Authorized [id number] Closed 01/20/2018 08/01/2019 1 1 Reason for Visit * Reason Comments Fracture Fracture Encounter Details Date Type Department Care Team (Late st Contact Info) Description 01/21/2018 10:00 AM CDT Office Visit 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 Gender Identity Not on file Sexual Orientation Not on file documented as of this encounter Last Filed Vital Signs Vital Sign Reading Time Taken Comments Blood Pressure - - Pulse - - Temperature - - Respiratory Rate - - Oxygen Saturation - - Inhaled Oxygen Concentration - - Weight 58.1 kg (128 lb) 01/21/2018 11:40 AM CDT Height 158.8 cm (5' 2.5 ) 01/21/2018 11:40 AM CD T Body Mass Index 23.04 01/21/2018 11:40 AM CDT documented in this encounter Progress Notes * Blanquita Jarrett PA - 01/21/2018 10:00 AM CDT Chief Complaint: Left ankle pain History of Present Illness: The patient is a 22-year-old female here for follow-up regarding a left medial malleolus fracture and talar neck fracture. She is approximately 13 weeks in a non operative treatment. She has been compliant with her nonweightbearing restriction. She states that she only has occasional pain on the outside of her ankle. This is achy and occurs when she weightbears on accident. Not putting weight on the foot makes the pain better. She is no longer taking pain medication. She is eager to start weight-bearing and physical therapy. Physical Exam: Patient is healthy-appearing and well-groomed, in no apparent distress. Patient is oriented to time, place, and person. Respiratory effort: normal. General vascular exam with no apparent edema or varicosities. Limbs are warm and well-perfused with no edema; pulses: 2+ There is no lymphadenopathy. Gait: Deferred No scars, rashes, or lesions evident on bilateral upper and lower extremities, except as detailed below. Normal coordination of bilateral upper and lower extremities. Normal sensation in bilateral upper and lower extremities, except as detailed below. The injured extremity shows: No swelling, ecchymosis or abrasions of the left ankle. She dorsiflexes to neutral and plantar flexes approximately 20??. The medial malleolus is nontender to palpation. The distal fibula is mildly tender to palpation. Superficial and deep peroneal nerve sensation and tibial nerve sensation is normal. Strength with plantar flexion, dorsiflexion and EHL is 5/5. Review of X-rays/Studies: I have ordered and personally reviewed radiographs. AP and lateral radiographs of the left foot andankle show a healing, minimally displaced left medial malleolus fracture and a healing comminuted left talar head and neck fracture Impression/Plan/Follow-Up: 1) Impression: Left medial malleolus and left talar neck fracture treated non operative 2) Weight bearing status: Advance weight-bearing as tolerated in removable boot with physical therapy. When the patient is full weight-bearing comfortable in a removable boot she may begin weaning out of the boot as tolerated. 3) Return to clinic in six weeks with repeat radiographs (AP/lateral left foot and ankle). 4) Patient no longer taking pain medication; tylenol as needed. 5) Call with any questions. 6) a prescription for physical therapy was provided today. 7) work status: Off work until follow-up in six weeks. If the patient is full weight-bearing in a regular shoe before her next follow-up and if she wishes to return to work sooner, we can consider that. Blanquita Jarrett PA-C Orthopedic Trauma Service [facility] Blanquita Jarrett PA-C in collaborative practice with Dr. Megha Gamboa and Dr. Kory Menezes. Blanquita Jarrett PA-C dictating using Fluency Direct. Diving Fisher variances may occur. documented in this encounter Plan of Treatment Scheduled Referrals Name Type Priority Associated Diagnoses Order Schedule Ambulatory referral order to Physical Therapy - Outpatient Referral Routine Closed displaced fracture of neck of left talus with routine healing, subsequent encounter Closed fracture of malleolus of left ankle with routine healing 1 Occurrences starting 01/21/2018 until 07/21/2018 documented as of this encounter Results * [...] healing documented in this encounter Care Teams Pail Tester Relationship Specialty Start Date End Date Jane Garvin MD PCP - General 08/10/16 06/14/20 Jane Garvin MD 08/10/16 06/14/20 documented as of this encounter
--- OUTSIDE RECORDS SUMMARY | 2024-05-13 02:54 | XMS_ITS | Encounter Summary ---
Author Organization [facility] Healthcare Address [address] [place] [address] Care Team Providers Care Truss Designer Name Role Phone Jane Garvin MD Primary Care Provider [phone] Jane Garvin MD Unavailable [phone] Reason for Referral * Diagnostic Imaging (Routine) - Closed Specialty Diagnoses / Procedures Referred By Contac t Referred To Contact Diagnoses Closed fracture of malleolus of left ankle with routine healing Closed displaced fracture of neck of left talus with routine healing, subsequent encounter Procedures X-ray ankle left 3+ views Blanquita Jarrett [facility] Referral ID Status Reason Start Date Expiration Date Visits Re quested Visits Authorized [id number] Closed 12/16/2017 06/27/2019 1 1 Reason for Visit * Diagnostic Imaging (Routine) - Closed Specialty Diagnoses / Procedures Referred By Contac t Referred To Contact Diagnoses Closed fracture of malleolus of left ankle with routine healing Closed displaced fracture of neck of left talus with routine healing, subsequent encounter Procedures X-ray ankle left 3+ views Blanquita Jarrett [facility] Referral ID Status Reason Start Date Expiration Date Visits Re quested Visits Authorized [id number] Closed 12/16/2017 06/27/2019 1 1 Encounter Details Date Type Department Care Team (Late st Contact Info) Description 12/17/2017 10:39 AM CDT - 12/17/2017 11:59 PM CDT Hospital Encounter [facility] [address] [place] [id number] Jarrett, Blanquita Bhavana Closed fracture of malleolus of left ankle [...] on file 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 estradiol-iron (RENATA FE 20, 28,) [...] Name Priority Date/Time Associated Diagnosis Comments XR ANKLE LEFT 3 OR MORE VIEWS Schedule Routine, Read Routine (OP Routine) 12/17/2017 10:52 AM CDT Closed fracture of malleolus of [...] neck. Electronically signed by: Italo Barriga M.D. Blanquita Jarrett IMG XR PROCEDURES Janett l Result documented in this encounter Visit Diagnoses Diagnosis Closed fracture of malleolus of left ankle with routine healing Closed displaced fracture of neck of left talus with routine healing, subsequent encounter documented in this encounter Care Teams Truss Designer Relationship Specialty Start Date End Date Jane Garvin MD PCP - General 08/10/16 06/14/20 Jane Garvin MD 08/10/16 06/14/20 documented as of this encounter
--- OUTSIDE RECORDS SUMMARY | 2024-05-13 02:54 | XMS_ITS | Encounter Summary ---
Author Organization [facility] Healthcare Address [address] [place] [address] Care Team Providers Care Pig Machine Operator Name Role Phone Jane Garvin MD Primary Care Provider [phone] Jane Garvin MD Unavailable [phone] Angelina Shaikh PT Unavailable Unavailable Reason for Visit * Reason Comments PT Treatment Encounter Details Date Type Department Care Team (Late st Contact Info) Description 02/12/2018 1:45 PM CDT Therapy [facility] Physical Therapy [address] [place] [address] Angelina Shaikh, PT Closed displaced fracture of [...] on file 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 States the ankle is feeling better today. Pain: 3/10 w/movement, 0/10 pain at rest Objective: see treatment provided Increased wt on leg press Treatment Provided: Nustep, L6 x 6 min Rockerboard, side to side, and front to back, taps and balance x 1 min ea. Standing marches, hs curls, hip abd, minisquats, heel raises on foam x 20 gastroc stretch off dome 5 x 30 sec. Leg press DL and ankles, 80# x 20 ea. SLS on black disc x 2 min. (working at it for 2 min) Seated heel and toe raises x 20* Towel crunches x 30 [place] pick ups x 3 min. Sit to stands x 20 Hip add w/ball x 20* Hip abd w/blue x 20* Seated hs curls w/blue tb x 20* LAQ w/ball btw knees x 20 w/2# wt* Ankle circles cw/ccw x 20 (HEP) Ankle a-z (HEP) BAPS board, lev 2, DF/PF x 20, inv/hakan x 20* Verbal cues for gait training, heel toe, not locking the knee out Ankle distraction, joint mobs * Manual gastroc and soleus stretch* myobar to L gastrocs Cold pack to L ankle post tx x 10 min. *(not performed this visit) Assessment: Pt jaret tx well, tight in DF but improving. Backed off on stretching today d/t soreness. Plan: Cont w/POC and progress as able. Start Time: 1345 End Time: 1445 Angelina Shaikh PT documented in this encounter Plan of Treatment Not on file documented as of this encounter Visit Diagnoses Diagnosis Closed displaced fracture of neck of left talus with routine healing, subsequent encounter- Primary documented in this encounter Care Teams Pig Machine Operator Relationship Specialty Start Date End Date Jane Garvin MD PCP - General 08/10/16 06/14/20 Jane Garvin MD 08/10/16 06/14/20 Angelina Shaikh, PT Physical Therapist Physical Therapy 01/27/18 documented as of this encounter
--- OUTSIDE RECORDS SUMMARY | 2024-05-13 02:54 | XMS_ITS | Encounter Summary ---
Author Organization [facility] Healthcare Address [address] [place] [address] Care Team Providers Care Admissions Supervisor Name Role Phone Jane Garvni MD Primary Care Provider [phone] Jane Garvin MD Unavailable [phone] Angelina Shaikh PT Unavailable Unavailable Reason for Visit * Reason Comments PT Treatment Encounter Details Date Type Department Care Team (Late st Contact Info) Description 03/12/2018 11:00 AM CDT Therapy [facility] Physical Therapy [address] [place] [address] Angelina Shaikh, PT Closed displaced fracture of [...] file 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 Ankle distraction, joint mobs Manual gastroc [...] to see pt per POC Start Time: 1114 End Time: 1212 Angelina Shaikh PT documented in this encounter Plan of Treatment Not on file documented as of this encounter Visit Diagnoses Diagnosis Closed displaced fracture of neck of left talus with routine healing, subsequent encounter- Primary documented in this encounter Care Teams Admissions Supervisor Relationship Specialty Start Date End Date Jane Garvin MD PCP - General 08/10/16 06/14/20 Jane Garvin MD 08/10/16 06/14/20 Angelina Shaikh, PT Physical Therapist Physical Therapy 01/27/18 documented as of this encounter
--- OUTSIDE RECORDS SUMMARY | 2024-05-13 02:54 | XMS_ITS | Encounter Summary ---
Author Organization [facility] Address [address] [place] [id number] Care Team Providers Care Edge Cutter Name Role Phone Jane Garvin MD Primary Care Provider [phone] Jane Garvin MD Unavailable [phone] Angelina Shaikh PT Unavailable Unavailable Reason for Visit * Reason Comments Flu Symptoms Pt c/o of body aches , sore throat, ear fullness, headache onset 4 days. Encounter Details Date Type Department Care Team (Late st Contact Info) Description 07/21/2018 1:15 PM CDT Office Visit [facility] [address] [place] [id number] Monet Beach NP [address] [place] [address] [place] [id number] Acute pharyngitis, unspecified etiology (Primary Dx); Flu-like symptoms; Strep throat exposure Social History Tobacco Use Types Packs/Day Years Used Date Smoking Tobacco: Never Cigarettes Smokeless Tobacco: Never Tobacco Cessation:Counseling Given: No Alcohol Use Standard Drinks/Week Comments No 0 (1 standard drink = 0.6 oz pur e alcohol) Comments No Sex and Gender Information Value Date Recorded Sex Assigned at Not on file 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 Gender Identity Not on file Sexual Orientation Not on file documented as of this encounter Last Filed Vital Signs Vital Sign Reading Time Taken Comments Blood Pressure 118/62 07/21/2018 1:24 PM CDT Pulse 94 07/21/2018 1:24 PM CDT Temperature 37.1 ??C (98.8 ??F) 07/21/2018 1:24 PM CD T Respiratory Rate 22 07/21/2018 1:24 PM CDT Oxygen Saturation 98% 07/21/2018 1:24 PM CDT Inhaled Oxygen Concentration - - Weight 55.8 kg (123 lb) 07/21/2018 1:24 PM CDT Height 158.8 cm (5' 2.5 ) 07/21/2018 1:24 PM CDT Body Mass Index 22.14 07/21/2018 1:24 PM CDT documented in this encounter Patient Instructions * Patient Instructions* Monet Hansen NP - 07/21/2018 1:15 PM CDT Complete antibiotic as prescribed Tylenol or Motrin for fever/pain Gargle with warm salt water (1tsp salt/1 cup water) Suck on ice chips, popsicles, cough drops, or throat lozenges You may return to work, daycare, or school 24 hours after starting antibiotics and you are fever free Do not share food, drinks, or utensils Replace your toothbrush within 24 hours after starting antibiotics and again after 4-5 days. I recommend washing your pillow cases and sheets after 24 hours Follow up with your PCP if you are not getting better documented in this encounter Ordered Prescriptions Prescription Sig Dispense Quantity Refills Last Filled Start Date End Date amoxicillin (AMOXIL) 875 mg tabletIndications: Acute pharyngitis, unspecified etiology Take 1 tablet (875 mg total) by mouth 2 (two) times a day for 10 days 20 tablet 07/21/2018 07/31/2018 documented in this encounter Progress Notes * Monet Hansen NP - 07/21/2018 1:15 PM CDT Subjective/Objective Patient ID: Oliver Go is a 22 y.o. female. Chief Complaint Flu Symptoms (Pt c/o of body aches, sore throat, ear fullness, headache onset 4 days.) Presents to clinic for sore throat, body aches, runny nose, sinus drainage, ears hurt x3 days. She has taken tylenol cold. She has been exposed to strep by coworkers. 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 She also states that the last time she had strep, it took 3 visits before it was actually positive. URI This is a new problem. The current episode started in the past 7 days. The problem has been gradually worsening. The maximum temperature recorded prior to her arrival was 101 - 101.9 F. Associated symptoms include congestion, coughing, headaches, nausea, rhinorrhea and a sore throat. Treatments tried: cold meds. The treatment provided no relief. Review of Systems Constitutional: Positive for fatigue and fever. HENT: Positive for congestion, rhinorrhea and sore throat. Respiratory: Positive for cough. Cardiovascular: Negative. Gastrointestinal: Positive for nausea. Musculoskeletal: Positive for myalgias. Skin: Negative. Neurological: Positive for headaches. Psychiatric/Behavioral: Negative. All other systems reviewed and are negative. Physical Exam Constitutional: She is oriented to person, place, and time. She appears well- developed and well-nourished. HENT: Right Ear: Hearing, tympanic membrane, external ear and ear canal normal. Left Ear: Hearing, tympanic membrane, external ear and ear canal normal. Mouth/Throat: Uvula is midline and mucous membranes are normal. Posterior oropharyngeal erythema present. Eyes: Conjunctivae are normal. Neck: Normal range of motion. Cardiovascular: Normal rate and regular rhythm. Pulmonary/Chest: Effort normal and breath sounds normal. Musculoskeletal: Normal range of motion. Lymphadenopathy: She has no cervical adenopathy. Neurological: She is alert and oriented to person, place, and time. GCS eye subscore is 4. GCS verbal subscore is 5. GCS motor subscore is 6. Skin: Skin is warm and dry. Psychiatric: She has a normal mood and affect. Vitals: 07/21/18 1324 BP: 118/62 BP Location: Left arm Patient Position: Sitting Pulse: 94 Resp: 22 Temp: 37.1 ??C (98.8 ??F) SpO2: 98% Weight: 55.8 kg (123 lb) Height: 158.8 cm (5' 2.5 ) Assessment/Plan Complete antibiotic as prescribed Tylenol or Motrin for fever/pain Gargle with warm salt water (1tsp salt/1 cup water) Suck on ice chips, popsicles, cough drops, or throat lozenges You may return to work, daycare, or school 24 hours after starting antibiotics and you are fever free Do not share food, drinks, or utensils Replace your toothbrush within 24 hours after starting antibiotics and again after 4-5 days. I recommend washing your pillow cases and sheets after 24 hours Follow up with your PCP if you are not getting better Diagnoses and all orders for this visit: Acute pharyngitis, unspecified etiology (Primary) - POCT rapid strep A - amoxicillin (AMOXIL) 875 mg tablet; Take 1 tablet (875 mg total) by mouth 2 (two) times a day for10 days Flu-like symptoms - POCT influenza A/B Strep throat exposure Disposition- Discussed medications dosages, usage & potential [...] the plan of care Monet Hansen NP documented in this encounter Plan of Treatment Not on file documented as of this encounter Procedures Procedure Name Priority Date/Time Associated Diagnosis Comments POCT INFLUENZA A/B Routine 07/21/2018 1: 46 PM CDT Flu-like symptoms POCT RAPID STREP Routine 07/21/2018 1:45 PM CDT Acute pharyngitis, unspecified etiology documented in this encounter Results * (ABNORMAL) POCT influenza A/B (07/21/2018 1:46 PM CDT) Rapid Influenza A Ag Negative Negative, Invalid Rapid Influenza B Ag Negative Negative, Invalid Nasopharyngeal 07/21/2018 1: 46 PM CDT Monet Beach NP POINT OF CARE TEST OR DERABLES Final Result * POCT rapid strep A (07/21/2018 1:45 PM CDT) Rapid Strep A, POC Negative Swab 07/21/2018 1:45 PM CDT Monet Beach CLAIM CLERK POINT OF CARE TEST OR DERABLES Final Result documented in this encounter Visit Diagnoses Diagnosis Acute pharyngitis, unspecified etiology- Primary Flu-like symptoms Strep throat exposure documented in this encounter Care Teams Edge Cutter Relationship Specialty Start Date End Date Jane Garvin MD PCP - General 08/10/16 06/14/20 Jane Garvin MD 08/10/16 06/14/20 Angelina Shaikh, PT Physical Therapist Physical Therapy 01/27/18 documented as of this encounter
--- OUTSIDE RECORDS SUMMARY | 2024-05-13 02:54 | XMS_ITS | Encounter Summary ---
Author Organization [facility] Healthcare Address [address] [place] [address] Care Team Providers Care Supervisor Safety Deposit Name Role Phone Jane Garvin MD Primary Care Provider [phone] Jane Garvin MD Unavailable [phone] Angelina Shaikh PT Unavailable Unavailable Reason for Visit * Reason Comments PT Treatment Encounter Details Date Type Department Care Team (Late st Contact Info) Description 02/03/2018 1:00 PM CDT Therapy [facility] [address] [place] [id number] Angelina Shaikh, PT Closed displaced fracture of [...] on file 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 Pain: 6/10 w/movement, 0/10 pain at rest Objective: see treatment provided Treatment Provided: Nustep, L6 x 6 min Weight shifting x 20 Rockerboard, side to side, and front to back, taps and balance x 1 min ea. Standing marches, hs curls, hip abd, minisquats on foam x 20 Seated heel and toe raises x 20 Towel crunches x 30 [place] pick ups x 3 min. Sit to stands x 20 Hip add w/ball x 20* Hip abd w/blue x 20* Seated hs curls w/blue tb x 20* LAQ w/ball btw knees x 20 Ankle circles cw/ccw x 20 Ankle a-z Ankle distraction, joint mobs Manual gastroc and soleus stretch Assessment: Pt jaret tx well, tight in DF still, but past neutral now passively. Plan: Cont w/POC and progress as able. Start Time: 1310 End Time: 1410 Angelina Shaikh PT documented in this encounter Plan of Treatment Not on file documented as of this encounter Visit Diagnoses Diagnosis Closed displaced fracture of neck of left talus with routine healing, subsequent encounter- Primary documented in this encounter Care Teams Supervisor Safety Deposit Relationship Specialty Start Date End Date Jane Garvin MD PCP - General 08/10/16 06/14/20 Jane Garvin MD 08/10/16 06/14/20 Angelina Shaikh PT Physical Therapist Physical Therapy 01/27/18 documented as of this encounter
--- OUTSIDE RECORDS SUMMARY | 2024-05-13 02:54 | XMS_ITS | Encounter Summary ---
Author Organization [facility] Address [address] [place] [id number] Care Team Providers Care Under Ground Miner Name Role Phone Jane Garvin MD Primary Care Provider [phone] Jane Garvin MD Unavailable [phone] Reason for Referral * Diagnostic Imaging (Routine) - Closed Specialty Diagnoses / Procedures Referred By Contac t Referred To Contact Diagnoses Closed displaced fracture of neck of left talus with routine healing, subsequent encounter Procedures X-ray foot left 3+ views Blanquita Jarrett [facility] Referral ID Status Reason Start Date Expiration Date Visits Re quested Visits Authorized [id number] Closed 11/25/2017 06/06/2019 1 1 * Diagnostic Imaging (Routine) - Closed Specialty Diagnoses / Procedures Referred By Contac t Referred To Contact Diagnoses Closed fracture of malleolus of left ankle with routine healing Procedures X-ray ankle left 3+ views Blanquita Jarrett [facility] Referral ID Status Reason Start Date Expiration Date Visits Re quested Visits Authorized [id number] Closed 11/25/2017 06/06/2019 1 1 Reason for Visit * Diagnostic Imaging (Routine) - Closed Specialty Diagnoses / Procedures Referred By Contac t Referred To Contact Diagnoses Closed fracture of malleolus of left ankle with routine healing Procedures X-ray ankle left 3+ views Blanuqita Jarrett [facility] Referral ID Status Reason Start Date Expiration Date Visits Re quested Visits Authorized [id number] Closed 11/25/2017 06/06/2019 1 1 Encounter Details Date Type Department Care Team (Late st Contact Info) Description 11/26/2017 12:43 PM CDT - 11/26/2017 11:59 PM CDT Hospital Encounter [facility] [address] [place] [address] Blanquita Jarrett Closed fracture of malleolus of [...] file 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 Gender Identity Not on file Sexual Orientation [...] (21)/75 mg (7) per tablet Renata Fe [birth year]) 1 mg-20 mcg [...] VIEWS Schedule Routine, Read Routine (OP Routine) 11/26/2017 1:03 PM CDT Closed displaced fracture of neck of left talus with routine healing, subsequent encounter XR ANKLE LEFT 3 OR MORE VIEWS Schedule Routine, Read Routine (OP Routine) 11/26/2017 1:03 PM CDT Closed fracture of malleolus of left ankle with routine healing documented in this encounter Results * X-ray foot left 3+ views (11/26/2017 1:03 PM CDT) Anatomical Region Laterality Modality Lower Extremities, Foot Left Computed Radiography 11/26/2017 1:32 PM CDT Impressions 11/26/2017 1:51 PM CDT Healing nondisplaced left medial malleolus, medial talus, and talar neck fractures. Electronically signed by: Ketty Oliveira M.D. Narrative 11/26/2017 1:51 PM CDT EXAMINATION: 1. ??Ankle left 3 or more views 2. ??Foot left 3 or more views HISTORY: Left medial malleolus and talar fractures FINDINGS: 3 nonweightbearing views of the foot and 3 nonweightbearing views of the ankle were submitted for interpretation comparison made to prior done on 11/01/2017. ?? The nondisplaced intra-articular fracture of the left ankle medial malleolus is seen and appears to be healing. ??Nondisplaced left medial talar neck fracture is healing. ??Nondisplaced talar neck fracture is healing. ??Joint spaces are normal. ??Syndesmosis appears normal. ??Left lower extremity cast has been removed. Procedure Note Ketty Oliveira MD - 11/26/2017 EXAMINATION: 1. Ankle left 3 or more views 2. Foot left 3 or more views HISTORY: Left medial malleolus and talar fractures FINDINGS: 3 nonweightbearing views of the foot and 3 nonweightbearing views of the ankle were submitted for interpretation comparison made to prior done on 11/01/2017. The nondisplaced intra-articular fracture of the left ankle medial malleolus is seen and appears to be healing. Nondisplaced left medial talar neck fracture is healing. Nondisplaced talar neck fracture is healing. Joint spaces are normal. Syndesmosis appears normal. Left lower extremity cast has been removed. IMPRESSION: Healing nondisplaced left medial malleolus, medial talus, and talar neck fractures. Electronically signed by: Ketty Oliveira M.D. Blanquita Jarrett IM XR PROCEDURES Janett l Result * X-ray ankle left 3+ views (11/26/2017 1:03 PM CDT) Anatomical Region Laterality Modality Lower Extremities, Ankle Left Compute d Radiography 11/26/2017 1:32 PM CDT Impressions 11/26/2017 1:51 PM CDT Healing nondisplaced left medial malleolus, medial talus, and talar neck fractures. Electronically signed by: Ketty Oliveira M.D. Narrative 11/26/2017 1:51 PM CDT EXAMINATION: 1. ??Ankle left 3 or more views 2. ??Foot left 3 or more views HISTORY: Left medial malleolus and talar fractures FINDINGS: 3 nonweightbearing views of the foot and 3 nonweightbearing views of the ankle were submitted for interpretation comparison made to prior done on 11/01/2017. ?? The nondisplaced intra-articular fracture of the left ankle medial malleolus is seen and appears to be healing. ??Nondisplaced left medial talar neck fracture is healing. ??Nondisplaced talar neck fracture is healing. ??Joint spaces are normal. ??Syndesmosis appears normal. ??Left lower extremity cast has been removed. Procedure Note Ketty Oliveira MD - 11/26/2017 EXAMINATION: 1. Ankle left 3 or more views 2. Foot left 3 or more views HISTORY: Left medial malleolus and talar fractures FINDINGS: 3 nonweightbearing views of the foot and 3 nonweightbearing views of the ankle were submitted for interpretation comparison made to prior done on 11/01/2017. The nondisplaced intra-articular fracture of the left ankle medial malleolus is seen and appears to be healing. Nondisplaced left medial talar neck fracture is healing. Nondisplaced talar neck fracture is healing. Joint spaces are normal. Syndesmosis appears normal. Left lower extremity cast has been removed. IMPRESSION: Healing nondisplaced left medial malleolus, medial talus, and talar neck fractures. Electronically signed by: Ketty Oliveira M.D. Blanquita Jarrett IMG XR PROCEDURES Janett l Result documented in this encounter Visit Diagnoses Diagnosis Closed fracture of malleolus of left ankle with routine healing Closed displaced fracture of neck of left talus with routine healing, subsequent encounter documented in this encounter Care Teams Under Ground Miner Relationship Specialty Start Date End Date Jane Garvin MD PCP - General 08/10/16 06/14/20 Jane Garvin MD 08/10/16 06/14/20 documented as of this encounter
--- OUTSIDE RECORDS SUMMARY | 2024-05-13 02:55 | XMS_ITS | Encounter Summary ---
Author Organization [facility] Healthcare Address [address] [place] [id number] Care Team Providers Care Phone Specialist Name Role Phone Jane Garvin MD Primary Care Provider [phone] Jane Garvin MD Unavailable [phone] Encounter Details Date Type Department Care Team (Late st Contact Info) Description 02/16/2017 12:31 AM CDT - 02/16/2017 4:26 AM CDT Emergency [facility] Emergency Department [address] [place] [id number] Jessica Veras MD [address] [place] [address] Discharge Disposition: Discharge to home or self care Social History Tobacco Use Types Packs/Day Years Used Date Smoking Tobacco: Never Assessed Comments Unknown Sex and Gender Information Value Date Recorded Sex Assigned at Not on file Legal Sex Female 1:15 AM [employer] Gender Identity Not on file Sexual Orientation Not on file documented as of this encounter Medications at Time of Discharge norethindrone-e.e stradiol-iron (LOESTRIN FE 1.5/30, 28-DAY,) 1.5 mg-30 mcg per tablet take 1 tablet by oral route every day 0 0 07/04/2016 04/23/2023 documented as of this encounter Discharge Disposition Disposition Code Departure Means Destination Discharge to home or self care documented in this encounter Plan of Treatment Not on file documented as of this encounter Procedures Procedure Name Priority Date/Time Associated Diagnosis Comments CT ABDOMEN PELVIS WO CONTRAST Routine 02/16/2017 7:47 AM CDT URINE CULTURE STAT 02/16/2017 1:05 AM CDT URINALYSIS AND REFLEX TO MICROSCOPIC AND CULTURE STAT 02/16/2017 1:00 AM CDT HCG, URINE, QUALITATIVE STAT 02/16/2017 1:00 AM CDT URINALYSIS, MICROSCOPIC ONLY STAT 02/16/2017 1:00 AM CDT EGFR STAT 02/16/2017 12:51 AM CDT DIFFERENTIAL AUTO STAT 02/16/2017 12: 51 AM CDT DIFFERENTIAL AUTO STAT 02/16/2017 12: 51 AM CDT CBC WITH AUTO DIFFERENTIAL STAT 02/16/2017 12:51 AM CDT LIPASE STAT 02/16/2017 12:51 AM CDT AMYLASE STAT 02/16/2017 12:51 AM CDT COMPREHENSIVE METABOLIC PANEL STAT 02/16/2017 12:51 AM CDT DISCHARGE LABORATORY CUMULATIVE REPORT 02/16/2017 12:00 AM CDT documented in this encounter Results * CT Abdomen Pelvis WO Contrast (02/16/2017 7:47 AM CDT) Anatomical Region Laterality Modality Body N/A Computed Tomogra phy 02/16/2017 7:47 AM CDT Narrative 02/16/2017 7:[address] [place] ??[id number] ??Acc#: ??[id number] DATE OF EXAM: ??Feb ??2016 ?? EXAM: [place] ??[id number] HISTORY: Flank pain COMPARISON: 10/30/2014 TECHNIQUE: Axial images of the abdomen and pelvis with sagittal and coronal reconstructions FINDINGS: The kidneys, ureters, and bladder do not contain stones. ??No hydronephrosis or perinephric fat stranding is seen. ??The visual portions of the unenhanced liver, gallbladder, spleen, pancreas, and adrenal glands are normal. ??The large and small bowel are overall normal in caliber and configuration. ??The appendix is normal. ??The abdominal aorta appears normal. ??No mesenteric or retroperitoneal lymphadenopathy is seen. The bladder is unremarkable. ??No free pelvic fluid is seen. ??No pelvic or lymphadenopathy is noted. ??A 4.3 cm fluid attenuation right adnexal cyst with associated free pelvic fluid is seen. ??This is likely the etiology of the patient's pain. IMPRESSION: 1. ??No nephrolithiasis or evidence of obstructive uropathy. 2. ??Ovarian cyst with associated pelvic fluid. Preliminary results were faxed by Dr. Delgado of [facility] at 0318 on 02/16/2017. Electronically signed by: Maddie Barajas M.D. Interpreting Physician: ??MADDIE BARAJAS M.D. ??Read on: ??Feb ??2016 ?? 7:01A Transcribed by: ??PSC ??On: Feb ??2016 ??6:59A Approved Electronically by: ??MADDIE BARAJAS M.D. ??on: ??Feb ??2016 ?? 6:59A Ordering DR: JESSICA VERAS Attending DR: JESSICA VERAS Attending: ??JESSICA VERAS Requesting: ??JESSICA VERAS Requesting Fax: ??-- Attending Fax: ??[phone] Attending ID: ??[id number] Requesting ID: ??[id number] Report To 1 ID: ??[id number] Report To 1 Name: ??JESSICA VERAS Report To 1 FAX: ??-- [facility] Order #: ?? Procedure Note Miscellaneous, Not In File - 02/23/[place] [id number] Acc#: [id number] DATE OF EXAM: Feb 16 2017 EXAM: [place] [id number] HISTORY: Flank pain COMPARISON: 10/30/2014 TECHNIQUE: Axial images of the abdomen and pelvis with sagittal and coronal reconstructions FINDINGS: The kidneys, ureters, and bladder do not contain stones. No hydronephrosis or perinephric fat stranding is seen. The visual portions of the unenhanced liver, gallbladder, spleen, pancreas, and adrenal glands are normal. The large and small bowel are overall normal in caliber and configuration. The appendix is normal. The abdominal aorta appears normal. No mesenteric or retroperitoneal lymphadenopathy is seen. The bladder is unremarkable. No free pelvic fluid is seen. No pelvic or lymphadenopathy is noted. A 4.3 cm fluid attenuation right adnexal cyst with associated free pelvic fluid is seen. This is likely the etiology of the patient's pain. IMPRESSION: 1. No nephrolithiasis or evidence of obstructive uropathy. 2. Ovarian cyst with associated pelvic fluid. Preliminary results were faxed by Dr. Delgado of [facility] at 0318 on 02/16/2017. Electronically signed by: Maddie Barajas M.D. Interpreting Physician: MADDIE BARAJAS M.D. Read on: Feb 16 2017 7:01A Transcribed by: [facility] On: Feb 16 2017 6:59A Approved Electronically by: MADDIE BARAJAS M.D. on: Feb 16 2017 6:59A Ordering DR: JESSICA VERAS Attending DR: JESSICA VERAS Attending: JESSICA VERAS Requesting: JESSICA VEARS Requesting Fax: -- Attending Attending ID: [id number] Requesting ID: [id number] Report To 1 ID: [id number] Report To 1 Name: JESSICA VERAS Report To 1 FAX: -- [facility] Order #: Physician No IMG CT PROCEDURES Edited Result - Final * Urine culture (02/16/2017 1:05 AM CDT) Report Final Report: Insignifican t growth based on current clinical standards. [facility] ([place]) Comment:Testing performed by : [facility], [address] [facility] [place]., [address] Urine 02/16/2017 1:05 AM CDT 02/16/2017 5:39 AM CDT Narrative [facility] ([place]) - 02/17/2017 10:07 AM CDT Dora Bella MD LAB MICROBIOLOGY - GENERAL ORDERABLES Final Result Performing Organization Address [facility]/ZIP Co de Phone Number [facility] ([place]) 1 [facility] [place] [address] * (ABNORMAL) Urinalysis, microscopic only (02/16/2017 1:00 AM CDT) RBC, ur 2-5(A) 0 - 2 [facility] ([place]) WBC, ur 25-50(A) 0 - 2 [facility] ([place]) Bacteria, ur 3+(A) Negative [facility] ([place]) Hyaline casts, ur 5-10(A) 0 - 2 [facility] ([place]) Epithelial cells, ur 5-10(A) 0 - 2 [facility] ([place]) Urine 02/16/2017 1:00 AM CDT 02/16/2017 1:01 AM CDT Dora Bella MD LAB URINE ORDERABLES Final Result Performing Organization Address [facility] de Phone Number [facility] ([place]) 1 [facility] [place] [address] * (ABNORMAL) Urinalysis reflex to microscopic and culture (02/16/2017 1:00 AM CDT) Color, ur Yellow Yellow [facility] ([place]) Clarity, ur Cloudy(A) Clear [facility] ([place]) Specific gravity, ur 1.023 1.003 - 1.030 [facility] ([place]) Comment:Normal Ranges: 1.003 -1.030 pH, ur 5.5 4.5 - 8.0 [facility] ([place]) Comment:Normal ranges: 4.5-8 .0 Protein, ur ql Negative Negative mg/dL [facility] ([place]) Glucose, ur ql Negative Negative mg/dL [facility] ([place]) Ketones, ur Negative Negative [facility] ([place]) Bilirubin, ur Negative Negative [facility] ([place]) Blood, ur Negative Negative [facility] ([place]) Urobilinogen, ur 0.2 0.2 - 1.0 [facility] ([place]) Comment:Normal Ranges: 0.2-1 .0 EU/dL Nitrites, ur Negative Negative [facility] ([place]) Leukocyte esterase, ur Moderate(A) Negative [facility] ([place]) Urine 02/16/2017 1:00 AM CDT 02/16/2017 1:01 AM CDT Dora Bella MD LAB MICROBIOLOGY - GENERAL ORDERABLES Final Result [facility] ([place]) 1 [facility] [place] [address] * HCG, urine, qualitative (02/16/2017 1:00 AM CDT) HCG, ur Negative Negative [facility] ([place]) Urine 02/16/2017 1:00 AM CDT 02/16/2017 1:01 AM CDT Dora Bella MD LAB URINE ORDERABLES Final Result Performing Organization Address [facility] de Phone Number [facility] ([place]) 1 [facility] [address] * eGFR (02/16/2017 12:51 AM CDT) eGFR >60 mL/min/1.7 3 m2 [facility] ([place]) Comment: Interpretive Data Reference Interval Normal ?>/= 90 mL/min/1.73m2 Mildly decreased* ? 60 - 89 mL/min/1.73m2 Mildly to moderately decreased ?45 - 59 mL/min/1.73m2 Moderately to severely decreased ??30 - 44 mL/min/1.73m2 Severely decreased ?15 - 29 mL/min/1.73m2 Kidney Failure ?< 15 ??mL/min/1.73m2 *Relative to young adult level If -[place] multiply value by 1.16. Estimated glomerular filtration [...] was last reviewed 2015. Blood specimen (specimen) 02/16/2017 12:51 AM CDT 02/16/2017 12:53 AM CDT us Dora Bella MD LAB BLOOD ORDERABLES Final Result [facility] ([place]) 1 [facility] Department [place] [address] * (ABNORMAL) Comprehensive metabolic panel (02/16/2017 12:51 AM CDT) Sodium 143 135 - 145 mmol/L [facility] ([place]) Potassium 4.0 3.5 - 5.1 mmol/L [facility] ([place]) Chloride 104 97 - 110 mmol/L [facility] ([place]) CO2 24 22 - 32 mmol/L [facility] ([place]) Anion gap 15 8 - 16 mmol/L [facility] ([place]) Glucose 106 70 - 199 mg/dL [facility] ([place]) Comment: Interpretive Data Note:The glucose is assumed non fasting Fastin-99 mg/dL Random: ??70-199 mg/dL Either a fasting glucose > 126 mg/dL or a random glucose > 200 mg/dL plus symptoms is diagnostic of diabetes when confirmed on another day. Fasting values > 100 mg/dL but < 125 mg/dL are diagnostic of impaired fasting glucose. Current interpretive data was last revised on 2014. BUN 8.8 8.0 - 25.0 mg/dL [facility] ([place]) Creatinine 0.63 0.60 - 1.10 mg/dL [facility] ([place]) BUN/creat ratio 14 10 - 20 [facility] ([place]) Calcium 9.5 8.6 - 10.2 mg/dL [facility] ([place]) Protein, sr 7.0 6.0 - 8.4 g/dL [facility] ([place]) Albumin 4.4 3.6 - 5.0 g/dL [facility] ([place]) Alk phos 52(L) 70 - 260 Units/L [facility] ([place]) ALT 16 5 - 45 Units/L [facility] ([place]) AST 18 10 - 40 Units/L [facility] ([place]) Bilirubin, total 0.3 <=1.2 mg/dL [facility] ([place]) Blood specimen (specimen) 02/16/2017 12:51 AM CDT 02/16/2017 12:52 AM CDT Dora Bella MD LAB BLOOD ORDERABLES Final Result [facility] ([place]) 1 [facility] [place] [address] * Lipase (02/16/2017 12:51 AM CDT) Lipase 28 10 - 70 Units/L [facility] ([place]) Blood specimen (specimen) 02/16/2017 12:51 AM CDT 02/16/2017 12:52 AM CDT Dora Bella MD LAB BLOOD ORDERABLES Final Result [facility] ([place]) 1 [facility] [address] * Amylase (02/16/2017 12:51 AM CDT) Amylase 46 30 - 100 Units/L [facility] ([place]) Blood specimen (specimen) 02/16/2017 12:51 AM CDT 02/16/2017 12:52 AM CDT Dora Bella MD LAB BLOOD ORDERABLES Final Result [facility] ([place]) 1 [facility] [employer] [place] [address] * Differential, auto (02/16/2017 12:51 AM CDT) Neutrophil pct 59.0 44.0 - 80.0 % [facility] ([place]) Imm gran pct 0.3 0.0 - 1.0 % [facility] ([place]) Lymphocyte pct 33.5 13.0 - 44.0 % [facility] ([place]) Monocyte pct 6.0 2.0 - 11.0 % [facility] ([place]) Eosinophil pct 0.9 0.0 - 6.0 % [facility] ([place]) Basophil pct 0.3 0.0 - 3.0 % [facility] ([place]) Neutrophil abs 5.55 1.60 - 7.00 K/cumm [facility] ([place]) Imm gran abs 0.03 0.00 - 0.20 K/cumm [facility] ([place]) Lymphocyte abs 3.15 0.50 - 4.30 K/cumm [facility] ([place]) Monocyte abs 0.56 0.10 - 1.00 K/cumm [facility] ([place]) Eosinophil abs 0.08 0.00 - 0.60 K/cumm [facility] ([place]) Basophil abs 0.03 0.00 - 0.30 K/cumm [facility] ([place]) Blood specimen (specimen) 02/16/2017 12:51 AM CDT 02/16/2017 12:53 AM CDT us Dora Bella MD LAB BLOOD ORDERABLES Final Result [facility] ([place]) 1 [facility] [employer] [place] [address] * Differential, auto (02/16/2017 12:51 AM CDT) Neutrophil pct 59.0 44.0 - 80.0 % [facility] ([place]) Imm gran pct 0.3 0.0 - 1.0 % [facility] ([place]) Lymphocyte pct 33.5 13.0 - 44.0 % [facility] ([place]) Monocyte pct 6.0 2.0 - 11.0 % [facility] ([place]) Eosinophil pct 0.9 0.0 - 6.0 % [facility] ([place]) Basophil pct 0.3 0.0 - 3.0 % [facility] ([place]) Neutrophil abs 5.55 1.60 - 7.00 K/cumm [facility] ([place]) Imm gran abs 0.03 0.00 - 0.20 K/cumm [facility] ([place]) Lymphocyte abs 3.15 0.50 - 4.30 K/cumm [facility] ([place]) Monocyte abs 0.56 0.10 - 1.00 K/cumm [facility] ([place]) Eosinophil abs 0.08 0.00 - 0.60 K/cumm [facility] ([place]) Basophil abs 0.03 0.00 - 0.30 K/cumm [facility] ([place]) Blood specimen (specimen) 02/16/2017 12:51 AM CDT 02/16/2017 12:53 AM CDT us Dora Bella MD LAB BLOOD ORDERABLES Final Result [facility] ([place]) 1 [facility] Department [place] [address] * CBC with auto differential (02/16/2017 12:51 AM CDT) WBC 9.51 3.80 - 9.80 K/cumm [facility] ([place]) RBC 4.81 3.90 - 5.00 M/cumm [facility] ([place]) Hgb 14.4 12.1 - 15.1 g/dL [facility] ([place]) Hct 40.8 36.1 - 44.3 % [facility] ([place]) MCV 84.8 80.0 - 100.0 fL [facility] ([place]) MCH 29.9 26.7 - 33.7 pg [facility] ([place]) MCHC 35.3 32.7 - 36.0 g/dL [facility] ([place]) RDW CV 11.5 11.5 - 14.6 % [facility] ([place]) Plt 352 140 - 440 K/cumm [facility] ([place]) MPV 9.7 8.0 - 12.0 fL [facility] ([place]) NRBC 0.0 0.0 - 0.0 % [facility] ([place]) NRBC abs 0.00 0.00 - 0.00 K/cumm [facility] ([place]) Blood specimen (specimen) 02/16/2017 12:51 AM CDT 02/16/2017 12:52 AM CDT us Dora Bella MD LAB BLOOD ORDERABLES Final Result [facility] ([place]) 1 [facility] Department [place] [address] * DISCHARGE LABORATORY CUMULATIVE REPORT (02/16/2017 12:00 AM CDT) Narrative 02/16/2017 12:00 AM CDT Ordered by an unspecified provider. us Historical Provider LAB BLOOD ORDERABLES Janett l Result documented in this encounter Visit Diagnoses Not on filedocumented in this encounter Care Teams Phone Specialist Relationship Specialty Start Date End Date Jane Garvin MD PCP - General 08/10/16 06/14/20 Jane Garvin MD 08/10/16 06/14/20 documented as of this encounter
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
--- OUTSIDE RECORDS SUMMARY | 2024-05-13 02:55 | XMS_ITS | Encounter Summary ---
Author Organization [facility] Address [address] [place] [address] Phone Care Team Providers Care Windows Admin Name Role Phone Jane Garvin MD Primary Care Provider [phone] Jane Garvin MD Unavailable [phone] Reason for Referral * Diagnostic Imaging (Routine) - Closed Specialty Diagnoses / Procedures Referred By Contac t Referred To Contact Diagnoses Closed fracture of malleolus of left ankle with routine healing Procedures X-ray ankle left 3+ views Blanquita Chase [facility] Advanced Medicine Referral ID Status Reason Start Date Expiration Date Visits Re quested Visits Authorized [id number] Closed 11/25/2017 06/06/2019 1 1 * Diagnostic Imaging (Routine) - Closed Specialty Diagnoses / Procedures Referred By Antony hoang Referred To Contact Diagnoses Closed displaced fracture of neck of left talus with routine healing, subsequent encounter Procedures X-ray foot left 3+ views Blanquita Chase [facility] Advanced Medicine Referral ID Status Reason Start Date Expiration Date Visits Re quested Visits Authorized [id number] Closed 11/25/2017 06/06/2019 1 1 Reason for Visit * Reason Comments Fracture Encounter Details Date Type Department Care Team (Late st Contact Info) Description 11/26/2017 12:45 PM CDT Office Visit [facility] Orthopaedic Surgery [address] [place] [address] [place] [address] Blanquita Chase Closed displaced fracture of neck [...] on file 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 Gender Identity Not on file Sexual Orientation Not on file documented as of this encounter Last Filed Vital Signs Vital Sign Reading Time Taken Comments Blood Pressure - - Pulse - - Temperature - - Respiratory Rate - - Oxygen Saturation - - Inhaled Oxygen Concentration - - Weight 60.8 kg (134 lb) 11/26/2017 1:12 PM CDT Height 160 cm (5' 3 ) 11/26/2017 1:12 PM CDT Body Mass Index 23.74 11/26/2017 1:12 PM CDT documented in this encounter Progress Notes * Blanquita Chase PA - 11/26/2017 12:45 PM CDT Chief Complaint: Left ankle pain History of Present Illness: The patient is a 22-year-old female who presents for follow-up regarding a left medial malleolus and talar neck fracture that are being treated non operatively. Today, she is doing well. No fevers, chills, nausea or vomiting. The pain is located left ankle and described as aching. The patient rates the severity of the pain as mild . Elevation and ibuprofen makes the pain better. The leg in the dependent position makes thepain worse. Physical Exam: Patient is healthy-appearing and well-groomed, [...] as detailed below. The injured extremity shows: Mild left ankle swelling, no abrasions or erythema. Superficial and deep peroneal nerve sensation and tibial nerve sensation is normal. She is able to fire EHL/TA/GCS. Review of X-rays/Studies: I have ordered and personally reviewed radiographs. AP and lateral radiographs of the left ankle and three views of the left foot show healing minimally displaced medial malleolus and talar neck fractures Impression/Plan/Follow-Up: 1) Impression: Left medial malleolus and talar neck fracture treated non operatively 2) Weight bearing status: Nonweightbearing left lower extremity in short-leg cast. 3) Return to clinic in Three weeks with repeat radiographs (AP/lateral left ankle and three views left foot). The plan will be to switch her to a removable boot at her next office visit. 4) Patient no longer taking pain medication; tylenol as needed. 5) Call with any questions. Blanquita Chase PA-C Orthopedic Trauma Service [facility] Orthopedics Blanquita Chase PA-C in collaborative practice with Dr. Megha Gamboa and Dr. Kory Menezes. Blanquita Chase PA-C dictating using Fluency Direct. Package Yarns Drying Machine Operator variances may occur. * Nancy Kearns, [facility] - 11/26/2017 12:45 PM CDTAssociated Order(s): ORTHO CASTING/SPLINTING Post-Procedure Diagnose(s): Closed displaced fracture of neck of left talus with routine healing, subsequent encounter; Closed fracture of malleolus of left ankle with routine healing Ortho Casting/Splinting Documentation Date/Time: 11/26/2017 2:43 PM Performed by: NANCY KEARNS Authorized by: BLANQUITA CHASE Sensation: Normal Skin Condition: Clean, dry, and intact [place]/Sutures Removed: No Pin Pulled: No Cast Removed: Yes Cast Applied: Yes Location: Ankle Ankle: L ankle Cast type: Short leg non weightbearing cast Supplies: Cotton Padding, fiberglass and cotton stocking/sleeve Number of fiberglass rolls used: 4 Capillary Refill: Normal Patient tolerance of procedure: Tolerated well, no immediate complications documented in this encounter Plan of Treatment Not on file documented as of this encounter Procedures Procedure Name Priority Date/Time Associated Diagnosis Comments ORTHO CASTING/SPLINTING Routine 11/26/2017 12:45 PM CDT Closed displaced fracture of neck of left talus with routine healing, subsequent encounter Closed fracture of malleolus of left ankle with routine healing documented in this encounter Results * X-ray ankle left 3+ views (11/26/2017 [...] Electronically signed by: Ketty Oliveira M.D. Blanquita Bateman Chase IMG XR PROCEDURES Janett l Result * X-ray foot left 3+ views (11/26/2017 [...] Electronically signed by: Ketty Oliveira M.D. Blanquita Chase IM[facility] XR PROCEDURES Janett l Result * Ortho Casting/Splinting Documentation (11/26/2017 12:45 PM CDT) Narrative Nancy Kearns MLT - 11/26/2017 12:45 PM CDT Dessire BASHIR Kearns ? 11/26/2017 ??2:45 PM Ortho Casting/Splinting Documentation Date/Time: 11/26/2017 2:43 PM Performed by: NANCY KEARNS Authorized by: BLANQUITA CHASE Sensation: ??Normal Skin Condition: ??Clean, dry, and intact [place]/Sutures Removed: No ?? Pin Pulled: No ?? Cast Removed: Yes ?? Cast Applied: Yes ?? 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 norethindrone-e. estradiol-iron (LIV FE ,) 1 mg-20 mcg (21)/75 mg (7) per tablet Liv Fe 06/01 (28) 1 mg-20 mcg (21)/75 mg (7) tablet TAKE ONE TABLET BY MOUTH ONCE DAILY DIRECTED 06/15/2020 added in this encounter Care Teams Windows Admin Relationship Specialty Start Date End Date Jane Garvin MD PCP - General 08/10/16 06/14/20 Jane Garvin MD 08/10/16 06/14/20 documented as of this encounter
--- OUTSIDE RECORDS SUMMARY | 2024-05-13 02:55 | XMS_ITS | Encounter Summary ---
Author Organization [facility] Address [address] [place] [address] Care Team Providers Care Margin Trimmer Name Role Phone Jane Garvin MD Primary Care Provider [phone] Jane Garvin MD Unavailable [phone] Reason for Referral * Diagnostic Imaging (Routine) - Closed Specialty Diagnoses / Procedures Referred By Contac t Referred To Contact Diagnoses Closed displaced fracture of neck of left talus, initial encounter Procedures X-ray foot left 3+ views Blanquita Jarrett [facility] Referral ID Status Reason Start Date Expiration Date Visits Re quested Visits Authorized [id number] Closed 11/01/2017 05/13/2019 1 1 * Diagnostic Imaging (Routine) - Closed Specialty Diagnoses / Procedures Referred By Contac t Referred To Contact Diagnoses Fracture of left malleolus, closed, initial encounter Procedures X-ray ankle left 3+ views Blanquita Jarrett [facility] Referral ID Status Reason Start Date Expiration Date Visits Re quested Visits Authorized [id number] Closed 11/01/2017 05/13/2019 1 1 Reason for Visit * Diagnostic Imaging (Routine) - Closed Specialty Diagnoses / Procedures Referred By Contac t Referred To Contact Diagnoses Left ankle pain, unspecified chronicity Procedures XR Ankle Left 3+ Vw Donte Booth MD Phone: tel: fax: Referral ID Status Reason Start Date Expiration Date Visits Re quested Visits Authorized [id number] Closed 10/28/2017 05/09/2019 1 1 Encounter Details Date Type Department Care Team (Latest Contact Info) Description 11/01/2017 1:57 PM CDT - 11/01/2017 11:59 PM CDT Hospital Encounter [facility] [address] [place] [address] Donte Booth MD [address] [place] [address] DR [place] [id number] Fracture of left malleolus, closed, initial encounter; Closed displaced fracture of neck of left talus, initial encounter Discharge Disposition: Discharge to home or self care Social History Tobacco Use Types Packs/Day Years Used Date Smoking Tobacco: Some Days Cigarettes Smokeless Tobacco: Never Comments:e-cigarette Alcohol Use Standard Drinks/Week Comments No 0 (1 standard drink = 0.6 oz pur e alcohol) Comments No Sex and Gender Information Value Date Recorded Sex Assigned at Not on file 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 60 tablet 10/20/2017 9 LIV FE , 1 mg-20 mcg (21)/75 mg (7) per tablet 10/10/2017 3 norethindrone-e. estradiol-iron (LOESTRIN FE 1.5/30, 28-DAY,) [...] VIEWS Schedule Routine, Read Routine (OP Routine) 11/01/2017 2:14 PM CDT Closed displaced fracture of neck of left talus, initial encounter XR ANKLE LEFT 3 OR MORE VIEWS Schedule Routine, Read Routine (OP Routine) 11/01/2017 2:14 PM CDT Fracture of left malleolus, closed, initial encounter documented in this encounter Results * X-ray foot left 3+ views (11/01/2017 [...] ??The ankle mortise is intact. Procedure Note Scra Thomason MD - 11/01/2017 EXAMINATION: 1. Left [...] Diagnosis Fracture of left malleolus, closed, initial encounter Closed displaced fracture of neck of left talus, initial encounter documented in this encounter Care Teams Margin Trimmer Relationship Specialty Start Date End Date Jane Garvin MD PCP - General 08/10/16 06/14/20 Jane Garvin MD 08/10/16 06/14/20 documented as of this encounter
--- OUTSIDE RECORDS SUMMARY | 2024-05-13 02:55 | XMS_ITS | Encounter Summary ---
Author Organization [facility] Healthcare Address [facility] [place] [address] Care Team Providers Care Community Outreach Director Name Role Phone Jane Garvin MD Primary Care Provider [phone] Jane Garvin MD Unavailable [phone] Reason for Referral * Diagnostic Imaging (Routine) - Closed Specialty Diagnoses / Procedures Referred By Contac t Referred To Contact Diagnoses Fracture of left malleolus, closed, initial encounter Closed displaced fracture of neck of left talus, initial encounter Procedures X-ray ankle left 3+ views Blanquita Jarrett [facility] Referral ID Status Reason Start Date Expiration Date Visits Re quested Visits Authorized [id number] Closed 11/01/2017 05/13/2019 1 1 Reason for Visit * Diagnostic Imaging (Routine) - Closed Specialty Diagnoses / Procedures Referred By Contac t Referred To Contact Diagnoses Fracture of left malleolus, closed, initial encounter Closed displaced fracture of neck of left talus, initial encounter Procedures XR Ankle Left 1 View X-ray ankle left 3+ views Blanquita Jarrett [facility] Referral ID Status Reason Start Date Expiration Date Visits Re quested Visits Authorized [id number] Closed 11/01/2017 05/13/2019 1 1 Encounter Details Date Type Department Care Team (Late st Contact Info) Description 11/01/2017 2:49 PM CDT - 11/01/2017 11:59 PM CDT Hospital Encounter [facility] [address] [place] [id number] Blanquita Jarrett Fracture of left malleolus, closed, initial encounter; [...] on file 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 60 tablet 10/20/2017 9 LIV FE 06/01, 28, 1 mg-20 mcg [...] Schedule Routine, Read Routine (OP Routine) 11/01/2017 3:43 PM CDT Fracture of left malleolus, closed, initial encounter Closed displaced fracture of neck of left talus, initial encounter XR ANKLE LEFT 1 VIEW Schedule Routine, Read Routine (OP Routine) 11/01/2017 2:59 PM CDT Fracture of left malleolus, closed, [...] IM XR PROCEDURES Janett l Result * XR Ankle Left 1 View (11/01/2017 2:59 PM CDT) Anatomical Region Laterality Modality Ankle Left Computed Radiogr aphy 11/01/2017 3:19 PM CDT Impressions 11/01/2017 3:19 PM CDT 1-view examination of the left medial malleolar and talar fractures. Electronically signed by: Randall Garcia M.D. Narrative 11/01/2017 3:19 PM CDT EXAMINATION: Left ankle, one view HISTORY: ??Left medial malleolar and talar fractures, acute FINDINGS: A crosstable lateral projection the left ankle is performed at 1459 hours and compared to a 3 view examination of the left ankle from earlier today. In the single projection, the medial malleolar and medial talar fractures are nondisplaced. The tibiotalar joint is aligned. Procedure Note Randall Garcia MD - 11/01/2017 EXAMINATION: Left ankle, one view HISTORY: Left medial malleolar and talar fractures, acute FINDINGS: A crosstable lateral projection the left ankle is performed at 1459 hours and compared to a 3 view examination of the left ankle from earlier today. In the single projection, the medial malleolar and medial talar fractures are nondisplaced. The tibiotalar joint is aligned. IMPRESSION: 1-view examination of the left medial malleolar and talar fractures. Electronically signed by: Randall Garcia M.D. Blanquita Jarrett IMG XR PROCEDURES Janett l Result documented in this encounter Visit Diagnoses Diagnosis Fracture of left malleolus, closed, initial encounter Closed displaced fracture of neck of left talus, initial encounter documented in this encounter Care Teams Community Outreach Director Relationship Specialty Start Date End Date Jane Garvin MD PCP - General 08/10/16 06/14/20 Jane Garvin MD 08/10/16 06/14/20 documented as of this encounter
--- OUTSIDE RECORDS SUMMARY | 2024-05-13 02:55 | XMS_ITS | Encounter Summary ---
Author Organization [facility] Healthcare Address [address] [place] [address] Care Team Providers Care Laborer Prestressed Concrete Name Role Phone Jane Garvin MD Primary Care Provider [phone] Encounter Details Date Type Department Care Team (Late st Contact Info) Description 06/21/2015 11:47 AM BALANCER - 06/21/2015 4:52 PM BALANCER Hospital Encounter [facility] Johanny Pathak MD [address] [place] [address] [phone] Dysmenorrhea; Personal history of urinary calculi Social History Tobacco Use Types Packs/Day Years Used Date Smoking Tobacco: Never Assessed Comments Unknown Sex and Gender Information Value Date Recorded Sex Assigned at Not on file Legal Sex Female 1:15 AM BALANCER Gender Identity Not on file Sexual Orientation Not on file documented as of this encounter Plan of Treatment Not on file documented as of this encounter Procedures Procedure Name Priority Date/Time Associated Diagnosis Comments US PELVIS COMPLETE Routine 06/21/2015 3: 19 PM BALANCER SERUM LIPASE Routine 06/21/2015 12:15 PM BALANCER SERUM CHORIONIC GONADOTROPIN (HCG), QUANTITATIVE Routine 06/21/2015 12:15 PM BALANCER SERUM AMYLASE Routine 06/21/2015 12:15 PM BALANCER PLASMA COMPREHENSIVE METABOLIC PANEL Routine 06/21/2015 12:15 PM BALANCER BLOOD CELL COUNT (CBC), MORPHOLOGIC EXAM Routine 06/21/2015 12:15 PM BALANCER BLOOD CELL MORPHOLOGIC EXAM Routine 06/21/2015 12:15 PM BALANCER URINE MICROSCOPY Routine 06/21/2015 12:0 6 PM BALANCER URINALYSIS Routine 06/21/2015 12:06 PM BALANCER DISCHARGE LABORATORY CUMULATIVE REPORT 06/21/2015 documented in this encounter Results * US Pelvis Complete (06/21/2015 3:19 PM BALANCER) Anatomical Region Laterality Modality Pelvis N/A Ultrasound 06/21/2015 3:19 PM BALANCER Narrative 06/22/2015 8:26 AM BALANCER US Pelvis ??Acc#: ??[id number] US Transvaginal ??Acc#: ??[id number] DATE OF EXAM: ??Jun ??2015 CLINICAL HISTORY: Pelvic pain and discharge. RESULT: Transabdominal and transvaginal scanning was performed. ??The uterus measures 7.2 x 4.4 x 5.0cm and appears grossly normal. ??The endometrial complex is normal at 8mm. ??The right ovary measures 4.0 x 2.1 x 2.8cm and appears normal. ??The left ovary measures 3.2 x 2.5 x 1.7cm and appears normal. ??There is no evidence of adnexal mass or cyst. ??A small amount of free fluid is noted within the pelvic cul-de-sac. IMPRESSION: 1. MINIMAL FREE FLUID WITHIN THE PELVIC CUL-DE-SAC. 2. OTHERWISE NORMAL PELVIC ULTRASOUND. Interpreting Physician: ??DR MORGAN HERNANDEZ M.D. ??Read on: ??Jun ??2015 3:22P Transcribed by: ??mrr ??On: Jun ??2015 ??4:07P Approved Electronically by: ??MARY Vincent, DR MORA ??on: ??Jun 22 2015 8:26A Attending: ??JOHANNY PATHAK Requesting: ??ORAL MERCADO)DWAYNE Requesting Fax: ??-- Attending Fax: ??[phone] Attending ID: ??[id number] Requesting ID: ??[id number] Report To 1 ID: ??[id number] Report To 1 Name: ??SYLVAIN PHILRadha Report To 1 FAX: ??[phone] NextGen Order #: Procedure Note Provider, Angie, - 09/05/2016 US Pelvis Acc#: [id number] US Transvaginal Acc#: [id number] DATE OF EXAM: Jun 21 2015 CLINICAL HISTORY: Pelvic pain and discharge. RESULT: Transabdominal and transvaginal scanning was performed. The uterusmeasures 7.2 x 4.4 x 5.0cm and appears grossly normal. The endometrialcomplex is normal at 8mm. The right ovary measures 4.0 x 2.1 x 2.8cm andappears normal. The left ovary measures 3.2 x 2.5 x 1.7cm and appearsnormal. There is no evidence of adnexal mass or cyst. A small amount offree fluid is noted within the pelvic cul-de-sac. IMPRESSION: 1. MINIMAL FREE FLUID WITHIN THE PELVIC CUL-DE-SAC. 2. OTHERWISE NORMAL PELVIC ULTRASOUND. Interpreting Physician: DR MORGAN HERNANDEZ M.D. Read on: Jun 21 20153:22P Transcribed by: haley On: Jun 21 2015 4:07P Approved Electronically by: MARY Vincent, DR MORA on: Jun 22 20158:26A Attending: JOHANNY PATHAK Requesting: DWAYNE MIXON ([place]) Requesting Fax: -- Attending Attending ID: [id number] Requesting ID: [id number] Report To 1 ID: [id number] Report To 1 Name: LAWSON JOHANNY Report To 1 FAX: [phone] NextGen Order #: us Historical Provider MD DUNBAR US PROCEDURES Final R esult * (ABNORMAL) Plasma comprehensive metabolic panel (06/21/2015 12:15 PM BALANCER) Sodium 139 135 - 145 mmol/L HISTORICAL RESULTS K, pl 4.4 3.5 - 5.1 mmol/L HISTORICAL RESULTS Chloride 100 97 - 110 mmol/L HISTORICAL RESULTS CO2 26 22 - 32 mmol/L HISTORICAL RESULTS A. gap 17(H) 8 - 16 mmol/L HISTORICAL RESULTS Glucose 117 70 - 199 mg/dl HISTORICAL RESULTS Comment: Interpretive Data Note:The glucose is assumed non fasting Fastin-99 mg/dL Random: ??70-199 mg/dL Either a fasting glucose > 126 mg/dL or a random glucose > 200 mg/dL plus symptoms is diagnostic of diabetes when confirmed on another day. Fasting values > 100 mg/dL but < 125 mg/dL are diagnostic of impaired fasting glucose. Current interpretive data was last revised on 2014. BUN 9.8 9.0 - 18.0 mg/dl HISTORICAL RESULTS Creatinine 0.64 0.40 - 1.00 mg/dl HISTORICAL RESULTS BUN/creat ratio 15 10 - 20 HIST ORICAL RESULTS Calcium 9.9 8.6 - 10.2 mg/dl HISTORICAL RESULTS Protein, sr 7.3 6.0 - 8.4 g/dl HISTORICAL RESULTS Alb 4.5 3.2 - 5.0 g/dl HISTORICAL RESULTS Alb/glob ratio 1.6 1.1 - 1.8 ratio HISTORICAL RESULTS Alk phos 69(L) 70 - 260 Units/L HISTORICAL RESULTS ALT 18 5 - 45 Units/L HISTORICAL RESULTS AST 19 10 - 40 Units/L HISTORICAL RESULTS Bilirubin 0.5 <=1.2 mg/dl HISTORICAL RESULTS Plasma 06/21/2015 12:1 5 PM BALANCER Historical Provider LAB BLOOD ORDERABLES Janett guerrero Result HISTORICAL RESULTS * Serum chorionic gonadotropin (HCG), quantitative (06/21/2015 12:15 PM BALANCER) HCG, quant <5.0 0.0 - 5.0 IUnits/L HISTORICAL RESULTS Comment: Interpretive Data Negative: ? <5 mIU/mL ? Borderline: ??6-25 mIU/mL Positive: ? >25 mIU/mL Approx Gest Age ? Approx HCG Concentration 3 - 4 Weeks ?9 - 130 4 - 5 Weeks ?75 - 2600 5 - 6 Weeks ?850 - 20,800 6 - 7 Weeks ?4000 - 100,200 7 - 12 Weeks ? 68243 - 289,000 16 - 29 Weeks ? 49616 - 137,000 29 - 41 Weeks ? 900 - 60,000 Current interpretive data was last revised on 2014 Serum 06/21/2015 12:1 5 PM BALANCER Historical Provider MD LAB BLOOD ORDERABLES Janett l Result Performing Organization Address [facility] de Phone Number HISTORICAL RESULTS * Serum lipase (06/21/2015 12:15 PM BALANCER) Lip 29 10 - 70 Units/L HISTORICAL RESULTS Serum 06/21/2015 12:1 5 PM BALANCER Result [facility] Historical Provider MD LAB BLOOD ORDERABLES Janett l Result Performing Organization Address [facility] de Phone Number HISTORICAL RESULTS * Serum amylase (06/21/2015 12:15 PM BALANCER) Binta, pl 46 15 - 130 Units/L HISTORICAL RESULTS Serum 06/21/2015 12:1 5 PM BALANCER Result [facility] Historical Provider MD LAB BLOOD ORDERABLES Janett l Result Performing Organization Address [facility] de Phone Number HISTORICAL RESULTS * Blood cell morphologic exam (06/21/2015 12:15 PM BALANCER) Neutrophils 68.6 44.0 - 80.0 % HISTORICAL RESULTS Immature granulocytes 0.1 0.0 - 1.0 % HISTORICAL RESULTS Lymphocytes 24.8 13.0 - 44.0 % HISTORICAL RESULTS Monos 5.0 2.0 - 11.0 % HISTORICAL RESULTS Eosinophils 1.0 0.0 - 6.0 % HISTORICAL RESULTS Basophils 0.5 0.0 - 3.0 % HISTORICAL RESULTS Neutrophils, abs 5.5 1.6 - 7.0 K/cumm HISTORICAL RESULTS Immature granulocyte, abs 0.01 0.00 - 0.20 K/cumm HISTORICAL RESULTS Lymphocytes, abs 2.0 0.5 - 4.3 K/cumm HISTORICAL RESULTS Monocytes, absolute 0.4 0.1 - 1.0 K/cumm HISTORICAL RESULTS Eosinophils, abs 0.1 0.0 - 0.6 K/cumm HISTORICAL RESULTS Basophils, abs 0.0 0.0 - 0.3 K/cumm HISTORICAL RESULTS Blood specimen (specimen) 06/21/2015 12:15 PM BALANCER us Historical Provider LAB BLOOD ORDERABLES Janett l Result HISTORICAL RESULTS * (ABNORMAL) Blood cell count (CBC), morphologic exam (06/21/2015 12:15 PM BALANCER) WBC 8.0 3.8 - 9.8 K/cumm HISTORICAL RESULTS RBC 5.13(H) 3.90 - 5.00 M/cumm HISTORICAL RESULTS Hgb 15.2(H) 12.1 - 15.1 g/dl HISTORICAL RESULTS Hct 44.2 36.1 - 44.3 % HISTORICAL RESULTS MCV 86.2 80.0 - 100.0 fl HISTORICAL RESULTS MCH 29.6 26.7 - 33.7 pg HISTORICAL RESULTS MCHC 34.4 32.7 - 36.0 g/dl HISTORICAL RESULTS Rdw 11.5 11.5 - 14.6 % HISTORICAL RESULTS Platelets 299 140 - 440 K/cumm HISTORICAL RESULTS MPV 9.8 8.0 - 12.0 fl HISTORICAL RESULTS NRBC 0.0 0.0 - 0.0 % HISTORIC AL RESULTS NRBC, abs 0.00 0.00 - 0.00 K/cumm HISTORICAL RESULTS Blood specimen (specimen) 06/21/2015 12:15 PM BALANCER Historical Provider LAB BLOOD ORDERABLES Janett l Result Performing Organization Address [facility] Co de Phone Number HISTORICAL RESULTS * (ABNORMAL) Urinalysis (06/21/2015 12:06 PM BALANCER) Color, ur Yellow Yellow HISTORICAL RESULTS Clarity, ur Clear Clear HISTORIC AL RESULTS Specific gravity, ur 1.010 1.003 - 1.030 HISTORICAL RESULTS Comment:Normal Ranges: 1.003 -1.030 pH, ur 6.5 4.5 - 8.0 HISTORICAL RESULTS Comment:Normal ranges: 4.5-8 .0 Protein, ur, quant Negative Negative mg/dl HISTORICAL RESULTS Glucose, ur, quant Negative Negative mg/dl HISTORICAL RESULTS Ketones, ur Negative Negative HISTORIC AL RESULTS Bilirubin, ur Negative Negative HISTOR ICAL RESULTS U Blood Moderate(A) Negative HISTORIC AL RESULTS Urobilinogen, quant, ur 0.2 0.2 - 1.0 Miriam Units/dl HISTORICAL RESULTS Comment:Normal Ranges: 0.2-1 .0 EU/dL Nitrites, ur Negative Negative HISTORI BEAR RESULTS Leukocyte esterase, ur Negative Negative HISTORICAL RESULTS Urine 06/21/2015 12:0 6 PM BALANCER Result [facility] Provider LAB BLOOD ORDERABLES Janett l Result Performing Organization Address [facility] de Phone Number HISTORICAL RESULTS * (ABNORMAL) Urine microscopy (06/21/2015 12:06 PM BALANCER) RBC, ur 0 - 2 0 - 2 /hpf HISTORICA L RESULTS WBC, ur 0 - 2 0 - 2 /hpf HISTORICA L RESULTS Bacteria, ur Negative Negative HISTORI BEAR RESULTS Hyaline casts 2 - 5(A) 0 - 2 /lpf HISTO RICAL RESULTS Epithelial cells, ur 2 - 5(A) 0 - 2 /hpf HISTORICAL RESULTS Urine 06/21/2015 12:0 6 PM BALANCER Result [facility] Provider LAB BLOOD ORDERABLES Janett l Result Performing Organization Address [facility] Co de Phone Number HISTORICAL RESULTS * DISCHARGE LABORATORY CUMULATIVE REPORT (06/21/2015) Narrative 06/21/2015 Ordered by an unspecified provider. us Historical Provider LAB BLOOD ORDERABLES Janett l Result documented in this encounter Visit Diagnoses Diagnosis Dysmenorrhea Personal history of urinary calculi documented in this encounter Care Teams Laborer Prestressed Concrete Relationship Specialty Start Date End Date Jane Garvin MD PCP - General 07/05/14 03/07/16 documented as of this encounter
--- OUTSIDE RECORDS SUMMARY | 2024-05-13 02:55 | XMS_ITS | Encounter Summary ---
Author Organization [facility] Healthcare Address [address] [place] [address] Care Team Providers Care Nursing Support Worker Name Role Phone Jnae Garvin MD Primary Care Provider [phone] Encounter Details Date Type Department Care Team (Late st Contact Info) Description 11/01/2014 4:01 PM CDT - 11/01/2014 7:53 PM CDT Hospital Encounter [facility] Mancilla Jr., MD [address] [place] [id number] Abdominal pain, right lower quadrant; Other and unspecified ovarian cyst; Presence of subdermal contraceptive device; Personal history of urinary calculi Social History Tobacco Use Types Packs/Day Years Used Date Smoking Tobacco: Never Assessed Comments Unknown Sex and Gender Information Value Date Recorded Sex Assigned at Not on file Legal Sex Female 1:15 AM [employer] Gender Identity Not on file Sexual Orientation Not on file documented as of this encounter Plan of Treatment Not on file documented as of this encounter Procedures Procedure Name Priority Date/Time Associated Diagnosis Comments RENAL COMPUTED TOMOGRAPHY (CT) WITHOUT CONTRAST, STONE PROTOCOL Routine 11/01/2014 6:15 PM CDT SERUM LIPASE Routine 11/01/2014 5:59 PM CDT SERUM CHORIONIC GONADOTROPIN (HCG), QUANTITATIVE Routine 11/01/2014 5:59 PM CDT PLASMA COMPREHENSIVE METABOLIC PANEL Routine 11/01/2014 5:59 PM CDT BLOOD CELL COUNT (CBC), MORPHOLOGIC EXAM Routine 11/01/2014 5:59 PM CDT BLOOD CELL MORPHOLOGIC EXAM Routine 11/01/2014 5:59 PM CDT URINE MICROSCOPY Routine 11/01/2014 5:50 PM CDT URINALYSIS Routine 11/01/2014 5:50 PM CDT DISCHARGE LABORATORY CUMULATIVE REPORT 11/01/2014 documented in this encounter Results * RENAL COMPUTED TOMOGRAPHY (CT) WITHOUT CONTRAST, STONE PROTOCOL (11/01/2014 6:15 PM CDT) Anatomical Region Laterality Modality N/A Computed Tomogra phy 11/01/2014 6:15 PM CDT Narrative 11/02/2014 4:[address] [place] ??[id number] ??Acc#: ??[id number] DATE OF EXAM: ??Nov 01 2014 CLINICAL HISTORY: Right lower quadrant/right flank pain. ??Previous history of kidney stone. RESULT: Noncontrast spiral axial scans were obtained from above kidneys to ischial tuberosities. ??Axial as well as coronal and sagittal reformatted images were reviewed. No urinary tract calcification, mass, cyst or hydronephrosis/hydroureter is demonstrated. ??Urinary bladder caliber and contour are normal. ??3.5 x 2.1 cm water density oval structure in the right adnexa is suggestive of an ovarian cyst. ??There is a mild amount of cul-de-sac free fluid. Uterus and left ovary appear normal. ??No dilated or thickened loops of bowel are evident. ??Air appears to be in normal caliber appendix. ??No lymphadenopathy is seen. ??Abdominal and pelvic wall structures are normal. ??Visualized portions of liver and spleen are normal. Gallbladder, bile ducts, pancreas and adrenal glands are normal. Abdominal aorta and inferior vena cava are normal. IMPRESSION: 1. WATER DENSITY 3.5 X 2.1 CM RIGHT OVARIAN/ADNEXAL STRUCTURE SUGGESTIVE OF A CYST. 2. MILD AMOUNT OF PELVIC FREE FLUID THAT MAY RELATE TO CYST INFLAMMATION OR RUPTURE. 3. NO URINARY TRACT ABNORMALITY SEEN. 4. NORMAL APPENDIX. Report called to Dr. Rivera in Emergency Dept on 01 November 2014 at 1837 hours. Interpreting Physician: ??DR ELVA ENGEL M.D. ??Read on: ??Nov 01 2014 6:40P Transcribed by: ??aster ??On: Nov 01 2014 ??7:56P Approved Electronically by: ??TORO Vincent, DR STEVENSON ??on: ??Nov 02 2014 4:14P Attending: ??JESUS RIVERA Requesting: ??, Requesting Fax: ??-- Attending Fax: ??-- Attending ID: ??[id number] Requesting ID: ??[id number] Report To 1 ID: ??[id number] Report To 1 Name: ??JESUS RIVERA Report To 1 FAX: ??-- NextGen Order #: Procedure Note Provider, MD Angie - 09/05/[place] [id number] Acc#: [id number] DATE OF EXAM: Nov 01 2014 CLINICAL HISTORY: Right lower quadrant/right flank pain. Previous history of kidneystone. RESULT: Noncontrast spiral axial scans were obtained from above kidneys toischial tuberosities. Axial as well as coronal and sagittal reformattedimages were reviewed. No urinary tract calcification, mass, cyst orhydronephrosis/hydroureter is demonstrated. Urinary bladder caliber andcontour are normal. 3.5 x 2.1 cm water density oval structure in the right adnexa is suggestive ofan ovarian cyst. There is a mild amount of cul-de-sac free fluid. Uterusand left ovary appear normal. No dilated or thickened loops of bowel areevident. Air appears to be in normal caliber appendix. Nolymphadenopathy is seen. Abdominal and pelvic wall structures are normal.Visualized portions of liver and spleen are normal. Gallbladder, bileducts, pancreas and adrenal glands are normal. Abdominal aorta andinferior vena cava are normal. IMPRESSION: 1. WATER DENSITY 3.5 X 2.1 CM RIGHT OVARIAN/ADNEXAL STRUCTURE SUGGESTIVEOF A CYST. 2. MILD AMOUNT OF PELVIC FREE FLUID THAT MAY RELATE TO CYST INFLAMMATIONOR RUPTURE. 3. NO URINARY TRACT ABNORMALITY SEEN. 4. NORMAL APPENDIX. Report called to Dr. Rivera in Emergency Dept on 2014 at 1837 hours. Interpreting Physician: DR ELVA ENGEL M.D. Read on: Nov 01 20146:40P Transcribed by: aster On: Nov 01 2014 7:56P Approved Electronically by: TORO Vincent, DR STEVENSON on: Nov 02 20144:14P Attending: JESUS RIVERA Requesting: , Requesting Fax: -- Attending Fax: -- Attending ID: [id number] Requesting ID: [id number] Report To 1 ID: [id number] Report To 1 Name: JESUS RIVERA Report To 1 FAX: -- NextGen Order #: us Historical Provider MD DUNBAR CT PROCEDURES Final R esult * (ABNORMAL) Plasma comprehensive metabolic panel (11/01/2014 5:59 PM CDT) Sodium 140 135 - 145 mmol/L HISTORICAL RESULTS K, pl 3.9 3.5 - 5.1 mmol/L HISTORICAL RESULTS Chloride 107 97 - 110 mmol/L HISTORICAL RESULTS CO2 23 22 - 32 mmol/L HISTORICAL RESULTS A. gap 14 8 - 16 mmol/L HISTORICAL RESULTS Glucose 81 70 - 199 mg/dl HISTORICAL RESULTS Comment: [...] data was last revised on 2014. BUN 10.0 9.0 - 18.0 mg/dl HISTORICAL RESULTS Creatinine 0.53 0.40 - 1.00 mg/dl HISTORICAL RESULTS BUN/creat ratio 19 10 - 20 HIST ORICAL RESULTS Calcium 8.7 8.6 - 10.2 mg/dl HISTORICAL RESULTS Protein, sr 6.6 6.0 - 8.4 g/dl HISTORICAL RESULTS Alb 4.4 3.2 - 5.0 g/dl HISTORICAL RESULTS Alb/glob ratio 2.0(H) 1.1 - 1.8 ratio HISTORICAL RESULTS Alk phos 58(L) 70 - 260 Units/L HISTORICAL RESULTS ALT 18 5 - 45 Units/L HISTORICAL RESULTS AST 18 10 - 40 Units/L HISTORICAL RESULTS Bilirubin 0.4 <=1.2 mg/dl HISTORICAL RESULTS Plasma 11/01/2014 5:59 PM CDT Historical Provider LAB BLOOD ORDERABLES Janett l Result HISTORICAL RESULTS * Serum chorionic gonadotropin (HCG), quantitative (11/01/2014 5:59 PM CDT) HCG, quant <5.0 0.0 - 5.0 IUnits/L HISTORICAL RESULTS Comment: Interpretive Data Negative: ? <5 mIU/mL ? Indeterminate: ??6-25 mIU/mL Positive: ? >25 mIU/mL Current interpretive data was last revised on 2014 Serum 11/01/2014 5:59 PM CDT Result [facility] Historical Provider LAB BLOOD ORDERABLES Janett l Result Performing Organization Address [facility] Co de Phone Number HISTORICAL RESULTS * Serum lipase (11/01/2014 5:59 PM CDT) Lip 31 10 - 70 Units/L HISTORICAL RESULTS Serum 11/01/2014 5:59 PM CDT Result [facility] Provider LAB BLOOD ORDERABLES Janett l Result Performing Organization Address [facility] Co de Phone Number HISTORICAL RESULTS * Blood cell morphologic exam (11/01/2014 5:59 PM CDT) Neutrophils 66.4 44.0 - 80.0 % HISTORICAL RESULTS Immature granulocytes 0.3 0.0 - 1.0 % HISTORICAL RESULTS Lymphocytes 26.2 13.0 - 44.0 % HISTORICAL RESULTS Monos 6.4 2.0 - 11.0 % HISTORICAL RESULTS Eosinophils 0.4 0.0 - 6.0 % HISTORICAL RESULTS Basophils 0.3 0.0 - 3.0 % HISTORICAL RESULTS Neutrophils, abs 4.4 1.6 - 7.0 K/cumm HISTORICAL RESULTS Immature granulocyte, abs 0.0 0.0 - 0.0 K/cumm HISTORICAL RESULTS Lymphocytes, abs 1.8 0.5 - 4.3 K/cumm HISTORICAL RESULTS Monocytes, absolute 0.4 0.1 - 1.0 K/cumm HISTORICAL RESULTS Eosinophils, abs 0.0 0.0 - 0.6 K/cumm HISTORICAL RESULTS Basophils, abs 0.0 0.0 - 0.3 K/cumm HISTORICAL RESULTS Blood specimen (specimen) 11/01/2014 5:59 PM CDT Historical Provider LAB BLOOD ORDERABLES Janett l Result Performing Organization Address [facility] de Phone Number HISTORICAL RESULTS * (ABNORMAL) Blood cell count (CBC), morphologic exam (11/01/2014 5:59 PM CDT) MCH 29.4 26.7 - 33.7 pg HISTORICAL RESULTS WBC 6.7 3.8 - 9.8 K/cumm HISTORICAL RESULTS MCHC 34.2 32.7 - 36.0 g/dl HISTORICAL RESULTS RBC 4.62 3.90 - 5.00 M/cumm HISTORICAL RESULTS Rdw 11.4(L) 11.5 - 14.6 % HISTORICAL RESULTS Hgb 13.6 12.1 - 15.1 g/dl HISTORICAL RESULTS Platelets 263 140 - 440 K/cumm HISTORICAL RESULTS Hct 39.8 36.1 - 44.3 % HISTORICAL RESULTS NRBC 0.0 0.0 - 0.0 #/100 WBC HISTORICAL RESULTS MCV 86.1 80.0 - 100.0 fl HISTORICAL RESULTS NRBC, abs 0.00 0.00 - 0.00 K/cumm HISTORICAL RESULTS Blood specimen (specimen) 11/01/2014 5:59 PM CDT Historical Provider LAB BLOOD ORDERABLES Janett l Result Performing Organization Address [facility] Co de Phone Number HISTORICAL RESULTS * (ABNORMAL) Urinalysis (11/01/2014 5:50 PM CDT) Color, ur Yellow Yellow HISTORICAL RESULTS Clarity, ur Cloudy(A) Clear HISTORIC AL RESULTS Specific gravity, ur 1.026 1.003 - 1.030 HISTORICAL RESULTS Comment:Normal Ranges: 1.003 -1.030 pH, ur 5.5 6.0 HISTORICAL RESULTS Comment:Normal ranges: 4.5-8 .0 Protein, ur, quant Negative Negative mg/dl HISTORICAL RESULTS Glucose, ur, quant Negative Negative mg/dl HISTORICAL RESULTS Ketones, ur Negative Negative HISTORIC AL RESULTS Bilirubin, ur Negative Negative HISTOR ICAL RESULTS U Blood Negative Negative HISTORICAL RESULTS Urobilinogen, quant, ur 0.2 0.2 Miriam Units/dl HISTORICAL RESULTS Comment:Normal Ranges: 0.2-1 .0 EU/dL Nitrites, ur Negative Negative HISTORI BEAR RESULTS Leukocyte esterase, ur Negative Negative HISTORICAL RESULTS Urine 11/01/2014 5:50 PM CDT Historical Provider LAB BLOOD ORDERABLES Janett l Result HISTORICAL RESULTS * (ABNORMAL) Urine microscopy (11/01/2014 5:50 PM CDT) RBC, ur 0 - 2 0 - 2 /hpf HISTORICA L RESULTS WBC, ur 2 - 5(A) 0 - 2 /hpf HISTORICA L RESULTS Bacteria, ur 1+(A) Negative HISTORI BEAR RESULTS Mucus, ur Present(A ) Not Present HISTORICAL RESULTS Hyaline casts 5 - 10(A) 0 - 2 /lpf HISTO RICAL RESULTS Epithelial cells, ur 10 - 25(A) 0 - 2 /hpf HISTORICAL RESULTS Urine 11/01/2014 5:50 PM CDT Historical Provider LAB BLOOD ORDERABLES Janett l Result HISTORICAL RESULTS * DISCHARGE LABORATORY CUMULATIVE REPORT (11/01/2014) Narrative 11/01/2014 Ordered by an unspecified provider. Historical Provider LAB BLOOD ORDERABLES Janett l Result documented in this encounter Visit Diagnoses Diagnosis Abdominal pain, right lower quadrant Other and unspecified ovarian cyst Presence of subdermal contraceptive device Personal history of urinary calculi documented in this encounter Care Teams Nursing Support Worker Relationship Specialty Start Date End Date Jane Garvin MD PCP - General 2/23/15 10/26/16 documented as of this encounter
--- OUTSIDE RECORDS SUMMARY | 2024-05-13 02:55 | XMS_ITS | Encounter Summary ---
Author Organization [facility] Address [address] [place] [address] Care Team Providers Care Civil Engineering Draftsperson Name Role Phone Jane Garvin MD Primary Care Provider [phone] Jane Garvin MD Unavailable [phone] Reason for Visit * Reason Comments Flu Symptoms The patient is havin g a fever, body aches, and cough. It has been 3-4 days. but she has had the cough for about a month. Encounter Details Date Type Department Care Team (Late st Contact Info) Description 05/07/2017 4:30 PM SOCIAL WORK THERAPIST Office Visit [facility] [address] [place] [address] [place] [address] Geetha Jones NP [address] [place] [address] Bronchitis (Primary Dx); Mild persistent reactive airway disease with wheezing without complication; Fever, unspecified fever cause Social History Tobacco Use Types Packs/Day Years Used Date Smoking Tobacco: Never Smokeless Tobacco: Never Alcohol Use Standard Drinks/Week Comments No 0 (1 standard drink = 0.6 oz pur e alcohol) Comments Unknown Sex and Gender Information Value Date Recorded Sex Assigned at Not on file Legal Sex Female 1:15 AM SOCIAL WORK THERAPIST Gender Identity Not on file Sexual Orientation Not on file documented as of this encounter Last Filed Vital Signs Vital Sign Reading Time Taken Comments Blood Pressure 114/76 05/07/2017 4:46 PM SOCIAL WORK THERAPIST Pulse 127 05/07/2017 4:46 PM SOCIAL WORK THERAPIST Temperature 37.3 ??C (99.1 ??F) 05/07/2017 4:46 PM CS T Respiratory Rate 18 05/07/2017 4:46 PM SOCIAL WORK THERAPIST Oxygen Saturation 99% 05/07/2017 4:46 PM SOCIAL WORK THERAPIST Inhaled Oxygen Concentration - - Weight 64 kg (141 lb) 05/07/2017 4:46 PM SOCIAL WORK THERAPIST Height 157.5 cm (5' 2 ) 05/07/2017 4:46 PM SOCIAL WORK THERAPIST Body Mass Index 25.79 05/07/2017 4:46 PM SOCIAL WORK THERAPIST documented in this encounter Ordered Prescriptions Prescription Sig Dispense Quantity Refills Last Filled Start Date End Date levoFLOXacin (LEVAQUIN) 500 mg tablet Take 1 tablet (500 mg total) by mouth daily for 10 days. 10 tablet 05/07/2017 7 predniSONE (DELTASONE) 20 mg tablet Take 2 tablets (40 mg total) by mouth daily for 5 days. 10 tablet 05/07/2017 7 albuterol HFA (PROAIR HFA) 90 mcg/actuation inhaler Inhale 2 puffs every 4 (four) hours as needed for wheezing or shortness of breath. 8.5 g 05/07/2017 9 documented in this encounter Progress Notes * Geetha Jones, ELECTRICAL WIRING LINEMAN - 05/07/2017 4:30 PM CST Subjective Patient ID: Oliver Go is a 21 y.o. female. HPI Has been coughing for 1 month. Has had wheezing, SOB, dry cough. Treated with Azithromycin twice. Started 2nd Zpack 4 days ago when she began with aching, feeling feverish, temp up to 103F. No known ill contacts with the flu. Denies nausea, vomiting or nasal congestion. Concerned about possible pna. Denies hx of reactive airway or asthma, has taken steriods and inhaler in the past for URI symptoms. Review of Systems Constitutional: Positive for chills and fever. HENT: Negative. Respiratory: Positive for cough, shortness of breath and wheezing. Cardiovascular: Negative. Gastrointestinal: Negative. Genitourinary: Negative. Musculoskeletal: Positive for arthralgias and myalgias. Skin: Negative. Neurological: Negative. Objective Physical Exam Constitutional: She is oriented to person, place, and time. She appears well- developed and well-nourished. HENT: Head: Normocephalic and atraumatic. Right Ear: Tympanic membrane and ear canal normal. Left Ear: Tympanic membrane and ear canal normal. Nose: Nose normal. Right sinus exhibits no maxillary sinus tenderness and no frontal sinus tenderness. Left sinus exhibits no maxillary sinus tenderness and no frontal sinus tenderness. Mouth/Throat: Uvula is midline. Posterior oropharyngeal erythema present. Tonsils are 1+ on the right. Tonsils are 1+ on the left. No tonsillar exudate. Eyes: Conjunctivae, EOM and lids are normal. Neck: Normal range of motion. Neck supple. Cardiovascular: Normal rate, regular rhythm, S1 normal, S2 normal and normal heart sounds. Exam reveals no gallop and no friction rub. No murmur heard. Pulmonary/Chest: Effort normal and breath sounds normal. No respiratory distress. She has no decreased breath sounds. She has no wheezes. She has no rhonchi. She has no rales. Musculoskeletal: Normal range of motion. Lymphadenopathy: She has no cervical adenopathy. Neurological: She is alert and oriented to person, place, and time. Skin: Skin is warm and dry. No rash noted. Psychiatric: She has a normal mood and affect. Assessment/Plan Diagnoses and all orders for this visit: Bronchitis (Primary) Mild persistent reactive airway disease with wheezing without complication - XR Chest Pa Lateral 2 Views; Future Fever, unspecified fever cause - POCT influenza A/B Other orders - albuterol HFA (PROAIR HFA) 90 mcg/actuation inhaler; Inhale 2 puffs every 4 (four) hours as needed for wheezing or shortness of breath. - predniSONE (DELTASONE) 20 mg tablet; Take 2 tablets (40 mg total) by mouth daily for 5 days. - levoFLOXacin (LEVAQUIN) 500 mg tablet; Take 1 tablet (500 mg total) by mouth daily for 10 days. DC Azithromycin. Influenza neg. CXR. Start Levaquin x 10 days. Suspect reactive airway-add prednisone 40mg po daily x 5 days, Albuterol inhaler (has used in the past). Rest, increase oral fluids. AL WORK THERAPIST documented in this encounter Plan of Treatment Not on file documented as of this encounter Procedures Procedure Name Priority Date/Time Associated Diagnosis Comments POCT INFLUENZA A/B Routine 05/07/2017 5: 15 PM SOCIAL WORK THERAPIST Fever, unspecified fever cause documented in this encounter Results * POCT influenza A/B (05/07/2017 5:15 PM SOCIAL WORK THERAPIST) Rapid Influenza A Ag negative Rapid Influenza B Ag negative Nasopharyngeal 05/07/2017 5: 15 PM SOCIAL WORK THERAPIST Geetha Jones NP POINT OF CARE TEST ORDERABLES Final Result documented in this encounter Visit Diagnoses Diagnosis Bronchitis- Primary Bronchitis, not specified as acute or chronic Mild persistent reactive airway disease with wheezing without complication Fever, unspecified fever cause documented in this encounter Care Teams Civil Engineering Draftsperson Relationship Specialty Start Date End Date Jane Garvin MD PCP - General 08/10/16 06/14/20 Jane Garvin MD 08/10/16 06/14/20 documented as of this encounter
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
--- OUTSIDE RECORDS SUMMARY | 2024-05-13 02:55 | XMS_ITS | Encounter Summary ---
Author Organization [facility] Healthcare Address [address] [place] [address] Care Team Providers Care Director Of Group Counseling Program Name Role Phone Jane Garvin MD Primary Care Provider [phone] Jane Garvin MD Unavailable [phone] Encounter Details Date Type Department Care Team (Latest Contact Info) Description 05/08/2017 11:30 AM NET DEVELOPER CONSULTANT - 05/08/2017 11:59 PM [facility] Hospital Encounter [facility] [address] [id number] Terrance Pop MD [address] [place] [address] Geetha Jones NP [address] [place] [address] Mild persistent reactive airway disease with wheezing without complication Discharge Disposition: Discharge to home or self care Social History Tobacco Use Types Packs/Day Years Used Date Smoking Tobacco: Never Smokeless Tobacco: Never Alcohol Use Standard Drinks/Week Comments No 0 (1 standard drink = 0.6 oz pur e alcohol) Comments Unknown Sex and Gender Information Value Date Recorded Sex Assigned at Not on file Legal Sex Female 1:15 AM NET DEVELOPER CONSULTANT Gender Identity Not on file Sexual Orientation Not on file documented as of this encounter Medications at Time of Discharge predniSONE (DELTASONE) 20 mg tablet Take 2 tablets (40 mg total) by mouth daily for 5 days. 10 tablet 05/07/2017 7 albuterol HFA (PROAIR HFA) 90 mcg/actuation inhaler Inhale 2 puffs every 4 (four) hours as needed for wheezing or shortness of breath. 8.5 g 05/07/2017 9 levoFLOXacin (LEVAQUIN) 500 mg tablet Take 1 tablet (500 mg total) by mouth daily for 10 days. 10 tablet 05/07/2017 7 norethindrone-e. estradiol-iron (LOESTRIN FE 1.5, 28-DAY,) 1.5 [...] Name Priority Date/Time Associated Diagnosis Comments XR CHEST PA LATERAL 2 VIEWS STAT 05/08/2017 11:45 AM NET DEVELOPER CONSULTANT Mild persistent reactive airway disease with wheezing without complication documented in this encounter Results * XR Chest Pa Lateral 2 Views (05/08/2017 11:45 AM NET DEVELOPER CONSULTANT) Anatomical Region Laterality Modality Body, Chest N/A Computed Radiogr aphy Impressions 05/08/2017 11:46 AM NET DEVELOPER CONSULTANT No acute cardiopulmonary process. Electronically signed by: Flaquito Dougherty M.D. Narrative 05/08/2017 11:46 AM NET DEVELOPER CONSULTANT EXAM: Chest; PA and lateral HISTORY: COUGH, PERSISTENT. COMPARISON: None FINDINGS: The lungs, pleura, cardiomediastinal silhouette, and bony thorax are normal. Procedure Note Flaquito Dougherty MD / Provider, MD Angie - 05/08/2017 EXAM: Chest; PA and lateral HISTORY: COUGH, PERSISTENT. COMPARISON: None FINDINGS: The lungs, pleura, cardiomediastinal silhouette, and bony thorax are normal. IMPRESSION: No acute cardiopulmonary process. Electronically signed by: Flaquito Dougherty M.D. Geetha Jones ORDER ADMINISTRATOR IMG XR PROCEDURES Final Result documented in this encounter Visit Diagnoses Diagnosis Mild persistent reactive airway disease with wheezing without complication documented in this encounter Care Teams Director Of Group Counseling Program Relationship Specialty Start Date End Date Jane Garvin MD PCP - General 08/10/16 06/14/20 Jane Garvin MD 08/10/16 06/14/20 documented as of this encounter
--- OUTSIDE RECORDS SUMMARY | 2024-05-13 02:55 | XMS_ITS | Encounter Summary ---
Author Organization [facility] Medical Group Address [address] [place] [address] Care Team Providers Care U.[place]. Senator Name Role Phone Jane Garvin MD Primary Care Provider [phone] Jane Garvin MD Unavailable [phone] Reason for Visit * Reason Comments Cold Symptoms states she had an al lergic reaction to levaquin Encounter Details Date Type Department Care Team (Late st Contact Info) Description 05/11/2017 11:30 AM OPHTHALMOLOGY TECHNICIAN Office Visit [facility] [address] [place] [address] [place] [address] Dana Horn, [facility] [address] [facility] [address] [place] [address] Influenza (Primary Dx); Body aches; History of influenza Social History Tobacco Use Types Packs/Day Years Used Date Smoking Tobacco: Never Smokeless Tobacco: Never Alcohol Use Standard Drinks/Week Comments No 0 (1 standard drink = 0.6 oz pur e alcohol) Comments Unknown Sex and Gender Information Value Date Recorded Sex Assigned at Not on file Legal Sex Female 1:15 AM OPHTHALMOLOGY TECHNICIAN Gender Identity Not on file Sexual Orientation Not on file documented as of this encounter Last Filed Vital Signs Vital Sign Reading Time Taken Comments Blood Pressure 110/80 05/11/2017 12:23 PM OPHTHALMOLOGY TECHNICIAN Pulse 99 05/11/2017 12:23 PM OPHTHALMOLOGY TECHNICIAN Temperature 36.8 ??C (98.3 ??F) 05/11/2017 12:[address] Respiratory Rate 16 05/11/2017 12:23 PM OPHTHALMOLOGY TECHNICIAN Oxygen Saturation 99% 05/11/2017 12:23 PM OPHTHALMOLOGY TECHNICIAN Inhaled Oxygen Concentration - - Weight 64 kg (141 lb) 05/11/2017 12:23 PM OPHTHALMOLOGY TECHNICIAN Height 157.5 cm (5' 2 ) 05/11/2017 12:23 PM OPHTHALMOLOGY TECHNICIAN Body Mass Index 25.79 05/11/2017 12:23 PM OPHTHALMOLOGY TECHNICIAN documented in this encounter Patient Instructions * Patient Instructions* Dana Horn, [facility] - 05/11/2017 11:30 AM OPHTHALMOLOGY TECHNICIAN Images from the original note were not included. Patient Education Influenza WHAT YOU NEED TO KNOW: Influenza (the flu) is an infection caused by the influenza virus. The flu is easily spread when aninfected person coughs, sneezes, or has close contact with others. You may be able to spread the flu to others for 1 week or longer after signs or symptoms appear. DISCHARGE INSTRUCTIONS: Call 911 for any of the following: ?? You have trouble breathing, and your lips look purple or blue. ?? You have a seizure. Return to the emergency department if: ?? You are dizzy, or you are urinating less or not at all. ?? You have a headache with a stiff neck, and you feel tired or confused. ?? You have new pain or pressure in your chest. ?? Your symptoms, such as shortness of breath, vomiting, or diarrhea, get worse. ?? Your symptoms, such as fever and coughing, seem to get better, but then get worse. Contact your healthcare provider if: ?? You have new muscle pain or weakness. ?? You have questions or concerns about your condition or care. Medicines: You may need any of the following: ?? Acetaminophen decreases pain and fever. It is available without a doctor's order. Ask how much to take and how often to take it. Follow directions. Acetaminophen can cause liver damage if not taken correctly. ?? NSAIDs , such as ibuprofen, help decrease swelling, pain, and fever. This medicine is available with or without a doctor's order. NSAIDs can cause stomach bleeding or kidney problems in certain people. If you take blood thinner medicine, always ask your healthcare provider if NSAIDs are safe foryou. Always read the medicine label and follow directions. ?? Antivirals help fight a viral infection. ?? Take your medicine as directed. Contact your healthcare provider if you think your medicine is not helping or if you have side effects. Tell him or her if you are allergic to any medicine. Keep a list of the medicines, vitamins, and herbs you take. Include the amounts, and when and why you take them. Bring the list or the pill bottles to follow-up visits. Carry your medicine list with you in case of an emergency. Rest as much as you can to help you recover. Drink liquids as directed to help prevent dehydration. Ask how much liquid to drink each day and which liquids are best for you. Prevent the spread of influenza: ?? Wash your hands often. Use soap and water. Wash your hands after you use the bathroom, change a child's diapers, or sneeze. Wash your hands before you prepare or eat food. Use gel hand cleanser when soap and water are not available. Do not touch your eyes, nose, or mouth unless you have washed your hands first. ?? Cover your mouth when you sneeze or cough. Cough into a tissue or the bend of your arm. ?? Clean shared items with a germ-killing cotton cleaner. Clean table surfaces, doorknobs, and light switches. Do not share towels, silverware, and dishes with people who are sick. Wash bed sheets, towels, silverware, and dishes with soap and water. ?? Wear a mask over your mouth and nose if you are sick or are near anyone who is sick. ?? Stay away from others if you are sick. ?? Influenza vaccine helps prevent influenza (flu). Everyone older than 6 months should get a yearly influenza vaccine. Get the vaccine as soon as it is available, usually in January or February each year. Follow up with your healthcare provider as directed: Write down your questions so you remember to ask them during your visits. ?? 2016 [employer]. Information is for End User's use only and may not be sold, redistributed or otherwise used for commercial purposes. All illustrations and images included in CareNotes?? are the copyrighted property of [employer] or [employer]. The above information is an shopper's aide only. It is not intended as medical advice for individual conditions or treatments. Talk to your doctor, nurse or pharmacist before following any medical regimen to see if it is safe and effective for you. You have the flu which is viral. You may have been given Tamiflu which will only attempt to shorten the course of the flu for you You will still need to take Tylenol/Motrin for pain or fever You can use OTC meds to help control symptoms Get plenty of rest, drink plenty of fluids Please stay out of contact with very young children and the elderly population If you did not get a flu shot this year, please consider one next season Follow up with your PCP if you are not getting any better. HALMOLOGY TECHNICIAN HALMOLOGY TECHNICIAN documented in this encounter Progress Notes * Dana Horn NP - 05/11/2017 11:30 AM CST Subjective/Objective Patient ID: Oliver Go is a 21 y.o. female. Chief Complaint Cold Symptoms (states she had an allergic reaction to levaquin) Flu Symptoms The current episode started 1 to 4 weeks ago. The problem occurs constantly. The problem has been unchanged. Associated symptoms include chills, congestion, fatigue, a fever, myalgias and a rash. Pertinent negatives include no sore throat. Nothing aggravates the symptoms. Treatments tried: sudefed,levoquin. The treatment provided no relief. Review of Systems Constitutional: Positive for chills, fatigue and fever. HENT: Positive for congestion, rhinorrhea and sinus pressure. Negative for sore throat. Eyes: Negative. Respiratory: Negative. Cardiovascular: Negative. Gastrointestinal: Negative. Genitourinary: Negative. Musculoskeletal: Positive for myalgias. Skin: Positive for rash. Neurological: Negative. Hematological: Negative. Psychiatric/Behavioral: Negative. Physical Exam Constitutional: She is oriented to person, place, and time. She appears well- developed and well-nourished. HENT: Right Ear: Hearing, tympanic membrane and ear canal normal. Left Ear: Hearing, tympanic membrane and ear canal normal. Nose: Nose normal. Right sinus exhibits no maxillary sinus tenderness and no frontal sinus tenderness. Left sinus exhibits no maxillary sinus tenderness and no frontal sinus tenderness. Mouth/Throat: Uvula is midline, oropharynx is clear and moist and mucous membranes are normal. Neck: Trachea normal and normal range of motion. No thyroid mass and no thyromegaly present. Cardiovascular: Normal rate and regular rhythm. Pulmonary/Chest: [...] has a normal mood and affect. Her speech is normal and behavior is normal. Vitals: 05/11/17 1223 BP: 110/80 BP Location: Left arm Patient Position: Sitting Pulse: 99 Resp: 16 Temp: 36.8 ??C (98.3 ??F) TempSrc: Oral SpO2: 99% Weight: 64 kg (141 lb) Height: 157.5 cm (5' 2 ) Assessment/Plan You have the flu which is viral. You may have been given Tamiflu which will only attempt to shorten the course of the flu for you You will still need to take Tylenol/Motrin for pain or fever You can use OTC meds to help control symptoms Get plenty of rest, drink plenty of fluids Please stay out of contact with very young children and the elderly population If you did not get a flu shot this year, please consider one next season Follow up with your PCP if you are not getting any better. Diagnoses and all orders for this visit: Influenza (Primary) Body aches - POCT influenza A/B History of influenza Disposition- Discussed medications dosages, usage & potential [...] in agreement with the plan of care Dana Horn NP Cosigned by Zak Arteaga MD at 05/14/2017 8:05 AM OPHTHALMOLOGY TECHNICIAN HALMOLOGY TECHNICIAN HALMOLOGY TECHNICIAN documented in this encounter Plan of Treatment Not on file documented as of this encounter Procedures Procedure Name Priority Date/Time Associated Diagnosis Comments POCT INFLUENZA A/B Routine 05/11/2017 12 :31 PM OPHTHALMOLOGY TECHNICIAN Body aches documented in this encounter Results * (ABNORMAL) POCT influenza A/B (05/11/2017 12:31 PM OPHTHALMOLOGY TECHNICIAN) Rapid Influenza A Ag positive Rapid Influenza B Ag negative Nasal 05/11/2017 12:3 1 PM OPHTHALMOLOGY TECHNICIAN [place] [facility] POINT OF CARE TEST OR DERABLES Final Result documented in this encounter Visit Diagnoses Diagnosis Influenza- Primary Influenza with other respiratory manifestations Body aches Generalized pain History of influenza documented in this encounter Discontinued Medications Medication Sig Discontinue Reason Start Date End Da te levoFLOXacin (LEVAQUIN) 500 mg tablet Take 1 tablet (500 mg total) by mouth daily for 10 days. Side effects 05/07/2017 05/11/2017 documented as of this encounter Care Teams U.[place]. Senator Relationship Specialty Start Date End Date Jane Garvin MD PCP - General 08/10/16 06/14/20 Jane Garvin MD 08/10/16 06/14/20 documented as of this encounter
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
--- OUTSIDE RECORDS SUMMARY | 2024-05-13 02:55 | XMS_ITS | Encounter Summary ---
Author Organization [facility] Healthcare Address [address] [place] [address] Care Team Providers Care Predictive Maintenance Specialist Name Role Phone Jane Garvin MD Primary Care Provider [phone] Encounter Details Date Type Department Care Team ([facility] st Contact Info) Description 07/04/2016 11:37 PM VP RESPIRATORY - 07/04/2016 11:59 PM VP RESPIRATORY Hospital Encounter [facility] Terrance Pop MD [address] [facility] [address] [place] [address] Discharge Disposition: Discharge to home or self care Social History Tobacco Use Types Packs/Day Years Used Date Smoking Tobacco: Never Assessed Comments Unknown Sex and Gender Information Value Date Recorded Sex Assigned at Not on file Legal Sex Female 1:15 AM VP RESPIRATORY Gender Identity Not on file Sexual Orientation Not on file documented as of this encounter Medications at Time of Discharge norethindrone-e.e stradiol-iron (LOESTRIN FE 1.5, 28-DAY,) 1.5 mg-30 mcg [...] on filedocumented in this encounter Care Teams Predictive Maintenance Specialist Relationship Specialty Start Date End Date Jane Garvin MD PCP - General 07/04/16 08/09/16 documented as of this encounter
--- OUTSIDE RECORDS SUMMARY | 2024-05-13 02:55 | XMS_ITS | Encounter Summary ---
Author Organization [facility] Address [address] [place] [address] [place] [address] Care Team Providers Care Surface To Air Weapons Officer Name Role Phone Jane Garvin MD Primary Care Provider [phone] Jane Garvin MD Unavailable [phone] Reason for Visit * Reason Comments Cough started about 9 days ago Encounter Details Date Type Department Care Team (Late st Contact Info) Description 08/19/2017 7:00 PM CDT Office Visit [facility] [address] [facility] [place] [address] Arnold Rosales NP [address] [facility] [address] Sore throat (Primary Dx); Cough Social History Tobacco Use Types Packs/Day Years Used Date Smoking Tobacco: Never Smokeless Tobacco: Never Alcohol Use Standard Drinks/Week Comments No 0 (1 standard drink = 0.6 oz pur e alcohol) Comments Unknown Sex and Gender Information Value Date Recorded Sex Assigned at Not on file 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 Gender Identity Not on file Sexual Orientation Not on file documented as of this encounter Last Filed Vital Signs Vital Sign Reading Time Taken Comments Blood Pressure 110/80 08/19/2017 6:54 PM CDT Pulse 104 08/19/2017 6:54 PM CDT Temperature 36.9 ??C (98.4 ??F) 08/19/2017 6:54 PM CD T Respiratory Rate 18 08/19/2017 6:54 PM CDT Oxygen Saturation 98% 08/19/2017 6:54 PM CDT Inhaled Oxygen Concentration - - Weight 61.7 kg (136 lb) 08/19/2017 6:54 PM CDT Height - - Body Mass Index 24.87 05/11/2017 12:23 PM LIMOUSINE RENTAL CLERK documented in this encounter Patient Instructions * Patient Instructions* Arnold Rosales NP - 08/19/2017 7:11 PM CDT Take a cough suppressant to help calm the cough during the night such as Delsum. If your cough is productive, take an expectorant such as Mucinex two tablets twice a day as directed. Drink plenty offluids and get plenty of rest. Tylenol or Motrin as directed per package for pain or fever. If you are no better, please follow up with you PCP. Increase your water intake. Patient Education Acute Cough WHAT YOU NEED TO KNOW: What is an acute cough? An acute cough is a cough that lasts up to 3 weeks. It may be caused by the common cold, allergies, or an infection. Conditions such as COPD and asthma may also cause an acute cough. How is an acute cough treated? An acute cough usually goes away on its own within 3 to 4 weeks. Askyour healthcare provider about medicines you can take to decrease your cough. You may need medicineto treat allergies or decrease swelling in your airways. If you have a bacterial infection, you mayneed antibiotics. When should I seek immediate care? ?? You are breathing fast, or you have trouble breathing. ?? You cough up blood, or you see blood in your mucus. ?? You have a fever, and you are coughing up yellow or green mucus. When should I contact my healthcare provider? ?? Your cough does not get better within 8 weeks. ?? You have questions or concerns about your condition or care. CARE AGREEMENT: You have the right to help plan your care. Learn about your health condition and how it may be treated. Discuss treatment options with your caregivers to decide what care you want to receive. You always have the right to refuse treatment. The above information is an ocular care aide only. It is not intended as medical advice for individual conditions or treatments. Talk to your doctor, nurse or pharmacist before following any medical regimen to see if it is safe and effective for you. ?? 2016 [employer]. Information is for End User's use only and may not be sold, redistributed or otherwise used for commercial purposes. All illustrations and images included in CareNotes?? are the copyrighted property of [employer]. or [employer]. documented in this encounter Progress Notes * Arnold Rosales NP - 08/19/2017 7:00 PM CDT Subjective Patient ID: Oliver Go is a 21 y.o. female. Cough (started about 9 days ago) Sore throat and cough for the past week Cough This is a new problem. The current episode started 1 to 4 weeks ago. The problem has been waxing and waning. The problem occurs every few hours. The cough is non-productive. Associated symptoms include headaches and a sore throat. Pertinent negatives include no chest pain, ear congestion, fever, myalgias, nasal congestion, rash, rhinorrhea or wheezing. Nothing aggravates the symptoms. She has tried nothing for the symptoms. The treatment provided no relief. There is no history of asthma or bronchitis. Review of Systems Constitutional: Positive for activity change and fatigue. Negative for fever. HENT: Positive for sore throat. Negative for rhinorrhea. Respiratory: Positive for cough. Negative for wheezing. Cardiovascular: Negative for chest pain. Genitourinary: Negative for dysuria. Musculoskeletal: Negative for myalgias. Skin: Negative for rash. Neurological: Positive for headaches. Psychiatric/Behavioral: Negative for behavioral problems. Objective Physical Exam Constitutional: She is oriented to person, place, and time. She appears well- developed and well-nourished. HENT: Head: Normocephalic. Right Ear: Hearing, tympanic membrane and external ear normal. Left Ear: Hearing, tympanic membrane and external ear normal. Nose: Nose normal. Mouth/Throat: Uvula is midline, oropharynx is clear and moist and mucous membranes are normal. Tonsils are 0 on the right. Tonsils are 0 on the left. No tonsillar exudate. Eyes: Conjunctivae are normal. Neck: Normal range of motion. Cardiovascular: Normal rate, regular rhythm and normal heart sounds. Pulmonary/Chest: Effort normal and breath sounds normal. Abdominal: Soft. Musculoskeletal: Normal range of motion. Neurological: She is alert and oriented to person, place, and time. Skin: Skin is warm and dry. No rash noted. No erythema. Psychiatric: She has a normal mood and affect. Nursing note and vitals reviewed. Vitals: 08/19/17 1854 BP: 110/80 BP Location: Right arm Patient Position: Sitting Pulse: 104 Resp: 18 Temp: 36.9 ??C (98.4 ??F) TempSrc: Oral SpO2: 98% Weight: 61.7 kg (136 lb) Assessment/Plan Diagnoses and all orders for this visit: Sore throat (Primary) - POCT rapid strep A Cough Take a cough suppressant to help calm the cough during the night such as Delsum. If your cough is productive, take an expectorant such as Mucinex two tablets twice a day as directed. Drink plenty of fluids and get plenty of rest. Tylenol or Motrin as directed per package for pain or fever. If you are no better, please follow up with you PCP. Increase your water intake. No notes on file documented in this encounter Plan of Treatment Not on file documented as of this encounter Procedures Procedure Name Priority Date/Time Associated Diagnosis Comments POCT RAPID STREP Routine 08/19/2017 7:06 PM CDT Sore throat documented in this encounter Results * POCT rapid strep A (08/19/2017 7:06 PM CDT) Rapid Strep A, POC Negative Swab 08/19/2017 7:06 PM CDT Arnold Rosales NP POINT OF CARE TEST ORDERABLES Final Result documented in this encounter Visit Diagnoses Diagnosis Sore throat- Primary Acute pharyngitis Cough documented in this encounter Care Teams Surface To Air Weapons Officer Relationship Specialty Start Date End Date Jane Garvin MD PCP - General 08/10/16 06/14/20 Jane Garvin MD 08/10/16 06/14/20 documented as of this encounter
--- OUTSIDE RECORDS SUMMARY | 2024-05-13 02:55 | XMS_ITS | Encounter Summary ---
Author Organization [facility] Healthcare Address [address] [place] [address] Care Team Providers Care Medical Doctor Name Role Phone Jane Toney MD Primary Care Provider [phone] Encounter Details Date Type Department Care Team (Late st Contact Info) Description 09/16/2015 3:55 PM CDT - 09/16/2015 5:17 PM CDT Hospital Encounter [facility] LOULOU[facility] Minaya MD [address] [place] [id number] Open bite of left forearm; Bitten by dog; Activity, other specified; Unspecified place or not applicable; technician terminal and repeater current use of hormonal contraceptive Social History Tobacco Use Types Packs/Day Years Used Date Smoking Tobacco: Never Assessed Comments Unknown Sex and Gender Information Value Date Recorded Sex Assigned at Not on file 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 Debora TONEY XR Forearm L ? [id number] ??Acc#: ??[id number] DATE OF EXAM: ??May ??2015 CLINICAL HISTORY: Dog bites to left forearm. RESULT: Two views of the left forearm demonstrate no evidence of fracture or osseous lesion. ??A soft tissue density is seen in the radial aspect of the mid forearm. ??There is no evidence of radiopaque foreign body or soft tissue gas. IMPRESSION: 1. ??SMALL SOFT TISSUE DEFECT IN THE RADIAL ASPECT OF THE LEFT MID FOREARM. 2. ??NO EVIDENCE OF OSSEOUS LESION. Interpreting Physician: ??DR MORGAN HERNANDEZ M.D. ??Read on: ??May ??6 2015 4:53P Transcribed by: ??ylkaterine ??On: May ??6 2016 ??6:13P Approved Electronically by: ??MARY Vincent, DR MORA ??on: ??May ??7 2015 1:28P Attending: ??LY BARRY Requesting: ??MELODY MOROCHO Requesting Fax: ??-- Attending Fax: ??-- Attending ID: ??[id number] Requesting ID: ??[id number] Report To 1 ID: ??[id number] Report To 1 Name: ??LY BARRY Report To 1 FAX: ??-- NextGen Order #: Procedure Note Provider, MD Angie - 09/05/2016 CC: DR. Debora TONEY XR Forearm L [id number] Acc#: [id number] DATE OF EXAM: Sep 16 2015 CLINICAL HISTORY: Dog bites to left forearm. RESULT: Two views of the left forearm demonstrate no evidence of fracture orosseous lesion. A soft tissue density is seen in the radial aspect of themid forearm. There is no evidence of radiopaque foreign body or softtissue gas. IMPRESSION: 1. SMALL SOFT TISSUE DEFECT IN THE RADIAL ASPECT OF THE LEFT MIDFOREARM. 2. NO EVIDENCE OF OSSEOUS LESION. Interpreting Physician: DR MORGAN HERNANDEZ M.D. Read on: Sep 16 20154:53P Transcribed by: cate On: Sep 16 2015 6:13P Approved Electronically by: DR MORGAN HERNANDEZ M.D. on: Sep 17 20151:28P Attending: LY BARRY Requesting: MELODY MOROCHO Requesting Fax: -- Attending Fax: -- Attending ID: [id number] Requesting ID: [id number] Report To 1 ID: [id number] Report To 1 Name: LY BARRY Report To 1 FAX: -- NextGen Order #: us Historical Provider MD DUNBAR DXA PROCEDURES Final Result documented in this encounter Visit Diagnoses Diagnosis Open bite of left forearm Bitten by dog Activity, other specified Unspecified place or not applicable technician terminal and repeater current use of hormonal contraceptive documented in this encounter Care Teams Medical Doctor Relationship Specialty Start Date End Date Jane Toney MD PCP - General 07/05/14 03/07/16 documented as of this encounter
--- OUTSIDE RECORDS SUMMARY | 2024-05-13 02:56 | XMS_ITS | Encounter Summary ---
Author Organization [facility] Healthcare Address [address] [place] [address] Care Team Providers Care In Store Marketing Representative Name Role Phone Jane Toney MD Primary Care Provider [phone] Encounter Details Date Type Department Care Team ([facility] st Contact Info) Description 08/04/2014 10:42 AM CDT - 08/04/2014 11:59 PM CDT Hospital Encounter [facility] Jane Toney MD [address] [place] [address] Lump or mass in breast Social History Tobacco Use Types Packs/Day Years Used Date Smoking Tobacco: Never Assessed Comments Unknown Sex and Gender Information Value Date Recorded Sex Assigned at Not on file 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 RESULT: Longitudinal and transverse realtime scans obtained for the region of concern left breast. Images obtained for the 2 o'clock position 6cm from the nipple. ??No cyst is seen. No solid mass identified. ??Isoechoic mass may not be discretely identified. ??Dense fibroglandular tissue is evident. ??At the 11 o'clock position 7cm from the nipple no cyst is seen. ??No solid mass identified. ??Isoechoic mass may be not discretely identified. IMPRESSION: NO CYST OR MASS SEEN IN THE REGIONS OF CONCERN, DISCUSSED ABOVE. RECOMMEND PROCEEDING ON CLINICAL GROUNDS. ??NEGATIVE RESULTS SHOULD NOT DISSUADE ONE FROM BIOPSY OF A CLINICALLY PALPABLE SUSPICIOUS MASS. BI-RADS CATEGORY 1 - NEGATIVE - BUT PROCEED ON CLINICAL GROUNDS. Interpreting Physician: ??CAROLYNE ZUNIGA M.D. ??Read on: ??Aug 04 2014 11:29A Transcribed by: ??david ?? On: Aug 04 2014 ??1:55P Approved Electronically by: ??CAROLYNE ZUNIGA M.D. ??on: ??Aug 04 2014 ??8:55P Attending: ??, Requesting: ??DR JANE TONEY Requesting Fax: ??-- Attending Fax: ??-- Attending ID: ?? Requesting ID: ??[id number] Report To 1 ID: ??[id number] Report To 1 Name: ??DR JANE TONEY Report To 1 FAX: ??-- NextGen Order #: Procedure Note Provider, MD Angie - 09/05/2016 US BREAST LIMITED L Acc#: [id number] DATE OF EXAM: Aug 04 2014 CLINICAL HISTORY: Left breast lump. RESULT: Longitudinal and transverse realtime scans obtained for the region ofconcern left breast. Images obtained for the 2 o'clock position 6cm fromthe nipple. No cyst is seen. No solid mass identified. Isoechoic massmay not be discretely identified. Dense fibroglandular tissue is evident.At the 11 o'clock position 7cm from the nipple no cyst is seen. No solidmass identified. Isoechoic mass may be not discretely identified. IMPRESSION: NO CYST OR MASS SEEN IN THE REGIONS OF CONCERN, DISCUSSED ABOVE.RECOMMEND PROCEEDING ON CLINICAL GROUNDS. NEGATIVE RESULTS SHOULD NOTDISSUADE ONE FROM BIOPSY OF A CLINICALLY PALPABLE SUSPICIOUS MASS. BI-RADSCATEGORY 1 - NEGATIVE - BUT PROCEED ON CLINICAL GROUNDS. Interpreting Physician: CAROLYNE ZUNIGA M.D. Read on: Aug 04 2014 11:29A Transcribed by: david On: Aug 04 2014 1:55P Approved Electronically by: CAROLYNE ZUNIGA M.D. on: Aug 04 2014 8:55P Attending: , Requesting: DR JANE TONEY Requesting Fax: -- Attending Fax: -- Attending ID: Requesting ID: [id number] Report To 1 ID: [id number] Report To 1 Name: DR JANE TONEY Report To 1 FAX: -- NextGen Order #: us Historical Provider MD DUNBAR US PROCEDURES Final R esult documented in this encounter Visit Diagnoses Diagnosis Lump or mass in breast documented in this encounter Care Teams In Store Marketing Representative Relationship Specialty Start Date End Date Jane Toney MD PCP - General 07/05/14 03/07/16 documented as of this encounter
--- OUTSIDE RECORDS SUMMARY | 2024-05-13 02:56 | XMS_ITS | Encounter Summary ---
Author Organization [facility] Healthcare Address [address] [place] [address] Care Team Providers Care Material Flow Engineer Name Role Phone Unavailable Primary Care Provider Unavailabl e Encounter Details Date Type Department Care Team (Late st Contact Info) Description 03/24/2011 11:22 AM GLASS SELECTOR - 03/24/2011 5:45 PM GLASS SELECTOR Hospital Encounter [facility] Clarisse Bradford MD [address] [place] [address] Renal colic Social History Tobacco Use Types Packs/Day Years Used Date Smoking Tobacco: Never Assessed Comments Unknown Sex and Gender Information Value Date Recorded Sex Assigned at Not on file Legal Sex Female 1:15 AM GLASS SELECTOR Gender Identity Not on file Sexual Orientation Not on file documented as of this encounter Plan of Treatment Not on file documented as of this encounter Visit Diagnoses Diagnosis Renal colic documented in this encounter
--- OUTSIDE RECORDS SUMMARY | 2024-05-13 02:56 | XMS_ITS | Encounter Summary ---
Author Organization [facility] Care Team Providers Care Wood Lathe Operator Name Role Phone Unavailable Primary Care Provider Unavailabl e Encounter Details Date Type Department Care Team (Late st Contact Info) Description 06/16/2007 11:35 AM SHREDDED FILLER CUTTER OPERATOR - 06/16/2007 11:59 PM SHREDDED FILLER CUTTER OPERATOR Hospital [facility] Social History Tobacco Use Types Packs/Day Years Used Date Smoking Tobacco: Never Assessed Comments Unknown Sex and Gender Information Value Date Recorded Sex Assigned at Not on file Legal Sex Female 1:15 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
--- OUTSIDE RECORDS SUMMARY | 2024-05-13 02:56 | XMS_ITS | Encounter Summary ---
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
--- OUTSIDE RECORDS SUMMARY | 2024-05-13 02:56 | XMS_ITS | Encounter Summary ---
Author Organization [facility] Healthcare Address [address] [place] [address] Care Team Providers Care Sales Correspondence Clerk Name Role Phone Unavailable Primary Care Provider Unavailabl e Encounter Details Date Type Department Care Team (Late st Contact Info) Description 01/22/2014 4:37 PM CDT - 01/22/2014 11:59 PM CDT Hospital Encounter [facility] Jane Garcia MD [address] [place] [id number] Screening examination for sexually transmitted disease Social History Tobacco Use Types Packs/Day Years Used Date Smoking Tobacco: Never Assessed Comments Unknown Sex and Gender Information Value Date Recorded Sex Assigned at Not on file Legal Sex Female 1:15 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 Gender Identity Not on file Sexual Orientation Not on file documented as of this encounter Plan of Treatment Not on file documented as of this encounter Procedures Procedure Name Priority Date/Time Associated Diagnosis Comments DISCHARGE CUMULATIVE SUMMARY ADDENDUM Routine 01/28/2014 12:34 AM CDT URINE CHORIONIC GONADOTROPIN (HCG) Routine 01/22/2014 3:30 PM CDT URINE CHLAMYDIA, GONORRHEA DNA Routine 01/22/2014 10:30 AM CDT DISCHARGE LABORATORY CUMULATIVE REPORT Routine 01/22/2014 12:00 AM CDT documented in this encounter Results * Discharge Cumulative Summary Addendum (01/28/2014 12:34 AM CDT) 01/28/2014 12:3 4 AM CDT Narrative HISTORICAL RESULTS - 01/28/2014 12:34 AM CDT Patient No: [id number] ? [facility] Patient Name: STORMY LAZCANO ?[facility] Age: 18 YRS ?: 1995 ?Sex:F ?[address] )[phone] ?? Adm Dt: 01/22/2014 ?[place], [place] ??[address] Created: 01/28/2014 ??0034 ?? Pt. Type: R ? Discharge Dt: 01/22/2014 ? Pathologists: Neelam Tello MD Admit Attend Dr: JANE TONEY MD ?MICROBIAL SEROLOGY ?Collection Date: ?01/22/14 ?Collection Time: ?1530 ? Ref Range: ?? Units: ?URINE CHLAM+GC @ ?SEE REPT f Footnotes and Symbols: f = Footnote @ = URINE CHLAM+GC Performed at ??[facility] ?? [place], [place] URINE CHLAM+GC (09/24/13 -- Current) TEST SENT TO [facility] ?? END OF CHART ? Page: ?? 1 us Historical Provider LAB MICROBIOLOGY - GENERA L ORDERABLES Final Result Performing Organization Address [facility] de Phone Number HISTORICAL RESULTS * Urine chorionic gonadotropin (HCG) (01/22/2014 3:30 PM CDT) HCG, ur Negative NEGATIVE HISTORICAL RESULTS Urine 01/22/2014 3:30 PM CDT us Jane Toney MD LAB BLOOD ORDERABLES Final Result Performing Organization Address [facility] de Phone Number HISTORICAL RESULTS * Urine Chlamydia, Gonorrhea DNA (01/22/2014 10:30 AM CDT) Chlamydia DNA, ur See Report HISTORICAL RESULTS Urine 01/22/2014 10:3 0 AM CDT Narrative HISTORICAL RESULTS - 01/27/2014 5:23 AM CDT TEST SENT TO [facility] us Jane Toney MD LAB BLOOD ORDERABLES Final Result HISTORICAL RESULTS * Discharge Laboratory Cumulative Report (01/22/2014 12:00 AM CDT) 01/22/2014 Narrative HISTORICAL RESULTS - 01/24/2014 3:00 AM CDT Patient No: [id number] ? [facility] Patient Name: STORMY LAZCANO ?[facility] Healthcare Age: 18 YRS ?: 1995 ?Sex:F ?[address] )[phone] ?? Adm Dt: 01/22/2014 ?[place], [place] ??[address] Created: 01/24/2014 ??0300 ?? Pt. Type: R ? Discharge Dt: 01/22/2014 ? Pathologists: Neelam Tello MD Admit DrJd Attend Dr: JANE TONEY MD ? [facility] ?Collection Date: ?01/22/14 ?Collection Time: ?1530 ? Ref Range: ?? Units: [NEGATIVE] ?U ? NEGATIVE ?? END OF CHART ? Page: ?? 1 us Historical Provider MD LAB BLOOD ORDERABLES Janett l Result HISTORICAL RESULTS documented in this encounter Visit Diagnoses Diagnosis Screening examination for sexually transmitted disease documented in this encounter
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
== END 2024-05-06 03:53 | disposition home or self-care (01) ==
PROVIDERS: Emergency Provider Physician Assistant; PCP Family Medicine
DX: O21.0 Mild hyperemesis gravidarum (principal); Z3A.12 12 weeks gestation of pregnancy; R82.998 Other abnormal findings in urine
CPT/HCPCS: 36415; 80053; 81001; 83690; 85025; 87086; 96361; 96374; 99284; A9270; J2765; J7120

== ENCOUNTER 2024-05-22 20:21 | Emergency (ER) | payer OTHER, SELFPAY ==
--- NOTE | ~2024-05-22 | CT_ITS ---
EXAMINATION: CT brain wo con DATE: 05/23/2024 03:08 INDICATION: Headache TECHNIQUE: Computed tomography (CT) of the head was performed without intravenous contrast. The mA wa s adjusted according to patient size. Iterative reconstruction technique was employed. Exam dose: 60 5.33 mGy-cm total exam DLP. COMPARISON: None FINDINGS: No intracranial mass lesion or hemorrhage or cerebrovascular accident. No midline shift or mass effect. Normal ventricular size. Normal grant-white matter differentiation. No subdural or epidur al hematoma. The included paranasal sinuses or cells are normally developed and aerated. No skull fracture or bone destruction. IMPRESSION: Normal examination Reviewed, dictated and finalized at [facility]. Reviewed, dictated and finalized at location [facility]. TIONS HANDLER IMPRESSION: Normal examination
[2024-05-22 20:44] VITALS: BP 116/72; PULSE 115; RESP 16; TEMP 36.7; O2SAT 99
[2024-05-22 23:53] VITALS: BP 96/51; PULSE 85; RESP 16; O2SAT 98
--- NOTE | 2024-05-23 02:53 | ED.GENADULT ---
HPI - General Adult General Chief complaint: Headache Stated complaint: headache/SOB Time Seen by Provider: 05/23/24 02:42 History of Present Illness HPI narrative: 28-year-old female present to the emergency department for evaluation for headache. Patient states that approximately 4:00 p.m. she was in line to check out at [facility] when she had onset of a visual aura. Patient states she then had some on set right arm weakness. Patient states the symptoms last about 10 minutes and then approximately 20 minutes after the onset of the visual symptoms patient had onset of a migraine headache. Patient states he no longer has any visual changes no longer has any right-sided weakness. Patient does still complain of headache. Patient did take some Tylenol at home. Patient is 14 weeks does follow-up with Dr. Smith Related Data Home Medications ?Medication ?Instructions ?Recorded ?Confirmed ?Last Taken ?Type vit no.133-ferrous 1 tablet PO DAILY 09/29/21 10/30/21 10/28/21 History fumarate 28 mg-folic acid 800 mcg tablet () Allergies Allergy/AdvReac Type Severity Reaction Status Date / Time levofloxacin (From Levaquin) Allergy Mild Rash Verified 05/05/24 22:13 latex Allergy Blister Verified 05/05/24 22:13 Review of Systems Review of Systems: All systems reviewed & are unremarkable except as noted in HPI and below PMFSH Past Medical History Medical History Cholestasis during Family History Family History Grandparent Hypertension Cerebrovascular accident Bipolar 1 disorder Depression Father Hypertension Bipolar 1 disorder Depression Sibling Hypothyroidism Depression Social History Social History Smoking status: Current every day smoker Tobacco type: e-cigarettes/vaping Substance use: never Spiritual care concerns: No Exam Narrative: APPEARANCE: Well appearing, no pain, no distress, well-nourished. HEAD: normocephalic, atraumatic. EYES: PERRLA/EOMI, conjunctivae clear. NOSE: Normal no drainage EARS:TMS clear with good light reflex. THROAT: Pharynx clear, no exudate. NECK: Supple. No adenopathy, no masses. RESPIRATORY: Airway patent, respirations nonlabored. Clear to auscultation bilaterally, no rales, rhonchi, wheezing. CARDIOVASCULAR: Regular rate and rhythm without murmurs rubs or gallops. ABDOMINAL: Soft, nontender, nondistended, normal bowel sounds MUSCULOSKELETAL: Moves all extremities. Strength/ROM intact, No edema, No calf tenderness. NEURO: Alert. Cranial nerves II through XII intact. Good gait. Good coordination SKIN: Warm, dry. Normal Color Course Vital Signs Vital signs: Vital Signs Temperature 98.0 F 05/22/24 20:44 Pulse Rate 115 H 05/22/24 20:44 Respiratory Rate 16 05/22/24 20:44 Blood Pressure 116/72 05/22/24 20:44 Pulse Oximetry 99 05/22/24 20:44 Oxygen Delivery Room Air 05/22/24 20:44 Temperature 98.0 F 05/22/24 20:44 Pulse Rate 95 05/23/24 04:22 Respiratory Rate 15 05/23/24 04:22 Blood Pressure 111/66 05/23/24 04:22 Pulse Oximetry 98 05/23/24 04:22 Oxygen Delivery Room Air 05/22/24 20:44 Medical Decision Making MDM Narrative Medical decision making narrative: 28-year-old female presenting to the emergency department for evaluation for headache. Patient is 14 weeks denies any abdominal pain denies any pain with urination denies any vaginal bleeding or vaginal discharge. Patient was complaining of a headache that was approximately a 9/10 earlier. After treatment patient states her headache is better than 4/5. Head CT was negative for acute intracranial abnormality. Patient was negative for influenza RSV and for COVID patient's UA showed no evidence underlying urinary tract infection. Patient's symptoms of or followed by headache are consistent with a complex migraine. Patient denies any current neuro symptoms. Patient reports her headache is improved with treatment. Patient was encouraged of close follow-up with OB Gyne. Patient was also encouraged close follow-up with her primary care physician for potential migraine treatment. Patient was also encouraged to keep a migraine diary to document potential associations with her migraines. All questions concerns were addressed and patient was comfortable the plan for discharge and close follow-up. Differential Diagnosis Differential Diagnosis: Seizure, TIA, migraine, headache, complex migraine Medical Records Medical records reviewed: Yes I reviewed the external patient's medical records. Vital Signs Vital Signs: Vital Signs Temperature 98.0 F 05/22/24 20:44 Pulse Rate 115 H 05/22/24 20:44 Respiratory Rate 16 05/22/24 20:44 Blood Pressure 116/72 05/22/24 20:44 Pulse Oximetry 99 05/22/24 20:44 Oxygen Delivery Room Air 05/22/24 20:44 Temperature 98.0 F 05/22/24 20:44 Pulse Rate 95 05/23/24 04:22 Respiratory Rate 15 05/23/24 04:22 Blood Pressure 111/66 05/23/24 04:22 Pulse Oximetry 98 05/23/24 04:22 Oxygen Delivery Room Air 05/22/24 20:44 Lab Data Lab results reviewed: Yes I reviewed the patient's lab results. Labs: Lab Results 05/23/24 05/23/24 Range/Units 03:01 03:24 Urine Color Yellow (Yellow) Urine Appearance Clear (Clear) Urine pH 6.5 (5.0-9.0) Ur Specific [place] 1.029 (1.001-1.035) Urine Protein Trace (Negative) mg/dL Urine Glucose (UA) Negative (Negative) mg/dL Urine Ketones 3+ H (Negative) mg/dL Ur Blood (Man) Negative (Negative) Urine Nitrate Negative (Negative) Urine Bilirubin Negative (Negative) Urine Urobilinogen 1.0 (<2.0) mg/dL Leukocyte Esterase Rfl Negative (Negative) KWAKU/UL Urine RBC 0-2 (0-2) /hpf Urine WBC 0-5 (0-3) /hpf Ur Squamous Epith Cells Moderate (Few) /hpf Urine Bacteria None seen /hpf Urine Casts 0-2 Influenza A (RT-PCR) Negative (Negative) Influenza B (RT-PCR) Negative (Negative) RSV (RT-PCR) Negative (Negative) SARS-CoV-2 RNA (RT-PCR) Negative (Negative) Imaging Data Radiologist's impression: Overnight read CT head impression: Brain: No acute hemorrhage, hydrocephalus or mass effect. Bones: Unremarkable. Paranasal sinuses: No air-fluid levels. Mastoids: Clear. Discharge Plan Discharge Clinical Impression: Migraine Patient Disposition: Home, Self-Care Condition: Stable Instructions: Antibiotic Form, Migraine Headache (ED) Additional Instructions: Drink plenty of fluids, Tylenol as needed for headache. Have close follow-up with primary care physician regarding or migraine. Have close follow-up with OB Gyne. If you have any worsening symptoms then please call or return to the emergency department. Patient Language: Tamazight Prescriptions: No Action 28-800 mg-mcg Tablet 1 tablet PO DAILY cephalexin 500 mg capsule 500 mg PO Q6H Qty: 28 0RF doxylamine-pyridoxine (vit B6) 10-10 mg tablet,delayed release (DR/EC) 1 tablet PO BID Qty: 30 0RF metoclopramide HCl 10 mg tablet 10 mg PO Q6H PRN (Reason: nausea and vomiting) Qty: 14 0RF Follow-up/Referrals: Kiesha,Terrance Palma MD [Primary Care Provider] -
[2024-05-23] MEDS: ONDANSETRON INJ 4 MG/2 ML VIAL IV PUSH (03:17)
[2024-05-23] MEDS: SODIUM CHLORIDE 0.9% IV 1,000 ML 999 ML IV CONT (03:17)
[2024-05-23 03:46] LABS: Add Urine Microscopic? YES; Appearance Urine Clear (Clear); Bacteria Urine None Seen /hpf; Bilirubin Urine Negative (Negative); Blood Urine Negative (Negative); Color Urine Yellow (Yellow); Glucose Urine UA Negative (Negative); Ketones Urine 3+ mg/dL (Negative); Leukocyte Esterase Ur Negative LEU/UL (Negative); Nitrate Urine Negative (Negative); Non Pathogenic Casts 0-2; Protein Urine Trace mg/dL (Negative); RBC Urine 0-2 /hpf (0-2); Specific Grav Ur 1.029 (1.001-1.035); Squamous Epithelial Cell Urine Moderate /hpf (Few); WBC Urine 0-5 /hpf (0-3); pH Urine 6.5 (5.0-9.0)
[2024-05-23 03:57] LABS: Influenza A QL RT-PCR Negative (Negative); Influenza B QL RT-PCR Negative (Negative); RSV RNA, RT-PCR Negative (Negative); SARS-CoV-2 RNA PCR Negative (Negative)
[2024-05-23] MEDS: ACETAMINOPHEN 500 MG TABLET 1000 MG PO (04:19)
[2024-05-23 04:22] VITALS: BP 111/66; PULSE 95; RESP 15; O2SAT 98
== END 2024-05-23 05:35 | disposition home or self-care (01) ==
PROVIDERS: Emergency Provider Emergency Medicine; PCP Family Medicine
DX: O99.352 Diseases of the nervous system complicating pregnancy, second trimester (principal); G43.909 Migraine, unspecified, not intractable, without status migrainosus; Z20.822 Contact with and (suspected) exposure to COVID-19; O99.332 Smoking (tobacco) complicating pregnancy, second trimester; F17.290 Nicotine dependence, other tobacco product, uncomplicated; Z3A.14 14 weeks gestation of pregnancy
CPT/HCPCS: 70450; 81001; 87637; 96361; 96374; 99284; A9270; J2405; J7030

== ENCOUNTER 2024-09-24 13:53 | Emergency (ER) | payer OTHER, SELFPAY ==
--- OUTSIDE RECORDS SUMMARY | 2024-09-24 13:57 | XMS_ITS | Clinical Summary ---
Author Organization [facility] Address [address] [place] [phone] Phone Care Team Providers Care Shipping And Receiving Weigher Name Role Phone Terrance Pop MD Primary Care Provider [phone] Allergies Active Allergy Reactions Criticality Noted Date [...] on file Legal Sex Female 8:50 AM HARNESS PREPARER Gender Identity Not on file Sexual Orientation Not on file Last Filed Vital Signs Vital Sign Reading Time Taken Comments Blood Pressure 106/70 05/02/2023 12:53 PM HARNESS PREPARER Pulse 97 05/02/2023 12:53 PM HARNESS PREPARER Temperature 37 C (98.6 F) 05/02/2023 12:53 PM HARNESS PREPARER Respiratory Rate 15 05/02/2023 12:53 PM HARNESS PREPARER Oxygen Saturation 99% 05/02/2023 12:53 PM HARNESS PREPARER Inhaled Oxygen Concentration - - Weight - [...] patient's age to complete this topic Insurance [facility] MEDICAID [place] Care Teams Shipping And Receiving Weigher Relationship Specialty Start Date End Date Terrance Pop MD [facility] [place] [address] PCP - General Family Medicine 03/29/21
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
--- OUTSIDE RECORDS SUMMARY | 2024-09-24 13:57 | XMS_ITS | Referral Summary ---
Author Organization [facility] Address [address] [place] [address] Care Team Providers Care [employer] Name Role Phone ShaikhAngelina PT Unavailable Unavailable Terrance Pop MD Primary Care Provider [phone] Ruth Boswell SPRINKLER IRRIGATION EQUIPMENT MECHANIC Unavailable [phone] Allergies Active Allergy Reactions Criticality Noted Date [...] 0 10/24/2017 Overview (08/23/2016): Seasonal allergies Immunizations Immunization Administration Dates Next Due DTaP 12/10/2002, 0,05/30/1998,03/28/1998, [...] and Family Not on file 06/15/2020 Attends Bahai Services Not on file 06/15 Active Member [...] on file 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 Gender Identity Not on file Sexual Orientation Not on file Occupation Industry Job Start Date Job End Date Not on file Not on file Not on file Not on file Last Filed Vital Signs Vital Sign Reading Time Taken Comments Blood Pressure 88/64 02/28/2024 12:35 PM CDT Pulse 93 02/28/2024 12:35 PM CDT Temperature 36.8 C (98.2 F) 02/28/2024 12:35 PM CDT Respiratory Rate 17 02/28/2024 12:35 PM CDT Oxygen Saturation 98% 02/28/2024 12:35 PM CDT Inhaled Oxygen Concentration - - Weight 47 kg (103 lb 9.6 oz) 02/28/2024 12:35 PM CDT Height 160 cm (5' 3 ) 02/28/2024 12:35 PM CDT Body Mass Index 18.35 02/28/2024 12:35 PM CDT Plan of Treatment Not on file Insurance CIG[employer] IDPA [facility] Care Teams [employer] Relationship Specialty Start Date End Date Terrance Pop MD PCP - General Family Medicine 06/15/20 Angelina Shaikh, PT Physical Therapist Physical Therapy 01/27/18 Ruth Boswell SPRINKLER IRRIGATION EQUIPMENT MECHANIC [address] [place] [address] [place] [address] Nurse Practitioner Nurse Practitioner 06/15/20
--- OUTSIDE RECORDS SUMMARY | 2024-09-24 13:57 | XMS_ITS | Clinical Summary ---
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 Gender Identity Not on file Sexual [...] Screening 06/15/2021 06/15/2020, 08/19/2017, 08/19/2017 Influenza Vaccine (Season Ended) 2025 DTaP/Tdap/Td Vaccine (8 - Td or Tdap) 10/21/2027 10/20/2017, 12/19/2011, 12/10/2002, Additional history exists Hepatitis B Screening Completed 05/30/1998 , 1997, 1997 Varicella Vaccines Completed 12/19/2011, 12/01/1998 Pneumococcal vaccine <65 Aged Out No longer eligible based on patient's age to complete this topic Insurance CIG IDRI [facility] Care Teams Telephone Plant Power Operator Relationship Specialty Start Date End Date Terrance Pop MD PCP - General Family Medicine 06/15/20 Angelina Shaikh, PT Physical Therapist Physical Therapy 01/27/18 Ruth Boswell, MEDICAL STAFF SPECIALIST [address] [place] [address] [address] Nurse Practitioner Nurse Practitioner 06/15/20
--- OUTSIDE RECORDS SUMMARY | 2024-09-24 13:58 | XMS_ITS | Data Portability ---
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 VE negati ve Not Available [facility] ([facility]) [address] [facility], [place], [address], 10/25/2016 07:15:35 02/12/20 18 02/14/2018 bacte rial vagin osis + vagin itis panel , vagin al atopobium vaginae Low - 0 score Not Available [facility] ([facility]) [address] [place], [address], 02/15/2018 07:15:25 02/12/20 18 02/14/2018 bacte rial vagin osis + vagin itis panel , vagin al bvab 2 Low - 0 score Not Available [facility] ([facility]) [address] [place], [address], 02/15/2018 07:15:25 02/12/20 18 02/14/2018 bacte rial vagin osis + vagin itis panel , vagin al megasphaera 1 Low - 0 score Calcu late total score by addin g the 3 indiv idual bacte rial vagin osis (BV) marke r score s toget her. Total score is inter prete d as follo ws: Total score 0-1: Indic ates the absen ce of BV. Total score 2: Indet ermin ate for BV. Addit ional clini bear data shoul d be evalu ated to estab dixon a diagn osis. Total score 3-6: Indic ates the prese nce of BV. This test was devel oped and its perfo rmanc e liliam cteri stics deter mined by [employer]. It has not been clear ed or appro dom by the Food and Drug Admin istra tion. The FDA has deter mined that such clear ance or appro gabriella is not neces arash. Not Available [facility] ([facility]) [address] [place], [address], 02/15/2018 07:15:25 02/12/20 18 02/14/2018 bacte rial vagin osis + vagin itis panel , vagin al audi albicans, ESTER Negati ve negati ve Not Available [facility] ([facility]) [address] [place], [address], 02/15/2018 07:15:25 02/12/20 18 02/14/2018 bacte rial vagin osis + vagin itis panel , vagin al audi glabrata, ESTER Negati ve negati ve This test was devel oped and its perfo rmanc e liliam cteri stics deter mined by [employer]. It has not been clear ed or appro dom by the Food and Drug Admin istra tion. The FDA has deter mined that such clear ance or appro gabriella is not neces arash. Not Available [facility] ([facility]) [address] [place], [address], 02/15/2018 07:15:25 02/12/20 18 02/14/2018 bacte rial vagin osis + vagin itis panel , vagin al trich vag by ESTER Negati ve negati ve Not Available [facility] ([facility]) [address] [facility], [place], [address], 02/15/2018 07:15:25 02/12/20 18 02/14/2018 bacte rial vagin osis + vagin itis panel , vagin al chlamydia trachomatis, ESTER Negati ve negati ve Not Available [facility] ([facility]) [address] [facility], [place], [address], 02/15/2018 07:15:25 02/12/20 18 02/14/2018 bacte rial vagin osis + vagin itis panel , vagin al neisseria gonorrhoeae, ESTER Negati ve negati ve Not Available [facility] ([facility]) [address] [facility], [place], [address], 02/15/2018 07:15:25 03/13/20 19 03/16/2019 pap, IG + CT/NG /TV + refle x HR HPV chlamydia, nuc. acid amp Negati ve negati ve Not Available [facility] ([facility]) [address] [place], [address], 03/18/2019 07:13:20 03/13/20 19 03/16/2019 pap, IG + CT/NG /TV + refle x HR HPV gonococcus, nuc. acid amp Negati ve negati ve Not Available [facility] ([facility]) [address] [place], [address], 03/18/2019 07:13:20 03/13/20 19 03/16/2019 pap, IG + CT/NG /TV + refle x HR HPV trich vag by ESTER Negati ve negati ve Not Available [facility] ([facility]) [address] [place], [address], 03/18/2019 07:13:20 03/13/20 19 03/17/2019 pap, IG + CT/NG /TV + refle x HR HPV diagnosis: Commen t NEGAT JENNI FOR INTRA EPITH ELIAL LESIO N OR CECELIA PARKER . Not Available [facility] ([facility]) [address] [facility], [place], [address], 03/18/2019 07:13:20 03/13/20 19 03/17/2019 pap, IG + CT/NG /TV + refle x HR HPV specimen adequacy: Commrashel t Satis facto ry for evalu ation . Endoc ervic al and/o r squam ous metap lasti c cells (endo cervi bear compo nent) are prese nt. Not Available [facility] ([facility]) [address] [facility], [place], [address], 03/18/2019 07:13:20 03/13/20 19 03/17/2019 pap, IG + CT/NG /TV + refle x HR HPV clinician provided ICD10: Ana hoang Z01.4 19 Not Available [facility] ([facility]) [address] [facility], [place], [address], 03/18/2019 07:13:20 03/13/20 19 03/17/2019 pap, IG + CT/NG /TV + refle x HR HPV performed by: Ana vargas, Thomas hoang (ASCP ) Not Available [facility] ([facility]) [address] [facility], [place], [address], 03/18/2019 07:13:20 03/13/20 19 03/17/2019 pap, IG + CT/NG /TV + refle x HR HPV . . Not Available [facility] ([facility]) [address] [place], [address], 03/18/2019 07:13:20 03/13/20 19 03/17/2019 pap, IG + CT/NG /TV + refle x HR HPV note: Ana t The Pap smear is a scree saran test desjose manuel swati to aid in the detec tion of elian ligna nt and malig nant condi tions of the uteri ne cervi x. It is not a diagn ostic proce dure and shoul d not be used as the sole means of detec ting cervi bear cance r. Both false -posi tive and false -nega tive repor ts do occur . Not Available [facility] ([facility]) [address] [facility], [place], [address], 03/18/2019 07:13:20 03/13/2003/17/2019 pap, IG + CT/NG /TV + refle x HR HPV test methodology: Commen t This liqui d based ThinP rep(R ) pap test was jenni longoria with the use of an image guide josep sexton. Not Available [facility] ([facility]) [address] [facility], [place], [address], 03/18/2019 07:13:20 03/13/2003/17/2019 pap, IG + CT/NG /TV + refle x HR HPV . Commen t The HPV DNA refle x crite ángel were not met with this speci men resul t there fore, no HPV testi ng was perfo rmed. Not Available [facility] ([facility]) [address] [place], [address], 03/18/2019 07:13:20 04/06/20 20 04/05/2020 CT, abdom en + pelvi s, w/o contr ast No observ ation record ed. BARCODE Not Available 2019 12:46:35 Result Notes None recorded. Problems Name Problem SNOMED Code Status Onset Date Resolution Date Notes Provider Name and Address Organization Details Recorded Time Menorrhagia 865797951 Active Ava Alfonso null, [place] - [facility] 6 15:54:52 Bacterial vaginosis 479029096 Active Leelee Botello [place], [place] - [facility] 6 11:31:16 Vaginal discharge 762525807 Active white Ava Alfon[place] - [facility] 6 15:54:52 Pruritus of vagina 39056576 Active Leelee Kitchen MA null, [place] - [facility] 6 15:13:07 Breast lump 40047819 Active 2016 Ava Alfonso chandni, [place] - [facility] 7 14:03:18 Problem Notes None recorded. Procedures Surgical History Date Name Laterality Status Provider Name and Address Organization Details Recorded Time 6 Control Implant Removal completed Sheilajovanna Moncada [facility] Attn: Accounting,[address], [place], [address], [facility] - [facility] 07/25/2015 15:33:38 5 Control Implant Replacement completed Sheila Moncada [facility] Attn: Accounting,[address], [place], [address], [facility] - [place] 09/15/2014 16:41:35 Imaging Results Imaging Date Name [...] Not Available Not Available prochlorper azine maleate mg tablet 03/10 completed Not Available Not [...] tablet TAKE ONE TABLET BY MOUTH 10 CONSECU DAYS MONTHLY active Not Available Not Available [...] Not Available No t Available Renata Fe 1.530 (28) 1.5 mg-30 mcg (21)/75 mg (7) tablet Take 1 tablet every day by oral route. 10/22 completed Not Available Not Available Not Available Vitals Date Recorded Body height Body mass index (BMI) Body weight Systolic blood pressure Diastolic blood pressure Provider Name and Address Organization Details Last Updated DateTime 02/11/2018 157.48 cm 22.6 kg/m2 69040.05 g 110 mm[Hg] 70 mm[Hg] Ramona Yanes MA [facility] 8 11:01:25 Date Recorded Body height Provider Name an d Address Organization Details Last Updated DateTime 03/13/2019 157.48 cm Ava Alfonso [facility] 03/13/2019 11:13:45 Date Recorded Body mass index (BMI) Body weight Systolic blood pressure Diastolic blood pressure Provider Name and Address Organization Details Last Updated DateTime 03/13/2019 20.1 kg/m2 44562.16 g 108 mm[Hg] 64 mm[Hg] Ramona Yanes MA [facility] 03/13/2019 11:21:19 Date Recorded Body height Body mass index (BMI) Body weight Systolic blood pressure Diastolic blood pressure Provider Name and Address Organization Details Last Updated DateTime 03/10/2020 157.48 cm 20.2 kg/m2 55189.21 g 120 mm[Hg] 72 mm[Hg] Beatrice Agostoannette López [facility] 0 10:13:20 Date Recorded Body height Body mass index (BMI) Body weight Systolic blood pressure Diastolic blood pressure Provider Name and Address Organization Details Last Updated DateTime 10/22/2016 157.48 cm 25.4 kg/m2 88601.34 g 106 mm[Hg] 68 mm[Hg] Leelee Kitchen MA [facility] 7 10:36:31 Date Recorded Body height Body mass index (BMI) Body weight Systolic blood pressure Diastolic blood pressure Provider Name and Address Organization Details Last Updated DateTime 02/05/2017 157.48 cm 25.5 kg/m2 80868.14 g 118 mm[Hg] 70 mm[Hg] Alejandra Olivo MA [facility] 7 14:12:52 Social History Question Answer Notes LastModified by Organizat ion Details LastModified Time Tobacco Smoking Status Never Smoker Jasmin tariq [facility] 06/07/2014 12:55:46 Live Alone Or With Others? With Others Information not available 06/07/2014 What Was The Date Of Your Most Recent Tobacco Screening? 03/10/2020 [email or web address] Information not available 03/10/2020 How Many Children Do You Have? 0 Information not available 06/07/2014 How Much Tobacco Do You Smoke? No Information not available 03/10/2020 Sex: Unknown Functional Status Question Answer Note LastModified by Organizat ion Details LastModified Time What is your level of alcohol consumption? None Information not available 06/07/2014 Do you or have you ever used smokeless tobacco? Never used smokeless tobacco Information not available 03/10/2020 Are you currently employed? Yes [email or web address] Information not available 03/10/2020 Do you or have you ever used e-cigarettes or vape? Never used electronic cigarettes [email or web address] Information not available 03/10/2020 Mental Status None recorded. Family History Relationship Description Onset Age of this Age Resolved Age Notes LastModified by Organization Details LastModified Time Father Hypertensive disorder [email or web address] Not available 2015 15:48:48 Notes:Multiple familiy membe rs with cervical cancer, and endometriosis Medical History Condition Response Coronary Artery Disease N Kidney Cyst N Blood Diseases N Hyperthyroidism N Blood disorders N Blood Transfusion N MRSA N Emphysema N Depression N COPD N Blood Clots N Pneumonia N Premature N Peripheral Arterial Disease N Edema N TIA N Headaches/Migraines N Anxiety Disorder N Obesity N Polyps N Infertility N Acid Reflux (GERD) N Hematuria N Stroke N Neck Injury N Polio N Hospital Admission other than N Neurologic Disorder N Other Sleep Disorders N Rheumatoid Arthritis N Fibromyalgia N Abdominal Aortic Aneurysm Repair N Kidney Disease N Heart Conditions N Heart Disease/Heart Problems N Hospitalizations N Brain Tumors N Acne N Skin Problems N Eating Disorder N Meningitis N Constipation N Tuberculosis N Cerebral Palsy N Myocardial Infarction N Asthma N Substance Abuse N Peripheral Vascular Disease N Vertigo N Sleep Disorder N Cirrhosis N Pulmonary Embolism N Chicken Pox N Hematologic Disease N Flomax Use Past or Present N Anxiety/Depression N Thyroid Disease N Colon Cancer N Lung Disease N Glaucoma N Developmental or Behavioral Disorders N Bipolar N Pacemaker N Diverticulitis/Diverticulosis N Orthopedic Problems N Anesthesia Complications N Orthotics N Head Injury/Concussion N Congenital Anomalies N Smith Bite N Chronic Kidney Disease N Endometriosis N Liver Disease N Schizophrenia N Dialysis N Speech Delay N Chronic Obstructive Pulmonary Disease N Parkinson's Disease N Thyroid Problems N GI Problems N Developmental Delay N Anemia N Multiple Sclerosis N Immune System Disorder N Colon Polyps N Heart Attack (CT) N Diabetes N Cardiomyopathy N Blood Transfusions N Heart Problems/Murmur N Eye Trauma N Congestive Heart Failure (CHF) N Valvular Heart Disease N Hyperlipidemia N Double Vision N Abuse/Domestic Violence N Hepatitis B N Lupus N Epilepsy/Seizures N Reflux/GERD N Aneurysm N Heart Disease N Bronchitis N Pre-Eclampsia N Hypertension N Heart Failure N Other N Gout [...] N Kidney Failure N Ocular trauma N Diverticulitis N Dementia N Sleep Apnea N Mental Problems N [...] SNOMED-CT Code Diagnosis ICD10 Code Diagnosis Note [id number] ESTIVEN [place] ([facility] 122) 2 [facility] [address] [place] [address] 09/15/2014 15:55:37 09/16/2014 09:19:37 Subcutaneous contraceptive implant present [id number] Bacterial vaginosis [id number] JOHN [place]BC
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
[2024-09-24 14:01] VITALS: BP 110/68; PULSE 117; RESP 16; TEMP 36.6; O2SAT 100
--- NOTE | 2024-09-24 14:24 | ED.EAR ---
HPI - Ear Problem General Chief complaint: Ear Stated complaint: left ear pain Time Seen by Provider: 09/24/24 14:20 Source: patient and RN notes reviewed Mode of arrival: ambulatory Limitations: no limitations History of Present Illness HPI Narrative: 28-year-old female presents [facility] complaining of left ear problem. Patient states over the last today she feels like there is some general left ear. She reports that her ear feels itchy and says she can feel like there is a “bump” in her left ear. She has been using Q-tips to try to remove it. Patient denies any pain, fevers, upper respiratory symptoms, or any other complaints. Patient is 32 weeks . . Patient does follow Cardiology during her due to tachycardia. Patient denies any preeclampsia history per reports having gallstones in the past during . Patient has no complaints. Patient states she can feel baby moving in her abdomen. Related Data Home Medications Medication Instructions Recorded Confirmed Last Taken Type vit no.133-ferrous 1 tablet PO DAILY 09/29/21 10/30/21 10/28/21 History fumarate 28 mg-folic acid 800 mcg tablet () oehcppuelv-xloimvzieczcw-ogkjdbsk cap 09/24/24 Unknown History 50 mg-300 mg-40 mg capsule iron supplement 09/24/24 Unknown History ursodol 09/24/24 Unknown History Allergies Allergy/AdvReac Type Severity Reaction Status Date / Time levofloxacin (From Levaquin) Allergy Mild Rash Verified 05/05/24 22:13 latex Allergy Blister Verified 05/05/24 22:13 Review of Systems Review of Systems: CONSTITUTIONAL: Denies fever, chills, body aches. Or sweats. EYES: Denies visual changes, redness, or discharge. ENT: Denies rhinorrhea, congestion, sore throat, or otalgia. Positive for ear itching foreign body sensation. CARDIOVASCULAR: Denies chest pain, palpitations, or edema. RESPIRATORY: Denies cough or dyspnea. GASTROINTESTINAL: Denies abdominal pain, nausea, vomiting, or diarrhea. GENITOURINARY: Denies vaginal bleeding, decreased movement, dysuria or hematuria. SKIN: Denies rash or itching. MUSCULOSKELETAL: Denies back pain, joint pain, or myalgia. NEUROLOGIC: Denies headache, numbness, or weakness. PSYCHIATRIC: Denies anxiety or depression. All other systems reviewed are negative, except as documented in HPI. [facility] Past Medical History Medical History Cholestasis during Family History Family History Grandparent Hypertension Cerebrovascular accident Bipolar 1 disorder Depression Father Hypertension Bipolar 1 disorder Depression Sibling Hypothyroidism Depression Social History Social History Smoking status: Current every day smoker Tobacco type: e-cigarettes/vaping Substance use: never Spiritual care concerns: No Comments At the time of my signature, I reviewed and agree with the nursing past medical, surgical, social, and family history. There is no relevant family history pertinent to the patient complaint. Exam Narrative: GENERAL: This is a well-nourished, well-developed adult, in no apparent distress. They are non ill-appearing, nontoxic appearing. Patient is . HEAD: normocephalic, atraumatic. EYES: Sclera clear/white. Conjunctiva normal. Vision is grossly intact. Extraocular movements intact EARS: External ears normal, right auditory canal clear and without drainage, left auditory canal with dry cerumen with infection. TMs normal without perforation. Hearing grossly intact. NOSE: External nose normal with no obvious nasal discharge, nasal turbinates without redness, no rhinorrhea. THROAT: Mucous membranes moist, posterior pharynx clear, without erythema or swelling. Uvula midline. NECK: Neck supple, non-tender without lymphadenopathy, masses or thyromegaly. CARDIOVASCULAR: Regular rate and rhythm without murmurs, gallops, or rubs. RESPIRATORY: Clear to auscultation. Breath sounds equal bilaterally. No wheezes, rales, or rhonchi. SKIN: warm, Dry, intact with no suspicious lesions or rash, good texture and turgor. NEURO: awake, alert, and oriented to person, place and time. There were no obvious focal neurologic abnormalities. EXTREMITIES: No joint tenderness, effusion, or edema noted. BACK: Nontender without deformity. Course Course Emergency Course: Portions of this record may have been created with voice recognition software Level of Care: Express Care Visit Vital Signs Vital signs: Vital Signs Temperature 97.9 F 09/24/24 14:01 Pulse Rate 117 H 09/24/24 14:01 Respiratory Rate 16 09/24/24 14:01 Blood Pressure 110/68 09/24/24 14:01 Pulse Oximetry 100 09/24/24 14:01 Oxygen Delivery Room Air 09/24/24 14:01 Temperature 97.9 F 09/24/24 14:01 Pulse Rate 117 H 09/24/24 14:01 Respiratory Rate 16 09/24/24 14:01 Blood Pressure 110/68 09/24/24 14:01 Pulse Oximetry 100 09/24/24 14:01 Oxygen Delivery Room Air 09/24/24 14:01 Reviewed Procedures Ear Wax Removal Left Ear: Ear Wax Removal Date: 09/24/24 Ear Wax Removal Time: 14:29 Cerumenolytic Used: other (Water with small amount of hydrogen peroxide) Results: Re-examined: removal reattempted (Unsuccessful removal) TM Examination: TM(s) intact, normal appearance Ear Canal Exam: atraumatic Patient Tolerated Procedure: well Complications: no problems Technique: ear canal irrigated and ear canal curetted Additional Comments: Unsuccessful irrigation and curette attempt of removal of impacted cerumen to the left auditory canal. TM remains intact without injury. Patient tolerated procedure well. Medical Decision Making MDM Narrative Medical decision making narrative: Patient has mild impaction of cerumen into left auditory canal without evidence of infection to canal or eardrum. Earwax is not completely obstructing the left TM. Attempted irrigation and curette removal of impacted cerumen without success. Will prescribe patient carbamide peroxide to soften earwax. Discussed physical exam findings. Advised supportive measures and signs/symptoms to go to the ER. Pt is appropriate for outpt treatment and f/u. Differential Diagnosis Differential Diagnosis: Otitis media, otitis externa, impacted cerumen. Vital Signs Vital Signs: Vital Signs Temperature 97.9 F 09/24/24 14:01 Pulse Rate 117 H 09/24/24 14:01 Respiratory Rate 16 09/24/24 14:01 Blood Pressure 110/68 09/24/24 14:01 Pulse Oximetry 100 09/24/24 14:01 Oxygen Delivery Room Air 09/24/24 14:01 Temperature 97.9 F 09/24/24 14:01 Pulse Rate 117 H 09/24/24 14:01 Respiratory Rate 16 09/24/24 14:01 Blood Pressure 110/68 09/24/24 14:01 Pulse Oximetry 100 09/24/24 14:01 Oxygen Delivery Room Air 09/24/24 14:01 Critical Care Time Critical Care Time Critical Care Time: No Discharge Plan Discharge Clinical Impression: Cerumen impaction Qualifiers: Laterality: left Qualified Code(s): H61.22 - Impacted cerumen, left ear Patient Disposition: Home Condition: Stable Instructions: Carbamide Peroxide (Into the ear) Additional Instructions: Use Debrox as directed. Avoid using Q-tips in your ear.. I was unable to remove the earwax in your ear today. Please follow-up with PCP in 3-5 days. If you develop any ear pain, discharge, dizziness, hearing problems, fevers, or any other concerns please go to the ER return to [facility]. Patient Language: Georgian Prescriptions: New Debrox 6.5 % drops 10 drp LEFT EAR Q12H 4 Days Qty: 15 0RF No Action vyaznquvfo-guhrrtzadvtyq-miet 50-300-40 mg capsule iron supplement ursodol 28-800 mg-mcg Tablet 1 tablet PO DAILY doxylamine-pyridoxine (vit B6) 10-10 mg tablet,delayed release (DR/EC) 1 tablet PO BID Qty: 30 0RF Follow-up/Referrals: Kiesha,Terrance Palma MD [Primary Care Provider] - Time of Disposition: 14:47
[2024-09-24] MEDS: HYDROGEN PEROXIDE 3% SOLN(*SP) 473 ML BOTTLE 10 ML IRRIGATION (14:40)
== END 2024-09-24 14:54 | disposition home or self-care (01) ==
PROVIDERS: PCP Family Medicine
DX: O99.891 Other specified diseases and conditions complicating pregnancy (principal); Z3A.32 32 weeks gestation of pregnancy; H61.22 Impacted cerumen, left ear; O99.333 Smoking (tobacco) complicating pregnancy, third trimester; F17.290 Nicotine dependence, other tobacco product, uncomplicated
CPT/HCPCS: 69210; 99213; A9270; G0463

== ENCOUNTER 2024-10-05 14:27 | Outpatient (RCR) | payer OTHER, SELFPAY ==
[2024-10-05 15:22] VITALS: BP 114/74; PULSE 115
[2024-10-22 12:08] VITALS: BP 109/73; PULSE 116
== END 2024-10-31 06:59 | disposition home or self-care (01) ==
LOC: ANHOBOP 14:27
PROVIDERS: PCP Family Medicine; Visit Provider Obstetrics & Gynecology
DX: O26.643 Intrahepatic cholestasis of pregnancy, third trimester (principal); Z3A.33 33 weeks gestation of pregnancy; Z3A.35 35 weeks gestation of pregnancy
CPT/HCPCS: 59025

== ENCOUNTER 2024-10-08 23:31 | Observation (INO) | payer OTHER, SELFPAY ==
--- OUTSIDE RECORDS SUMMARY | 2024-10-09 01:06 | XMS_ITS | Clinical Summary ---
Author Organization [facility] [employer] Address [address] [place] [address] Care Team Providers Care Stone Polisher Name Role Phone Unavailable Primary Care Provider Unavailabl e Source Comments [facility] [employer],non-owned Affiliates and Associated Physician Practices is amultiple site organization consisting of ambulatory clinics and hospital sitesin [place], [place], [place] and [place]. This disclosure is being madepursuant to the Care Everywhere program and may not contain all information available regarding this patient. Last updated 18.[facility] [employer] Allergies Active Allergy Reactions Criticality Noted Date [...] Type Department Care Team Description 09/16/2024 Telephone [facility] [address] [place] [address] Savanah Sigala Appointment 09/16/2024 Telephone [facility] [address] [place] [address] Savanah Sigala Appointment 09/14/2024 10:19 AM CDT - 09/14/2024 11:59 PM CDT Hospital Encounter [facility] [address] [place] [address] Lee Lovell MD Mead, Judith A, MD Discharge Disposition: Home or Self Care 09/14/2024 10:19 AM CDT - 09/14/2024 11:59 PM CDT Hospital Encounter [facility] [address] [place] [address] Lee Lovell MD Discharge Disposition: Home or Self Care 09/14/2024 Orders Only [facility] [address] [place] [address] Monik Macias MD 09/14/2024 Travel 07/20/2024 8:06 AM CDT - 07/20/2024 11:59 PM CDT Hospital Encounter [facility] [address] [place] [address] Whitney Ya MD Discharge Disposition: Home or Self Care 07/20/2024 8:05 AM CDT Hospital Encounter [facility] [address] [place] [address] Julio Leroy MD Discharge Disposition: Home or Self Care 07/20/2024 Travel from Last 3 Months Social History Tobacco [...] and heating? Not hard at all 09/13/2024 [facility] [place] [facility] Occup[facility] ional [facility] - Occupational Stress [...] things needed for daily living? No 09/13/2024 Pattison Depression Scale Answer Date Recorded Patt[place] Depression Scale Total 0 07/20/2024 The thought [...] any time in the past 12 m [facility], were you homeless or living in a custodial (including now)? 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 [place] [address] Health Maintenance Due Date Last Done Comments PAP SMEAR 1997 HPV VACCINE (1 - 3-dose series) 2012 HEPATITIS C SCREENING 11/20/2015 DTAP/TDAP/TD VACCINES (1 - Tdap) 2016 HEPATITIS B VACCINE (1 of 3 - 19+ 3-dose series) 2016 COVID-19 VACCINE (1 - 2023-2 5 season) 2024 OB-ONE HOUR GLUCOSE 08/20/2024 OB-TDAP CURRENT 08/27/2024 OB-RHOGAM INJECTION 09/03/2024 OB-GROUP B STREP SCREEN 10/22/2024 INFLUENZA VACCINE (Season Ended) 2025 ZOSTER VACCINE [...] Yellow, Light Yellow 09/14/2024 11:27 AM CDT [facility] Clarity UA POCT Clear Clear 11:27 AM CDT [facility] Specific [place] UA POCT >=1.030 1.005 - 1.030 09/14/2024 11:27 AM CDT [facility] pH UA POCT 6.0 5.0 - 8.0 pH 09/14/2024 11:27 AM CDT [facility] Protein UA POCT 1+(A) Negative 11:27 AM CDT [facility] Blood UA POCT Negative Negative 09/14/2024 11:27 AM CDT [facility] Leukocyte UA POCT Negative Negative 09/14/2024 11:27 AM CDT [facility] Nitrite UA POCT Negative Negative 11:27 AM CDT [facility] Glucose UA POCT Negative Negative 11:27 AM CDT [facility] Ketone UA POCT Negative Negative 09/14/2024 11:27 AM CDT [facility] Bilirubin UA POCT 1+(A) Negative 09/14/2024 11:27 AM CDT [facility] Urobilinogen UA POCT 1.0 0.1 - 1.0 EU/dL 09/14/2024 11:27 AM CDT [facility] Urine URINE / Unknown 09/14/2024 1 1:24 AM CDT 09/14/2024 11:27 AM CDT Whitney Ya MD LAB - POINT OF CARE ORDERABLES Final Result [facility] [address] [place] [address] * SONOGRAM - COMPLETE (09/14/2024 10:38 AM CDT) Only the most recent of2 resultswithin the time period is included. Linked Results Indication ======== Evaluation of growth Completed anatomy Cholestasis History ====== OB History 2. Para 1 [id number] Lab Tests Test Date Result NIPT Low risk Maternal Assessment Physical Exam Height 160 cm, 5 ft 3 in. Weight 59 kg, 130 lb. Initial weight 50 kg, 111 lb. BMI 23.03 kg/m . Initial BMI 19.66 kg/m . Weight gain 9 kg, 19 lb Method ====== Transabdominal ultrasound. View: Sufficient ========= Hernandez . Number of fetuses: 1 Dating ====== [...] 3 lb 8 oz EFW by Hadlock ([id number]) overall normal range, but the AC is [...] growth in 4 weeks. Coding ====== Procedures [id number]: US Preg Uterus Follow Up [facility] PACS Anatomical Region Laterality Modality Other 09/14/2024 10:3 8 AM CDT us Lee Lovell MD [facility] ORDERABLES Edited Result - Final from Last [address] [place] [address] [address]
--- OUTSIDE RECORDS SUMMARY | 2024-10-09 01:06 | XMS_ITS | Referral Summary ---
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
--- OUTSIDE RECORDS SUMMARY | 2024-10-09 01:06 | XMS_ITS | Clinical Summary ---
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
--- OUTSIDE RECORDS SUMMARY | 2024-10-09 01:06 | XMS_ITS | Data Portability ---
Author Organization [facility] Vin[facility] Address [address] [facility] [address] [place] [place] [address] Assessment Encounter Date Assessment Date Assessment LastModified [...] V + reflex HR HPV 2018 019 [place] [facility], [address] [facility] [address] [facility], [address], [place], [address], 9 07:13:20 bacteri al vaginos is + vaginit is panel, vaginal 2017 018 [facility], [address], [address], [place], [address], 8 07:15:25 bacteri al vaginos is + vaginit is panel, vaginal 2016 017 [facility], [address], [address], [place], [address], 7 07:15:36 Referral None recorde d. Procedures None recorde d. Surgeries None recorde d. Imaging None recorde d. Medication Orders Loestri n Fe 1/20 (28-Day ) 1 mg-20 mcg (21)/75 mg (7) tablet 2019 020 [id number], [address] [place] [address], [place], [address], 0 10:24:43 Renata Fe 1/20 (28) 1 mg-20 mcg (21)/75 mg (7) tablet 2018 019 [id number], [address], [place], [address], 9 11:19:17 Renata Fe 1/20 (28) 1 mg-20 mcg (21)/75 mg (7) tablet 2017 018 [id number], [address], [place], [address], 8 11:13:56 Vandazo le 0.75 % (37.5 mg/5 gram) vaginal gel 2016 017 [facility], [address], [place], [address], 0 09:32:06 Renata Fe 1/20 (28) 1 mg-20 mcg (21)/75 mg (7) tablet 2016 017 [id number], [address], [place], [address], 7 11:23:51 Patient TargetsNo targets recorded. Patient Instructions Encounter Date Encounter Id Patient Instructions Last Modified By Organization Details Last Modified Time 10/22/2016 [id number] Encouraged consistent condom use. mpass Not available [...] - 2 score abnormal Not Available [facility] ([facility]) [address] [facility], [place], [address], 10/25/2016 07:15:35 10/23/19 17 10/24/2016 bacte rial vagin osis + vagin itis panel , vagin al bvab 2 MODERA TE - 1 score Not Available [facility] ([facility]) [address] [place], [address], 10/25/2016 07:15:35 10/23/19 17 10/24/2016 bacte rial [...] E LILIAM CTERI STICS DETER MINED BY [facility]. IT HAS NOT BEEN CLEAR ED OR APPRO DOM BY THE FOOD AND DRUG ADMIN ISTRA TION. THE FDA HAS DETER MINED THAT SUCH CLEAR ANCE OR APPRO GABRIELLA IS NOT NECES ARASH. Not Available [facility] ([facility]) [address] [place], [address], 10/25/2016 07:15:35 10/23/19 17 10/24/2016 bacte rial vagin osis + vagin itis panel , vagin al audi albicans, ESTER NEGATI VE negati ve Not Available [facility] ([facility]) [address] [place], [address], 10/25/2016 07:15:35 10/23/19 17 10/24/2016 bacte rial vagin osis + vagin itis panel , vagin al audi glabrata, ESTER NEGATI VE negati ve THIS TEST WAS DEVEL OPED AND ITS PERFO RMANC E LILIAM CTERI STICS DETER MINED BY Schoology. IT HAS NOT BEEN CLEAR ED OR APPRO DOM BY THE FOOD AND DRUG ADMIN ISTRA TION. THE FDA HAS DETER MINED THAT SUCH CLEAR ANCE OR APPRO GABRIELLA IS NOT NECES ARASH. Not Available [facility] ([facility]) [address] [place], [address], 10/25/2016 07:15:35 10/23/1910/24/2016 bacte rial vagin osis + vagin itis panel , vagin al trich vag by ESTER NEGATI VE negati ve Not Available [facility] ([facility]) [address] [place], [address], 10/25/2016 07:15:35 10/23/19 17 10/24/2016 bacte rial vagin osis + vagin itis panel , vagin al chlamydia trachomatis, ESTER NEGATI VE negati ve Not Available [facility] ([facility]) [address] [place], [address], 10/25/2016 07:15:35 10/23/19 17 10/24/2016 bacte rial vagin osis + vagin itis panel , vagin al neisseria gonorrhoeae, ESTER NEGATI VE negati ve Not Available [facility] ([facility]) [address] [facility], [place], [address], 10/25/2016 07:15:35 02/12/20 18 02/14/2018 bacte rial vagin osis + vagin itis panel , vagin al atopobium vaginae Low - 0 score Not Available [facility] ([facility]) [address] [place], [address], 02/15/2018 07:15:25 02/12/20 18 02/14/2018 bacte rial vagin osis + vagin itis panel , vagin al bvab 2 Low - 0 score Not Available [facility] ([facility]) [address] [place] [address], [address], 02/15/2018 07:15:25 02/12/20 18 02/14/2018 bacte rial [...] is not neces arash. Not Available [facility] ([facility]) [address] [place], [address], 02/15/2018 07:15:25 02/12/20 18 02/14/2018 bacte rial vagin osis + vagin itis panel , vagin al audi albicans, ESTER Negati ve negati ve Not Available [facility] ([facility]) [address] [facility], [place], [address], 02/15/2018 07:15:25 02/12/20 18 02/14/2018 bacte rial [...] is not neces arash. Not Available [facility] ([facility]) [address] [facility], [place], [address], 02/15/2018 07:15:25 02/12/20 18 02/14/2018 bacte rial vagin osis + vagin itis panel , vagin al trich vag by ESTER Negati ve negati ve Not Available [facility] ([facility]) [address] [place], [address], 02/15/2018 07:15:25 02/12/20 18 02/14/2018 bacte rial vagin osis + vagin itis panel , vagin al chlamydia trachomatis, ESTER Negati ve negati ve Not Available [facility] ([facility]) [address] [place], [address], 02/15/2018 07:15:25 02/12/20 18 02/14/2018 bacte rial vagin osis + vagin itis panel , vagin al neisseria gonorrhoeae, ESTER Negati ve negati ve Not Available [facility] ([facility]) [address] [facility], [place], [address], 02/15/2018 07:15:25 03/13/20 19 03/16/2019 pap, IG + CT/NG /TV + refle x HR HPV chlamydia, nuc. acid amp Negati ve negati ve Not Available [facility] ([facility]) [address] [place], [address], 03/18/2019 07:13:20 03/13/2003/16/2019 pap, IG + CT/NG /TV + refle x HR HPV gonococcus, nuc. acid amp Negati ve negati ve Not Available [facility] ([facility]) [address] [place], [address], 03/18/2019 07:13:20 03/13/2003/16/2019 pap, IG + CT/NG /TV + refle x HR HPV trich vag by ESTER Negati ve negati ve Not Available [facility] ([facility]) [address] [facility], [place], [address], 03/18/2019 07:13:20 03/13/2003/17/2019 pap, IG + CT/NG /TV + refle x HR HPV diagnosis: Commen t NEGAT JNENI FOR INTRA EPITH ELIAL LESIO N OR CECELIA PARKER . Not Available [facility] ([facility]) [address] [place], [address], 03/18/2019 07:13:20 03/13/2003/17/2019 pap, IG + CT/NG /TV + refle x HR HPV specimen adequacy: Commen t Satis facto ry for evalu ation . Endoc ervic al and/o r squam ous metap lasti c cells (endo cervi mariana compo nent) are prese nt. Not Available [facility] ([facility]) [address] [facility], [place], [address], 03/18/2019 07:13:20 03/13/2003/17/2019 pap, IG + CT/NG /TV + refle x HR HPV clinician provided ICD10: Ana hoang Z01.4 19 Not Available [facility] ([facility]) [address] [place], [address], 03/18/2019 07:13:20 03/13/2003/17/2019 pap, IG + CT/NG /TV + refle x HR HPV performed by: Thomas Vásquez (ASCP ) Not Available [facility] ([facility]) [address] [place], [address], 03/18/2019 07:13:20 03/13/2003/17/2019 pap, IG + CT/NG /TV + refle x HR HPV . . Not Available [facility] ([facility]) [address] [place], [address], 03/18/2019 07:13:20 03/13/2003/17/2019 pap, IG + CT/NG [...] ts do occur . Not Available [facility] ([facility]) [address] [facility], [place], [address], 03/18/2019 07:13:20 03/13/2003/17/2019 pap, IG + CT/NG /TV + refle x HR HPV test methodology: Ana hoang This liqui d based ThinP rep(R ) pap test was jenni longoria with the use of an image guide josep syste m. Not Available [facility] ([facility]) [address] [facility], [place], [address], 03/18/2019 07:13:20 03/13/20 19 03/17/2019 pap, IG + CT/NG /TV + refle x HR HPV . Commen t The HPV DNA refle x crite ángel were not met with this speci men resul t there fore, no HPV testi ng was perfo rmed. Not Available [facility] ([facility]) [address] [facility], [place], [address], 03/18/2019 07:13:20 04/06/20 20 04/05/2020 CT, abdom en + pelvi s, w/o contr ast No observ ation record ed. BARCODE Not Available 2019 12:46:35 Result Notes None recorded. Problems Name Problem SNOMED Code Status Onset Date Resolution Date Notes Provider Name and Address Organization Details Recorded Time Menorrhagia 550021367 Active Ava Kaden null, [place] [facility] 6 15:54:52 Bacterial vaginosis 195073656 Active Leelee Botello [place], [place] [facility] 6 11:31:16 Vaginal discharge 588997157 Active white Ava Adairmons [place], [place] [facility] 6 15:54:52 Pruritus of vagina 29150747 Active Leelee Kitchen [place], [place] [facility] 6 15:13:07 Breast lump 75159937 Active 2016 Ava Alfonso [place] [facility] 7 14:03:18 Problem Notes None recorded. Procedures Surgical History Date Name Laterality Status Provider Name and Address Organization Details Recorded Time 6 Control Implant Removal completed ESTIVEN [place] Attn: Accounting,[address] [facility], [place], [address], [place] - [facility] 07/25/2015 15:33:38 5 Control Implant Replacement completed Sheila Moncada [facility] Attn: Accounting,[address], [place], [address], [place] - [facility] 09/15/2014 16:41:35 Imaging Results None recorded. Procedure Notes None [...] Not Available No t Available Renata Fe .10/09 (28) 1.5 mg-30 mcg (21)/75 mg (7) tablet Take 1 tablet every day by oral route. 10/22 completed Not Available Not Available Not Available Vitals Date Recorded Body height Body mass index (BMI) Body weight Systolic blood pressure Diastolic blood pressure Provider Name and Address Organization Details Last Updated DateTime 10/22/2016 157.48 cm 25.4 kg/m2 55707.34 g 106 mm[Hg] 68 mm[Hg] Leelee Kitchen [place] - [facility] 7 10:36:31 Date Recorded Body height Body mass index (BMI) Body weight Systolic blood pressure Diastolic blood pressure Provider Name and Address Organization Details Last Updated DateTime 02/05/2017 157.48 cm 25.5 kg/m2 69104.14 g 118 mm[Hg] 70 mm[Hg] Alejandra Olivo [place] [facility] 7 14:12:52 Date Recorded Body height Body mass index (BMI) Body weight Systolic blood pressure Diastolic blood pressure Provider Name and Address Organization Details Last Updated DateTime 02/11/2018 157.48 cm 22.6 kg/m2 89283.05 g 110 mm[Hg] 70 mm[Hg] Ramona Yanes MA [facility] 8 11:01:25 Date Recorded Body height Body mass index (BMI) Body weight Systolic blood pressure Diastolic blood pressure Provider Name and Address Organization Details Last Updated DateTime 03/10/2020 157.48 cm 20.2 kg/m2 77595.21 g 120 mm[Hg] 72 mm[Hg] Beatrice Garza Rene [facility] 0 10:13:20 Date Recorded Body mass index (BMI) Body weight Systolic blood pressure Diastolic blood pressure Provider Name and Address Organization Details Last Updated DateTime 03/13/2019 20.1 kg/m2 73466.16 g 108 mm[Hg] 64 mm[Hg] Ramona Yanes MA [facility] 03/13/2019 11:21:19 Date Recorded Body height Provider Name an d Address Organization Details Last Updated DateTime 03/13/2019 157.48 cm Ava Kaden [facility] 03/13/2019 11:13:45 Social History Question Answer Notes LastModified by [employer] ion Details LastModified Time Tobacco Smoking Status Never Smoker Jasmin tariq [facility] 06/07/2014 12:55:46 Live Alone Or With Others? With Others Information not available 06/07/2014 What Was The Date Of Your Most Recent Tobacco Screening? 03/10/2020 [email or web address] Information not available 03/10/2020 How Many Children Do You Have? 0 Information not available 06/07/2014 How Much Tobacco Do You Smoke? No [email or web address] Information not available 03/10/2020 Sex: Unknown Functional Status Question Answer Note LastModified by [employer] ion Details LastModified Time What is your level of alcohol consumption? None Information not available 06/07/2014 Do you or have you ever used smokeless tobacco? Never used smokeless tobacco [email or web address] Information not available 03/10/2020 Are you currently employed? Yes [email or web address] Information not available 03/10/2020 Do you or have you ever used e-cigarettes or vape? Never used electronic cigarettes [email or web address] Information not available 03/10/2020 Mental Status None recorded. Family History Relationship Description Onset Age of this Age Resolved Age Notes LastModified by Organization Details LastModified Time Father Hypertensive disorder [email or web address] Not available 2015 15:48:48 Notes:Multiple familiy luisbe rs with cervical cancer, and endometriosis Medical [...] Sclerosis N Colon Polyps N Heart Attack ([place]) N Diabetes N Cardiomyopathy N Blood Transfusions [...] SNOMED-CT Code Diagnosis ICD10 Code Diagnosis Note [id number] Sheila Moncada [address] ([place] [address]) [place] [address] 09/15/2014 15:55:37 09/16/2014 09:19:37 Subcutaneous contraceptive implant present 705699716 Bacterial vaginosis 856545200 [id number] Sheila Moncada [address] [address] ([place] [address]) [place] [address] 07/25/2015 14:03:09 07/25/2015 16:42:03 Contraception care management 284931771 Z30.49 Oral contr aceptive prescribed 623527474 Z30.011 [id number] Sheila Moncada [address] ([place] [address]) [address] [place] [address] 11/08/2015 15:37:39 11/08/2015 17:10:32 Gynecologic examination 87234360 Z01.419 Surveillan ce of oral contraception 183777624 Z30.41 [id number] Sheila Moncada [facility] ([facility] [address]) [address] [place] [address] 06/11/2016 13:38:39 06/11/2016 15:18:46 Breast lump 28897662 N63 [id number] Sheila Moncada [facility] ([facility] [address]) [address] [place] [address] 10/22/2016 10:30:01 10/22/2016 11:49:03 Gynecologic examination 02995349 Z01.419 Surveillan ce of oral contraception 590508574 Z30.41 [id number] Ruth Boswell [facility] ([facility] [address]) [address] [place] [address] 02/05/2017 14:06:26 02/06/2017 15:34:05 Vaginal discharge 613172626 N89.8 [id number] Ruth Boswell [facility] [address] [facility] [place] [address] 02/11/2018 10:49:44 02/12/2018 09:53:32 Venereal disease screening 028520204 Z11.3 Contraception care 34124 5005 Z30.40 [id number] Ruth Boswell [facility] [address] [facility] [facility] [place] [address] 03/13/2019 11:05:45 03/16/2019 08:49:00 Gynecologic examination 69254196 Z01.419 1. Counseled regarding prevention of STD's , condom use and prevention . 2. Counseled regarding contracept jenni options, risk factors and side effects. 3. Advised avoidance of tobacco, alcohol, and drugs . 4. Counseled regarding folic acid supplement ation, calcium needs and prevention of osteoporos is . 5. BSE reviewed and recommende d. 6. Follow up in one year or sooner if needed. Contraception care 65292 5005 Z30.40 1. Reviewed all forms of control with patient including risk factors and side effects. 2. Counseled on STD transmissi on and prevention , condom use and prevention . 3. Pt would like to continue with OCP. Educated on correct use and side effects. Will send rx to pharmacy. 4. Follow up for med check in 12 months, sooner if needed. [id number] Ruth Boswell [facility]- [place] [address] [facility] [address] [place] [address] 03/10/2020 10:03:31 03/11/2020 13:50:58 Contraception care management 231809756 Z30.9 1. Reviewed all forms of control with patient including risk factors and side effects. 2. Counseled on STD transmissi on and prevention , condom use and prevention . 3. Pt would like to start with OCP. Educated on correct use and side effects. Will send rx to pharmacy. 4. Follow up for med check in 3 months or sooner if needed. Gynecologi c examination 51987785 Z01.419 1. Counseled regarding prevention of STD's , condom use and prevention . 2. Counseled regarding contracept jenni options, risk factors and side effects. 3. Advised avoidance of tobacco, alcohol, and drugs . 4. Counseled regarding folic acid supplement ation, calcium needs and prevention of osteoporos is . 5. BSE reviewed and recommende d. 6. Follow up in one year or sooner if needed. Health Concerns Section Related Observation LastModified by Organization Detai ls LastModified Time None Recorded Concern Status LastModified by Organization Details LastModified Time None Recorded Advance Directives Directive None Recorded Payers Encounter Date Sequence Insurance Name Policy Number Policy Choudhury Covered Member ID Choudhury Member ID Guarantor Name 10/22/2016 1 [employer] [id number] Mariposa Bernal [id number] Mariposa Bernal 02/05/2017 1 [employer] [id number] Mariposa Bernal [id number] Mariposa Luie 02/11/2018 1 [employer] [id number] Mariposa Luie [id number] Mariposa Luie 03/13/2019 1 [employer] [id number] Mariposa Luie [id number] Mariposa Luie 03/10/2020 1 [employer] [id number] Mariposa Bernal [id number] Mariposa Bernal Notes Date Note Type [...] Encourage regular exercise; Encourage no tobacco use [facility] Attn: Accounting[address] [place], [address], [facility] 10/22/2016 11:23:54 02/05/2017 text/html Annual GYNReport ed [...] patient. Doing well except has recurrent BV. VIDA Tellez- Attn: Accounting[address] [place], [address], [facility] 02/06/2017 15:20:33 02/11/2018 text/html Annual GYNReport ed [...] and ocp refill. 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 Would like urine preg test just to make sure. MARGARET Tellez Attn: Accounting[address] [place], [address], [facility] 02/11/2018 12:07:51 03/13/2019 text/html Annual GYNReport ed [...] no complaints MARGARET Tellez Attn: [address], [place], [address] [place] [address], [facility] 03/13/2019 11:43:47 03/10/2020 text/html would like to sw itch brands of ocp, states [facility] and new brand has caused her to pass out?last pap 03/13/19 wnl MARGARET Tellez Attn: [address], [place], [address] [place] [address], [facility] 03/10/2020 10:25:40 03/10/2020 text/html Annual GYNReport [...] tobacco use MARGARET Tellez Attn: Accounting[address] [place], [address], [facility] 03/10/2020 10:25:40 OBGyn Episode No OBEpisode recorded.
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
--- OUTSIDE RECORDS SUMMARY | 2024-10-09 01:06 | XMS_ITS | Clinical Summary ---
Author Organization [facility] Address [address] [place] [phone] Phone Care Team Providers Care Plant Production Manager Name Role Phone Terrance Ppo MD Primary Care Provider [phone] Allergies Active Allergy Reactions Criticality Noted Date [...] on file Legal Sex Female 8:50 AM TARE MAN Gender Identity Not on file Sexual Orientation Not on file Last Filed Vital Signs Vital Sign Reading Time Taken Comments Blood Pressure 106/70 05/02/2023 12:53 PM TARE MAN Pulse 97 05/02/2023 12:53 PM TARE MAN Temperature 37 C (98.6 F) 05/02/2023 12:53 PM TARE MAN Respiratory Rate 15 05/02/2023 12:53 PM TARE MAN Oxygen Saturation 99% 05/02/2023 12:53 PM TARE MAN Inhaled Oxygen Concentration - - Weight - [...] patient's age to complete this topic Insurance [facility] MEDICAID [place] Care Teams Plant Production Manager Relationship Specialty Start Date End Date Terrance Pop MD [facility] [place] [address] PCP - General Family Medicine 03/29/21
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
[2024-10-09] MEDS: NIFEdipine 30 MG TAB.ER.24 PO (01:12)
== END 2024-10-09 02:17 | disposition home or self-care (01) ==
PROVIDERS: Admitting Provider Obstetrics & Gynecology; PCP Family Medicine; Visit Provider Obstetrics & Gynecology
DX: O47.03 False labor before 37 completed weeks of gestation, third trimester (principal); Z3A.33 33 weeks gestation of pregnancy
CPT/HCPCS: A9270; G0378; G0379

== ENCOUNTER 2024-10-22 11:33 | Outpatient (RCR) | payer OTHER, SELFPAY ==
[2024-10-19] MEDS: BETAMETHASONE SOD PHOS/ACETATE 30 MG/5 ML VIAL 12 MG IM (12:36)
[2024-10-20] MEDS: BETAMETHASONE SOD PHOS/ACETATE 30 MG/5 ML VIAL 12 MG IM (13:03)
== END 2024-10-31 06:59 | disposition home or self-care (01) ==
LOC: ANHOBOP 11:33
PROVIDERS: PCP Family Medicine; Visit Provider Obstetrics & Gynecology
DX: O47.9 False labor, unspecified (principal); Z3A.00 Weeks of gestation of pregnancy not specified
CPT/HCPCS: 96372; J0702

== ENCOUNTER 2024-10-26 06:14 | Inpatient (IN) | payer OTHER, SELFPAY ==
[2024-10-26] VITALS (191 sets, daily range): BP systolic 62–134; BP diastolic 31–116; PULSE 71–269; TEMP 36.6–37.1; O2SAT 94–100
--- OUTSIDE RECORDS SUMMARY | 2024-10-26 06:19 | XMS_ITS | Clinical Summary ---
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 Gender Identity Not on file Sexual Orientation Not on file Last Filed Vital Signs Vital Sign Reading Time Taken Comments Blood Pressure 106/70 05/02/2023 12:53 PM POWER REACTOR SUPERVISOR Pulse 97 05/02/2023 12:53 PM POWER REACTOR SUPERVISOR Temperature 37 C (98.6 F) 05/02/2023 12:53 PM POWER REACTOR SUPERVISOR Respiratory Rate 15 05/02/2023 12:53 PM POWER REACTOR SUPERVISOR Oxygen Saturation 99% 05/02/2023 12:53 PM POWER REACTOR SUPERVISOR Inhaled Oxygen Concentration - - Weight - - Height - - Body Mass Index - - Plan of Treatment Health Maintenance Due Date Last Done Comments Hepatitis C Virus (HCV) Screening 1997 Human Papillomavirus (HPV) Immunization (2 - 2-dose series) 06/20/2012 12/19/2011 Pap Smear 2018 SARS-COV-2 Immunization ( - 2023- season) 2024 Influenza Immunization (Season Ended) 2025 Respiratory Syncytial Virus (RSV) Immunization (Adult) (1 [...] patient's age to complete this topic Insurance [facility] MEDICAID [place] Care Teams Bioinformatics Scientist Relationship Specialty Start Date End Date Terrance Pop MD [facility] [place] [address] PCP - General Family Medicine 03/29/21
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
--- OUTSIDE RECORDS SUMMARY | 2024-10-26 06:19 | XMS_ITS | Clinical Summary ---
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
--- OUTSIDE RECORDS SUMMARY | 2024-10-26 06:19 | XMS_ITS | Referral Summary ---
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
--- OUTSIDE RECORDS SUMMARY | 2024-10-26 06:19 | XMS_ITS | Data Portability ---
Author Organization [facility] Vinh Moore Address [address] [place] [address] Assessment Encounter Date Assessment Date Assessment LastModified [...] V + reflex HR HPV 2018 019 [place] [facility], [address], [address], [place], [address], 9 07:13:20 bacteri al vaginos is + vaginit is panel, vaginal 2017 018 [place] [facility], [address], [address], [place], [address], 8 07:15:25 bacteri al vaginos is + vaginit is panel, vaginal 2016 017 [place] [facility], [address], [address], [place], [address], 7 07:15:36 Referral None recorde d. Procedures None recorde d. Surgeries None recorde d. Imaging None recorde d. Medication Orders Loestri n Fe 1/20 (28-Day ) 1 mg-20 mcg (21)/75 mg (7) tablet 2019 020 [facility], [address] [place] [address], [place], [address], 0 10:24:43 Renata Fe 1/20 (28) 1 mg-20 mcg (21)/75 mg (7) tablet 2018 019 [facility], [address] [place] [address], [place], [address], 9 11:19:17 Renata Fe 1/20 (28) 1 mg-20 mcg (21)/75 mg (7) tablet 2017 018 [facility], [address] [place] [address], [place], [address], 8 11:13:56 Vandazo le 0.75 % (37.5 mg/5 gram) vaginal gel 2016 017 [facility], [address] [place] [address], [place], [address], 0 09:32:06 Renata Fe 1/20 (28) 1 mg-20 mcg (21)/75 mg (7) tablet 2016 017 [facility], [address] [place] [address], [place], [address], 7 11:23:51 Patient TargetsNo targets recorded. Patient Instructions Encounter Date Encounter Id Patient Instructions Last Modified By Organization Details Last Modified Time 10/22/2016 [id number] Encouraged consistent condom use. mpass Not available [...] - 2 score abnormal Not Available [facility] ([facility]) [address], [place], [address], 10/25/2016 07:15:35 10/23/19 17 10/24/2016 bacte rial vagin osis + vagin itis panel , vagin al bvab 2 MODERA TE - 1 score Not Available [facility] ([facility]) [address] [place], [address], 10/25/2016 07:15:35 10/23/19 17 10/24/2016 bacte rial [...] E LILIAM CTERI STICS DETER MINED BY [employer]. IT HAS NOT BEEN CLEAR ED OR APPRO DOM BY THE FOOD AND DRUG ADMIN ISTRA TION. THE FDA HAS DETER MINED THAT SUCH CLEAR ANCE OR APPRO GABRIELLA IS NOT NECES ARASH. Not Available [facility] ([facility]) [address] [place], [address], 10/25/2016 07:15:35 10/23/19 17 10/24/2016 bacte rial vagin osis + vagin itis panel , vagin al audi albicans, ESTER NEGATI VE negati ve Not Available [facility] ([facility]) [address] [place], [address], 10/25/2016 07:15:35 10/23/19 17 10/24/2016 bacte rial vagin osis + vagin itis panel , vagin al audi glabrata, ESTER NEGATI VE negati ve THIS TEST WAS DEVEL OPED AND ITS PERFO RMANC E LILIAM CTERI STICS DETER MINED BY [employer]. IT HAS NOT BEEN CLEAR ED OR APPRO DOM BY THE FOOD AND DRUG ADMIN ISTRA TION. THE FDA HAS DETER MINED THAT SUCH CLEAR ANCE OR APPRO GABRIELLA IS NOT NECES ARASH. Not Available [facility] ([facility]) [address] [place], [address], 10/25/2016 07:15:35 10/23/1910/24/2016 bacte rial vagin osis + vagin itis panel , vagin al trich vag by ESTER NEGATI VE negati ve Not Available [facility] ([facility]) [address] [place], [address], 10/25/2016 07:15:35 10/23/19 17 10/24/2016 bacte rial vagin osis + vagin itis panel , vagin al chlamydia trachomatis, ESTER NEGATI VE negati ve Not Available [facility] ([facility]) [address] [place], [address], 10/25/2016 07:15:35 10/23/19 17 10/24/2016 bacte rial vagin osis + vagin itis panel , vagin al neisseria gonorrhoeae, ESTER NEGATI VE negati ve Not Available [facility] ([facility]) [address], [place], [address], 10/25/2016 07:15:35 02/12/20 18 02/14/2018 bacte rial vagin osis + vagin itis panel , vagin al atopobium vaginae Low - 0 score Not Available [facility] ([facility]) [address] [place], [address], 02/15/2018 07:15:25 02/12/20 18 02/14/2018 bacte rial vagin osis + vagin itis panel , vagin al bvab 2 Low - 0 score Not Available [facility] ([facility]) [address] [place] [address], [address], 02/15/2018 07:15:25 02/12/20 18 02/14/2018 bacte rial [...] is not neces arash. Not Available [facility] ([facility]) [address] [place], [address], 02/15/2018 07:15:25 02/12/20 18 02/14/2018 bacte rial vagin osis + vagin itis panel , vagin al audi albicans, ESTER Negati ve negati ve Not Available [facility] ([facility]) [address], [place], [address], 02/15/2018 07:15:25 02/12/20 18 02/14/2018 bacte rial [...] is not neces arash. Not Available [facility] ([facility]) [address], [place], [address], 02/15/2018 07:15:25 02/12/20 18 02/14/2018 bacte rial vagin osis + vagin itis panel , vagin al trich vag by ESTER Negati ve negati ve Not Available [facility] ([facility]) [address] [place], [address], 02/15/2018 07:15:25 02/12/20 18 02/14/2018 bacte rial vagin osis + vagin itis panel , vagin al chlamydia trachomatis, ESTER Negati ve negati ve Not Available [facility] ([facility]) [address] [place], [address], 02/15/2018 07:15:25 02/12/20 18 02/14/2018 bacte rial vagin osis + vagin itis panel , vagin al neisseria gonorrhoeae, ESTER Negati ve negati ve Not Available [facility] ([facility]) [address], [place], [address], 02/15/2018 07:15:25 03/13/20 19 03/16/2019 pap, IG + CT/NG /TV + refle x HR HPV chlamydia, nuc. acid amp Negati ve negati ve Not Available [facility] ([facility]) [address] [place], [address], 03/18/2019 07:13:20 03/13/2003/16/2019 pap, IG + CT/NG /TV + refle x HR HPV gonococcus, nuc. acid amp Negati ve negati ve Not Available [facility] ([facility]) [address] [place], [address], 03/18/2019 07:13:20 03/13/2003/16/2019 pap, IG + CT/NG /TV + refle x HR HPV trich vag by ESTER Negati ve negati ve Not Available [facility] ([facility]) [address], [place], [address], 03/18/2019 07:13:20 03/13/2003/17/2019 pap, IG + CT/NG /TV + refle x HR HPV diagnosis: Commen t NEGAT JENNI FOR INTRA EPITH ELIAL LESIO N OR CECELIA PARKER . Not Available [facility] ([facility]) [address] [place], [address], 03/18/2019 07:13:20 03/13/2003/17/2019 pap, IG + CT/NG /TV + refle x HR HPV specimen adequacy: Commen t Satis facto ry for evalu ation . Endoc ervic al and/o r squam ous metap lasti c cells (endo cervi mariana compo nent) are prese nt. Not Available [facility] ([facility]) [address], [place], [address], 03/18/2019 07:13:20 03/13/2003/17/2019 pap, IG + CT/NG /TV + refle x HR HPV clinician provided ICD10: Ana hoang Z01.4 19 Not Available [facility] ([facility]) [address] [place], [address], 03/18/2019 07:13:20 03/13/2003/17/2019 pap, IG + CT/NG /TV + refle x HR HPV performed by: Thomas Vásquez (ASCP ) Not Available [facility] ([facility]) [address] [place], [address], 03/18/2019 07:13:20 03/13/2003/17/2019 pap, IG + CT/NG /TV + refle x HR HPV . . Not Available [facility] ([facility]) [address] [place], [address], 03/18/2019 07:13:20 03/13/2003/17/2019 pap, IG + CT/NG [...] ts do occur . Not Available [facility] ([facility]) [address], [place], [address], 03/18/2019 07:13:20 03/13/2003/17/2019 pap, IG + CT/NG /TV + refle x HR HPV test methodology: Ana hoang This liqui d based ThinP rep(R ) pap test was jenni longoria with the use of an image guide josep syste m. Not Available [facility] ([facility]) [address], [place], [address], 03/18/2019 07:13:20 03/13/20 19 03/17/2019 pap, IG + CT/NG /TV + refle x HR HPV . Commen t The HPV DNA refle x crite ángel were not met with this speci men resul t there fore, no HPV testi ng was perfo rmed. Not Available [facility] ([facility]) [address], [place], [address], 03/18/2019 07:13:20 04/06/20 20 04/05/2020 CT, abdom en + pelvi s, w/o contr ast No observ ation record ed. BARCODE Not Available 2019 12:46:35 Result Notes None recorded. Problems Name Problem SNOMED Code Status Onset Date Resolution Date Notes Provider Name and Address Organization Details Recorded Time Menorrhagia 554669746 Active A[place] Kaden [place], [place] [facility] 6 15:54:52 Bacterial vaginosis 427678352 Active Leelee Botello [place] [facility] 6 11:31:16 Vaginal discharge 501183174 Active white Ava Adairmons [place], [place] [facility] 6 15:54:52 Pruritus of vagina 80416542 Active Leelee Kitchen [place], [place] [facility] 6 15:13:07 Breast lump 44605976 Active 2016 Ava Alfonso [place] [facility] 7 14:03:18 Problem Notes None recorded. Procedures Surgical History Date Name Laterality Status Provider Name and Address Organization Details Recorded Time 6 Control Implant Removal completed ESTIVEN Washington Attn: Accounting,[address] [facility], [place], [address], [place] [facility] 07/25/2015 15:33:38 5 Control Implant Replacement completed Sheila Moncada [facility] Attn: Accounting,[address], [place], [address], [place] [facility] 09/15/2014 16:41:35 Imaging Results None [...] Updated DateTime 10/22/2016 157.48 cm 25.4 kg/m2 98133.34 g 106 mm[Hg] 68 mm[Hg] Leelee Kitchen [place] [facility] 7 10:36:31 Date Recorded Body height Body mass index (BMI) Body weight Systolic blood pressure Diastolic blood pressure Provider Name and Address Organization Details Last Updated DateTime 02/05/2017 157.48 cm 25.5 kg/m2 05552.14 g 118 mm[Hg] 70 mm[Hg] Alejandra Olivo [place] [facility] 7 14:12:52 Date Recorded Body height Body mass index (BMI) Body weight Systolic blood pressure Diastolic blood pressure Provider Name and Address Organization Details Last Updated DateTime 02/11/2018 157.48 cm 22.6 kg/m2 80511.05 g 110 mm[Hg] 70 mm[Hg] Ramona aYnes MA [facility] 8 11:01:25 Date Recorded Body height Body mass index (BMI) Body weight Systolic blood pressure Diastolic blood pressure Provider Name and Address Organization Details Last Updated DateTime 03/10/2020 157.48 cm 20.2 kg/m2 70513.21 g 120 mm[Hg] 72 mm[Hg] Beatrice Garza Rene [facility] 0 10:13:20 Date Recorded Body mass index (BMI) Body weight Systolic blood pressure Diastolic blood pressure Provider Name and Address Organization Details Last Updated DateTime 03/13/2019 20.1 kg/m2 56215.16 g 108 mm[Hg] 64 mm[Hg] Ramona Yanes MA [facility] 03/13/2019 11:21:19 Date Recorded Body height Provider Name an d Address Organization Details Last Updated DateTime 03/13/2019 157.48 cm Ava Kaden [facility] 03/13/2019 11:13:45 Social History Question Answer Notes LastModified by Startupi ion Details LastModified Time Tobacco Smoking Status Never Smoker Jasmin tariq [facility] 06/07/2014 12:55:46 Live Alone Or With Others? With Others Information not available 06/07/2014 What Was The Date Of Your Most Recent Tobacco Screening? 03/10/2020 [email or web address] Information not available 03/10/2020 How Many Children Do You Have? 0 Information not available 06/07/2014 How Much Tobacco Do You Smoke? No Information not available 03/10/2020 Sex: Unknown Functional Status Question Answer Note LastModified by The [employer] ion Details LastModified Time What is your level of alcohol consumption? None Information not available 06/07/2014 Do you or have you ever used smokeless tobacco? Never used smokeless tobacco Information not available 03/10/2020 Are you currently employed? Yes [email or web address] Information not available 03/10/2020 Do you or have you ever used e-cigarettes or vape? Never used electronic cigarettes [email or web address] Information not available 03/10/2020 Mental Status None [...] Blood Transfusion N MRSA N Emphysema N Blood Clots N COPD N Depression N Pneumonia N Premature N Peripheral Arterial [...] N Parkinson's Disease N Thyroid Problems N Developmental Delay N GI Problems N Anemia N Immune System Disorder N Multiple Sclerosis N Colon Polyps N Heart Attack ([place]) N Diabetes N Cardiomyopathy N Blood Transfusions [...] SNOMED-CT Code Diagnosis ICD10 Code Diagnosis Note [id number] Sheila Moncada ONEIDA Gregory ([place] [address]) [place] [address] 09/15/2014 15:55:37 09/16/2014 09:19:37 Subcutaneous contraceptive implant present 638728918 Bacterial vaginosis 964780806 [id number] Sheila Moncada ONEIDA Gregory ([place] [address]) [place] [address] 07/25/2015 14:03:09 07/25/2015 16:42:03 Contraception care management 716098426 Z30.49 Oral contr aceptive prescribed 845383951 Z30.011 [id number] Sheila Moncada ONEIDA Gregory ([place] [address]) [address] [place] [address] 11/08/2015 15:37:39 11/08/2015 17:10:32 Gynecologic examination 15429883 Z01.419 Surveillan ce of oral contraception 188402587 Z30.41 [id number] Sheila Moncada [facility] ([facility]) [address] [facility] [place] [address] 06/11/2016 13:38:39 06/11/2016 15:18:46 Breast lump 45101723 N63 [id number] Sheila Moncada [facility] ([facility]) [address] [facility] [place] [address] 10/22/2016 10:30:01 10/22/2016 11:49:03 Gynecologic examination 35013021 Z01.419 Surveillan ce of oral contraception 249734480 Z30.41 [id number] Ruth Boswell [facility] ([facility]) [address] [facility] [place] [address] 02/05/2017 14:06:26 02/06/2017 15:34:05 Vaginal discharge 910994181 N89.8 [id number] Ruth Boswell [facility] [place] 14 OB [address] [facility] [place] [address] 02/11/2018 10:49:44 02/12/2018 09:53:32 Venereal disease screening 332631105 Z11.3 Contraception care 08598 5005 Z30.40 [id number] Ruth Boswell [facility] [place] 14 OB [address] [facility] [place] [address] 03/13/2019 11:05:45 03/16/2019 08:49:00 Gynecologic examination 49580853 Z01.419 1. Counseled regarding prevention of STD's [...] year or sooner if needed. Contraception care 39249 5005 Z30.40 1. Reviewed all forms of control with patient including risk factors and side effects. 2. Counseled on STD transmissi on and prevention , condom use and prevention . 3. Pt would like to continue with OCP. Educated on correct use and side effects. Will send rx to pharmacy. 4. Follow up for med check in 12 months, sooner if needed. [id number] VIDA Tellez-TOMAS [place] 14 OB [address] [facility] [place] [address] 03/10/2020 10:03:31 03/11/2020 13:50:58 Contraception care management 306854425 Z30.9 1. Reviewed all forms of control [...] or sooner if needed. Gynecologi c examination 23868016 Z01.419 1. Counseled regarding prevention of STD's [...] Member ID Choudhury Member ID Guarantor Name 04/16/2021 1 SHAN [id number] Mariposa Bernal [id number] Mariposa Bernal Notes Date Note Type [...] tobacco use ESTIVEN Washington Attn: Accounting,[address] [place], [address], [facility] 10/22/2016 11:23:54 02/05/2017 text/html Annual GYNReport ed [...] use Patient here for annual exam. Former [facility] patient. Doing well except has recurrent BV. MARGARET Tellez Attn: Accounting[address] [place], [address], [facility] 02/06/2017 15:20:33 02/11/2018 text/html Annual GYNReport ed [...] is on crutches, fractured foot. No other yarder puncher issues. Would like urine preg test just to make sure. MARGARET Tellez Attn: Accounting[address] [place], [address], [facility] 02/11/2018 12:07:51 03/13/2019 text/html Annual GYNReport ed [...] no complaints MARGARET Tellez Attn: Accounting[address] [place], [address], [facility] 03/13/2019 11:43:47 03/10/2020 text/html would like to sw itch brands of ocp, states [facility] brands and new brand has caused her to pass out?last pap 03/13/19 wnl MARGARET Tellez Attn: Accounting[address] [place], [address], [facility] 03/10/2020 10:25:40 03/10/2020 text/html Annual GYNReport ed [...] tobacco use MARGARET Tellez Attn: Accounting[address] [place], [address], [facility] 03/10/2020 10:25:40 OBGyn Episode No OBEpisode recorded.
--- OUTSIDE RECORDS SUMMARY | 2024-10-26 06:19 | XMS_ITS | Clinical Summary ---
Author Organization [facility] Address [address] [place] [address] Care Team Providers Care Computer Forensics Examiner Name Role Phone Unavailable Primary Care Provider Unavailabl e Source Comments [facility],non-owned Affiliates and Associated Physician Practices is amultiple site organization consisting of ambulatory clinics and hospital sitesin [place], [place], [place] and [place]. This disclosure is being madepursuant to the Care Everywhere program and may not contain all information available regarding this patient. Last updated 18.[facility] Allergies Active Allergy Reactions Criticality Noted Date [...] , antepartum, single gestation 07/12/2021 07/20/2024 Encounters Date Type Department Care Team Description 09/16/2024 Telephone [facility] [address] [place] [address] Savanah Sigala Appointment 09/16/2024 Telephone [facility] [address] [place] [address] Savanah Sigala Appointment 09/14/2024 10:19 AM CDT - 09/14/2024 11:59 PM CDT Hospital Encounter [facility] [place] [address] Lee Lovell MD Mead, Judith A, MD Discharge Disposition: Home or Self Care 09/14/2024 10:19 AM CDT - 09/14/2024 11:59 PM CDT Hospital Encounter [facility] [address] [place] [address] Lee Lovell MD Discharge Disposition: Home or Self Care 09/14/2024 Orders Only [facility] [address] [place] [address]. [address] [place] [address] Monik Macias MD 09/14/2024 Travel from Last 3 Months Social History [...] and heating? Not hard at all 09/13/2024 [facility] - Occupational Stress [...] things needed for daily living? No 09/13/2024 [place] Depression Scale Answer Date Recorded [place] Depression Scale Total 0 07/20/2024 The thought [...] any time in the past 12 m [facility], were you homeless or living in a alf (including now)? 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 Gender Identity Not on file Sexual [...] 07/20/2024 9:06 AM CDT Plan of Treatment Health Maintenance Due Date Last Done Comments HPV VACCINE (1 - 3-dose series) 2012 HEPATITIS C SCREENING 11/20/2015 DTAP/TDAP/TD VACCINES (1 - Tdap) 2016 HEPATITIS B VACCINE (1 of 3 - 19+ 3-dose series) 2016 PAP SMEAR 2018 COVID-19 VACCINE (1 - 2023-2 5 season) 2024 OB-TDAP CURRENT 08/27/20242017, 12/19/2011 OB-RHOGAM INJECTION 09/03/2024 OB-GROUP B STREP SCREEN 10/22/2024 INFLUENZA VACCINE (Season Ended) 2025 ZOSTER VACCINE (1 of 2) 11/25/2047 DEPRESSION SCREENING Completed 07/20/2024 HIV SCREENING Completed 08/31/2024, 04/27/2024, 05/10/2021 OB-ONE HOUR GLUCOSE Completed 08/31/2024 HIB VACCINE Aged Out No longer eligi [...] CDT Cholestasis during in third trimester (HCC) from Last 3 Months Results * (ABNORMAL) URINALYSIS - POCT (IP) BEAKER INTERFACE (09/14/2024 11:24 AM CDT) Color UA POCT Yellow Straw, Yellow, Dark Yellow, Light Yellow 09/14/2024 11:27 AM CDT [facility] Clarity UA POCT Clear Clear 11:27 AM CDT [facility] Specific Willard UA POCT >=1.030 1.005 - 1.030 09/14/2024 11:27 AM CDT [facility] pH UA POCT 6.0 5.0 - 8.0 pH 09/14/2024 11:27 AM CDT [facility] Protein UA POCT 1+(A) Negative 11:27 AM CDT [facility] Blood UA POCT Negative Negative 09/14/2024 11:27 AM CDT [facility] Leukocyte UA POCT Negative Negative 09/14/2024 11:27 AM CDT [facility] Nitrite UA POCT Negative Negative 11:27 AM CDT [facility] Glucose UA POCT Negative Negative 11:27 AM CDT [facility] Ketone UA POCT Negative Negative 09/14/2024 11:27 AM CDT [facility] Bilirubin UA POCT 1+(A) Negative 09/14/2024 11:27 AM CDT [facility] Urobilinogen UA POCT 1.0 0.1 - 1.0 EU/dL 09/14/2024 11:27 AM CDT [facility] Urine URINE / Unknown 09/14/2024 1 1:24 AM CDT 09/14/2024 11:27 AM CDT us Whitney Ya MD LAB - POINT OF CARE ORDERABLES Final Result Performing Organization Address City/State/[facility] Co de Phone Number [facility] [address] [place] [address] * SONOGRAM - COMPLETE (09/14/2024 10:38 AM CDT) Linked Results Indication ======== Evaluation of growth Completed anatomy Cholestasis History ====== OB History 2. Para 1 [id number] Lab Tests Test Date Result NIPT Low [...] 3 lb 8 oz EFW by Hadlock ([id number]) overall normal range, but the AC is [...] growth in 4 weeks. Coding ====== Procedures 51972: US Preg Uterus Follow Up [facility] [employer] PACS Anatomical Region Laterality Modality Other 09/14/2024 10:3 8 AM CDT Lee Lovell MD [facility] ORDERABLES Edited Result - Final from Last 3 Months Insurance
--- NOTE | 2024-10-26 07:07 | LDADM ---
This patient, Oliver Go, was admitted to Labor/Delivery/Recovery 106 on 10/26/24 at 06:14. Plans for labor, pain management and were discussed with patient. Patient/family oriented to hospital policies and general routines including ID bracelet, bed and alarms, visiting hours, pain management, procedures, bathroom and other care routines, personal items, smoking policy, room service/diet and guest tray routines, infant security routines, and visiting hours. Patient/Family are encouraged to report perceived risks to care and to ask questions if they do not understand what they are told or what they should do. See OBIX for further documentation.
[2024-10-26 07:15] LABS: Basophils Absolute Auto 0.1 K/mm3 (0.0-0.1); Basophils Percent Auto 0.4 % (0.2-1.2); Eosinophils Absolute Auto 0.1 K/mm3 (0-0.3); Eosinophils Percent Auto 0.5 % (0-4.4); Hematocrit 35.2 % (37.0-47.0); Hemoglobin 11.3 g/dL (12.0-15.0); Immature Granulocyte Absolute 0.24 K/mm3 (0.00-0.031); Immature Granulocyte Percent A 1.8 % (0-0.5); Lymphocytes Absolute Auto 2.64 K/mm3 (0.9-3.2); Lymphocytes Percent Auto 19.9 % (18.3-44.2); Mean Corpuscular HGB Conc 32.1 g/dl (32-36); Mean Corpuscular Hemoglobin 27.4 pg (26-34); Mean Corpuscular Volume 85.2 fl (80-100); Mean Platelet Volume 9.9 fl (7.4-10.4); Monocytes Percent Auto 7.8 % (2.6-8.5); Neutrophils Absolute Auto 9.2 K/mm3 (1.3-6.7); Neutrophils Percent Auto 69.6 % (45.5-73.1); Platelet Count Result 313 k/mm3 (150-375); Red Blood Count 4.13 M/mm3 (4.2-5.4); Red Cell Distribution Width 14.5 % (11.5-14.5); White Blood Count 13.3 K/mm3 (4.5-10.0)
[2024-10-26] MEDS: OXYTOCIN 30 UNITS/NS 500 ML 30 UNITS/500 ML BAG IV CONT (07:26)
[2024-10-26] MEDS: LACTATED RINGERS 1,000 ML 125 ML IV CONT ×4 (07:27→19:12)
[2024-10-26 07:53] LABS: Syphilis IgG/IgM Antibody Non-Reactive (Nonreactive)
[2024-10-26 08:06] LABS: HIV 1/2 Ab P24 Ag Result Negative (Negative)
--- NOTE | 2024-10-26 08:07 | WPDOBADMIT ---
Obstetrics - Admit Note Admission Note: record reviewed. No pertinent additions to the history and/or any subsequent changes in the physical findings that are not consistent with the expected course of the were found. Additions to the history and/or subsequent changes in the physical findings follow. Admit for IOl, cholestasis, attempt AROM, will try again after epidural SVE /3
[2024-10-26] MEDS: fentaNYL CITRATE INJ (*CRX) 100 MCG/2 ML VIAL 50 MCG IV PUSH (11:46)
--- NOTE | 2024-10-26 12:24 | WPDANESEPPF ---
Anes - Initial Pre Proc Eval Procedure: labor epidural Date/Time: 10/26/24 12:24 Surgeon: Jacek Smith MD Pre Op Diagnosis: labor pain Pre Op Diagnosis: IOL Patient Data Age: 28 Gender: F Height: Weight: Last Vital Signs Pulse 106 H 10/26/24 12:00 BP 122/91 H 10/26/24 12:15 O2 Del Method Room Air 10/26/24 07:05 Allergies Allergy/AdvReac Type Severity Reaction Status Date / Time levofloxacin (From [facility]) Allergy Mild Rash Verified 10/22/24 11:46 latex Allergy Blister Verified 10/22/24 11:46 Home Medications ?Medication ?Instructions ?Recorded ?Confirmed ?Type vit no.133-ferrous 1 tablet PO DAILY 09/29/21 10/26/24 History fumarate 28 mg-folic acid 800 mcg tablet () kqedgovvis-lvptgcrtnvhxm-vpdrqdme 1 cap PO Q4H PRN Migraine 09/24/24 10/22/24 History 50 mg-300 mg-40 mg capsule ferrous sulfate 142 mg (45 mg 142 mg PO HS 10/22/24 10/26/24 History iron) tablet,extended release (Slow Release Iron) ursodiol 500 mg tablet 500 mg PO BID 10/22/24 10/26/24 History Laboratory Tests 10/26/24 07:08 WBC 13.3 H K/mm3 (4.5-10.0) RBC 4.13 L M/mm3 (4.2-5.4) Hgb 11.3 L g/dL (12.0-15.0) Hct 35.2 L % (37.0-47.0) MCV 85.2 fl (80-100) MCH 27.4 pg (26-34) MCHC 32.1 g/dl (32-36) RDW 14.5 % (11.5-14.5) Plt Count 313 k/mm3 (150-375) MPV 9.9 fl (7.4-10.4) Immature Gran % (Auto) 1.8 H % (0-0.5) Neut % (Auto) 69.6 % (45.5-73.1) Lymph % (Auto) 19.9 % (18.3-44.2) [place] % (Auto) 7.8 % (2.6-8.5) Eos % (Auto) 0.5 % (0-4.4) Baso % (Auto) 0.4 % (0.2-1.2) Lymph # (Auto) 2.64 K/mm3 (0.9-3.2) [place] # (Auto) 1.0 H K/mm3 (0.1-0.6) Eos # (Auto) 0.1 K/mm3 (0-0.3) Baso # (Auto) 0.1 K/mm3 (0.0-0.1) Abs Immat Gran (auto) 0.24 H K/mm3 (0.00-0.031) Absolute Neuts (auto) 9.2 H K/mm3 (1.3-6.7) Absolute Nucleated RBC 0.000 K/mm3 (0.0-0.012) Nucleated RBC % 0.0 % (0.0-0.2) Syphilis IgG/IgM Ab Non-reactive (Nonreactive) HIV 1&2 Ab/P24 Ag 4thGn Negative (Negative) Blood Type A Positive Antibody Screen Negative Patient hx anesthesia problems: none Family hx anesthesia problems: none Results Review: All pre-operative results and documents have been reviewed as part of the pre-operative evaluation. FORMERLY [facility], [facility] Past Medical History Medical History Cholestasis during Family History Family History Grandparent Hypertension Cerebrovascular accident Bipolar 1 disorder Depression Father Hypertension Bipolar 1 disorder Depression Sibling Hypothyroidism Depression Social History Social History Years smoked: 10 Smoking status: Current every day smoker Tobacco type: e-cigarettes/vaping Second hand tobacco smoke exposure: Yes Substance use: never Do You Feel Safe in your Home?: Yes Lack of Transportation: No Lack of Food: Never True Current Housing: I Have Housing Concerned About Future Housing: No Difficulty Paying Gas/Electric Bills: No Difficulty Paying for Meds: No Currently Unemployed: No Education: High School Diploma/GED Difficulty w/ Childcare or Family Care: No Spiritual care concerns: No Anes - Eval Final PreProcedure Day of Procedure 10/26/24 12:24 Patient weight: overweight ASA classification: II Anesthetic plan: proceed Anesthesia type and monitoring: regional epidural and standard monitoring Results Review: All pre-operative results and documents have been reviewed as part of the pre-operative evaluation. Informed Consent: The patient's anesthetic plan and its attendant risks and benefits were discussed with the patient/family/POA. Questions were solicited and answers provided to the satisfaction of the patient/family/POA.
--- NOTE | 2024-10-26 12:52 | WPDHPUPDATE1 ---
History and Physical Update Update Date/Time: 10/26/24 12:52 28-year-old multiparous female presents for induction of labor for cholestasis of . Reassuring status. Pitocin has been started. Attempted rupture membranes. It is uncertain if the membranes are ruptured. 3 cm 50% -3. Active management of labor. History and Physical has been reviewed, including an updated exam of the patient. There are NO changes in the patient's condition. Risks, benefits, and alternatives have been discussed and questions answered. Patient agrees to proceed with procedure.
--- NOTE | 2024-10-26 20:41 | PM.OBPRVD ---
OB - Vaginal Delivery Note Procedure Delivery date: 10/26/24 Events: Other (cholestasis) Induction method: AROM and Per Pitocin Protocol Delivery monitor: External FHT and External Uterine Route of delivery: Episiotomy description: None Laceration Description: None Specimen: No Quantitative Blood Loss (ml): 75 Anesthesia type: Epidural Disposition: Floor Complications: No immediate complications [place] Baby Date of : 10/26/24 Time of : 20:32 Gestational Age by Date: 36 Infant gender: Female presentation: vertex position: Left Occiput Anterior Placenta delivery description: Spontaneous Cord Vessel Description: 3 Vessels, Clamped/Cut and Delayed Cord Clamping score one minute: 9 score five minutes: 9
[2024-10-26] MEDS: OXYTOCIN 30 UNITS/NS 500 ML 30 UNITS/500 ML BAG 125 UNITS IV CONT (21:20)
[2024-10-26] MEDS: miSOPROStol 200 MCG TABLET 1000 MCG RECTAL (21:30)
[2024-10-26] MEDS: ONDANSETRON INJ 4 MG/2 ML VIAL IV PUSH (22:15)
[2024-10-27] VITALS (7 sets, daily range): BP systolic 96–118; BP diastolic 58–76; PULSE 89–120; RESP 16; TEMP 36.1–37.3; O2SAT 97–100
[2024-10-27] MEDS: BENZOCAINE 20% AER SPR (*SP) 56 GM CAN 1 SPRAY TOPICAL (00:38)
[2024-10-27] MEDS: WITCH HAZEL 40 PADS 1 PAD TOPICAL (00:38)
--- NOTE | 2024-10-27 00:45 | OBPPTRN ---
Patient transferred to post room # 284 via wheelchair. Support person present. Oriented to unit, room, information board, rooming in, admission packet and security measures. Patient verbalizes understanding.
[2024-10-27] MEDS: IBUPROFEN 600 MG TABLET PO ×2 (03:42→15:33)
[2024-10-27] MEDS: DOCUSATE SODIUM 100 MG CAPSULE PO ×2 (09:05→15:30)
[2024-10-27] MEDS: ACETAMINOPHEN 325 MG TABLET 650 MG PO (09:05)
[2024-10-27] MEDS: MULTIVIT/MIN/PREN/FOL AC/IRON TABLET 1 TAB PO (09:05)
--- NOTE | 2024-10-27 09:57 | P.PNOB_ITS ---
OB - PN: Subj Subjective Date/time seen: 10/27/24 09:57 Patient comments: no complaints, pain well controlled, incisional pain, tolerating diet and flatus present OB - PN: Obj Data Labs 10/26/24 07:08 OB - PN A/P Plan day: 1 Plan: routine care Comments: No problems, routine care Time Spent With Patient Time: Total time spent is greater than 50% in coordination of care (as documented) at patient's floor/unit and/or counseling patient: Exam 2 Const: General: comfortable, no acute distress and alert Resp: Effort & Inspection: normal respiratory effort Auscultation: no crackles, no rales and no rhonchi Cardio: Rate: regular rate Heart sounds: no click, no murmurs and no rubs GI: Inspection: non-distended GI Palp: No Tenderness to palpation present (GI) Auscultation: normal bowel sounds Other: Incision - CDI Extrem: General: normal to inspection, no pedal edema and no calf tenderness
--- NOTE | 2024-10-27 11:30 | PC.NURSE ---
Introductions were made, then consulted with patient to assess needs related to . Discussed with mother her plans to feed her and the experience so far. Mom states that baby is latching great but gets sleepy during the feeding. We reviewed skin to skin and ways to help keep baby awake. Mom asks about the need for supplementation after because she has chosen to after a few feedings. Baby's blood sugars are WNL. Encouraged mom to assess each feeding for effectiveness and to supplement as needed. Patient is encouraged to call out for assistance with any feedings today. Resources provided for inpatient and outpatient services with the feeding sheet, mom/baby guide and name written on the communication board. Mother voiced understanding of information and will call if there is a request for assistance. Reported to the Primary RN.?
--- NOTE | 2024-10-27 17:47 | WPDANLDPN2 ---
Anes-Prog Note L&D Date/Time: 10/27/24 17:47 Neuro status: Neuro function grossly intact. Cardiovascular status: normal Respiratory status: normal Airway patency: baseline Mental status: baseline Post-Op hydration status: normal Vital Signs: Last Vital Signs Temp 36.6 C 10/27/24 12:10 Pulse 91 10/27/24 12:10 Resp 16 10/27/24 12:10 BP 108/59 L 10/27/24 12:10 Pulse Ox 98 10/27/24 12:10 O2 Del Method Room Air 10/27/24 12:15 Pain score (VAS): 0 I/O: Intake & Output 10/27/24 10/27/24 10/27/24 07:59 15:59 23:59 Intake Total 700 Output Total 535 Balance 165 Post-procedural complaints: none Patient feedback: Patient satisfied with anesthetic care.
[2024-10-28 04:52] LABS: Hematocrit 36.1 % (37.0-47.0); Hemoglobin 11.3 g/dL (12.0-15.0)
--- NOTE | 2024-10-28 06:30 | P.PNOB_ITS ---
OB - PN: Subj Subjective Date/time seen: 10/28/24 06:30 Interval history: PPD#2 Doing well, pain controlled Voiding without issue Tolerating general diet Ready for discharge today OB - PN: Obj Data Labs 10/28/24 04:46 Labs: Laboratory Results - last 24 hr 10/28/24 04:46 Hgb 11.3 L Hct 36.1 L OB - PN A/P Plan day: 2 Plan: routine care and discharge home Time Spent With Patient Time: Total time spent is greater than 50% in coordination of care (as documented) at patient's floor/unit and/or counseling patient: Review of Systems 2 Review of Systems: All systems reviewed & are unremarkable except as noted in HPI and below Exam 2 Const: General: comfortable and no acute distress O rientation/consciousness: patient oriented x3 Resp: Effort & Inspection: normal respiratory effort
--- NOTE | 2024-10-28 06:33 | PM.OBDSVD ---
DS: Admitting Diagnosis Discharge Date 10/28/24 Admitting Diagnosis cholestasis, MIL DS: Discharge Diagnosis Discharge Diagnosis (1) (spontaneous vaginal delivery): Code(s): O80 - Encounter for full-term uncomplicated delivery Status: Acute OB - DS: Summary OB Procedures : None OB Procedures Intrapartum: Spontaneous Vag Delivery OB Procedures: : None Peripartum Data Laceration Description: None Episiotomy description: None Time Spent with Patient Time attestation: Total time spent providing and/or coordinating discharge services: DS: Data Data Completed and Pending Labs on day of discharge: Labs from last 24 hours 10/28/24 04:46 Hgb 11.3 L Hct 36.1 L Discharge Plan Discharge Attending physician on discharge: Valentino Gamboa Discharging Clinician: Valentino Gamboa Patient Disposition: Home Activity: may shower, as tolerated and pelvic rest Diet: as tolerated Patient Instructions: Antibiotic Form Patient Language: [place] Island[place] Stand Alone Forms: General Discharge Information Follow-up/Referrals: Jacek Smith MD [Physician] - 4 Weeks Discharge Medications: New docusate sodium 100 mg Capsule 100 mg PO BID PRN (Reason: Constipation) Qty: 60 0RF ibuprofen 600 mg Tablet 600 mg PO Q6H PRN (Reason: Cramping) Qty: 30 0RF Continued 28-800 mg-mcg Tablet 1 tablet PO DAILY Discontinued xxfquxgegv-lxlcrsgsuqaxk-bxab 50-300-40 mg capsule 1 cap PO Q4H PRN (Reason: Migraine) ferrous sulfate [Slow Release Iron] 142 mg (45 mg iron) tablet extended release 142 mg PO HS ursodiol 500 mg tablet 500 mg PO BID Date of admission: 10/26/24 06:14 Primary Care Provider: Kiesha,Terrance Palma Admitting Provider: Jacek Smith Attending physician on admission: Jacek Smith Condition: Stable
[2024-10-28 08:10] VITALS: BP 106/77; PULSE 84; RESP 16; TEMP 36.9; O2SAT 99
--- NOTE | 2024-10-28 08:50 | PC.NURSE ---
Reviewed standard discharge information with patient including milk production and need to pump regularly for good initiation of milk supply. She states that she offers the breast to baby for a few minutes at each feeding and then gives formula due to baby being early and tiring easily. Offered outpatient resources with [place] referral (declined) and Services at [facility]. She has a breast pump for home use. Patient has the Mom/Baby Guide for further education and reference for common concerns, phone numbers, and guidance on when to call the doctor. An ineffective feeding plan was added to the infant?s discharge plan. Patient states that she has no further questions or concerns regarding .?
[2024-10-28] MEDS: MULTIVIT/MIN/PREN/FOL AC/IRON TABLET 1 TAB PO (10:08)
[2024-10-30 08:25] VITALS: BP 116/79; PULSE 98; RESP 18; TEMP 36.7; O2SAT 100
== END 2024-10-28 15:50 | disposition home or self-care (01) | DRG 560 ==
LOC: ANHOB2 10-28 06:33 → ANHLDR 10-29 09:16 → ANHOB2 10-29 09:16
PROVIDERS: Advanced Practice Midwife; Admitting Provider Obstetrics & Gynecology; PCP Family Medicine; Visit Provider Obstetrics & Gynecology
DX: O26.643 Intrahepatic cholestasis of pregnancy, third trimester (principal); Z37.0 Single live birth; Z3A.36 36 weeks gestation of pregnancy; O77.0 Labor and delivery complicated by meconium in amniotic fluid
CPT/HCPCS: 36415; 85014; 85018; 85025; 86593; 86703; 86850; 86900; 86901; A9270; G0432; J2405; J2590; J2795; J3010; J7120